=== PATIENT | female | born 1965 | race Caucasian/White ===

== ENCOUNTER 2019-11-24 12:05 | Outpatient (REF) | payer MEDICAID, SELFPAY ==
--- NOTE | 2019-11-24 12:16 | XR_ITS ---
EXAMINATION: XR THORACOLUMBAR SPINE CLINICAL INFORMATION: Pain. COMPARISON: None TECHNIQUE: 3 views. FINDINGS: There is maintained thoracic kyphosis. The vertebral heights and alignment is normal. The disc heights are maintained. There is mild ventral spondylosis. No visible acute fracture or dislocation seen. IMPRESSION: No compression fractures or subluxations are identified. The disc spaces are preserved. No endplate changes are seen. The prevertebral soft tissues are normal. The foramina are patent.
--- NOTE | 2019-11-24 12:17 | XR_ITS ---
EXAMINATION: XR CHEST CLINICAL INFORMATION: Shortness of breath COMPARISON: Chest radiographs 07/31/2019, 05/31/2016 TECHNIQUE: 2 views of the chest were obtained. FINDINGS: Lungs are clear. The vascularity is normal. There is no airspace consolidation or groundglass opacity. The costophrenic sulci are clear. The heart is normal in size. The hilar and mediastinal contours are normal. There is gentle levocurvature again noted thoracic spine. IMPRESSION: Lungs clear. No acute intrathoracic disease.
== END 2019-11-24 12:06 | disposition home or self-care (01) ==
LOC: HO.XRAY 12:05
PROVIDERS: PCP Family Medicine; Visit Provider Nurse Practitioner Family
DX: R06.02 Shortness of breath (principal); M54.6 Pain in thoracic spine
CPT/HCPCS: 71046; 72070

== ENCOUNTER 2020-01-12 10:56 | Outpatient (REF) | payer MEDICAID, SELFPAY ==
[2020-01-13 09:21] LABS: BV Int Neg Control Negative (Negative); BV Int Pos Control Positive (Positive)
[2020-01-16 18:13] LABS: CT PCR NOT DETECTED (Not Detect.); NG PCR NOT DETECTED (Not Detect.)
== END 2020-01-12 10:57 | disposition home or self-care (01) ==
LOC: HO.LAB 10:56
PROVIDERS: Visit Provider Advanced Practice Midwife
DX: Z01.419 Encounter for gynecological examination (general) (routine) without abnormal findings (principal); N39.3 Stress incontinence (female) (male); N89.8 Other specified noninflammatory disorders of vagina
CPT/HCPCS: 87480; 87491; 87510; 87591; 87660

== ENCOUNTER 2020-02-26 09:46 | Outpatient (REF) | payer MEDICAID, SELFPAY ==
--- NOTE | 2020-02-26 | US_ITS ---
EXAMINATION: RIGHT and LEFT LOWER EXTREMITY VENOUS ULTRASOUND (Reflux Exam) CLINICAL INDICATION: venous insufficiency COMPARISON: None. TECHNIQUE: Color flow triplex imaging and compression Doppler was performed to evaluate both the deep and the superficial systems bilaterally. To evaluate the superficial system, the examination was performed in the upright position. Color-flow Doppler ultrasound and compression ultrasound were utilized. In addition, maneuvers were utilized to demonstrate reflux. FINDINGS: 1. DEEP VENOUS ULTRASOUND OF THE RIGHT LOWER EXTREMITY: Respiratory variation, normal compression and augmented flow are noted in the right common femoral vein as well as the right popliteal vein and there is no evidence of deep venous thrombosis at these locations. There is no evidence of reflux in the deep system in either the common femoral vein or the popliteal vein. There is no evidence of a Mcneil's cyst. 2. SUPERFICIAL ULTRASOUND WITH DOPPLER OF RIGHT LOWER EXTREMITY: The right great saphenous vein at the saphenofemoral junction measures 7 mm, at the mid thigh 4 mm, [id number] 4 mm, [id number] 3 mm, at mid calf 2 mm and at the ankle measures 3 mm. There is no reflux demonstrated in the right great saphenous vein. The right small saphenous vein measures 2-3 mm and shows no reflux. There is a interior design director in the mid calf that measures 4 mm and does not demonstrate reflux. There are varicosities in the proximal thigh at the knee that measure 3 and 4 mm and do not demonstrate reflux. 3. DEEP VENOUS ULTRASOUND OF THE LEFT LOWER EXTREMITY: Respiratory variation, normal compression and augmented flow are noted in the left common femoral vein as well as the left popliteal vein and there is no evidence of deep venous thrombosis at these locations. There is no evidence of reflux in the deep system in either the common femoral vein or the popliteal vein. . There is no evidence of a Mcneil's cyst. 4. SUPERFICIAL ULTRASOUND WITH DOPPLER OF LEFT LOWER EXTREMITY: Left great saphenous vein at the saphenofemoral junction measures 8 mm, at the mid thigh 3 mm, [id number] 4 mm, [id number] 4 mm, at mid calf to mm and at the ankle measures 2 mm. There is no reflux demonstrated in the left great saphenous vein. The left small saphenous vein measures 3-4 mm and shows no reflux. There are perforators in the mid and distal thigh that measure 3 and 2 mm and and do not demonstrate reflux. There is a varicosity in the proximal thigh that measures 3 mm and does not demonstrate reflux. US/US venous duplex LE BI IMPRESSION: 1. No evidence of reflux or thrombus in the common femoral veins or popliteal veins bilaterally. 2. The saphenous systems are competent bilaterally.
== END 2020-02-26 09:47 | disposition home or self-care (01) ==
LOC: HO.US 09:46
PROVIDERS: Visit Provider Surgery Vascular Surgery
DX: I83.12 Varicose veins of left lower extremity with inflammation (principal)
CPT/HCPCS: 93970

== ENCOUNTER 2020-03-04 08:45 | Outpatient (REF) | payer MEDICAID, SELFPAY ==
--- NOTE | 2020-03-04 08:50 | XR_ITS ---
EXAMINATION: XR KNEE, RIGHT CLINICAL INFORMATION: Right knee pain. COMPARISON: None TECHNIQUE: Four views of the right knee. This includes AP upright view. FINDINGS: No fracture or subluxation. Mild medial compartment joint space narrowing with small marginal osteophytes. Remaining compartments are maintained. No joint effusion. The soft tissues are unremarkable. XR/XR knee RT 4V IMPRESSION: Mild degenerative changes of the medial compartment.
== END 2020-03-04 08:46 | disposition home or self-care (01) ==
LOC: HO.XRAY 08:45
PROVIDERS: Visit Provider Internal Medicine
DX: M25.561 Pain in right knee (principal)
CPT/HCPCS: 73564

== ENCOUNTER → 2020-03-30 09:46 | Outpatient (BNVA) | payer MEDICAID, SELFPAY | PROVIDERS: PCP Nurse Practitioner Family; Visit Provider Surgery Vascular Surgery | DX: M79.89 Other specified soft tissue disorders (principal) | CPT/HCPCS: 99212 ==

== ENCOUNTER 2020-09-06 08:54 | Outpatient (REF) | payer MEDICAID, SELFPAY ==
--- NOTE | ~2020-09-06 | XR_ITS ---
EXAMINATION: XR HIP, RIGHT CLINICAL INFORMATION: Trochanteric bursitis COMPARISON: None TECHNIQUE: Two views of the right hip. FINDINGS: Bones and soft tissues are normal. No fracture. Alignment is anatomic. Hip joint space is maintained. XR/XR hip RT min 2V IMPRESSION: Normal right hip.
--- NOTE | ~2020-09-06 | XR_ITS ---
EXAMINATION: XR LUMBOSACRAL SPINE CLINICAL INFORMATION: Low back pain and right-sided sciatica COMPARISON: Previous x-ray July 2015 TECHNIQUE: Three views of the lumbosacral spine. FINDINGS: Bone alignment is normal. No fracture or dislocation is seen. There is degenerative disc disease at L4-L5 and L5-S1. There is lower lumbar spine facet arthritis. XR/XR lumbar spine 2-3V IMPRESSION: Degenerative disc disease at L4-L5 and L5-S1 and lower lumbar spine facet arthritis.
== END 2020-09-06 08:55 | disposition home or self-care (01) ==
LOC: HO.XRAY 08:54
PROVIDERS: Absent Provider Family Medicine; PCP Family Medicine; Visit Provider Internal Medicine
DX: M54.41 Lumbago with sciatica, right side (principal); M70.61 Trochanteric bursitis, right hip
CPT/HCPCS: 72100; 73502

== ENCOUNTER 2021-01-20 12:00 | Outpatient (REF) | payer MEDICAID, SELFPAY ==
[2021-01-20 13:57] LABS: Basophils Percent Auto 0.5 % (0-2); Eosinophils Absolute Auto 0.1 X10*3/uL (0.0-0.4); Eosinophils Percent Auto 0.6 % (0-4); Hematocrit 37.5 % (37.0-47.0); Hemoglobin 11.2 g/dl (12.0-16.0); Imm Gran Abs Auto 0.03 X10*3/uL (0.00-0.03); Imm Gran Pct Auto 0.4 % (0.0-0.4); Lymphocytes Percent Auto 23.8 % (20-40); Mean Corpuscular HGB Conc 29.9 g/dl (31.0-35.0); Mean Corpuscular Hemoglobin 18.9 pg (27.0-33.0); Monocytes Absolute Auto 0.8 X10*3/uL (0.1-1.2); Monocytes Percent Auto 9.4 % (2-11); Neutrophils Absolute Auto 5.4 x10*3/uL (2.0-8.3); Neutrophils Percent Auto 65.3 % (45-73); Platelet Count 249 X10*3/uL (160-400); Red Blood Count 5.93 X10*6/uL (4.20-5.50); Red Cell Distribution Width 17.2 % (11.0-16.0); SCAN SMEAR FLAG 1; White Blood Count 8.3 X10*3/uL (4.8-10.8)
[2021-01-20 13:59] LABS: Mean Corpuscular Volume 63.2 fL (80.0-98.0); PLT ABN DIST 1
[2021-01-20 14:00] LABS: MANUAL DIFF FLAG NO
[2021-01-20 14:18] LABS: Alanine Aminotransferase 23 U/L (0-31); Albumin Level 4.3 g/dL (3.5-5.0); Alkaline Phosphatase 127 U/L (39-117); Anion Gap 10 (12-20); Aspartate Amino Transferase 17 U/L (5-31); Bilirubin Direct < 0.2 mg/dL (0.0-0.5); Bilirubin Total 0.3 mg/dL (0.0-1.0); Blood Urea Nitrogen 19 mg/dL (9-16); Calcium 9.7 mg/dL (8.4-10.2); Carbon Dioxide 28 mmol/L (22-29); Chloride 105 mmol/L (96-108); Estimated Glomerular Filt Rate > 60; Gamma Glutamyl Transpeptidase 29 U/L (7-33); Glucose Random 86 mg/dL (60-115); Potassium 4.3 mmol/L (3.3-5.1); Sodium 139 mmol/L (135-145); Total Protein 7.6 g/dL (6.5-8.0)
[2021-01-20 14:47] LABS: Ferritin 468 ng/mL (10-250)
[2021-01-21 07:51] LABS: HBS Num1 1.93 mIU/mL (0-7.99); HBc Num1 0.13 S/CO (0.00-0.79); HBsAGNum1 0.27 S/CO (0.00-0.99); HIV AB/AG Nonreactive (Nonreactive); HIV Num 1 0.07 S/CO (0.00-0.99); Hepatitis B Core Antibody Nonreactive (Nonreactive); Hepatitis B Surface Antigen Negative (Negative); ~HepC Num1 0.13 S/CO (0.00-0.79); ~Hepatitis B Surface Antibody NONREACTIVE (Nonreactive); ~Hepatitis C Antibody Nonreactive (Nonreactive)
[2021-01-21 08:12] LABS: Hepatitis A Antibody IgM 0.13 Index (0-0.79); ~Hepatitis A Antibody IgM Nonreactive (Nonreactive)
[2021-01-24 11:12] LABS: Anti Nuclear Antibody Screen POSITIVE (NEGATIVE); Anti Nuclear Antibody Titer 1:40 titer
[2021-01-24 12:42] LABS: Alpha Fetoprotein 4.3 ng/mL
[2021-01-25 11:46] LABS: Smooth Muscle Antibody <20 U (<20)
[2021-01-25 16:42] LABS: Mitochondrial Antibodies NEGATIVE (NEGATIVE)
== END 2021-01-20 12:01 | disposition home or self-care (01) ==
LOC: HO.LAB 12:00
PROVIDERS: PCP Family Medicine; Referring Provider Family Medicine; Visit Provider Nurse Practitioner
DX: Z11.4 Encounter for screening for human immunodeficiency virus [HIV] (principal); R79.89 Other specified abnormal findings of blood chemistry
CPT/HCPCS: 36415; 80053; 82105; 82248; 82728; 82977; 85025; 86038; 86039; 86255; 86256; 86704; 86706; 86709; 86803; 87340; 87389; 99202

== ENCOUNTER 2021-02-04 13:23 | Inpatient (IN) | payer MEDICAID, OTHER, SELFPAY ==
[2021-02-04 13:31] VITALS: BP 119/65; BP 140/80; PULSE 88; PULSE 96; RESP 16; TEMP 36.8; O2SAT 96; BMI 41.8
--- NOTE | 2021-02-04 14:13 | ED.GENADULT ---
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 She reports her oldest son who lives a couple of blocks away called 911 so she could be evaluated. She says the clinic told him she was throwing her medications in the trash. She admits to not eating much lately because she is afraid to cook in her home because it is hot. She has had white rice and spaghetti. She states she hasn't been to the grocery store since Nov but has been out 2 weeks ago to go clothes shopping. She reports being anxious and nervous lately but cannot elaborate. She is desperate' but cannot say for what. She denies AH/VH. She reports only medications she is supposed to be on is thyroid medication and cholesterol medication. She is a vague historian, gave permission to get additional history from her son Jed. He reports she started to decline in December. He states that patient is very paranoid, hallucinating and seeing things that are not there. He reports she has a history of this 3 years ago required hospitalization in [place]. He reports it was due to her not taking her thyroid medications and her hormones being off. He reports when he called [facility] that she has not picked up her Synthroid since October. He states she is not bathing, not brushing her teeth because she is afraid of things on her skin. She reports animals in her home. He states she ?is not in her right state of mind. ? He is worried about her safety at home. He called 911 this morning because she was up all night calling family members about animals in the house. <FATEMEH Kraft - Last Filed: 02/04/21 20:20> MD complaint: Mental health evaluation <FATEMEH Kraft - Last Filed: 02/04/21 20:20> Onset (ago): week(s) <FATEMEH Kraft - Last Filed: 02/04/21 20:20> Severity: similar to prior episodes <FATEMEH Kraft - Last Filed: 02/04/21 20:20> Pain Consistency: constant <FATEMEH Kraft - Last Filed: 02/04/21 20:20> Relieving factors: none <FATEMEH Kraft - Last Filed: 02/04/21 20:20> Exacerbating factors: none <FATEMEH Kraft - Last Filed: 02/04/21 20:20> Associated symptoms: loss of appetite and weakness <FATEMEH Kraft - Last Filed: 02/04/21 20:20> Treatments prior to arrival: none <FATEMEH Kraft - Last Filed: 02/04/21 20:20> Related Data Home medications: Home Medications Medication Instructions Recorded Confirmed levothyroxine 175 mcg tablet 175 mcg PO DAILY 01/12/20 02/05/21 (Synthroid) acetaminophen 500 mg tablet 500 - 1,000 mg PO Q8H PRN 01/20/21 02/05/21 albuterol sulfate 90 mcg/actuation 2 puff PO Q4-6H PRN 01/20/21 02/05/21 aerosol inhaler (ProAir HFA) atorvastatin 20 mg tablet 20 mg PO DAILY 01/20/21 02/05/21 cholecalciferol (vitamin D3) 50 50 mcg PO DAILY 01/20/21 02/05/21 mcg (2,000 unit) capsule ciclopirox 8 % topical solution 1 ml TOPICAL BEDTIME 01/20/21 02/05/21 escitalopram oxalate 5 mg tablet 5 mg PO QPM 01/20/21 02/05/21 folic acid 1 mg tablet 1 mg PO DAILY 01/20/21 02/05/21 omeprazole 20 mg capsule,delayed 20 mg PO DAILY 01/20/21 02/05/21 release <FATEMEH Kraft - Last Filed: 02/04/21 20:20> Allergies/adverse reactions: Allergies Allergy/AdvReac Type Severity Reaction Status Date / Time acetaminophen [Percocet] Allergy Unknown Unknown Verified 01/20/21 12:29 aspirin [ASA] Allergy Unknown BURNING Verified 01/20/21 12:29 IN STOMACH morphine [MORPHINE] Allergy Unknown HEADACHES Verified 01/20/21 12:29 Motrin Allergy Unknown Unknown Verified 01/20/21 12:29 naproxen Allergy Unknown Unknown Verified 01/20/21 12:29 oxycodone [Percocet] Allergy Unknown Unknown Verified 01/20/21 12:29 ibuprofen [From MOTRIN] AdvReac Unknown STOMACH Verified 01/20/21 12:29 UPSET compacine Allergy Unknown Unknown Uncoded 01/12/20 11:45 Compoz Allergy Unknown Unknown Uncoded 01/12/20 11:45 From COMPAZINE AdvReac Unknown Unknown Uncoded 01/12/20 11:45 <FATEMEH Kraft - Last Filed: 02/04/21 20:20> Review of Systems Review of Systems: Constitutional: No Fever, No Chills ENT/Mouth: No sore throat, No Rhinorrhea, No Swallowing Difficulty Cardiovascular: No Chest Pain, No SOB, No Orthopnea, No Edema Respiratory: No Cough, No Sputum, No Wheezing, No dyspnea Gastrointestinal: No Nausea, No Vomiting, No Diarrhea, No abdominal Pain Genitourinary: No Dysuria, No Urinary Frequency, No Hematuria Musculoskeletal: No joint pain, No Myalgias Skin: No Skin Lesions, No rash Neuro: + Weakness, No Numbness, No Dizziness, No Headache Psych: + Anxiety/Panic, No Depression, +Paranoia Heme/Lymph: No Bruising, No Lymphadenopathy Endocrine: No Polyuria, No Polydipsia <FATEMEH Kraft - Last Filed: 02/04/21 20:20> [facility] Past Medical History Medical History: Medical History (Updated 02/04/21 @ 20:19 by FATEMEH Kraft) Anemia Breast cancer Hallucinations, unspecified Post hysterectomy menopause Thyroid activity decreased <FATEMEH Kraft - Last Filed: 02/04/21 20:20> Surgical History: Surgical History (Updated 12/27/20 @ 10:24 by ENID Morales) History of cholecystectomy History of hysterectomy <FATEMEH Kraft - Last Filed: 02/04/21 20:20> Family History Family History: Family History Mother Diabetes Father HTN (hypertension) <FATEMEH Kraft - Last Filed: 02/04/21 20:20> Social History Social History: Social History Alcohol intake: never Patient Tobacco Use Status: Never used Tobacco Smoked in Last 30 Days: No Advance Directives: No Advance Directives Information Provided: No Patient : No Gender identity: Female <FATEMEH Kraft - Last Filed: 02/04/21 20:20> Physical Exam Vital Signs: Vital Signs: Last Vital Signs Temp 98.8 F 02/04/21 23:51 Pulse 80 02/04/21 23:51 Resp 18 02/05/21 06:00 BP 134/71 02/04/21 23:51 Pulse Ox 97 02/05/21 01:16 BMI result Body Mass Index 41.8 <FATEMEH Kraft - Last Filed: 02/04/21 20:20> Vital Signs: Last Vital Signs Temp 98.8 F 02/04/21 23:51 Pulse 80 02/04/21 23:51 Resp 18 02/05/21 06:00 BP 134/71 02/04/21 23:51 Pulse Ox 97 02/05/21 01:16 BMI result Body Mass Index 41.8 <Prema Clark MD - Last Filed: 02/05/21 05:53> Vital Signs: Last Vital Signs Temp 98.8 F 02/04/21 23:51 Pulse 80 02/04/21 23:51 Resp 18 02/05/21 06:00 BP 134/71 02/04/21 23:51 Pulse Ox 97 02/05/21 01:16 BMI result Body Mass Index 41.8 <FATEMEH Goldsmith - Last Filed: 02/05/21 09:40> Appearance: Alert. Oriented X3. No acute distress. Eyes: Pupils equal, round and reactive to light. ENT: Pharynx normal. Neck: Normal inspection. Neck supple. CVS: Normal heart rate and rhythm. Pulses normal. Respiratory: No respiratory distress. Breath sounds normal. Abdomen: Obese and nontender. +BS x4 Skin: Skin warm and dry. Normal skin color. Normal skin turgor. No rashes. Extremities: No lower extremity edema. Neuro/psych: Oriented X 3. No motor deficit. No sensory deficit. CN II-XII intact. Vague historian, poor insight and judgment. anxious <FATEMEH Kraft - Last Filed: 02/04/21 20:20> Course Course Course Narrative: 55-year-old female with a history of hypothyroidism, mild intermittent asthma, migraine headaches, depression presents to the ER with paranoid a, hallucinations per her family as well as not taking care of herself. Her son reports that she has been having tactile and visual hallucinations with paranoid delusions. She has been noncompliant with her Synthroid and he is worried about imbalance of her thyroid hormones which she has had a history of in the past. On arrival to the ER patient is alert and oriented calm and cooperative. Her vital signs are normal. Her exam is benign. She has a vague historian and has underlying anxiety. Will get metabolic workup and is medically cleared will have [facility] evaluate her. <FATEMEH Kraft - Last Filed: 02/04/21 20:20> Reevaluation(s) Reevaluation #1: TSH is normal. Rest of metabolic workup is normal. U tox is negative. Patient is medically cleared. Physician observation started at 4pm. Patient placed in physician observation because patient is awaiting [facility] evaluation for the possible need of inpatient psych admission. At the time observation was started patient's vital signs were stable. Patient is alert and oriented. Neuro exam is non-focal. CV: RRR and lungs are clear. Will continue to monitor. <FATEMEH Kraft - Last Filed: 02/04/21 20:20> Reevaluation #2: Patient was evaluated by [facility]. Patient will be re-evaluated this morning, then her disposition will be determined. Patient had an uneventful night <Prema Clark MD - Last Filed: 02/05/21 05:53> Time: 09:39 <FATEMEH Goldsmith - Last Filed: 02/05/21 09:40> Reevaluation #3: Physician observation continues, patient is in no apparent distress, vital signs are stable, heart rate regular rhythm, calm and cooperative, no acute events overnight. Lungs mildly wheezy to auscultation, will provide albuterol inhaler. Patient needs re-evaluation by Behavioral Health today. Will continue to monitor <FATEMEH Goldsmith - Last Filed: 02/05/21 09:40> Medical Decision Making Lab Data Result diagrams: : 02/04/21 14:33 02/04/21 14:33 <FATEMEH Kraft - Last Filed: 02/04/21 20:20> Labs: Lab Results 02/04/21 02/04/21 02/04/21 Range/Units 14:33 14:33 14:33 WBC 8.5 (4.8-10.8) X10*3/uL RBC 5.94 H (4.20-5.50) X10*6/uL Hgb 11.2 L (12.0-16.0) g/dl Hct 37.1 (37.0-47.0) % MCV 62.5 L (80.0-98.0) fL MCH 18.9 L (27.0-33.0) pg MCHC 30.2 L (31.0-35.0) g/dl RDW 15.9 (11.0-16.0) % Plt Count 253 (160-400) X10*3/uL MPV 10.2 (9.4-12.3) fL Immature Gran % (Auto) 0.4 (0.0-0.4) % Neut % (Auto) 73.2 H (45-73) % Lymph % (Auto) 17.9 L (20-40) % [place] % (Auto) 7.9 (2-11) % Eos % (Auto) 0.2 (0-4) % Baso % (Auto) 0.4 (0-2) % Lymph # (Auto) 1.5 (1.2-4.9) X10*3/uL [place] # (Auto) 0.7 (0.1-1.2) X10*3/uL Eos # (Auto) 0.0 (0.0-0.4) X10*3/uL Baso # (Auto) 0.0 (0.0-0.2) X10*3/uL Abs Immat Gran (auto) 0.03 (0.00-0.03) X10*3/uL Absolute Neuts (auto) 6.3 (2.0-8.3) x10*3/uL Absolute Nucleated RBC 0.000 (0.0-0.012) X10*3/uL Nucleated RBC % (auto) 0.0 (0.0-0.2) /100WBC Sodium 139 (135-145) mmol/L Potassium 4.0 (3.3-5.1) mmol/L Chloride 106 (96-108) mmol/L Carbon Dioxide 27 (22-29) mmol/L Anion Gap 10 L (12-20) BUN 12 (9-16) mg/dL Creatinine 0.86 (0.5-1.4) mg/dL Estim Creat Clear Calc 84.6 Estimated GFR > 60 Random Glucose 97 (60-115) mg/dL Calcium 9.5 (8.4-10.2) mg/dL Magnesium 2.1 (1.6-2.6) mg/dL Total Bilirubin 0.7 (0.0-1.0) mg/dL Direct Bilirubin 0.2 (0.0-0.5) mg/dL AST 28 D (5-31) U/L ALT 26 (0-31) U/L Alkaline Phosphatase 122 H (39-117) U/L Total Protein 7.6 (6.5-8.0) g/dL Albumin 4.3 (3.5-5.0) g/dL TSH 1.08 (0.32-4.0) uIU/mL Urine Color Urine Appearance Urine pH (5.0-8.0) Ur Specific [place] (1.005-1.025) Urine Protein (NEG-TRACE) MG/DL Urine Glucose (UA) (NEG) MG/DL Urine Ketones (NEG) MG/DL Urine Blood (NEG) Urine Nitrite (NEG) Ur Leukocyte Esterase (NEG) Urine Opiates Screen (Not Detect) Urine Fentanyl Screen (Not Detect) Ur Barbiturates Screen (Not Detect) Ur Phencyclidine Scrn (Not Detect) Ur Amphetamines Screen (Not Detect) U Benzodiazepines Scrn (Not Detect) Urine Cocaine Screen (Not Detect) U Marijuana (THC) Screen (Not Detect) Ethyl Alcohol mg/dL COVID-19 (GELY) Negative (Negative) COVID-19 Clin Com See Note 02/04/21 02/04/21 02/04/21 Range/Units 14:33 16:16 16:16 WBC (4.8-10.8) X10*3/uL RBC (4.20-5.50) X10*6/uL Hgb (12.0-16.0) g/dl Hct (37.0-47.0) % MCV (80.0-98.0) fL MCH (27.0-33.0) pg MCHC (31.0-35.0) g/dl RDW (11.0-16.0) % Plt Count (160-400) X10*3/uL MPV (9.4-12.3) fL Immature Gran % (Auto) (0.0-0.4) % Neut % (Auto) (45-73) % Lymph % (Auto) (20-40) % [place] % (Auto) (2-11) % Eos % (Auto) (0-4) % Baso % (Auto) (0-2) % Lymph # (Auto) (1.2-4.9) X10*3/uL [place] # (Auto) (0.1-1.2) X10*3/uL Eos # (Auto) (0.0-0.4) X10*3/uL Baso # (Auto) (0.0-0.2) X10*3/uL Abs Immat Gran (auto) (0.00-0.03) X10*3/uL Absolute Neuts (auto) (2.0-8.3) x10*3/uL Absolute Nucleated RBC (0.0-0.012) X10*3/uL Nucleated RBC % (auto) (0.0-0.2) /100WBC Sodium (135-145) mmol/L Potassium (3.3-5.1) mmol/L Chloride (96-108) mmol/L Carbon Dioxide (22-29) mmol/L Anion Gap (12-20) BUN (9-16) mg/dL Creatinine (0.5-1.4) mg/dL Estim Creat Clear Calc Estimated GFR Random Glucose (60-115) mg/dL Calcium (8.4-10.2) mg/dL Magnesium (1.6-2.6) mg/dL Total Bilirubin (0.0-1.0) mg/dL Direct Bilirubin (0.0-0.5) mg/dL AST (5-31) U/L ALT (0-31) U/L Alkaline Phosphatase (39-117) U/L Total Protein (6.5-8.0) g/dL Albumin (3.5-5.0) g/dL TSH (0.32-4.0) uIU/mL Urine Color YELLOW Urine Appearance HAZY Urine pH 6.5 (5.0-8.0) Ur Specific [place] 1.020 (1.005-1.025) Urine Protein TRACE (NEG-TRACE) MG/DL Urine Glucose (UA) NEG (NEG) MG/DL Urine Ketones 5 (NEG) MG/DL Urine Blood NEG (NEG) Urine Nitrite NEG (NEG) Ur Leukocyte Esterase NEG (NEG) Urine Opiates Screen Not Detected (Not Detect) Urine Fentanyl Screen Not Detected (Not Detect) Ur Barbiturates Screen Not Detected (Not Detect) Ur Phencyclidine Scrn Not Detected (Not Detect) Ur Amphetamines Screen Not Detected (Not Detect) U Benzodiazepines Scrn Not Detected (Not Detect) Urine Cocaine Screen Not Detected (Not Detect) U Marijuana (THC) Screen Not Detected (Not Detect) Ethyl Alcohol < 10 mg/dL COVID-19 (GELY) (Negative) COVID-19 Clin Com <FATEMEH Kraft - Last Filed: 02/04/21 20:20> Lab Results 02/04/21 02/04/21 02/04/21 Range/Units 14:33 14:33 14:33 WBC 8.5 (4.8-10.8) X10*3/uL RBC 5.94 H (4.20-5.50) X10*6/uL Hgb 11.2 L (12.0-16.0) g/dl Hct 37.1 (37.0-47.0) % MCV 62.5 L (80.0-98.0) fL MCH 18.9 L (27.0-33.0) pg MCHC 30.2 L (31.0-35.0) g/dl RDW 15.9 (11.0-16.0) % Plt Count 253 (160-400) X10*3/uL MPV 10.2 (9.4-12.3) fL Immature Gran % (Auto) 0.4 (0.0-0.4) % Neut % (Auto) 73.2 H (45-73) % Lymph % (Auto) 17.9 L (20-40) % [place] % (Auto) 7.9 (2-11) % Eos % (Auto) 0.2 (0-4) % Baso % (Auto) 0.4 (0-2) % Lymph # (Auto) 1.5 (1.2-4.9) X10*3/uL [place] # (Auto) 0.7 (0.1-1.2) X10*3/uL Eos # (Auto) 0.0 (0.0-0.4) X10*3/uL Baso # (Auto) 0.0 (0.0-0.2) X10*3/uL Abs Immat Gran (auto) 0.03 (0.00-0.03) X10*3/uL Absolute Neuts (auto) 6.3 (2.0-8.3) x10*3/uL Absolute Nucleated RBC 0.000 (0.0-0.012) X10*3/uL Nucleated RBC % (auto) 0.0 (0.0-0.2) /100WBC Sodium 139 (135-145) mmol/L Potassium 4.0 (3.3-5.1) mmol/L Chloride 106 (96-108) mmol/L Carbon Dioxide 27 (22-29) mmol/L Anion Gap 10 L (12-20) BUN 12 (9-16) mg/dL Creatinine 0.86 (0.5-1.4) mg/dL Estim Creat Clear Calc 84.6 Estimated GFR > 60 Random Glucose 97 (60-115) mg/dL Calcium 9.5 (8.4-10.2) mg/dL Magnesium 2.1 (1.6-2.6) mg/dL Total Bilirubin 0.7 (0.0-1.0) mg/dL Direct Bilirubin 0.2 (0.0-0.5) mg/dL AST 28 D (5-31) U/L ALT 26 (0-31) U/L Alkaline Phosphatase 122 H (39-117) U/L Total Protein 7.6 (6.5-8.0) g/dL Albumin 4.3 (3.5-5.0) g/dL TSH 1.08 (0.32-4.0) uIU/mL Urine Color Urine Appearance Urine pH (5.0-8.0) Ur Specific [place] (1.005-1.025) Urine Protein (NEG-TRACE) MG/DL Urine Glucose (UA) (NEG) MG/DL Urine Ketones (NEG) MG/DL Urine Blood (NEG) Urine Nitrite (NEG) Ur Leukocyte Esterase (NEG) Urine Opiates Screen (Not Detect) Urine Fentanyl Screen (Not Detect) Ur Barbiturates Screen (Not Detect) Ur Phencyclidine Scrn (Not Detect) Ur Amphetamines Screen (Not Detect) U Benzodiazepines Scrn (Not Detect) Urine Cocaine Screen (Not Detect) U Marijuana (THC) Screen (Not Detect) Ethyl Alcohol mg/dL COVID-19 (GELY) Negative (Negative) COVID-19 Clin Com See Note 02/04/21 02/04/21 02/04/21 Range/Units 14:33 16:16 16:16 WBC (4.8-10.8) X10*3/uL RBC (4.20-5.50) X10*6/uL Hgb (12.0-16.0) g/dl Hct (37.0-47.0) % MCV (80.0-98.0) fL MCH (27.0-33.0) pg MCHC (31.0-35.0) g/dl RDW (11.0-16.0) % Plt Count (160-400) X10*3/uL MPV (9.4-12.3) fL Immature Gran % (Auto) (0.0-0.4) % Neut % (Auto) (45-73) % Lymph % (Auto) (20-40) % [place] % (Auto) (2-11) % Eos % (Auto) (0-4) % Baso % (Auto) (0-2) % Lymph # (Auto) (1.2-4.9) X10*3/uL [place] # (Auto) (0.1-1.2) X10*3/uL Eos # (Auto) (0.0-0.4) X10*3/uL Baso # (Auto) (0.0-0.2) X10*3/uL Abs Immat Gran (auto) (0.00-0.03) X10*3/uL Absolute Neuts (auto) (2.0-8.3) x10*3/uL Absolute Nucleated RBC (0.0-0.012) X10*3/uL Nucleated RBC % (auto) (0.0-0.2) /100WBC Sodium (135-145) mmol/L Potassium (3.3-5.1) mmol/L Chloride (96-108) mmol/L Carbon Dioxide (22-29) mmol/L Anion Gap (12-20) BUN (9-16) mg/dL Creatinine (0.5-1.4) mg/dL Estim Creat Clear Calc Estimated GFR Random Glucose (60-115) mg/dL Calcium (8.4-10.2) mg/dL Magnesium (1.6-2.6) mg/dL Total Bilirubin (0.0-1.0) mg/dL Direct Bilirubin (0.0-0.5) mg/dL AST (5-31) U/L ALT (0-31) U/L Alkaline Phosphatase (39-117) U/L Total Protein (6.5-8.0) g/dL Albumin (3.5-5.0) g/dL TSH (0.32-4.0) uIU/mL Urine Color YELLOW Urine Appearance HAZY Urine pH 6.5 (5.0-8.0) Ur Specific [place] 1.020 (1.005-1.025) Urine Protein TRACE (NEG-TRACE) MG/DL Urine Glucose (UA) NEG (NEG) MG/DL Urine Ketones 5 (NEG) MG/DL Urine Blood NEG (NEG) Urine Nitrite NEG (NEG) Ur Leukocyte Esterase NEG (NEG) Urine Opiates Screen Not Detected (Not Detect) Urine Fentanyl Screen Not Detected (Not Detect) Ur Barbiturates Screen Not Detected (Not Detect) Ur Phencyclidine Scrn Not Detected (Not Detect) Ur Amphetamines Screen Not Detected (Not Detect) U Benzodiazepines Scrn Not Detected (Not Detect) Urine Cocaine Screen Not Detected (Not Detect) U Marijuana (THC) Screen Not Detected (Not Detect) Ethyl Alcohol < 10 mg/dL COVID-19 (GELY) (Negative) COVID-19 Clin Com <Prema Clark MD - Last Filed: 02/05/21 05:53> Lab Results 02/04/21 02/04/21 02/04/21 Range/Units 14:33 14:33 14:33 WBC 8.5 (4.8-10.8) X10*3/uL RBC 5.94 H (4.20-5.50) X10*6/uL Hgb 11.2 L (12.0-16.0) g/dl Hct 37.1 (37.0-47.0) % MCV 62.5 L (80.0-98.0) fL MCH 18.9 L (27.0-33.0) pg MCHC 30.2 L (31.0-35.0) g/dl RDW 15.9 (11.0-16.0) % Plt Count 253 (160-400) X10*3/uL MPV 10.2 (9.4-12.3) fL Immature Gran % (Auto) 0.4 (0.0-0.4) % Neut % (Auto) 73.2 H (45-73) % Lymph % (Auto) 17.9 L (20-40) % [place] % (Auto) 7.9 (2-11) % Eos % (Auto) 0.2 (0-4) % Baso % (Auto) 0.4 (0-2) % Lymph # (Auto) 1.5 (1.2-4.9) X10*3/uL [place] # (Auto) 0.7 (0.1-1.2) X10*3/uL Eos # (Auto) 0.0 (0.0-0.4) X10*3/uL Baso # (Auto) 0.0 (0.0-0.2) X10*3/uL Abs Immat Gran (auto) 0.03 (0.00-0.03) X10*3/uL Absolute Neuts (auto) 6.3 (2.0-8.3) x10*3/uL Absolute Nucleated RBC 0.000 (0.0-0.012) X10*3/uL Nucleated RBC % (auto) 0.0 (0.0-0.2) /100WBC Sodium 139 (135-145) mmol/L Potassium 4.0 (3.3-5.1) mmol/L Chloride 106 (96-108) mmol/L Carbon Dioxide 27 (22-29) mmol/L Anion Gap 10 L (12-20) BUN 12 (9-16) mg/dL Creatinine 0.86 (0.5-1.4) mg/dL Estim Creat Clear Calc 84.6 Estimated GFR > 60 Random Glucose 97 (60-115) mg/dL Calcium 9.5 (8.4-10.2) mg/dL Magnesium 2.1 (1.6-2.6) mg/dL Total Bilirubin 0.7 (0.0-1.0) mg/dL Direct Bilirubin 0.2 (0.0-0.5) mg/dL AST 28 D (5-31) U/L ALT 26 (0-31) U/L Alkaline Phosphatase 122 H (39-117) U/L Total Protein 7.6 (6.5-8.0) g/dL Albumin 4.3 (3.5-5.0) g/dL TSH 1.08 (0.32-4.0) uIU/mL Urine Color Urine Appearance Urine pH (5.0-8.0) Ur Specific [place] (1.005-1.025) Urine Protein (NEG-TRACE) MG/DL Urine Glucose (UA) (NEG) MG/DL Urine Ketones (NEG) MG/DL Urine Blood (NEG) Urine Nitrite (NEG) Ur Leukocyte Esterase (NEG) Urine Opiates Screen (Not Detect) Urine Fentanyl Screen (Not Detect) Ur Barbiturates Screen (Not Detect) Ur Phencyclidine Scrn (Not Detect) Ur Amphetamines Screen (Not Detect) U Benzodiazepines Scrn (Not Detect) Urine Cocaine Screen (Not Detect) U Marijuana (THC) Screen (Not Detect) Ethyl Alcohol mg/dL COVID-19 (GELY) Negative (Negative) COVID-19 Clin Com See Note 02/04/21 02/04/21 02/04/21 Range/Units 14:33 16:16 16:16 WBC (4.8-10.8) X10*3/uL RBC (4.20-5.50) X10*6/uL Hgb (12.0-16.0) g/dl Hct (37.0-47.0) % MCV (80.0-98.0) fL MCH (27.0-33.0) pg MCHC (31.0-35.0) g/dl RDW (11.0-16.0) % Plt Count (160-400) X10*3/uL MPV (9.4-12.3) fL Immature Gran % (Auto) (0.0-0.4) % Neut % (Auto) (45-73) % Lymph % (Auto) (20-40) % [place] % (Auto) (2-11) % Eos % (Auto) (0-4) % Baso % (Auto) (0-2) % Lymph # (Auto) (1.2-4.9) X10*3/uL [place] # (Auto) (0.1-1.2) X10*3/uL Eos # (Auto) (0.0-0.4) X10*3/uL Baso # (Auto) (0.0-0.2) X10*3/uL Abs Immat Gran (auto) (0.00-0.03) X10*3/uL Absolute Neuts (auto) (2.0-8.3) x10*3/uL Absolute Nucleated RBC (0.0-0.012) X10*3/uL Nucleated RBC % (auto) (0.0-0.2) /100WBC Sodium (135-145) mmol/L Potassium (3.3-5.1) mmol/L Chloride (96-108) mmol/L Carbon Dioxide (22-29) mmol/L Anion Gap (12-20) BUN (9-16) mg/dL Creatinine (0.5-1.4) mg/dL Estim Creat Clear Calc Estimated GFR Random Glucose (60-115) mg/dL Calcium (8.4-10.2) mg/dL Magnesium (1.6-2.6) mg/dL Total Bilirubin (0.0-1.0) mg/dL Direct Bilirubin (0.0-0.5) mg/dL AST (5-31) U/L ALT (0-31) U/L Alkaline Phosphatase (39-117) U/L Total Protein (6.5-8.0) g/dL Albumin (3.5-5.0) g/dL TSH (0.32-4.0) uIU/mL Urine Color YELLOW Urine Appearance HAZY Urine pH 6.5 (5.0-8.0) Ur Specific [place] 1.020 (1.005-1.025) Urine Protein TRACE (NEG-TRACE) MG/DL Urine Glucose (UA) NEG (NEG) MG/DL Urine Ketones 5 (NEG) MG/DL Urine Blood NEG (NEG) Urine Nitrite NEG (NEG) Ur Leukocyte Esterase NEG (NEG) Urine Opiates Screen Not Detected (Not Detect) Urine Fentanyl Screen Not Detected (Not Detect) Ur Barbiturates Screen Not Detected (Not Detect) Ur Phencyclidine Scrn Not Detected (Not Detect) Ur Amphetamines Screen Not Detected (Not Detect) U Benzodiazepines Scrn Not Detected (Not Detect) Urine Cocaine Screen Not Detected (Not Detect) U Marijuana (THC) Screen Not Detected (Not Detect) Ethyl Alcohol < 10 mg/dL COVID-19 (GELY) (Negative) COVID-19 Clin Com <FATEMEH Goldsmith - Last Filed: 02/05/21 09:40> Discharge Plan Discharge Clinical Impression: Acute paranoia <FATEMEH Kraft - Last Filed: 02/04/21 20:20> Prescriptions: No Action levothyroxine [Synthroid] 175 mcg tablet 175 mcg PO DAILY RF: 0 ciclopirox 8 % solution 1 ml topical BEDTIME RF: 0 cholecalciferol (vitamin D3) 50 mcg (2,000 unit) capsule 50 mcg PO DAILY RF: 0 folic acid 1 mg tablet 1 mg PO DAILY RF: 0 acetaminophen 500 mg tablet 500 - 1,000 mg PO Q8H PRN (Reason: Pain) RF: 0 albuterol sulfate [ProAir HFA] 90 mcg/actuation HFA aerosol inhaler 2 puff PO Q4-6H PRN (Reason: Shortness Of Breath) RF: 0 escitalopram oxalate 5 mg tablet 5 mg PO QPM RF: 0 atorvastatin 20 mg tablet 20 mg PO DAILY RF: 0 omeprazole 20 mg capsule,delayed release(DR/EC) 20 mg PO DAILY RF: 0 <FATEMEH Kraft - Last Filed: 02/04/21 20:20>
[2021-02-04 14:37] LABS: MANUAL DIFF FLAG NO
[2021-02-04 14:40] LABS: Basophils Percent Auto 0.4 % (0-2); Eosinophils Percent Auto 0.2 % (0-4); Hematocrit 37.1 % (37.0-47.0); Hemoglobin 11.2 g/dl (12.0-16.0); Imm Gran Abs Auto 0.03 X10*3/uL (0.00-0.03); Imm Gran Pct Auto 0.4 % (0.0-0.4); Lymphocytes Absolute Auto 1.5 X10*3/uL (1.2-4.9); Lymphocytes Percent Auto 17.9 % (20-40); Mean Corpuscular HGB Conc 30.2 g/dl (31.0-35.0); Mean Corpuscular Hemoglobin 18.9 pg (27.0-33.0); Mean Platelet Volume 10.2 fL (9.4-12.3); Monocytes Absolute Auto 0.7 X10*3/uL (0.1-1.2); Monocytes Percent Auto 7.9 % (2-11); Neutrophils Absolute Auto 6.3 x10*3/uL (2.0-8.3); Neutrophils Percent Auto 73.2 % (45-73); Platelet Count 253 X10*3/uL (160-400); Red Blood Count 5.94 X10*6/uL (4.20-5.50); Red Cell Distribution Width 15.9 % (11.0-16.0); White Blood Count 8.5 X10*3/uL (4.8-10.8)
[2021-02-04 14:41] LABS: Mean Corpuscular Volume 62.5 fL (80.0-98.0)
[2021-02-04 14:54] LABS: Ethanol < 10 mg/dL
[2021-02-04 14:57] LABS: Alanine Aminotransferase 26 U/L (0-31); Albumin Level 4.3 g/dL (3.5-5.0); Alkaline Phosphatase 122 U/L (39-117); Anion Gap 10 (12-20); Aspartate Amino Transferase 28 U/L (5-31); Bilirubin Direct 0.2 mg/dL (0.0-0.5); Bilirubin Total 0.7 mg/dL (0.0-1.0); Blood Urea Nitrogen 12 mg/dL (9-16); COVID-19 Test Negative (Negative); Calcium 9.5 mg/dL (8.4-10.2); Carbon Dioxide 27 mmol/L (22-29); Chloride 106 mmol/L (96-108); Creatinine Clr Calc Pharmacy 84.6; Estimated Glomerular Filt Rate > 60; Glucose Random 97 mg/dL (60-115); IDNOW Serial# 9DD0AD1C; Magnesium 2.1 mg/dL (1.6-2.6); Sodium 139 mmol/L (135-145); Total Protein 7.6 g/dL (6.5-8.0)
[2021-02-04 15:16] LABS: TSH reflex Free T4 1.08 uIU/mL (0.32-4.0)
[2021-02-04 16:00] VITALS: BP 144/95; PULSE 89; RESP 16; O2SAT 96
[2021-02-04] MEDS: LORazepam 1 MG TABLET PO (16:02)
[2021-02-04 16:26] LABS: Appearance Urine HAZY; Color Urine YELLOW; Glucose Urine UA NEG (NEG); Leukocyte Esterase Urine NEG (NEG); Nitrite Urine NEG (NEG); PH 6.5 (5.0-8.0); Urine Blood NEG (NEG); Urine Ketones 5 MG/DL (NEG); Urine Protein TRACE MG/DL (NEG-TRACE)
[2021-02-04 16:36] LABS: Amphetamine Screen Urine Not Detected (Not Detect); Barbiturates, Urine Not Detected (Not Detect); Benzodiazepines Screen Urine Not Detected (Not Detect); Cannabinoid Screen Urine Not Detected (Not Detect); Cocaine Screen Urine Not Detected (Not Detect); Fentanyl, urine Not Detected (Not Detect); Opiate Screen Urine Not Detected (Not Detect); Phencyclidine Screen Urine Not Detected (Not Detect)
[2021-02-04 23:51] VITALS: BP 134/71; PULSE 80; RESP 18; TEMP 37.1; O2SAT 96
--- NOTE | 2021-02-05 01:14 | PC.NURSE ---
PATIENT WAKING FROM SLEEP AND STATING TO PACE AROUND THE ROOM ASKING TO USE THE PHONE. PATIENT PHONE IS NOT AVAILABLE AT THIS TIME. CONTINUED RE-ORIENTATION TO SURROUNDINGS. SITTER IN PLACE. SKIN IS P,D,W. PROVIDER IS AWARE OF PATIENTS BEHAVIORS AT THIS TIME. [facility] CLINICIAN ANGELA IS IN ROUTE FOR EVALUATION OF PATIENT.
[2021-02-05 01:16] VITALS: O2SAT 97
[2021-02-05 02:00] VITALS: RESP 18
[2021-02-05] MEDS: LORazepam 1 MG TABLET 2 MG PO (02:07)
--- NOTE | 2021-02-05 03:52 | PC.NURSE ---
PATIENT WILL BE REEVALUATED BY N CLINICIAN IN THE AM THEY WERE UNABLE TO GET IN TOUCH WITH THE SON FOR RESOURCES AT HOME.PATIENT IS RESTING NO DISTRESS NOTED.
[2021-02-05 04:00] VITALS: RESP 18
[2021-02-05 06:00] VITALS: RESP 18
[2021-02-05 12:00] VITALS: BP 120/63; PULSE 93; RESP 18; O2SAT 96
--- NOTE | 2021-02-05 14:04 | ECG_ITS ---
Test Reason : [facility] MEDICAL CLEARANCE Blood Pressure : / mmHG Vent. Rate : 082 BPM Atrial Rate : 082 BPM P-R Int : 152 ms QRS Dur : 084 ms QT Int : 370 ms P-R-T Axes : 060 056 028 degrees QTc Int : 432 ms Normal sinus rhythm Nonspecific T wave abnormality Abnormal ECG When compared with ECG of 31-MAY-2016 10:37, No significant change was found Referred By: Gabbi Lozano Electronically Signed By:Kai Orlando
--- NOTE | 2021-02-05 14:06 | PC.NURSE ---
NURSE REPORT GIVEN FOR ADMISSION TO [facility]
[2021-02-05 18:00] VITALS: BP 129/72; PULSE 96; RESP 16; TEMP 36.1; O2SAT 96
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
[2021-02-05] MEDS: traZODone HCL 50 MG TABLET PO (23:01)
[2021-02-05] MEDS: hydrOXYzine HCL 25 MG TABLET PO (23:01)
[2021-02-06 04:51] VITALS: BP 137/92; PULSE 83; RESP 20; TEMP 36.1; O2SAT 99
--- NOTE | 2021-02-06 10:37 | P.HPPS_ITS ---
HPI Date of Service: 02/06/21 Chief Complaint: psychosis Sources of Information: patient interviewed, chart reviewed and crisis/core team assessment reviewed Additional Sources of Information: son Primo Jarvis [phone] HPI Subjective Notes: Conditional Voluntary Healthcare Proxy: No Guardianship: No Medical Problems Affecting Mental Status: Yes (possible thyroid ) Narrative: pts son called EMS due to concerns about Jo-Ann's mental status and she would not let him or siblings into home to check on her. Pt evaluated in ED and found to be inpatient level of care due to paranoid ideation and hallucinations. Pt denies auditory or visual hallucinations today. She does make several statement about feeling uncomfortable and not trusting roommate. She stripped her bed of bedsheets and packed her clothes this morning stating she was ready to go home. She states she will not sleep in her room tonight due to the vent above her bed. She states she stopped her lexapro months ago due to fatty liver. She is vague about adherence to other medications. She is also vague abotyu complaints of not seeing her children. stating she was upset because they refused to gather in a large group and tis made her unhappy. Past Psychiatric History: son states that Jo-Ann has had 3 prior episodes of mental status changes including not sleeping, calling his home and siblings many times a day and all through the night, paranoid ideas and psychotic thinking due to stopping her thyroid medication. Son says she has been hospitalized for the above 3 times. Pt states she gets her meds from [facility] and her psychiatrist is Dr Esqueda. Medical Evaluation Reviewed: Yes [facility] Medical History (Updated 02/04/21 @ 20:19 by FATEMEH Kraft) Anemia Breast cancer Hallucinations, unspecified Post hysterectomy menopause Thyroid activity decreased Surgical History (Updated 12/27/20 @ 10:24 by ENID Morales) History of cholecystectomy History of hysterectomy Family History: lives alone son and daughter supportive has several granchildren Social History: lives alone Substance History: none Trauma History: childhood but pt vague Diagnostics Vital Signs (24Hr): Vital Signs - 24 hr 02/05/21 12:00 02/05/21 18:00 02/06/21 04:51 Temperature 97.0 F 97.0 F Pulse Rate 93 96 83 Respiratory Rate 18 16 20 Blood Pressure 120/63 129/72 137/92 H Pulse Oximetry 96 96 99 BMI result Body Mass Index 41.8 Labs Results: 02/04/21 14:33 02/04/21 14:33 Labs: Laboratory Results - last 48 hr 02/04/21 02/04/21 02/04/21 14:33 14:33 14:33 WBC 8.5 RBC 5.94 H Hgb 11.2 L Hct 37.1 MCV 62.5 L MCH 18.9 L MCHC 30.2 L RDW 15.9 Plt Count 253 MPV 10.2 Immature Gran % (Auto) 0.4 Neut % (Auto) 73.2 H Lymph % (Auto) 17.9 L [place] % (Auto) 7.9 Eos % (Auto) 0.2 Baso % (Auto) 0.4 Lymph # (Auto) 1.5 [place] # (Auto) 0.7 Eos # (Auto) 0.0 Baso # (Auto) 0.0 Abs Immat Gran (auto) 0.03 Absolute Neuts (auto) 6.3 Absolute Nucleated RBC 0.000 Nucleated RBC % (auto) 0.0 Sodium 139 Potassium 4.0 Chloride 106 Carbon Dioxide 27 Anion Gap 10 L BUN 12 Creatinine 0.86 Estim Creat Clear Calc 84.6 Estimated GFR > 60 Random Glucose 97 Calcium 9.5 Magnesium 2.1 Total Bilirubin 0.7 Direct Bilirubin 0.2 AST 28 D ALT 26 Alkaline Phosphatase 122 H Total Protein 7.6 Albumin 4.3 TSH 1.08 Urine Color Urine Appearance Urine pH Ur Specific [place] Urine Protein Urine Glucose (UA) Urine Ketones Urine Blood Urine Nitrite Ur Leukocyte Esterase Urine Opiates Screen Urine Fentanyl Screen Ur Barbiturates Screen Ur Phencyclidine Scrn Ur Amphetamines Screen U Benzodiazepines Scrn Urine Cocaine Screen U Marijuana (THC) Screen Ethyl Alcohol COVID-19 (GELY) Negative COVID-19 Clin Com See Note 02/04/21 02/04/21 02/04/21 14:33 16:16 16:16 WBC RBC Hgb Hct MCV MCH MCHC RDW Plt Count MPV Immature Gran % (Auto) Neut % (Auto) Lymph % (Auto) [place] % (Auto) Eos % (Auto) Baso % (Auto) Lymph # (Auto) [place] # (Auto) Eos # (Auto) Baso # (Auto) Abs Immat Gran (auto) Absolute Neuts (auto) Absolute Nucleated RBC Nucleated RBC % (auto) Sodium Potassium Chloride Carbon Dioxide Anion Gap BUN Creatinine Estim Creat Clear Calc Estimated GFR Random Glucose Calcium Magnesium Total Bilirubin Direct Bilirubin AST ALT Alkaline Phosphatase Total Protein Albumin TSH Urine Color YELLOW Urine Appearance HAZY Urine pH 6.5 Ur Specific [place] 1.020 Urine Protein TRACE Urine Glucose (UA) NEG Urine Ketones 5 Urine Blood NEG Urine Nitrite NEG Ur Leukocyte Esterase NEG Urine Opiates Screen Not Detected Urine Fentanyl Screen Not Detected Ur Barbiturates Screen Not Detected Ur Phencyclidine Scrn Not Detected Ur Amphetamines Screen Not Detected U Benzodiazepines Scrn Not Detected Urine Cocaine Screen Not Detected U Marijuana (THC) Screen Not Detected Ethyl Alcohol < 10 COVID-19 (GELY) COVID-19 Clin Com EKG EKG: reviewed EKG Comment: normal sinus with abnormal t wave Meds/Allergies Meds Home Medications Al Hydroxide/Mg Hydroxide (Magnesium Hydrox/Alum Hydrox 30 Ml Oral.Susp) 30 ml PO Q6H PRN PRN Reason: Heartburn/Nausea Albuterol Sulfate (Albuterol Sulfate 90 Mcg 8 Gm Inhaler) 2 puff INHALE Q6H PRN PRN Reason: wheezing Atorvastatin Calcium (Atorvastatin Calcium 10 Mg Tablet) 10 mg PO DAILY [facility] Escitalopram Oxalate (Escitalopram Oxalate 5 Mg Tablet) 5 mg PO DAILY [facility] Last Admin: 02/06/21 13:33 Dose: 5 mg Documented by: Folic Acid (Folic Acid 1 Mg Tablet) 1 mg PO DAILY [facility] Hydroxyzine HCl (Hydroxyzine Hcl 25 Mg Tablet) 25 mg PO BEDTIME PRN PRN Reason: Anxiety Last Admin: 02/05/21 23:01 Dose: 25 mg Documented by: Levothyroxine Sodium (Levothyroxine Sodium 25 Mcg Tablet) 25 mcg PO DAILY@0600 [facility] Last Admin: 02/06/21 13:33 Dose: 25 mcg Documented by: Magnesium Hydroxide (Milk Of Magnesia 30 Ml Oral.Susp) 30 ml PO DAILY PRN PRN Reason: Constipation Omeprazole (Omeprazole 20 Mg Capsule.Dr) 20 mg PO DAILY@0630 [facility] Last Admin: 02/06/21 13:32 Dose: 20 mg Documented by: Trazodone HCl (Trazodone Hcl 25 Mg Halftab) 25 mg PO BEDTIME PRN PRN Reason: Insomnia Vitamin D (Cholecalciferol (Vitamin D3) 25 Mcg Tablet) 25 mcg PO DAILY [facility] Last Admin: 02/06/21 13:33 Dose: 25 mcg Documented by: Allergies Allergies Allergy/AdvReac Type Severity Reaction Status Date / Time acetaminophen [Percocet] Allergy Unknown Unknown Verified 01/20/21 12:29 aspirin [ASA] Allergy Unknown BURNING Verified 01/20/21 12:29 IN STOMACH morphine [MORPHINE] Allergy Unknown HEADACHES Verified 01/20/21 12:29 Motrin Allergy Unknown Unknown Verified 01/20/21 12:29 naproxen Allergy Unknown Unknown Verified 01/20/21 12:29 oxycodone [Percocet] Allergy Unknown Unknown Verified 01/20/21 12:29 ibuprofen [From MOTRIN] AdvReac Unknown STOMACH Verified 01/20/21 12:29 UPSET compacine Allergy Unknown Unknown Uncoded 01/12/20 11:45 Compoz Allergy Unknown Unknown Uncoded 01/12/20 11:45 From COMPAZINE AdvReac Unknown Unknown Uncoded 01/12/20 11:45 Mental Status Exam Mental Status Exam Patient Appearance: Well Grooomed Patient Orientation: Person Level of Consciousness: Awake and Restless Patient Behavior: Appropriate, Guarded, Cooperative, Suspicious and Good Eye Contact Mood Description: Anxious Affect Description: Suspicious and Anxious Patient Cognition Impaired: Yes Ability to Follow Directions: Fair Speech Pattern: Appropriate Memory Description: Episodic Impaired Hallucinations: None (denies ) Delusions: Paranoid Ideation (makes statements alluding to ) Thought Process: Distracted and Goal Oriented Thought Content: positive for Goal Oriented Judgement: Poor Assessment & Plan Assessment & Plan (1) Acute paranoia: Status: Acute Code(s): F22 - Delusional disorders (2) Hypothyroid: Status: Acute Code(s): E03.9 - Hypothyroidism, unspecified (3) Thalassemia: Status: Acute Code(s): D56.9 - Thalassemia, unspecified Assessment and Plan: 55 yo woman with recurrent mental status changes including not sleeping, vague paranoia, fear, and not caring for self in context ofmedical problems and non compliance with medication regimen. CV 15 min checks psych/structured groups restart medications follow up labs collect collateral information monitor medical status aftercare planning with Sw and team Reason for continued inpatient stay Substantial Risk for: harm to self, inability to function and med/psych decompensation
[2021-02-06] MEDS: Omeprazole 20 MG CAPSULE.DR PO (13:32)
[2021-02-06] MEDS: Escitalopram Oxalate 5 MG TABLET PO (13:33)
[2021-02-06] MEDS: Cholecalciferol (Vitamin D3) 25 MCG TABLET PO (13:33)
[2021-02-06] MEDS: Levothyroxine Sodium 25 MCG TABLET PO (13:33)
[2021-02-06 18:00] VITALS: BP 130/73; PULSE 108
[2021-02-07] MEDS: Levothyroxine Sodium 25 MCG TABLET PO (05:24)
[2021-02-07] MEDS: Omeprazole 20 MG CAPSULE.DR PO (05:24)
[2021-02-07 06:00] VITALS: BP 120/75; PULSE 99; RESP 16; O2SAT 96
[2021-02-07] MEDS: Folic Acid 1 MG TABLET PO (08:31)
[2021-02-07] MEDS: Cholecalciferol (Vitamin D3) 25 MCG TABLET PO (08:31)
[2021-02-07] MEDS: Escitalopram Oxalate 5 MG TABLET PO (08:31)
[2021-02-07] MEDS: Atorvastatin Calcium 10 MG TABLET PO (08:31)
--- NOTE | 2021-02-07 17:26 | PM.PSYDC ---
DS: Providers Provider Date of Service: 02/07/21 Date of admission: 02/05/21 16:31 Date of discharge: 02/07/21 Primary care physician: Fidelia Rubio MD Admitting clinician: Farheen Steel Attending physician on admission: Lyle Eagle Attending physician on discharge: Lyle Eagle Discharging clinician: Shanell Tsai DS: Diagnosis Discharge Diagnosis (1) Acute paranoia: Status: Resolved (2) Hypothyroid: Status: Acute (3) Thalassemia: Status: Acute DS: Medications Discharge Medications Home Medications: Home Medications Medication Instructions Recorded Confirmed acetaminophen 500 mg tablet 500 - 1,000 mg PO Q8H PRN 01/20/21 02/05/21 albuterol sulfate 90 mcg/actuation 2 puff PO Q4-6H PRN 01/20/21 02/05/21 aerosol inhaler (ProAir HFA) atorvastatin 20 mg tablet 20 mg PO DAILY 01/20/21 02/05/21 ciclopirox 8 % topical solution 1 ml TOPICAL BEDTIME 01/20/21 02/05/21 omeprazole 20 mg capsule,delayed 20 mg PO DAILY 01/20/21 02/05/21 release Previous Rx's Medication Instructions Recorded cholecalciferol (vitamin D3) 25 25 mcg PO DAILY #0 tab 02/07/21 mcg (1,000 unit) tablet escitalopram oxalate 5 mg tablet 5 mg PO DAILY #15 tab 02/07/21 folic acid 1 mg tablet 1 mg PO DAILY #0 tab 02/07/21 levothyroxine 25 mcg tablet 25 mcg PO DAILY@0600 #15 tab 02/07/21 Mental Status Exam Mental Status Exam Patient Appearance: Well Grooomed Patient Orientation: Person Level of Consciousness: Awake and Restless Patient Behavior: Appropriate, Guarded, Cooperative, Suspicious and Good Eye Contact Mood Description: Anxious Affect Description: Suspicious and Anxious Patient Cognition Impaired: Yes Ability to Follow Directions: Fair Speech Pattern: Appropriate Memory Description: Episodic Impaired Hallucinations: None (denies ) Delusions: Paranoid Ideation (makes statements alluding to ) Thought Process: Distracted and Goal Oriented Thought Content: positive for Goal Oriented Judgement: Poor Data Data Completed and Pending Completed studies during hospitalization [Text1]: 02/04/21 02/04/21 02/04/21 14:33 14:33 14:33 WBC 8.5 RBC 5.94 H Hgb 11.2 L Hct 37.1 MCV 62.5 L MCH 18.9 L MCHC 30.2 L RDW 15.9 Plt Count 253 MPV 10.2 Immature Gran % (Auto) 0.4 Neut % (Auto) 73.2 H Lymph % (Auto) 17.9 L [place] % (Auto) 7.9 Eos % (Auto) 0.2 Baso % (Auto) 0.4 Lymph # (Auto) 1.5 [place] # (Auto) 0.7 Eos # (Auto) 0.0 Baso # (Auto) 0.0 Abs Immat Gran (auto) 0.03 Absolute Neuts (auto) 6.3 Absolute Nucleated RBC 0.000 Nucleated RBC % (auto) 0.0 Sodium 139 Potassium 4.0 Chloride 106 Carbon Dioxide 27 Anion Gap 10 L BUN 12 Creatinine 0.86 Estim Creat Clear Calc 84.6 Estimated GFR > 60 Random Glucose 97 Calcium 9.5 Magnesium 2.1 Total Bilirubin 0.7 Direct Bilirubin 0.2 AST 28 D ALT 26 Alkaline Phosphatase 122 H Total Protein 7.6 Albumin 4.3 TSH 1.08 Urine Color Urine Appearance Urine pH Ur Specific [place] Urine Protein Urine Glucose (UA) Urine Ketones Urine Blood Urine Nitrite Ur Leukocyte Esterase Urine Opiates Screen Urine Fentanyl Screen Ur Barbiturates Screen Ur Phencyclidine Scrn Ur Amphetamines Screen U Benzodiazepines Scrn Urine Cocaine Screen U Marijuana (THC) Screen Ethyl Alcohol COVID-19 (GELY) Negative COVID-19 Clin Com See Note 02/04/21 02/04/21 02/04/21 14:33 16:16 16:16 WBC RBC Hgb Hct MCV MCH MCHC RDW Plt Count MPV Immature Gran % (Auto) Neut % (Auto) Lymph % (Auto) [place] % (Auto) Eos % (Auto) Baso % (Auto) Lymph # (Auto) [place] # (Auto) Eos # (Auto) Baso # (Auto) Abs Immat Gran (auto) Absolute Neuts (auto) Absolute Nucleated RBC Nucleated RBC % (auto) Sodium Potassium Chloride Carbon Dioxide Anion Gap BUN Creatinine Estim Creat Clear Calc Estimated GFR Random Glucose Calcium Magnesium Total Bilirubin Direct Bilirubin AST ALT Alkaline Phosphatase Total Protein Albumin TSH Urine Color YELLOW Urine Appearance HAZY Urine pH 6.5 Ur Specific [place] 1.020 Urine Protein TRACE Urine Glucose (UA) NEG Urine Ketones 5 Urine Blood NEG Urine Nitrite NEG Ur Leukocyte Esterase NEG Urine Opiates Screen Not Detected Urine Fentanyl Screen Not Detected Ur Barbiturates Screen Not Detected Ur Phencyclidine Scrn Not Detected Ur Amphetamines Screen Not Detected U Benzodiazepines Scrn Not Detected Urine Cocaine Screen Not Detected U Marijuana (THC) Screen Not Detected Ethyl Alcohol < 10 COVID-19 (GELY) COVID-19 Clin Com 02/07/21 08:00 WBC RBC Hgb Hct MCV MCH MCHC RDW Plt Count MPV Immature Gran % (Auto) Neut % (Auto) Lymph % (Auto) [place] % (Auto) Eos % (Auto) Baso % (Auto) Lymph # (Auto) [place] # (Auto) Eos # (Auto) Baso # (Auto) Abs Immat Gran (auto) Absolute Neuts (auto) Absolute Nucleated RBC Nucleated RBC % (auto) Sodium Potassium Chloride Carbon Dioxide Anion Gap BUN Creatinine Estim Creat Clear Calc Estimated GFR Random Glucose Calcium Magnesium Total Bilirubin Direct Bilirubin AST ALT Alkaline Phosphatase Total Protein Albumin TSH 2.20 Urine Color Urine Appearance Urine pH Ur Specific [place] Urine Protein Urine Glucose (UA) Urine Ketones Urine Blood Urine Nitrite Ur Leukocyte Esterase Urine Opiates Screen Urine Fentanyl Screen Ur Barbiturates Screen Ur Phencyclidine Scrn Ur Amphetamines Screen U Benzodiazepines Scrn Urine Cocaine Screen U Marijuana (THC) Screen Ethyl Alcohol COVID-19 (GELY) COVID-19 Clin Com DS: Summary Hospital Course Hospital Course: Admission to adult psychiatry to address symptoms of recurrent major depression with psychotic features. Care plan, medication regime and out patient plan of care prior to admission were reviewed. Nursing and case management social worker worked with Jo-Ann on care planning, education regarding symptom managment, medications and aftercare, however, Jo-Ann refused care and demanded to discharge. Lexapro was maintained upon her discharge. Time spent discussing smoking cessation with patient: 3 to 10 minutes Status at Discharge Functional status at discharge: independent ambulation Overall status at discharge: patient is progressing back to baseline Time Spent with Patient Time attestation: Total time spent providing and/or coordinating discharge services: 35 Time spent: Greater than 30 minutes Discharge Plan Discharge Patient Disposition: Home, Self-Care Discharge Diagnosis: Recurrent major depression, with psychotic features Hypothyroidism Thalassemia Asthma PVD Referrals: [facility] [Other] - 1 Week (Walk-In ) Discharge Medications: New levothyroxine 25 mcg Tablet 25 mcg PO DAILY@0600 Qty: 15 0RF folic acid 1 mg Tablet 1 mg PO DAILY Qty: 0 0RF escitalopram oxalate 5 mg Tablet 5 mg PO DAILY Qty: 15 1RF cholecalciferol (vitamin D3) 25 mcg (1,000 unit) Tablet 25 mcg PO DAILY Qty: 0 0RF Continued ciclopirox 8 % solution 1 ml topical BEDTIME 0RF acetaminophen 500 mg tablet 500 - 1,000 mg PO Q8H PRN (Reason: Pain) 0RF albuterol sulfate [ProAir HFA] 90 mcg/actuation HFA aerosol inhaler 2 puff PO Q4-6H PRN (Reason: Shortness Of Breath) 0RF atorvastatin 20 mg tablet 20 mg PO DAILY 0RF omeprazole 20 mg capsule,delayed release(DR/EC) 20 mg PO DAILY 0RF Discontinued levothyroxine [Synthroid] 175 mcg tablet 175 mcg PO DAILY 0RF cholecalciferol (vitamin D3) 50 mcg (2,000 unit) capsule 50 mcg PO DAILY 0RF folic acid 1 mg tablet 1 mg PO DAILY 0RF escitalopram oxalate 5 mg tablet 5 mg PO QPM 0RF No Action cyclobenzaprine 10 mg tablet 10 mg PO TID PRN (Reason: muscle pain or spasm) Qty: 20 0RF prednisone 20 mg tablet 60 mg PO DAILY 7 Days Qty: 21 0RF Discharge Orders: Discharge Order (Routine); Ordered 02/07/21 Ordered By: Shanell Tsai Diet: advance to usual diet Activity on Discharge: As tolerated Stand Alone Forms: Patient Portal Discharge page, Community Support Care Plan Goals: Mood stabilization Health Concerns: Major Depression with psychotic features PVD HLD Asthma Thalassemia Hypothyroidism Plan of Treatment: Attend scheduled appointments Take medications as directed Assessment: Non-suicidal, non-psychotic Agrees to take antidepressant and thyroid medications Agrees to follow up appointments Refuses to continue hospitalization or participate in the in patient milieu in any way. Discussed with her son who will pick her up at the end of his work day and who reports he will remain with her. Discharge Date/Time: 02/07/21 18:05
[2021-02-07 20:17] LABS: Folate > 20.0 ng/mL (> or = 4.0); Vitamin B12 444 pg/mL (200-900)
== END 2021-02-07 18:05 | disposition home or self-care (01) | DRG 760 ==
LOC: HO.ED 13:52 → HO.PM5 02-05 16:57
PROVIDERS: Physician Assistant; Admitting Provider Clinical Nurse Specialist Psychiatric/Mental Health; Emergency Provider Emergency Medicine; PCP Internal Medicine; Visit Provider Clinical Nurse Specialist Psychiatric/Mental Health
DX: F22 Delusional disorders (principal); D56.9 Thalassemia, unspecified; E03.9 Hypothyroidism, unspecified; E78.5 Hyperlipidemia, unspecified; Z20.822 Contact with and (suspected) exposure to COVID-19; Z79.890 Hormone replacement therapy; Z88.6 Allergy status to analgesic agent; Z79.899 Other long term (current) drug therapy
CPT/HCPCS: 36415; 80048; 80076; 80307; 81003; 82077; 82607; 82746; 83735; 84443; 85025; 87635; 93005; 99285

== ENCOUNTER 2021-02-24 05:11 | Emergency (ER) | payer MEDICAID, SELFPAY ==
[2021-02-24 05:29] VITALS: BP 143/78; PULSE 70; RESP 20; TEMP 36.9; O2SAT 97; BMI 41.6
--- NOTE | 2021-02-24 06:40 | ED_ITS ---
HPI - Back Pain/Injury General Chief Complaint: Back Pain/Injury Stated Complaint: right leg pain Time Seen by Provider: 02/24/21 06:24 Source: patient Mode of arrival: ambulatory Limitations: no limitations History of Present Illness HPI Narrative: 55-year-old female with history of chronic back pain secondary to sciatica and this disease who presents emergency department for evaluation right lower back, hip and leg pain. Patient states that over the past 2-3 months she has had intermittent pain in her right lower back radiating down her right leg. She states that over the last 2-3 days the pain has become constant. She describes the pain is a sharp pressure-like pain that starts in her right lower back and radiates down her leg to her calf and does not go to the foot. She denies any numbness or weakness of the leg. She denies any loss of bowel or bladder control. She denied fever or chills. The patient states the pain is severe and she is having difficulty walking. The patient has been taking Tylenol only with only minimal relief for pain. She states that she cannot take NSAIDs because it upsets her stomach. Related Data Home Medications Medication Instructions Recorded Confirmed acetaminophen 500 mg tablet 500 - 1,000 mg PO Q8H PRN 01/20/21 02/05/21 albuterol sulfate 90 mcg/actuation 2 puff PO Q4-6H PRN 01/20/21 02/05/21 aerosol inhaler (ProAir HFA) atorvastatin 20 mg tablet 20 mg PO DAILY 01/20/21 02/05/21 ciclopirox 8 % topical solution 1 ml TOPICAL BEDTIME 01/20/21 02/05/21 omeprazole 20 mg capsule,delayed 20 mg PO DAILY 01/20/21 02/05/21 release Previous Rx's Medication Instructions Recorded cholecalciferol (vitamin D3) 25 25 mcg PO DAILY #0 tab 02/07/21 mcg (1,000 unit) tablet escitalopram oxalate 5 mg tablet 5 mg PO DAILY #15 tab 02/07/21 folic acid 1 mg tablet 1 mg PO DAILY #0 tab 02/07/21 levothyroxine 25 mcg tablet 25 mcg PO DAILY@0600 #15 tab 02/07/21 cyclobenzaprine 10 mg tablet 10 mg PO TID PRN #20 tab 02/24/21 prednisone 20 mg tablet 60 mg PO DAILY 7 Days #21 tab 02/24/21 Allergies Allergy/AdvReac Type Severity Reaction Status Date / Time acetaminophen [Percocet] Allergy Unknown Unknown Verified 01/20/21 12:29 aspirin [ASA] Allergy Unknown BURNING Verified 01/20/21 12:29 IN STOMACH morphine [MORPHINE] Allergy Unknown HEADACHES Verified 01/20/21 12:29 Motrin Allergy Unknown Unknown Verified 01/20/21 12:29 naproxen Allergy Unknown Unknown Verified 01/20/21 12:29 oxycodone [Percocet] Allergy Unknown Unknown Verified 01/20/21 12:29 ibuprofen [From MOTRIN] AdvReac Unknown STOMACH Verified 01/20/21 12:29 UPSET compacine Allergy Unknown Unknown Uncoded 01/12/20 11:45 Compoz Allergy Unknown Unknown Uncoded 01/12/20 11:45 From COMPAZINE AdvReac Unknown Unknown Uncoded 01/12/20 11:45 Review of Systems Review of Systems: Yes all other systems are reviewed and are negative PMFSH Past Medical History PMFSH Narrative: Social history: She denies tobacco, alcohol and drug use. Source: unable to obtain Medical History (Updated 02/24/21 @ 06:46 by Ted Nagy MD) Anemia Breast cancer Hallucinations, unspecified Post hysterectomy menopause Thyroid activity decreased Surgical History (Updated 12/27/20 @ 10:24 by ENID Morales) History of cholecystectomy History of hysterectomy Family History Family History Mother Diabetes Father HTN (hypertension) Social History Social History Household Members: None Housing: Apartment Do you presently have visiting nurse or other home services: No Alcohol intake: never Patient Tobacco Use Status: Never used Tobacco Advance Directives: No service: No Sexual orientation: Straight/Heterosexual Gender identity: Female Physical Exam Vital Signs: Vital Signs: Last Vital Signs Temp 98.4 F 02/24/21 05:29 Pulse 70 02/24/21 05:29 Resp 20 02/24/21 05:29 BP 143/78 H 02/24/21 05:29 Pulse Ox 97 02/24/21 05:29 BMI result Body Mass Index 41.6 Const: Other: Awake, alert, female patient, pleasant and cooperative, she is lying on her left side secondary to her right-sided back pain, she does appear to be in distress secondary to her pain, she answers all questions appropriately. HENMT: Head: Yes normal to inspection, Yes normocephalic and Yes atraumatic Ears: external ears normal General nose exam: Normal external nose present Face and sinus: Yes normal facial exam Mouth: Normal oral and palatal mucosa present Throat: Yes posterior oropharynx normal Eyes: General: appearance normal, both eyes and all related structures Pupils: Equal, round and reactive pupils present Neck: Neck: Yes normal visual inspection, Yes no lymphadenopathy, Yes trachea midline and Yes supple Chest: Chest palpation & inspection: normal inspection of the chest and normal palpation of entire chest wall Resp: Effort & Inspection: normal respiratory effort and able to speak in complete sentences Auscultation: clear to auscultation bilaterally Cardio: Rate: regular rate Rhythm: regular rhythm Heart sounds: S1 normal heart sound present, S2 normal heart sound present and no murmurs GI: Inspection: Yes normal to inspection Palpation (GI): Soft to palpation, nontender and no guarding Auscultation: normal bowel sounds Back/Spine/Pelvis: Other: Patient has tenderness palpation over her lumbar sacral spine and as well as over her paraspinal muscles in the right lumbar sacral area, she has positive straight leg raise on the right and but not on the left. She has normal strength in her lower extremities in normal light touch bilaterally symmetric Skin: General skin exam: no rashes or lesions noted Neuro: Cranial nerves: Yes CN's II-XII intact bilaterally and Yes Equal, round and reactive pupils present Cognition (Neuro): normal cognition Motor exam (neuro): 5/5 motor strength present throughout Extrem: General: Yes normal to inspection Psych: Appearance: grossly normal Speech and movement: Normal speech and movement present Affect: normal affect Attitude: cooperative Thought process: Normal thought process present Thought content: Normal thought content present Course Course Course Narrative: 55-year-old female with history of chronic lower back pain secondary to sciatica and disc disease who presents emergency department for evaluation of intermittent right lower back pain with the pain radiating down her right leg to her calf over the past 2-3 months, worse over the past 2-3 days. The patient has had no fever, loss of bowel or bladder control. Vital signs revealed an elevated blood pressure of 143/78 with a normal temperature of 98.4?. Examination is consistent with sciatica. The patient was treated with Toradol 60 mg IM, Flexeril 10 mg orally and prednisone 60 mg orally. Patient was advised to continue taking her Tylenol. She was also prescribed Flexeril 10 mg 3 times a day prednisone 60 mg once a day for 1 week. She was given printed and verbal instructions and discharged home. Discharge Plan Discharge Clinical Impression: Sciatica, Low back pain radiating down leg Patient Disposition: Home, Self-Care Instructions: Sciatica (ED) Additional Instructions: Back Pain Discharge Instructions: Take prednisone 20mg pills, 3 pills every daily for 7 days. This is a strong anti-inflammatory medication Take Tylenol (acetaminophen) 500 mg pills, 2 pills every 6 hours as needed for pain. Take Flexeril (cyclobenzaprine) 10 mg pills, 1 pill every 8 hours as needed for pain or muscle spasm. This is a prescription medication. This medication will make you sleepy, therefore do not drive or work while taking this medication. Apply ice for 15 minutes to the area that hurts on your back, then apply a heating a pad on low for 15 minutes. Do this 4-6 times a day to help reduce the pain in your back. Continue with normal activities as tolerated since staying in bed and not moving around will make your pain worse. Y Please return to the Emergency Department or see your doctor immediately if your symptoms get worse or if you develop any new symptoms that are concerning you. Follow up with your doctor in 2 day. Please read the other printed discharge instructions on sciatica. Prescriptions: New cyclobenzaprine 10 mg tablet 10 mg PO TID PRN (Reason: muscle pain or spasm) Qty: 20 RF: 0 prednisone 20 mg tablet 60 mg PO DAILY 7 Days Qty: 21 RF: 0 No Action levothyroxine 25 mcg Tablet 25 mcg PO DAILY@0600 Qty: 15 RF: 0 folic acid 1 mg Tablet 1 mg PO DAILY Qty: 0 RF: 0 escitalopram oxalate 5 mg Tablet 5 mg PO DAILY Qty: 15 RF: 1 cholecalciferol (vitamin D3) 25 mcg (1,000 unit) Tablet 25 mcg PO DAILY Qty: 0 RF: 0 ciclopirox 8 % solution 1 ml topical BEDTIME RF: 0 acetaminophen 500 mg tablet 500 - 1,000 mg PO Q8H PRN (Reason: Pain) RF: 0 albuterol sulfate [ProAir HFA] 90 mcg/actuation HFA aerosol inhaler 2 puff PO Q4-6H PRN (Reason: Shortness Of Breath) RF: 0 atorvastatin 20 mg tablet 20 mg PO DAILY RF: 0 omeprazole 20 mg capsule,delayed release(DR/EC) 20 mg PO DAILY RF: 0 Print Language: Bengali
[2021-02-24] MEDS: Ketorolac Tromethamine 60 MG/2 ML VIAL IM (06:45)
[2021-02-24] MEDS: predniSONE 20 MG TABLET 60 MG PO (06:45)
[2021-02-24] MEDS: Cyclobenzaprine HCl 10 MG TABLET PO (06:45)
== END 2021-02-24 08:11 | disposition home or self-care (01) ==
PROVIDERS: Emergency Provider Emergency Medicine Emergency Medical Services
DX: M54.41 Lumbago with sciatica, right side (principal)
CPT/HCPCS: 96372; 99283; 99284; J1885

== ENCOUNTER 2021-04-25 08:49 | Outpatient (REF) | payer MEDICAID, SELFPAY ==
--- NOTE | ~2021-04-25 | US_ITS ---
EXAMINATION: US COMPLETE ABDOMEN WITH LIVER ELASTOGRAPHY CLINICAL INFORMATION: Elevated LFTs. COMPARISON: None TECHNIQUE: Real-time imaging of the abdominal viscera. Noninvasive ultrasound liver fibrosis assessment is performed using [employer] ElastPQ point quantification shear wave elastography (2D-SWE) with a C5-2 MHz transducer. Multiple elastography samples are obtained. FINDINGS: PANCREAS: Partially visualized pancreatic head and body are normal in appearance. The remainder of the pancreas is obscured from visualization by the overlying bowel gas. ABDOMINAL AORTA: The proximal, middle, and distal aortic segments are normal in caliber. INFERIOR VENA CAVA: Visualized portions are normal. LIVER: The liver demonstrates increased size, normal contour and increased echogenicity with areas of focal fatty sparing. No focal lesion or intrahepatic biliary duct dilatation. The right lobe measures 24.8 cm in length. The left lobe measures 14.1 cm in length. Portal flow is hepatopedal. Shear wave liver elastography median stiffness is 1.73 m/s (reference: normal median stiffness is 1.3 m/s or less). IQR/median stiffness to assess sampling precision is 1.23 (reference: good quality data set is IQR/median stiffness of 0.15 or less). GALLBLADDER: The gallbladder has been surgically removed. COMMON BILE DUCT: Normal in caliber measuring 0.4 cm in diameter. RIGHT KIDNEY: Normal. No hydronephrosis. No renal calculi or focal parenchymal lesions. The kidney measures 11.2 cm in maximum dimension. LEFT KIDNEY: Normal. No hydronephrosis. No renal calculi or focal parenchymal lesions. The kidney measures 11.7 cm in maximum dimension. SPLEEN: Normal. The spleen measures 10.1 cm in maximum dimension. There is a small splenule in the hilum measuring 1.8 x 1.6 x 1.4 cm. FREE FLUID: None. US/US abdomen comp w elastography IMPRESSION: 1. Mild hepatomegaly with hepatic steatosis with areas of focal fatty sparing. No focal lesion seen. 2. Liver elastography: Median liver stiffness 1.73 m/s corresponding to cACLD (suggestive). REFERENCE: Society of Radiologists in Ultrasound Liver Stiffness Thresholds (2020): LIVER STIFFNESS THRESHOLDS: *Liver Stiffness equal or less than 1.3 m/s: High probability of being normal. *Liver Stiffness less than 1.7 m/s: In the absence of other known clinical signs, rules out compensated advanced chronic liver disease. *Liver Stiffness 1.7-2.1 m/s: Suggestive of compensated advanced chronic liver disease but need further test for confirmation. *Liver Stiffness over 2.1 m/s: Rules in compensated advanced chronic liver disease. *Liver Stiffness over 2.4 m/s: Suggestive of clinically significant portal hypertension. QUALITY OF DATA SET: *IQR/Median value equal or less than 0.15 implies a quality data set. *IQR/Median value over 0.15 implies a poor quality data set. SIGNIFICANT CHANGE FROM PRIOR EXAM: Significant change if liver stiffness measurement is 10% or greater from prior exam. OTHER CONSIDERATIONS: The stage of liver fibrosis may be overestimated in the setting of acute hepatitis, liver inflammation, elevated liver function tests, hepatic vascular congestion, obstructive cholestasis, non-fasting state, and infiltrative diseases such as amyloidosis and lymphoma. In some patients with NAFLD, the liver stiffness thresholds for compensated advanced chronic liver disease may be lower. In causes other than viral hepatitis and NAFLD, liver stiffness thresholds are not well established.
== END 2021-04-25 08:50 | disposition home or self-care (01) ==
LOC: HO.US 08:49
PROVIDERS: Visit Provider Nurse Practitioner
DX: R79.89 Other specified abnormal findings of blood chemistry (principal)
CPT/HCPCS: 76705; 76981

== ENCOUNTER 2021-12-25 08:56 | Emergency (ER) | payer MEDICAID, SELFPAY ==
--- NOTE | ~2021-12-25 | XR_ITS ---
EXAMINATION: XR HIP, RIGHT CLINICAL INFORMATION: Right foot pain status post fall. COMPARISON: None TECHNIQUE: Two views of the right hip. FINDINGS: Minimal right hip degenerative joint changes are seen. There is no acute fracture or dislocation. The right hemipelvis is intact with the soft tissues are unremarkable. XR/XR hip RT w PEL1V IMPRESSION: Minimal right hip osteoarthritis. No acute fracture.
--- NOTE | ~2021-12-25 | XR_ITS ---
EXAMINATION: XR KNEE, LEFT CLINICAL INFORMATION: Status post fall. Left knee pain. COMPARISON: None TECHNIQUE: Four views of the left knee. FINDINGS: There is no evidence of acute fracture or dislocation. No suprapatellar joint effusion. No soft tissue calcifications. Joint spaces are preserved. Mild marginal hypertrophic spurring is noted from the medial compartment. No evidence of radiopaque foreign body or soft tissue air. XR/XR knee LT 4V IMPRESSION: No acute fracture or dislocation in the left knee. Mild degenerative changes in the medial compartment of the left knee.
--- NOTE | ~2021-12-25 | XR_ITS ---
EXAMINATION: XR SACRUM AND COCCYX CLINICAL INFORMATION: Sacral pain. COMPARISON: Lumbar spine radiographs dated 09/06/2020. CT scan of the abdomen and pelvis dated 11/27/2006. TECHNIQUE: 2 views of the sacrum and 2 views of the coccyx were obtained. FINDINGS: Normal lumbar lordosis is seen in the visualized lumbar spine. Moderate degenerative disc disease is seen at L4-L5 and L5-S1. Sacrococcygeal angulation is again seen without significant change. No overt fracture. The soft tissues are unremarkable. XR/XR sacrum coccyx min 2V IMPRESSION: 1. L4-L5 and L5-S1 moderate degenerative disc disease with similar appearance to the 2020 study. 2. Angulated sacrum/coccyx is similar to to the 2006 CT scan. No definitive acute abnormality.
[2021-12-25 09:07] VITALS: BP 139/73; PULSE 94; RESP 18; TEMP 36.4; O2SAT 97; BMI 35.5
--- NOTE | 2021-12-25 09:23 | ED.FALL ---
HPI - Fall General Chief Complaint: Fall Stated Complaint: Fall;R leg pain/L knee pain Time Seen by Provider: 12/25/21 09:22 Source: patient Mode of arrival: ambulatory Limitations: no limitations History of Present Illness HPI Narrative: 56-year-old female with history of obesity, asthma, depression, HTN, hypothyroidism who presents to the ER for evaluation of right buttock, right hip and leg as well as left knee pain s/p fall x2. Patient reports 2 nights ago she tripped over a curb and fell onto her right hip and right side. She also hit her left knee on the ground. She is able to get up but slowly. She was sore. Last night she was moving a high chair, accidentally fell over and fell backward onto her buttocks, right side more than left. When she was taking a shower this morning and washing herself she felt a ?bump? on her right buttock. It was tender and painful. She came to the ER for further evaluation. He is able to ambulate but with some discomfort. Patient states when she fell she did not hit her head either time. She is not on anticoagulation. MD complaint: fall Onset (ago): day(s) Fall from: standing Fall witnessed: yes, by family Place fall occurred: home and street Loss of consciousness: none Prolonged down time: no Context: tripped/slipped Location of injury: buttocks Location of injury - extremities: left: knee and right: thigh Severity: severe Severity scale (1-10): 9 Quality: sharp and aching Associated symptoms (after fall): denies Related Data Home Medications Medication Instructions Recorded Confirmed acetaminophen 500 mg tablet 500 - 1,000 mg PO Q8H PRN Pain 01/20/21 02/05/21 albuterol sulfate 90 mcg/actuation 2 puff PO Q4-6H PRN Shortness Of 01/20/21 02/05/21 aerosol inhaler (ProAir HFA) Breath atorvastatin 20 mg tablet 20 mg PO DAILY 01/20/21 02/05/21 ciclopirox 8 % topical solution 1 ml topical BEDTIME 01/20/21 02/05/21 omeprazole 20 mg capsule,delayed 20 mg PO DAILY 01/20/21 02/05/21 release Previous Rx's Medication Instructions Recorded cholecalciferol (vitamin D3) 25 25 mcg PO DAILY #0 tabs 02/07/21 mcg (1,000 unit) tablet escitalopram oxalate 5 mg tablet 5 mg PO DAILY #15 tabs 02/07/21 folic acid 1 mg tablet 1 mg PO DAILY #0 tabs 02/07/21 levothyroxine 25 mcg tablet 25 mcg PO DAILY@0600 #15 tabs 02/07/21 cyclobenzaprine 10 mg tablet 10 mg PO TID PRN muscle pain or 02/24/21 spasm #20 tabs prednisone 20 mg tablet 60 mg PO DAILY 7 days #21 tabs 02/24/21 Allergies Allergy/AdvReac Type Severity Reaction Status Date / Time acetaminophen [Percocet] Allergy Unknown Unknown Unverified 12/25/21 09:06 aspirin [ASA] Allergy Unknown BURNING Verified 12/25/21 09:06 IN STOMACH morphine [MORPHINE] Allergy Unknown HEADACHES Verified 12/25/21 09:06 Motrin Allergy Unknown Unknown Verified 12/25/21 09:06 naproxen Allergy Unknown Unknown Verified 12/25/21 09:06 oxycodone [Percocet] Allergy Unknown Unknown Verified 12/25/21 09:06 ibuprofen [From MOTRIN] AdvReac Unknown STOMACH Verified 12/25/21 09:06 UPSET compacine Allergy Unknown Unknown Uncoded 01/12/20 11:45 Compoz Allergy Unknown Unknown Uncoded 01/12/20 11:45 From COMPAZINE AdvReac Unknown Unknown Uncoded 01/12/20 11:45 Review of Systems Review of Systems: Constitutional: No Fever, No Chills ENT/Mouth: No sore throat, No Rhinorrhea Cardiovascular: No Chest Pain, No SOB Respiratory: No Cough, No Sputum Gastrointestinal: No Nausea, No Vomiting, No Diarrhea, No abdominal Pain Genitourinary: No Dysuria, No Urinary Frequency, No Hematuria Musculoskeletal: +joint pain,+ Myalgias Skin: No Skin Lesions, No rash Neuro: No Weakness, No Numbness, No Dizziness, No Headache Psych: No Anxiety/Panic, No Depression Heme/Lymph: No Bruising, No Lymphadenopathy PMFSH Past Medical History Medical History (Updated 12/25/21 @ 10:12 by FATEMEH Kraft) Anemia Breast cancer Hallucinations, unspecified Post hysterectomy menopause Thyroid activity decreased Surgical History (Updated 12/27/20 @ 10:24 by ENID Morales) History of cholecystectomy History of hysterectomy Family History Family History Mother Diabetes Father HTN (hypertension) Social History Social History Household Members: None Housing: Apartment Do you presently have visiting nurse or other home services: No Alcohol intake: never Patient Tobacco Use Status: Never used Tobacco Advance Directives: No Advance Directives Information Provided: No service: No Sexual orientation: Straight/Heterosexual Gender identity: Female Physical Exam Vital Signs: Vital Signs: Last Vital Signs Temp 97.5 F 12/25/21 09:07 Pulse 94 12/25/21 09:07 Resp 18 12/25/21 09:07 BP 139/73 12/25/21 09:07 Pulse Ox 97 12/25/21 09:07 O2 Del Method 12/25/21 09:07 BMI result Body Mass Index 35.5 Appearance: Alert. Oriented X3. No acute distress. Eyes: Pupils equal, round and reactive to light. ENT: Pharynx normal. Neck: Normal inspection. Neck supple. No midline tenderness CVS: Normal heart rate and rhythm. Pulses normal. Respiratory: No respiratory distress. Breath sounds normal. Abdomen: Obese. Soft and nontender. +BS x4 Skin: Skin warm and dry. Normal skin color. Normal skin turgor. No rashes. Extremities: No lower extremity edema. Tenderness of the upper right thigh and hip. normal ROM of the bilateral hips and knees. no joint laxity appreciated of left knee Neuro: Oriented X 3. No motor deficit. No sensory deficit. Antalgic gait. Course Course Course Narrative: 56-year-old female presents to the ER for evaluation of right hip, right thigh, left knee and buttock pain after 2 falls at home. She is ambulatory but limping because of some pain. Doubt any acute fracture but x-rays have been ordered. Most likely soft tissue injury and contusion. Will medicate and reassess. Reevaluation(s) Reevaluation #1: Pain improved. X-rays negative for acute fractures. Mild degenerative changes noted in the hip. Pain is most likely due to contusion from her fall. At this time she is stable for discharge home with supportive care. Patient agrees with plan. 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 Medications Administered Discontinued Medications Generic Name Dose Route Start Last Admin Trade Name Freq PRN Reason Stop Dose Admin Oxycodone HCl 5 mg 12/25/21 09:23 12/25/21 10:39 Oxycodone Hcl Immed Release 5 Mg Tablet PO 12/25/21 09:24 5 mg ONCE ONE Administration Discharge Plan Discharge Clinical Impression: Contusion of buttock Patient Disposition: Home, Self-Care Instructions: Contusion in Adults (ED) Additional Instructions: Your x-rays today did not show any fractures or broken bones. Your pain is most likely due to soft tissue contusion. Treatment is supportive care - rest, ice, along with tylenol as needed. Follow up with your doctor. If you develop new or worsening symptoms call 911 or come back to the ER for further evaluation. Evette radiograf?as de hoy no mostraron fracturas ni huesos rotos. Lo m?s probable es que becerra dolor se deba a wil contusi?n en los tejidos blandos. El tratamiento es atenci?n de apoyo: descanso, hielo, junto con Tylenol seg?n sea necesario. Wallace un seguimiento con becerra m?dico. Si desarrolla s?ntomas nuevos o que empeoran, llame al 911 o regrese a la ari de emergencias para wil evaluaci?n adicional. Prescriptions: No Action levothyroxine 25 mcg Tablet 25 mcg PO DAILY@0600 Qty: 15 0RF folic acid 1 mg Tablet 1 mg PO DAILY Qty: 0 0RF escitalopram oxalate 5 mg Tablet 5 mg PO DAILY Qty: 15 1RF cholecalciferol (vitamin D3) 25 mcg (1,000 unit) Tablet 25 mcg PO DAILY Qty: 0 0RF cyclobenzaprine 10 mg tablet 10 mg PO TID PRN (Reason: muscle pain or spasm) Qty: 20 0RF prednisone 20 mg tablet 60 mg PO DAILY 7 Days Qty: 21 0RF ciclopirox 8 % solution 1 ml topical BEDTIME acetaminophen 500 mg tablet 500 - 1,000 mg PO Q8H PRN (Reason: Pain) albuterol sulfate [ProAir HFA] 90 mcg/actuation HFA aerosol inhaler 2 puff PO Q4-6H PRN (Reason: Shortness Of Breath) atorvastatin 20 mg tablet 20 mg PO DAILY omeprazole 20 mg capsule,delayed release(DR/EC) 20 mg PO DAILY Referrals: Fidelia Amaya MD [Primary Care Provider] - Print Language: Ukrainian
[2021-12-25] MEDS: oxyCODONE HCl Immed Release 5 MG TABLET PO (10:39)
== END 2021-12-25 11:23 | disposition home or self-care (01) ==
PROVIDERS: Emergency Provider Emergency Medicine Emergency Medical Services; PCP Internal Medicine
DX: S30.0XXA Contusion of lower back and pelvis, initial encounter (principal); S80.11XA Contusion of right lower leg, initial encounter; M25.562 Pain in left knee; M79.604 Pain in right leg; M25.551 Pain in right hip; W01.0XXA Fall on same level from slipping, tripping and stumbling without subsequent striking against object, initial encounter; Y93.9 Activity, unspecified; Y92.9 Unspecified place or not applicable; Y99.9 Unspecified external cause status
CPT/HCPCS: 72220; 73502; 73564; 99283

== ENCOUNTER 2022-03-17 07:44 | Emergency (ER) | payer MEDICAID, SELFPAY ==
--- NOTE | ~2022-03-17 | CT_ITS ---
EXAMINATION: CT ABDOMEN AND PELVIS WITH CONTRAST CLINICAL INFORMATION: Right lower quadrant pain COMPARISON: 02/28/2008 TECHNIQUE: Multidetector volumetric images were obtained from the superior aspect of the liver through the pubic symphysis following administration 85 mL of Omnipaque 350 intravenous contrast. Sagittal and coronal reformatted images were obtained on the technologist's workstation. Oral contrast: No This CT examination was performed using dose optimization techniques as appropriate, variously including the following: *Automated exposure control *Adjustment of mA and/or kV according to patient size (this includes techniques or standardized protocols for targeted exams where dose is matched to indication/reason for exam; i.e. extremities or head) *Use of iterative reconstruction technique DLP: 1052 mGy-cm FINDINGS: LUNG BASES: Minimal bibasilar atelectasis. The visualized cardiac structures are unremarkable. LIVER, GALLBLADDER, AND BILIARY TREE: The liver is normal in size and shape with relatively low attenuation attenuation. No focal hepatic lesion or biliary ductal dilatation is present. Cholecystectomy. PANCREAS: Unremarkable. SPLEEN: Unremarkable. ADRENAL GLANDS: Unremarkable. KIDNEYS AND URETERS: The kidneys are normal in size, shape, and attenuation. No hydronephrosis, hydroureter, or calculi seen. No perinephric stranding. BLADDER: Unremarkable. GASTROINTESTINAL TRACT: The stomach is unremarkable. Normal caliber small bowel. No obstruction. No colonic wall thickening or inflammation. No free air or free fluid. Normal appendix. ABDOMINAL WALL: No significant hernia is appreciated. LYMPH NODES: No retroperitoneal lymphadenopathy. There is a odette mesentery with associated prominent mesenteric lymph nodes. The appearance is similar to the 2008 study. VASCULAR: Normal caliber aorta with mild atherosclerotic calcification. PELVIC VISCERA: Uterus not seen. No adnexal mass. OSSEOUS STRUCTURES: No acute or suspicious osseous abnormality. Degenerative changes of the lower lumbar spine. CT/CT abdomen pelvis w IV con IMPRESSION: 1. No acute findings in the abdomen or pelvis. Normal appendix. 2. Hepatic steatosis. Fleischner guidelines were followed.
[2022-03-17 07:46] VITALS: BP 123/76; PULSE 92; RESP 20; TEMP 36.6; O2SAT 97; BMI 37.2
[2022-03-17 08:22] LABS: Appearance Urine Clear; Color Urine Yellow; Glucose Urine UA Negative (Negative); Leukocyte Esterase Urine Negative (Negative); Nitrite Urine Negative (Negative); Specific Gravity - Urine >= 1.030 (1.005-1.025); UMIC TRIGGER UACC YES; Urine Blood Negative (Negative); Urine Ketones Negative (Negative); Urine Protein 30 (1+) mg/dL (Neg-Trace)
[2022-03-17 08:24] LABS: Bacteria Urine None Seen (None Seen); Hematocrit 34.3 % (37.0-47.0); Hemoglobin 10.6 g/dl (12.0-16.0); Hyaline Casts Urine 0-2 /LPF (0-2); Mean Corpuscular HGB Conc 30.9 g/dl (31.0-35.0); Mean Corpuscular Hemoglobin 18.6 pg (27.0-33.0); Mean Platelet Volume 11.4 fL (9.4-12.3); Platelet Count 231 X10*3/uL (160-400); RBC Urine 0-2 /HPF (0-2); Red Cell Distribution Width 15.7 % (11.0-16.0); WBC Urine 0-5 /HPF (0-5); White Blood Count 9.3 X10*3/uL (4.8-10.8)
[2022-03-17 08:25] LABS: Mean Corpuscular Volume 60.2 fL (80.0-98.0)
[2022-03-17 08:40] LABS: COVID-19 Test Negative (Negative); IDNOW Serial# 55D5AD1C
[2022-03-17 08:46] LABS: Alanine Aminotransferase 15 U/L (0-31); Albumin Level 4.1 g/dL (3.5-5.0); Alkaline Phosphatase 118 U/L (39-117); Anion Gap 14 (12-20); Aspartate Amino Transferase 13 U/L (5-31); Bilirubin Direct < 0.2 mg/dL (0.0-0.5); Bilirubin Total 0.4 mg/dL (0.0-1.0); Blood Urea Nitrogen 26 mg/dL (9-16); Calcium 9.3 mg/dL (8.4-10.2); Carbon Dioxide 28 mmol/L (22-29); Chloride 102 mmol/L (96-108); Creatinine Clr Calc Pharmacy 76.5; Estimated Glomerular Filt Rate > 60; Glucose Random 114 mg/dL (60-115); Lipase 23 U/L (8-78); Potassium 3.3 mmol/L (3.3-5.1); Sodium 141 mmol/L (135-145); Total Protein 7.2 g/dL (6.5-8.0)
--- NOTE | 2022-03-17 08:48 | ED.ABDPAIN ---
HPI - Abdominal Pain General Chief Complaint: Abdominal Pain Stated Complaint: Low Abdominal Pain Time Seen by Provider: 03/17/22 08:01 Source: patient Mode of arrival: ambulatory Limitations: language barrier (Tajik-speaking medical supervisor utilized) History of Present Illness HPI narrative: Patient is a 56-year-old female who presents to the emergency department for evaluation of abdominal pain. Reports right lower quadrant abdominal pain as been constant over the past 3 days. It is exacerbated by bending forward, hitting her right leg, thigh, and with palpation over the right lower quadrant. Denies fevers, chills, nausea, vomiting, diarrhea, constipation, dysuria, urinary frequency / urgency / hesitancy, pelvic pain, abnormal vaginal bleeding. Reports history of hysterectomy and cholecystectomy. Denies any associated lower back /flank pain with this. Related Data Home Medications Medication Instructions Recorded Confirmed acetaminophen 500 mg tablet 500 - 1,000 mg PO Q8H PRN Pain 01/20/21 02/05/21 albuterol sulfate 90 mcg/actuation 2 puff PO Q4-6H PRN Shortness Of 01/20/21 02/05/21 aerosol inhaler (ProAir HFA) Breath atorvastatin 20 mg tablet 20 mg PO DAILY 01/20/21 02/05/21 ciclopirox 8 % topical solution 1 ml topical BEDTIME 01/20/21 02/05/21 omeprazole 20 mg capsule,delayed 20 mg PO DAILY 01/20/21 02/05/21 release Previous Rx's Medication Instructions Recorded cholecalciferol (vitamin D3) 25 25 mcg PO DAILY #0 tabs 02/07/21 mcg (1,000 unit) tablet escitalopram oxalate 5 mg tablet 5 mg PO DAILY #15 tabs 02/07/21 folic acid 1 mg tablet 1 mg PO DAILY #0 tabs 02/07/21 levothyroxine 25 mcg tablet 25 mcg PO DAILY@0600 #15 tabs 02/07/21 cyclobenzaprine 10 mg tablet 10 mg PO TID PRN muscle pain or 02/24/21 spasm #20 tabs prednisone 20 mg tablet 60 mg PO DAILY 7 days #21 tabs 02/24/21 lidocaine 5 % topical patch 1 patch topical DAILY #15 ea 03/17/22 (Lidoderm) Allergies Allergy/AdvReac Type Severity Reaction Status Date / Time acetaminophen [Percocet] Allergy Unknown Unknown Unverified 12/25/21 09:06 aspirin [ASA] Allergy Unknown BURNING Verified 12/25/21 09:06 IN STOMACH morphine [MORPHINE] Allergy Unknown HEADACHES Verified 12/25/21 09:06 naproxen Allergy Unknown Unknown Verified 12/25/21 09:06 oxycodone [Percocet] Allergy Unknown Unknown Verified 12/25/21 09:06 prochlorperazine Allergy Unknown Unknown Verified 03/08/22 15:51 [From Compazine] ibuprofen [From MOTRIN] AdvReac Unknown Eye Verified 03/08/22 15:51 Swelling Compoz Allergy Unknown Unknown Uncoded 01/12/20 11:45 Review of Systems Review of Systems Constitutional : No Weight loss, No Fever, No Chills ENT/Mouth :? No sore throat, No Rhinorrhea Eyes: No Swelling, No Redness Cardiovascular : No Chest Pain, No SOB, No Edema Respiratory : No Cough, No Sputum, No Wheezing Gastrointestinal : no Nausea, no Vomiting, No Diarrhea, positive abdominal pain, No Hematochezia, No Melena Genitourinary : No Dysuria, No Urinary Frequency, No Hematuria, No Urgency? Musculoskeletal : No joint pain, No Myalgias, No Joint Swelling Skin : No Skin Lesions, No rash Neuro : No Weakness, No Numbness, No Dizziness, No Headache Psych : No Anxiety/Panic, No Depression Heme/Lymph: No Bruising, No Lymphadenopathy Endocrine : No Polyuria, No Polydipsia Yes all other systems are reviewed and are negative [facility] Past Medical History Attestation statement: The following information was validated with the patient. Source: old records reviewed Medical History Anemia Breast cancer Hallucinations, unspecified Post hysterectomy menopause Thyroid activity decreased Surgical History History of cholecystectomy History of hysterectomy Family History Family History Mother Diabetes Father HTN (hypertension) Social History Social History Household Members: None Housing: Apartment Do you presently have visiting nurse or other home services: No Alcohol intake: never Patient Tobacco Use Status: Never used Tobacco Advance Directives: No Advance Directives Information Provided: Yes service: No Sexual orientation: Straight/Heterosexual Gender identity: Female Physical Exam ED Vital Signs: Vital Signs - 24 hr 03/17/22 07:46 Temperature 97.8 F Pulse Rate 92 Respiratory Rate 20 Blood Pressure 123/76 Pulse Oximetry 97 Oxygen Delivery Method Room Air BMI result Body Mass Index 37.2 Appearance: Alert.?Oriented to person, place and time. No acute distress.?Normal affect. Eyes: Pupils equal, round and reactive to light.? ENT: Pharynx normal.?? Neck: Normal inspection.? Neck supple.?? CVS: Heart sounds normal. Normal heart rate and rhythm.? Pulses normal.?? Respiratory: No respiratory distress.? Lung sounds clear to auscultation bilaterally?? Abdomen: Soft with right lower quadrant tenderness upon palpation. Normoactive bowel sounds. No pulsatile mass.?? Skin: Skin warm and dry.? Normal skin color.?? Extremities: No lower extremity edema.? Neuro: Moves all extremities spontaneously. Sensation intact bilaterally. No focal neuro deficits. Ambulates with normal steady gait. Course Reevaluation(s) Reevaluation #1: CBC reveals a normocytic anemia which is consistent with baseline, not needing transfusion criteria. CMP revealing elevated BUN at 26, creatinine 0.8, I suspect this is due to dehydration. Transaminases are within normal limits. Lipase within normal limits, low suspicion for CBD stone. CT reveals no acute findings, normal appendix., Patient is s/p hysterectomy, there are no visible adnexal masses or free fluid within the pelvis to suggest ovarian cyst rupture, because for torsion given duration of symptoms. At this time suspect pain to be muscular in nature, given it is made worse with particular movements of the lower legs/positions. Discussed with patient plan of care for rest, ice / heat, topical Lidoderm patch, outpatient follow-up with primary care provider within the next 3-5 days. Reviewed worrisome signs and symptoms that would warrant re-evaluation in the emergency department. Time: 10:02 Medical Decision Making Medical Decision Making MDM Narrative: patient is a 56-year-old female with past medical history of anemia, breast cancer, PVD, asthma, hypothyroidism, thalassemia, hyperlipidemia presents emergency department for evaluation of right lower quadrant pain. At the time examination, she does have tenderness upon palpation, does not appear to be made worse upon rebound. Overall she is well-appearing, afebrile without tachycardia. Will obtain CT of the abdomen and pelvis for further evaluation, concern for appendicitis, colitis from diverticulitis, ovarian cyst, less likely ovarian torsion. will obtain CBC, CMP, lipase, urinalysis. Differential Diagnosis Differential Diagnoses: The differential diagnosis associated with the presentation includes ( As noted above) Lab Data MDM Lab Attestation statement: I reviewed the patient's lab results. 03/17/22 08:14 03/17/22 08:14 Labs: Lab Results 03/17/22 03/17/22 03/17/22 Range/Units 08:14 08:14 08:14 WBC 9.3 (4.8-10.8) X10*3/uL RBC 5.70 H (4.20-5.50) X10*6/uL Hgb 10.6 L (12.0-16.0) g/dl Hct 34.3 L (37.0-47.0) % MCV 60.2 L (80.0-98.0) fL MCH 18.6 L (27.0-33.0) pg MCHC 30.9 L (31.0-35.0) g/dl RDW 15.7 (11.0-16.0) % Plt Count 231 (160-400) X10*3/uL MPV 11.4 (9.4-12.3) fL Absolute Nucleated RBC 0.000 (0.0-0.012) X10*3/uL Nucleated RBC % (auto) 0.0 (0.0-0.2) /100WBC Sodium 141 (135-145) mmol/L Potassium 3.3 (3.3-5.1) mmol/L Chloride 102 (96-108) mmol/L Carbon Dioxide 28 (22-29) mmol/L Anion Gap 14 (12-20) BUN 26 H (9-16) mg/dL Creatinine 0.88 (0.5-1.4) mg/dL Estim Creat Clear Calc 76.5 Estimated GFR > 60 Random Glucose 114 (60-115) mg/dL Calcium 9.3 (8.4-10.2) mg/dL Total Bilirubin 0.4 (0.0-1.0) mg/dL Direct Bilirubin < 0.2 (0.0-0.5) mg/dL AST 13 (5-31) U/L ALT 15 (0-31) U/L Alkaline Phosphatase 118 H (39-117) U/L Total Protein 7.2 (6.5-8.0) g/dL Albumin 4.1 (3.5-5.0) g/dL Lipase 23 (8-78) U/L Urine Color Urine Appearance Urine pH (5.0-9.0) Ur Specific Gail (1.005-1.025) Urine Protein (Neg-Trace) mg/dL Urine Glucose (UA) (Negative) mg/dL Urine Ketones (Negative) mg/dL Urine Blood (Negative) Urine Nitrite (Negative) Ur Leukocyte Esterase (Negative) Urine RBC (0-2) /HPF Urine WBC (0-5) /HPF Ur Squamous Epith Cells (0-2) /HPF Urine Bacteria (None Seen) Hyaline Casts (0-2) /LPF COVID-19 (GELY) Negative (Negative) COVID-19 Clin Com See Note 03/17/22 Range/Units 08:14 WBC (4.8-10.8) X10*3/uL RBC (4.20-5.50) X10*6/uL Hgb (12.0-16.0) g/dl Hct (37.0-47.0) % MCV (80.0-98.0) fL MCH (27.0-33.0) pg MCHC (31.0-35.0) g/dl RDW (11.0-16.0) % Plt Count (160-400) X10*3/uL MPV (9.4-12.3) fL Absolute Nucleated RBC (0.0-0.012) X10*3/uL Nucleated RBC % (auto) (0.0-0.2) /100WBC Sodium (135-145) mmol/L Potassium (3.3-5.1) mmol/L Chloride (96-108) mmol/L Carbon Dioxide (22-29) mmol/L Anion Gap (12-20) BUN (9-16) mg/dL Creatinine (0.5-1.4) mg/dL Estim Creat Clear Calc Estimated GFR Random Glucose (60-115) mg/dL Calcium (8.4-10.2) mg/dL Total Bilirubin (0.0-1.0) mg/dL Direct Bilirubin (0.0-0.5) mg/dL AST (5-31) U/L ALT (0-31) U/L Alkaline Phosphatase (39-117) U/L Total Protein (6.5-8.0) g/dL Albumin (3.5-5.0) g/dL Lipase (8-78) U/L Urine Color Yellow Urine Appearance Clear Urine pH 6.0 (5.0-9.0) Ur Specific Gail >= 1.030 H (1.005-1.025) Urine Protein 30 (1+) H (Neg-Trace) mg/dL Urine Glucose (UA) Negative (Negative) mg/dL Urine Ketones Negative (Negative) mg/dL Urine Blood Negative (Negative) Urine Nitrite Negative (Negative) Ur Leukocyte Esterase Negative (Negative) Urine RBC 0-2 (0-2) /HPF Urine WBC 0-5 (0-5) /HPF Ur Squamous Epith Cells 6-10 (0-2) /HPF Urine Bacteria None Seen (None Seen) Hyaline Casts 0-2 (0-2) /LPF COVID-19 (GELY) (Negative) COVID-19 Clin Com Independent Interpretation I performed an independent interpretation of an: CT Scan Radiology Impression Discussion of test interpretation with radiology: I have reviewed the radiologist's reading. Radiologist Impression: CT/CT abdomen pelvis w IV con IMPRESSION: 1.? No acute findings in the abdomen or pelvis. Normal appendix. 2.? Hepatic steatosis. ? Fleischner guidelines were followed. Prescription Management I considered prescription management with: Pain Medication Medications Administered Discontinued Medications Generic Name Dose Route Start Last Admin Trade Name Héctorq PRN Reason Stop Dose Admin Sodium Chloride 1,000 mls @ 999 mls/hr 03/17/22 08:45 03/17/22 09:38 Ns IV 03/17/22 09:45 999 mls/hr .Q1H1M AMIRA Administration Iohexol 100 ml 03/17/22 09:22 03/17/22 09:23 Iohexol 350 Mg/Ml 100 Ml Infus..Btl IV 03/17/22 09:23 85 ml ONCE ONE Administration Critical Care Time Critical Care Time Critical Care Time: Yes Total Critical Care Time: 35 Attestation: I personally attest to this critical care time spent taking care of the patient exclusive of all other billable procedures was approximately 35 minutes including initial evaluation of patient, ordering tests, x-ray interpretation, EKG interpretation, medical consultation, documentation, re-evaluation. Discharge Plan Discharge Clinical Impression: Abdominal pain Patient Disposition: Home, Self-Care Instructions: Abdominal Pain (ED) Additional Instructions: the CT of your abdomen and pelvis today was normal. Your blood work is normal. There is no sign of urinary tract infection. At this time, I suspect that your pain is likely due to a strain of the muscles within your abdomen, please be sure to rest over the next few days, avoid heavy lifting /bending, apply ice /heat to the area for 10-15 minutes 3-4 times daily, use topical Lidoderm patches. Contact primary care provider to arrange for a follow-up visit within the next 3-5 days. You may return back to the emergency department with any new or worsening symptoms or concerns. Prescriptions: New lidocaine [Lidoderm] 5 % adhesive patch,medicated 1 patch topical DAILY Qty: 15 0RF Rx Instructions: leave on most painful area for up to 12 hrs No Action levothyroxine 25 mcg Tablet 25 mcg PO DAILY@0600 Qty: 15 0RF folic acid 1 mg Tablet 1 mg PO DAILY Qty: 0 0RF escitalopram oxalate 5 mg Tablet 5 mg PO DAILY Qty: 15 1RF cholecalciferol (vitamin D3) 25 mcg (1,000 unit) Tablet 25 mcg PO DAILY Qty: 0 0RF cyclobenzaprine 10 mg tablet 10 mg PO TID PRN (Reason: muscle pain or spasm) Qty: 20 0RF prednisone 20 mg tablet 60 mg PO DAILY 7 Days Qty: 21 0RF ciclopirox 8 % solution 1 ml topical BEDTIME acetaminophen 500 mg tablet 500 - 1,000 mg PO Q8H PRN (Reason: Pain) albuterol sulfate [ProAir HFA] 90 mcg/actuation HFA aerosol inhaler 2 puff PO Q4-6H PRN (Reason: Shortness Of Breath) atorvastatin 20 mg tablet 20 mg PO DAILY omeprazole 20 mg capsule,delayed release(DR/EC) 20 mg PO DAILY Referrals: Fidelia Amaya MD [Primary Care Provider] - Interventions: ED Discharge Assessment Last Done: 03/17/22 10:28 Discharge Date/Time: 03/17/22 10:29 Print Language: Tajik
[2022-03-17] MEDS: iohexoL 350 MG/ML 100 ML INFUS..BTL IV (09:23)
[2022-03-17] MEDS: 0.9 % Sodium Chloride 1,000 ML 999 ML IV (09:38)
== END 2022-03-17 10:29 | disposition home or self-care (01) ==
PROVIDERS: Emergency Provider Student in an Organized Health Care Education/Training Program; PCP Internal Medicine
DX: R10.30 Lower abdominal pain, unspecified (principal); Z20.822 Contact with and (suspected) exposure to COVID-19; Z20.828 Contact with and (suspected) exposure to other viral communicable diseases; Z79.899 Other long term (current) drug therapy
CPT/HCPCS: 74177; 80048; 80076; 81001; 83690; 85027; 87635; 99284; 99285; Q9967

== ENCOUNTER 2022-08-17 16:02 | Outpatient (REF) | payer MEDICAID, SELFPAY ==
[2022-08-17 19:15] LABS: Alanine Aminotransferase 17 U/L (0-31); Albumin Level 4.3 g/dL (3.5-5.0); Alkaline Phosphatase 47 U/L (39-117); Anion Gap 16 (12-20); Aspartate Amino Transferase 23 U/L (5-31); Bilirubin Total 0.3 mg/dL (0.0-1.0); Blood Urea Nitrogen 14 mg/dL (9-16); Calcium 10.5 mg/dL (8.4-10.2); Carbon Dioxide 25 mmol/L (22-29); Chloride 107 mmol/L (96-108); Estimated Glomerular Filt Rate > 60; Glucose Random 93 mg/dL (60-115); Potassium 4.6 mmol/L (3.3-5.1); Sodium 143 mmol/L (135-145); Total Protein 7.7 g/dL (6.5-8.0)
[2022-08-17 19:30] LABS: Free T4 (Free Thyroxine) 0.95 ng/dL (0.71-1.85); T4 Thyroxine 7.5 ug/dL (4.5-12.0); Thyroid Stimulating Hormone 1.48 uIU/mL (0.32-4.0)
== END 2022-08-17 16:03 | disposition home or self-care (01) ==
LOC: HO.HHCL 16:02
PROVIDERS: Visit Provider Student in an Organized Health Care Education/Training Program
DX: L29.9 Pruritus, unspecified (principal)
CPT/HCPCS: 36415; 80053; 84436; 84439; 84443

== ENCOUNTER 2022-09-01 07:42 | Emergency (ER) | payer MEDICAID, SELFPAY ==
[2022-09-01 07:45] VITALS: BP 137/79; PULSE 93; RESP 18; TEMP 36.4; O2SAT 98; BMI 37.6
--- NOTE | 2022-09-01 08:15 | ED_ITS ---
HPI - Eye Problem General Chief complaint: Eye Problems Stated complaint: R Eye Pain No Injury Time Seen by Provider: 09/01/22 07:50 Source: patient Mode of arrival: ambulatory Limitations: language barrier (Patient speaks East [place]orese only, lock and dam equipment repairer used) History of Present Illness HPI Narrative: 56-year-old female who presents emergency department for evaluation of right eye pain. The patient states she noted a black object in her right lower eye yesterday and she was concerned that there may have been a bug in her eye. She denies any change in her vision. She points to her right lower eyelid when asked to localize the bug. She denied being ill in any way. She denied fever, chills, rhinorrhea, cough, sore throat. She does were glasses. Related Data Home Medications Medication Instructions Recorded Confirmed acetaminophen 500 mg tablet 500 - 1,000 mg PO Q8H PRN Pain 01/20/21 02/05/21 albuterol sulfate 90 mcg/actuation 2 puff PO Q4-6H PRN Shortness Of 01/20/21 02/05/21 aerosol inhaler (ProAir HFA) Breath atorvastatin 20 mg tablet 20 mg PO DAILY 01/20/21 02/05/21 ciclopirox 8 % topical solution 1 ml topical BEDTIME 01/20/21 02/05/21 omeprazole 20 mg capsule,delayed 20 mg PO DAILY 01/20/21 02/05/21 release Previous Rx's Medication Instructions Recorded cholecalciferol (vitamin D3) 25 25 mcg PO DAILY #0 tabs 02/07/21 mcg (1,000 unit) tablet escitalopram oxalate 5 mg tablet 5 mg PO DAILY #15 tabs 02/07/21 folic acid 1 mg tablet 1 mg PO DAILY #0 tabs 02/07/21 levothyroxine 25 mcg tablet 25 mcg PO DAILY@0600 #15 tabs 02/07/21 cyclobenzaprine 10 mg tablet 10 mg PO TID PRN muscle pain or 02/24/21 spasm #20 tabs prednisone 20 mg tablet 60 mg PO DAILY 7 days #21 tabs 02/24/21 lidocaine 5 % topical patch 1 patch topical DAILY #15 ea 03/17/22 (Lidoderm) erythromycin 5 mg/gram (0.5 %) eye 0.5 inch ophthalmic (eye) QID 7 09/01/22 ointment days #3.5 grams Allergies Allergy/AdvReac Type Severity Reaction Status Date / Time acetaminophen [Percocet] Allergy Unknown Unknown Unverified 12/25/21 09:06 aspirin [ASA] Allergy Unknown BURNING Verified 12/25/21 09:06 IN STOMACH morphine [MORPHINE] Allergy Unknown HEADACHES Verified 12/25/21 09:06 naproxen Allergy Unknown Unknown Verified 12/25/21 09:06 oxycodone [Percocet] Allergy Unknown Unknown Verified 12/25/21 09:06 prochlorperazine Allergy Unknown Unknown Verified 03/08/22 15:51 [From Compazine] ibuprofen [From MOTRIN] AdvReac Unknown Eye Verified 03/08/22 15:51 Swelling Compoz Allergy Unknown Unknown Uncoded 01/12/20 11:45 Review of Systems Review of Systems: Yes all other systems are reviewed and are negative [facility] Past Medical History Medical History Anemia Breast cancer Hallucinations, unspecified Post hysterectomy menopause Thyroid activity decreased Surgical History History of cholecystectomy History of hysterectomy Family History Family History Mother Diabetes Father HTN (hypertension) Social History Social History Household Members: None Housing: Apartment Do you presently have visiting nurse or other home services: No Alcohol intake: never Patient Tobacco Use Status: Never used Tobacco Advance Directives: No Advance Directives Information Provided: No service: No Sexual orientation: Straight/Heterosexual Gender identity: Female Physical Exam Vital Signs: Vital Signs: Last Vital Signs Temp 97.5 F 09/01/22 07:45 Pulse 93 09/01/22 07:45 Resp 18 09/01/22 07:45 BP 137/79 09/01/22 07:45 Pulse Ox 98 09/01/22 07:45 O2 Del Method Room Air 09/01/22 07:45 BMI result Body Mass Index 37.6 Vital signs were unremarkable General: Awake, alert, female patient, pleasant, cooperative no distress HEENT: Head is normal cephalic atraumatic, pupils were equal round reactive light, sclera contact however normal, fluorescein dye stain of the right cornea with Wood's lamp exam revealed no corneal abrasion, the patient has a small stye to the right lower eyelid. Medical Decision Making Medical Decision Making [facility] Narrative: 56-year-old female who presents emergency department for evaluation of right eye pain. Patient's exam is consistent with a right lower eyelid stye. Patient was prescribed erythromycin optic ointment 4 times a day, she was instructed to clean her eyelid 4 times a day and also apply a warm compress 4 times a day for 1 week. She was given printed and verbal instructions discharged home. Differential Diagnosis Differential diagnosis includes but is not limited to stye, corneal foreign body, corneal abrasion, glaucoma Prescription Management I considered prescription management with: Pain Medication Chronic Conditions Patient?s care impacted by: Hypertension Discharge Plan Discharge Clinical Impression: Hordeolum externum (stye) Qualifiers: Laterality: right Eyelid: lower Qualified Code(s): H00.012 - Hordeolum externum right lower eyelid Patient Disposition: Home, Self-Care Instructions: Stye (ED) Additional Instructions: You have an infection of your right lower eyelid this is called a stye. Use a Q-tip , dip it in a mixture of warm water and a small amount of baby shampoo. Use the Q-tip to clean your lower eyelid, then apply the erythromycin ointment and then apply a warm washcloth for 15 minutes, do this 4 times a day for 1 week and this will treat stye. Follow-up with your doctor in 2 days. Please return to the emergency department if your symptoms get worse or if you develop any symptoms that are concerning to you. Prescriptions: New erythromycin 5 mg/gram (0.5 %) ointment 0.5 inch ophthalmic (eye) QID 7 Days Qty: 3.5 0RF No Action levothyroxine 25 mcg Tablet 25 mcg PO DAILY@0600 Qty: 15 0RF folic acid 1 mg Tablet 1 mg PO DAILY Qty: 0 0RF escitalopram oxalate 5 mg Tablet 5 mg PO DAILY Qty: 15 1RF cholecalciferol (vitamin D3) 25 mcg (1,000 unit) Tablet 25 mcg PO DAILY Qty: 0 0RF cyclobenzaprine 10 mg tablet 10 mg PO TID PRN (Reason: muscle pain or spasm) Qty: 20 0RF prednisone 20 mg tablet 60 mg PO DAILY 7 Days Qty: 21 0RF lidocaine [Lidoderm] 5 % adhesive patch,medicated 1 patch topical DAILY Qty: 15 0RF Rx Instructions: leave on most painful area for up to 12 hrs ciclopirox 8 % solution 1 ml topical BEDTIME acetaminophen 500 mg tablet 500 - 1,000 mg PO Q8H PRN (Reason: Pain) albuterol sulfate [ProAir HFA] 90 mcg/actuation HFA aerosol inhaler 2 puff PO Q4-6H PRN (Reason: Shortness Of Breath) atorvastatin 20 mg tablet 20 mg PO DAILY omeprazole 20 mg capsule,delayed release(DR/EC) 20 mg PO DAILY Print Language: [place]se
[2022-09-01] MEDS: Tetracaine HCl/PF 0.5% Oph Sol 4 ML DROPS 3 DROP EYE-RIGHT (08:24)
[2022-09-01] MEDS: Fluorescein Sodium STRIP 1 STRIP EYE-RIGHT (08:24)
== END 2022-09-01 08:30 | disposition home or self-care (01) ==
PROVIDERS: Emergency Provider Emergency Medicine Emergency Medical Services; PCP Internal Medicine
DX: H00.012 Hordeolum externum right lower eyelid (principal); Z79.899 Other long term (current) drug therapy
CPT/HCPCS: 99282; 99283

== ENCOUNTER 2022-11-27 19:45 | Emergency (ER) | payer MEDICAID, SELFPAY ==
--- NOTE | ~2022-11-27 | XR_ITS ---
EXAMINATION: XR LUMBOSACRAL SPINE CLINICAL INFORMATION: Increased right-sided pain COMPARISON: 03/17/2022 TECHNIQUE: Three views of the lumbosacral spine. FINDINGS: There is anatomic alignment of the lumbar vertebral bodies and posterior elements. There is disc space narrowing at L4-L5 and L5-S1 which is similar to prior. Osteophytes are demonstrated at L4-L5. No acute fracture is seen. Sacroiliac joints appear intact. XR/XR lumbar spine 2-3V IMPRESSION: Degenerative changes at L4-L5 and L5-S1, similar to prior.
[2022-11-27 21:03] VITALS: BP 142/79; PULSE 71; RESP 18; TEMP 36.1; O2SAT 100; BMI 40.7
[2022-11-28 03:37] VITALS: RESP 16
--- NOTE | 2022-11-28 04:30 | ED.BACK ---
HPI - Back Pain/Injury General Chief Complaint: Back Pain/Injury Stated Complaint: back pain Time Seen by Provider: 11/28/22 04:24 Source: patient Mode of arrival: ambulatory Limitations: no limitations History of Present Illness HPI Narrative: Patient with chronic low back pain not on any medication complaining of pain for last few weeks getting worse radiating to the right leg no motor weakness or sensory loss no recent trauma no fever or chills Related Data Home Medications Medication Instructions Recorded Confirmed acetaminophen 500 mg tablet 500 - 1,000 mg PO Q8H PRN Pain 01/20/21 02/05/21 albuterol sulfate 90 mcg/actuation 2 puff PO Q4-6H PRN Shortness Of 01/20/21 02/05/21 aerosol inhaler (ProAir HFA) Breath atorvastatin 20 mg tablet 20 mg PO DAILY 01/20/21 02/05/21 ciclopirox 8 % topical solution 1 ml topical BEDTIME 01/20/21 02/05/21 omeprazole 20 mg capsule,delayed 20 mg PO DAILY 01/20/21 02/05/21 release Previous Rx's Medication Instructions Recorded cholecalciferol (vitamin D3) 25 25 mcg PO DAILY #0 tabs 02/07/21 mcg (1,000 unit) tablet escitalopram oxalate 5 mg tablet 5 mg PO DAILY #15 tabs 02/07/21 folic acid 1 mg tablet 1 mg PO DAILY #0 tabs 02/07/21 levothyroxine 25 mcg tablet 25 mcg PO DAILY@0600 #15 tabs 02/07/21 cyclobenzaprine 10 mg tablet 10 mg PO TID PRN muscle pain or 02/24/21 spasm #20 tabs prednisone 20 mg tablet 60 mg (3 x 20 mg) PO DAILY 7 days 02/24/21 #21 tabs lidocaine 5 % topical patch 1 patch topical DAILY #15 ea 03/17/22 (Lidoderm) erythromycin 5 mg/gram (0.5 %) eye 0.5 inch ophthalmic (eye) QID 7 09/01/22 ointment days #3.5 grams cyclobenzaprine 10 mg tablet 10 mg PO Q8H #20 tabs 11/28/22 tramadol 50 mg tablet 50 mg PO Q6H PRN pain #20 tabs 11/28/22 Allergies Allergy/AdvReac Type Severity Reaction Status Date / Time acetaminophen [Percocet] Allergy Unknown Unknown Verified 11/28/22 05:34 aspirin [ASA] Allergy Unknown BURNING Verified 11/28/22 05:34 IN STOMACH morphine [MORPHINE] Allergy Unknown HEADACHES Verified 11/28/22 05:34 naproxen Allergy Unknown Unknown Verified 11/28/22 05:34 oxycodone [Percocet] Allergy Unknown Unknown Verified 11/28/22 05:34 prochlorperazine Allergy Unknown Unknown Verified 11/28/22 05:34 [From Compazine] ibuprofen [From MOTRIN] AdvReac Unknown Eye Verified 11/28/22 05:34 Swelling Compoz Allergy Unknown Unknown Uncoded 01/12/20 11:45 Review of Systems Review of Systems: Yes all other systems are reviewed and are negative PMFSH Past Medical History Medical History Anemia Breast cancer Hallucinations, unspecified Post hysterectomy menopause Thyroid activity decreased Surgical History History of cholecystectomy History of hysterectomy Family History Family History Mother Diabetes Father HTN (hypertension) Social History Social History Household Members: None Housing: Apartment Do you presently have visiting nurse or other home services: No Alcohol intake: never Patient Tobacco Use Status: Never used Tobacco Smoked in Last 30 Days: No Use of substances other than those prescribed or required for medical reasons: No Advance Directives: No Advance Directives Information Provided: Yes Patient : No service: No Sexual orientation: Straight/Heterosexual Gender identity: Female Physical Exam Vital Signs: Vital Signs: Last Vital Signs Temp 98.1 F 11/28/22 06:38 Pulse 68 11/28/22 06:38 Resp 18 11/28/22 06:38 BP 154/76 H 11/28/22 06:38 Pulse Ox 98 11/28/22 06:38 O2 Del Method Room Air 11/28/22 06:38 BMI result Body Mass Index 40.7 Appearance: Alert. Oriented X3. No acute distress. Eyes: PERRLA, No Nystagmus ENT: Pharynx normal. Oral Mucosa moist Neck: Normal inspection. Neck supple. CVS: Normal heart rate and rhythm. Pulses normal. Respiratory: No respiratory distress. Equal air entry bilateral, Abdomen: Soft and nontender. Bowel sounds are present, no mass palpable, no CVA tenderness Skin: Skin warm and dry. Normal skin color. Normal skin turgor. Extremities: No lower extremity edema. No calf tenderness back: Diffuse lumbar paraspinal tenderness SLR negative bilateral no neurovascular deficit Neuro: Oriented X 3. No motor deficit. No sensory deficit.No cerebellar signs , cranial nerves II-XII intact Medications Administered Discontinued Medications Generic Name Dose Route Start Last Admin Trade Name Freq PRN Reason Stop Dose Admin Cyclobenzaprine HCl 10 mg 11/28/22 05:17 11/28/22 05:55 Cyclobenzaprine Hcl 10 Mg Tablet PO 11/28/22 05:18 Not Given ONCE ONE Ketorolac Tromethamine 60 mg 11/28/22 06:09 11/28/22 06:26 Ketorolac Tromethamine 60 Mg/2 Ml Vial IM 11/28/22 06:10 60 mg ONCE ONE Administration Tramadol HCl 50 mg 11/28/22 05:17 11/28/22 05:56 Tramadol Hcl 50 Mg Tablet PO 11/28/22 05:18 Not Given ONCE ONE Medical Decision Making Differential Diagnosis Differential Diagnoses: The differential diagnosis associated with the presentation includes Lumbar strain/dislocation/fracture/piriformis syndrome Radiology Impression Discussion of test interpretation with radiology: I have reviewed the radiologist's reading. Discharge Plan Discharge Clinical Impression: Chronic low back pain Patient Disposition: Home, Self-Care Instructions: Chronic Back Pain (DC) Additional Instructions: Take pain medication and muscle relaxant as prescribed and follow with PCP [place] analg?sicos y relajantes musculares seg?n lo recetado y siga con el PCP. Prescriptions: New cyclobenzaprine 10 mg tablet 10 mg PO Q8H Qty: 20 0RF tramadol 50 mg tablet 50 mg PO Q6H PRN (Reason: pain) Qty: 20 0RF No Action levothyroxine 25 mcg Tablet 25 mcg PO DAILY@0600 Qty: 15 0RF folic acid 1 mg Tablet 1 mg PO DAILY Qty: 0 0RF escitalopram oxalate 5 mg Tablet 5 mg PO DAILY Qty: 15 1RF cholecalciferol (vitamin D3) 25 mcg (1,000 unit) Tablet 25 mcg PO DAILY Qty: 0 0RF cyclobenzaprine 10 mg tablet 10 mg PO TID PRN (Reason: muscle pain or spasm) Qty: 20 0RF prednisone 20 mg tablet 60 mg PO DAILY 7 Days Qty: 21 0RF lidocaine [Lidoderm] 5 % adhesive patch,medicated 1 patch topical DAILY Qty: 15 0RF Rx Instructions: leave on most painful area for up to 12 hrs erythromycin 5 mg/gram (0.5 %) ointment 0.5 inch ophthalmic (eye) QID 7 Days Qty: 3.5 0RF ciclopirox 8 % solution 1 ml topical BEDTIME acetaminophen 500 mg tablet 500 - 1,000 mg PO Q8H PRN (Reason: Pain) albuterol sulfate [ProAir HFA] 90 mcg/actuation HFA aerosol inhaler 2 puff PO Q4-6H PRN (Reason: Shortness Of Breath) atorvastatin 20 mg tablet 20 mg PO DAILY omeprazole 20 mg capsule,delayed release(DR/EC) 20 mg PO DAILY Interventions: ED Discharge Assessment Last Done: 11/28/22 06:42 Discharge Date/Time: 11/28/22 06:42 Print Language: Panamanian
--- NOTE | 2022-11-28 05:45 | PC.NURSE ---
PT REFUSING PO MEDICATIONS THIS RN MADE DR RHODES AWARE OF REFUSAL AND PT REQUEST FOR IV MEDICATIONS. NO NEW ORDERS AT THIS TIME
[2022-11-28] MEDS: Ketorolac Tromethamine 60 MG/2 ML VIAL IM (06:26)
[2022-11-28 06:38] VITALS: BP 154/76; PULSE 68; RESP 18; TEMP 36.7; O2SAT 98
--- NOTE | 2022-11-28 06:41 | PC.NURSE ---
pt medicated according to jules. is/it project manager utilized. pt provided with discharge packet. pt verbalized understanding of discharge plan
== END 2022-11-28 06:42 | disposition home or self-care (01) ==
PROVIDERS: Emergency Provider Internal Medicine; PCP Internal Medicine
DX: G89.29 Other chronic pain (principal); M54.50 Low back pain, unspecified; E78.00 Pure hypercholesterolemia, unspecified; D64.9 Anemia, unspecified; E66.9 Obesity, unspecified; Z68.41 Body mass index [BMI] 40.0-44.9, adult; Z79.899 Other long term (current) drug therapy
CPT/HCPCS: 72100; 96372; 99284; J1885

== ENCOUNTER 2023-02-26 17:35 | Outpatient (REF) | payer MEDICAID, SELFPAY | END 2023-02-26 17:36 | disposition home or self-care (01) | LOC: HO.HHCLNP 17:35 | PROVIDERS: Visit Provider Internal Medicine | DX: M54.50 Low back pain, unspecified (principal) | CPT/HCPCS: 87086 ==

== ENCOUNTER 2023-03-22 08:57 | Outpatient (REF) | payer MEDICAID, SELFPAY ==
--- NOTE | ~2023-03-22 | XR_ITS ---
EXAMINATION: XR LUMBOSACRAL SPINE CLINICAL INFORMATION: Low back pain for one year COMPARISON: CT abdomen pelvis March 17, 2022 and lumbar spine x-rays September 06, 2020 TECHNIQUE: Three views of the lumbosacral spine. FINDINGS: 5 nonrib-bearing lumbar vertebral bodies are visualized. Alignment is within normal limits. Lumbar vertebral body heights are maintained. There is severe narrowing of the L4/5 disc space height which has progressed since 2020 and radiographs. Moderate to severe narrowing of the L5/S1 disc space height is stable. Sacroiliac joints are symmetric. Surgical clips noted within the left pelvis and right upper abdomen. Small pelvic calcifications are likely vascular in nature. XR/XR lumbar spine 2-3V IMPRESSION: Moderate to severe degenerative changes of the lower lumbar spine. No compression deformity.
== END 2023-03-22 08:58 | disposition home or self-care (01) ==
LOC: HO.HHCX 08:57
PROVIDERS: Visit Provider Internal Medicine
DX: M54.50 Low back pain, unspecified (principal); B86 Scabies
CPT/HCPCS: 36415; 72100; 80048; 80061; 80076; 84439; 84443; 85025

== ENCOUNTER 2023-03-22 09:31 | Outpatient (REF) | payer MEDICAID, SELFPAY ==
[2023-03-22 11:29] LABS: MANUAL DIFF FLAG NO
[2023-03-22 11:48] LABS: Basophils Absolute Auto 0.1 X10*3/uL (0.0-0.2); Basophils Percent Auto 0.6 % (0-2); Eosinophils Absolute Auto 0.1 X10*3/uL (0.0-0.4); Eosinophils Percent Auto 0.8 % (0-4); Hematocrit 37.7 % (37.0-47.0); Hemoglobin 11.4 g/dl (12.0-16.0); Imm Gran Abs Auto 0.03 X10*3/uL (0.00-0.03); Imm Gran Pct Auto 0.4 % (0.0-0.4); Lymphocytes Percent Auto 24.4 % (20-40); Mean Corpuscular HGB Conc 30.2 g/dl (31.0-35.0); Mean Corpuscular Hemoglobin 18.4 pg (27.0-33.0); Monocytes Absolute Auto 0.7 X10*3/uL (0.1-1.2); Monocytes Percent Auto 8.6 % (2-11); Neutrophils Absolute Auto 5.2 x10*3/uL (2.0-8.3); Neutrophils Percent Auto 65.2 % (45-73); Platelet Count 231 X10*3/uL (160-400); Red Cell Distribution Width 17.8 % (11.0-16.0)
[2023-03-22 11:49] LABS: Mean Corpuscular Volume 60.8 fL (80.0-98.0)
[2023-03-22 12:13] LABS: Alanine Aminotransferase 23 U/L (0-31); Albumin Level 4.2 g/dL (3.5-5.0); Alkaline Phosphatase 111 U/L (39-117); Anion Gap 11 (12-20); Aspartate Amino Transferase 15 U/L (5-31); Bilirubin Direct 0.1 mg/dL (0.0-0.5); Bilirubin Total 0.3 mg/dL (0.0-1.0); Blood Urea Nitrogen 21 mg/dL (9-16); Calcium 9.4 mg/dL (8.4-10.2); Carbon Dioxide 25 mmol/L (22-29); Chloride 107 mmol/L (96-108); Cholesterol 194 mg/dL (<200); Estimated Glomerular Filt Rate > 60; Glucose Random 98 mg/dL (60-115); HDL Cholesterol 31 mg/dL (>40); LDL Cholesterol Calculated 108 mg/dL (<100); Potassium 4.1 mmol/L (3.3-5.1); Sodium 139 mmol/L (135-145); Triglycerides 278 mg/dL (<150)
[2023-03-22 12:16] LABS: TSH reflex Free T4 0.15 uIU/mL (0.32-4.0)
[2023-03-22 12:56] LABS: Free T4 (Free Thyroxine) 1.14 ng/dL (0.71-1.85)
== END 2023-03-22 09:32 | disposition home or self-care (01) ==
LOC: HO.HHCL 09:31
PROVIDERS: Visit Provider Internal Medicine
DX: E11.65 Type 2 diabetes mellitus with hyperglycemia (principal); I10 Essential (primary) hypertension; Z79.4 Long term (current) use of insulin
CPT/HCPCS: 36415; 80048; 80061; 80076; 84439; 84443; 85025

== ENCOUNTER 2023-04-23 09:52 | Outpatient (REF) | payer MEDICAID, SELFPAY ==
--- NOTE | ~2023-04-23 | XR_ITS ---
EXAMINATION: XR CHEST 2 VIEWS CLINICAL INFORMATION: Dyspnea. COMPARISON: Prior chest radiographs, most recently 11/24/2019. TECHNIQUE: Frontal and lateral views of the chest were obtained. FINDINGS: The heart, great vessels, pulmonary vasculature and mediastinum are normal. The lungs show no focal infiltrate, effusion or pneumothorax. There is no acute osseous abnormality. There is a moderately severe thoracic levoscoliosis. There is mild thoracic spondylosis. There are right upper quadrant surgical clips. XR/XR chest 2V IMPRESSION: No active cardiopulmonary disease.
[2023-04-23 11:12] LABS: MANUAL DIFF FLAG NO
[2023-04-23 11:41] LABS: Basophils Absolute Auto 0.1 X10*3/uL (0.0-0.2); Basophils Percent Auto 0.7 % (0-2); Eosinophils Absolute Auto 0.1 X10*3/uL (0.0-0.4); Eosinophils Percent Auto 0.9 % (0-4); Hematocrit 38.6 % (37.0-47.0); Hemoglobin 11.6 g/dl (12.0-16.0); Imm Gran Abs Auto 0.04 X10*3/uL (0.00-0.03); Imm Gran Pct Auto 0.4 % (0.0-0.4); Lymphocytes Absolute Auto 2.1 X10*3/uL (1.2-4.9); Lymphocytes Percent Auto 23.4 % (20-40); Mean Corpuscular HGB Conc 30.1 g/dl (31.0-35.0); Mean Corpuscular Hemoglobin 18.5 pg (27.0-33.0); Monocytes Absolute Auto 0.7 X10*3/uL (0.1-1.2); Monocytes Percent Auto 7.4 % (2-11); Neutrophils Percent Auto 67.2 % (45-73); Platelet Count 244 X10*3/uL (160-400); Red Blood Count 6.28 X10*6/uL (4.20-5.50); Red Cell Distribution Width 18.2 % (11.0-16.0)
[2023-04-23 11:43] LABS: Mean Corpuscular Volume 61.5 fL (80.0-98.0)
[2023-05-10 14:44] LABS: Class Alternaria alternata 0; Class Aspergillus fumigatus 0; Class Bermuda Grass 0; Class Birch 0; Class Cat Dander 0; Class Cladosporium herbarum 0; Class Cockroach 0; Class Common Ragweed 0; Class Derm. pterony 0; Class Dermatophagoides farinae 0; Class Dog Dander 0; Class Maple Box Elder 0; Class Mouse Urine Protein 0; Class Mugwort 0; Class Penicillium crysogenum 0; Class Rough Pigweed 0; Class Sheep Sorrel 0; Class Timothy Grass 0; Class White Ash 0; Class White Mulberry 0; D001 IgE D pteronyssinus <0.10 kU/L; D002 - IgE D farinae <0.10 kU/L; E001 - IgE Cat Dander <0.10 kU/L; E005 - IgE Dog Dander <0.10 kU/L; E072-IgE Mouse Urine <0.10 kU/L; G002 IgE Bermuda Grass <0.10 kU/L; G006 - IgE Timothy Grass <0.10 kU/L; I006-IgE Cockroach, German <0.10 kU/L; Immunoglobulin E 13 kU/L (<OR=114); M001 IgE Penicillium chrysogen <0.10 kU/L; M002 - IgE Cladosporium herbar <0.10 kU/L; M003 - IgE Aspergillus fumigat <0.10 kU/L; M006 - IgE Alternaria alternat <0.10 kU/L; T001 IgE Maple/Box Elder <0.10 kU/L; T003 IgE Common Silver Birch <0.10 kU/L; T015 - IgE Ash, White <0.10 kU/L; T070 - IgE White Mulberry <0.10 kU/L; W001 - IgE Ragweed, Short <0.10 kU/L; W006 - IgE Mugwort <0.10 kU/L; W014 IgE Pigweed, Common <0.10 kU/L; W018 IgE Sheep Sorrel <0.10 kU/L
== END 2023-04-23 09:53 | disposition home or self-care (01) ==
LOC: HO.LAB 09:52
PROVIDERS: PCP Internal Medicine; Referring Provider Internal Medicine; Visit Provider Nurse Practitioner Family
DX: R06.00 Dyspnea, unspecified (principal); J45.909 Unspecified asthma, uncomplicated; Z91.09 Other allergy status, other than to drugs and biological substances
CPT/HCPCS: 36415; 71046; 82785; 85025; 86003; 99212

== ENCOUNTER 2023-04-23 09:52 | Outpatient (AMB) | payer MEDICAID, SELFPAY ==
[2023-04-23 10:09] VITALS: BP 118/70; PULSE 72; O2SAT 95; BMI 38.3
--- NOTE | 2023-04-23 10:09 | MHC.OFFVIS ---
Intake Vital Signs 04/23/23 10:09 Height 5 ft 3 in Weight 216 lb 0.848 oz BMI 38.3 BP 118/70 Blood Pressure Location Lt brachial Position Sitting Pulse 72 Pulse Source Pulse Oximeter Pulse Oximetry (%) 95 Oxygen Delivery Method Room Air Intake Visit Reasons: Asthma Outside Solar Sales Consultant Required: Yes Outside Solar Sales Consultant Name: Alysa #[id number] Food Preparation Supervisor: Food Preparation Supervisor offered & declined Accompanied by: Self / Same As Patient Allergies acetaminophen [Percocet] Allergy (Unknown, Verified 11/28/22 05:34) Unknown aspirin [ASA] Allergy (Unknown, Verified 04/23/23 10:21) BURNING IN STOMACH morphine [MORPHINE] Allergy (Unknown, Verified 04/23/23 10:21) HEADACHES naproxen Allergy (Unknown, Verified 04/23/23 10:21) Unknown oxycodone [Percocet] Allergy (Unknown, Verified 04/23/23 10:21) Unknown prochlorperazine [From Compazine] Allergy (Unknown, Verified 04/23/23 10:26) nervousness and fast pulse. ibuprofen [From MOTRIN] Adverse Reaction (Unknown, Verified 04/23/23 10:21) Eye Swelling HPI Asthma HPI Details Jo-Ann is a pleasant 57-year-old female, never smoker, with underlying asthma, obesity and thalassemia. She was referred by PCP for pulmonary evaluation. She reports worsening asthma control with wheezing, dry cough, and dyspnea on moderate exertion. She was previously on Flovent with good effect however this was discontinued due to insurance coverage. She has been using Ventolin p.r.n. but unfortunately developed dizziness with use. She denies any pertinent family history. She denies any occupational exposures. She reports multiple seasonal allergies, with no recent allergy testing. She denies any pets. [facility] Medical History Anemia Breast cancer Hallucinations, unspecified Post hysterectomy menopause Thyroid activity decreased Surgical History History of cholecystectomy History of hysterectomy Family History Mother Diabetes Father HTN (hypertension) Social History (Updated 04/23/23 @ 10:22 by Onieda Sow LPN) Household Members: None Housing: Apartment Do you presently have visiting nurse or other home services: No Alcohol intake: never Patient Tobacco Use Status: Never used Tobacco service: No Sexual orientation: Straight/Heterosexual Gender identity: Female Review of Systems Const Denies chills, Denies excessive sweating, Denies fever(s), Denies headache(s) and Denies night sweats Eyes Denies dry eyes, Denies irritation and Denies itchy eyes ENT Reports Normal hearing present, Denies headache(s), Denies nasal congestion, Denies nasal discharge, Denies post nasal drip and Denies sore throat Card Denies chest pain, Denies chest pain at rest, Denies chest pain with activity, Denies claudication, Denies leg edema, Denies orthopnea and Denies paroxysmal nocturnal dyspnea Resp Denies chest congestion, Denies excessive phlegm production, Denies pain on inspiration, Denies pain with cough and Denies stridor Musc Denies myalgias Neuro Reports Normal hearing present and Denies headache(s) Endo Denies excessive sweating Noble/Lymph Denies lymphadenopathy Aller/Immun Denies itchy eyes Physical Exam Vital Signs: Last Vital Signs Pulse 72 04/23/23 10:09 BP 118/70 04/23/23 10:09 Pulse Ox 95 04/23/23 10:09 Oxygen Delivery Method Room Air 04/23/23 10:09 BMI result Body Mass Index 38.3 Const General: cooperative, healthy appearing, comfortable, no acute distress, well developed and alert Orientation/consciousness: patient oriented x3 Limitations: no limitations HEENT Head: Yes normal to inspection, Yes normocephalic and Yes atraumatic Ears: hearing grossly normal bilaterally and external ears normal Eyes General: appearance normal, both eyes and all related structures Eyelids: Yes eyelids normal Sclerae: sclerae normal EOM: EOMs intact bilaterally Neck Neck: Yes normal visual inspection and Yes no lymphadenopathy Lymphatic: no lymphadenopathy noted Chest Chest palpation & inspection: normal inspection of the chest Resp Effort & Inspection: normal respiratory effort, able to speak in complete sentences, no audible wheezes, no cough, no stridor, not tachypneic, no tripod positioning and no use of accessory muscles Auscultation: diminished lung sounds Cardio Jugular venous distension: no JVD Rate: regular rate Rhythm: regular rhythm Skin Other: warm, dry General skin exam: no rashes or lesions noted Neuro General: patient oriented x3 Cranial nerves: Yes Normal hearing present Cognition (Neuro): normal cognition Gait exam (Neuro): Normal gait present Extrem General: Yes normal to inspection, Yes capillary refill normal, Yes no clubbing, cyanosis or edema and Yes no pedal edema Psych Appearance: grossly normal and well kempt Speech and movement: Normal speech and movement present and Clear speech present Affect: normal affect Attitude: cooperative Thought process: Normal thought process present Thought content: Normal thought content present Insight: Good insight present (Psych) Judgement: Good judgement present (Psych) Assessment & Plan Assessment & Plan (1) Dyspnea: Code(s): R06.00 - Dyspnea, unspecified (2) Asthma: Code(s): J45.909 - Unspecified asthma, uncomplicated (3) Environmental allergies: Code(s): Z91.09 - Other allergy status, other than to drugs and biological substances Plan Jo-Ann's symptoms are likely due to underlying asthma. Will send for PFT and RAST to thoroughly evaluate. Will also send for chest x-ray as patient has no recent imaging and persistent dyspnea with cough. Will trial ICS inhaler. All questions were answered and patient is in agreement of plan. Will follow-up to review results and response to inhaler. Orders: Orders Immunoglobulin E Today Z91.09 - Other allergy status, other than to drugs and biological substances XR chest 2V Today R06.00 - Dyspnea, unspecified Resp Allergy Profile Region I Today Z91.09 - Other allergy status, other than to drugs and biological substances Complete Blood Count Auto Diff Today R06.00 - Dyspnea, unspecified PFT pulmonary function test Today J45.909 - Unspecified asthma, uncomplicated Medications: New fluticasone propionate 110 mcg/actuation administer with spacer 2 puffs inhalation BID 12 grams 3RF Coding Level of Care Code New Pt Level 4 (76825) Diagnoses Dyspnea R06.00 Asthma J45.909 Environmental allergies Z91.09
== END 2023-04-23 10:57 | disposition home or self-care (01) ==
PROVIDERS: PCP Internal Medicine; Referring Provider Internal Medicine; Visit Provider Nurse Practitioner Family
DX: R06.00 Dyspnea, unspecified (principal); J45.909 Unspecified asthma, uncomplicated; Z91.09 Other allergy status, other than to drugs and biological substances
CPT/HCPCS: 99204

== ENCOUNTER 2023-06-18 12:25 | Outpatient (REF) | payer MEDICAID, SELFPAY ==
[2023-06-19 22:58] LABS: Class Alternaria alternata 0; Class Aspergillus fumigatus 0; Class Bermuda Grass 0; Class Birch 0; Class Cat Dander 0; Class Cladosporium herbarum 0; Class Cockroach 0; Class Common Ragweed 0; Class Cottonwood 0; Class Derm. pterony 0; Class Dermatophagoides farinae 0; Class Dog Dander 0; Class Elm 0; Class Maple Box Elder 0; Class Mountain Cedar 0; Class Mouse Urine Protein 0; Class Mugwort 0; Class Oak 0; Class Penicillium crysogenum 0; Class Rough Pigweed 0; Class Sheep Sorrel 0; Class Sycamore 0; Class Timothy Grass 0; Class Walnut Tree 0; Class White Ash 0; Class White Mulberry 0; D001 IgE D pteronyssinus <0.10 kU/L; D002 - IgE D farinae <0.10 kU/L; E001 - IgE Cat Dander <0.10 kU/L; E005 - IgE Dog Dander <0.10 kU/L; E072-IgE Mouse Urine <0.10 kU/L; G002 IgE Bermuda Grass <0.10 kU/L; G006 - IgE Timothy Grass <0.10 kU/L; I006-IgE Cockroach, German <0.10 kU/L; Immunoglobulin E 10 kU/L (<OR=114); Immunoglobulin E 9 kU/L (<OR=114); M001 IgE Penicillium chrysogen <0.10 kU/L; M002 - IgE Cladosporium herbar <0.10 kU/L; M003 - IgE Aspergillus fumigat <0.10 kU/L; M006 - IgE Alternaria alternat <0.10 kU/L; T001 IgE Maple/Box Elder <0.10 kU/L; T003 IgE Common Silver Birch <0.10 kU/L; T006 - IgE Cedar, Mountain <0.10 kU/L; T007 - IgE Oak, White <0.10 kU/L; T008 IgE Elm, American <0.10 kU/L; T010 - IgE Walnut <0.10 kU/L; T011 - IgE Maple Leaf Sycamore <0.10 kU/L; T014 - IgE Cottonwood <0.10 kU/L; T015 - IgE Ash, White <0.10 kU/L; T070 - IgE White Mulberry <0.10 kU/L; W001 - IgE Ragweed, Short <0.10 kU/L; W006 - IgE Mugwort <0.10 kU/L; W014 IgE Pigweed, Common <0.10 kU/L; W018 IgE Sheep Sorrel <0.10 kU/L
== END 2023-06-18 12:26 | disposition home or self-care (01) ==
LOC: HO.LAB 12:25
PROVIDERS: PCP Internal Medicine; Visit Provider Nurse Practitioner Family
DX: R06.00 Dyspnea, unspecified (principal); Z91.09 Other allergy status, other than to drugs and biological substances; J45.909 Unspecified asthma, uncomplicated
CPT/HCPCS: 36415; 82785; 86003; 99212

== ENCOUNTER 2023-06-18 12:25 | Outpatient (AMB) | payer MEDICAID, SELFPAY ==
[2023-06-18 13:05] VITALS: BP 122/86; PULSE 73; O2SAT 97; BMI 38.5
--- NOTE | 2023-06-18 13:05 | A.OFFVIS_ITS ---
Vital Signs 06/18/23 13:05 Height 5 ft 3 in Weight 217 lb 2.485 oz BMI 38.5 BP 122/86 Blood Pressure Location Lt brachial Position Sitting Pulse 73 Pulse Source Pulse Oximeter Pulse Oximetry (%) 97 Oxygen Delivery Method Room Air Intake Visit Reasons: Asthma/PFT Follow Up [employer] Loose End Finder Required: Yes [employer] Loose End Finder Name: [id number] Allergies acetaminophen [Percocet] Allergy (Unknown, Verified 06/18/23 13:10) Unknown aspirin [ASA] Allergy (Unknown, Verified 06/18/23 13:10) BURNING IN STOMACH morphine [MORPHINE] Allergy (Unknown, Verified 06/18/23 13:10) HEADACHES naproxen Allergy (Unknown, Verified 06/18/23 13:10) Unknown oxycodone [Percocet] Allergy (Unknown, Verified 06/18/23 13:10) Unknown prochlorperazine [From Compazine] Allergy (Unknown, Verified 06/18/23 13:10) nervousness and fast pulse. ibuprofen [From MOTRIN] Adverse Reaction (Unknown, Verified 06/18/23 13:10) Eye Swelling HPI HPI Asthma/PFT Follow Up: Details: Jo-Ann is a pleasant 57-year-old female, never smoker, with underlying asthma, obesity and thalassemia. She was referred by PCP for pulmonary evaluation. She reports worsening asthma control with wheezing, dry cough, and dyspnea on moderate exertion. She was previously on Flovent with good effect however this was discontinued due to insurance coverage. She has been using Ventolin p.r.n. but unfortunately developed dizziness with use. She denies any pertinent family history. She denies any occupational exposures. She reports multiple seasonal allergies, with no recent allergy testing. She denies any pets. Today she presents to review PFT, CXR and RAST testing. Unfortunately, she no showed the PFT and this was never rescheduled. At the last visit, Jo-Ann was started on ICS but could not tolerate. She also is out of albuterol so has not been able to use this. She continues to wheeze and intermittent dry cough. [facility] Medical History Anemia Breast cancer Hallucinations, unspecified Post hysterectomy menopause Thyroid activity decreased Surgical History History of cholecystectomy History of hysterectomy Family History Mother Diabetes Father HTN (hypertension) Social History Household Members: None Housing: Apartment Do you presently have visiting nurse or other home services: No Alcohol intake: never Patient Tobacco Use Status: Never used Tobacco service: No Sexual orientation: Straight/Heterosexual Gender identity: Female Review of Systems Const Denies chills, Denies excessive sweating, Denies fever(s), Denies headache(s) and Denies night sweats Eyes Denies dry eyes, Denies irritation and Denies itchy eyes ENT Reports Normal hearing present, Denies headache(s), Denies nasal congestion, Denies nasal discharge, Denies post nasal drip and Denies sore throat Card Denies chest pain, Denies chest pain at rest, Denies chest pain with activity, Denies claudication, Denies leg edema, Denies orthopnea and Denies paroxysmal nocturnal dyspnea Resp Denies chest congestion, Denies excessive phlegm production, Denies pain on inspiration, Denies pain with cough and Denies stridor Musc Denies myalgias Neuro Reports Normal hearing present and Denies headache(s) Endo Denies excessive sweating Noble/Lymph Denies lymphadenopathy Aller/Immun Denies itchy eyes Physical Exam Vital Signs: Last Vital Signs Pulse 73 06/18/23 13:05 BP 122/86 06/18/23 13:05 Pulse Ox 97 06/18/23 13:05 Oxygen Delivery Method Room Air 06/18/23 13:05 BMI result Body Mass Index 38.5 Const General: cooperative, healthy appearing, comfortable, no acute distress, well developed and alert Orientation/consciousness: patient oriented x3 Limitations: no limitations HEENT Head: Yes normal to inspection, Yes normocephalic and Yes atraumatic Ears: hearing grossly normal bilaterally and external ears normal Eyes General: appearance normal, both eyes and all related structures Eyelids: Yes eyelids normal Sclerae: sclerae normal EOM: EOMs intact bilaterally Neck Neck: Yes normal visual inspection and Yes no lymphadenopathy Lymphatic: no lymphadenopathy noted Chest Chest palpation & inspection: normal inspection of the chest Resp Effort & Inspection: normal respiratory effort, able to speak in complete sentences, no audible wheezes, no cough, no stridor, not tachypneic, no tripod positioning and no use of accessory muscles Auscultation: diminished lung sounds Cardio Jugular venous distension: no JVD Rate: regular rate Rhythm: regular rhythm Skin Other: warm, dry General skin exam: no rashes or lesions noted Neuro General: patient oriented x3 Cranial nerves: Yes Normal hearing present Cognition (Neuro): normal cognition Gait exam (Neuro): Normal gait present Extrem General: Yes normal to inspection, Yes capillary refill normal, Yes no clubbing, cyanosis or edema and Yes no pedal edema Psych Appearance: grossly normal and well kempt Speech and movement: Normal speech and movement present and Clear speech present Affect: normal affect Attitude: cooperative Thought process: Normal thought process present Thought content: Normal thought content present Insight: Good insight present (Psych) Judgement: Good judgement present (Psych) Results Reviewed Results Reviewed: [address] [address] XRay Report Signed Patient: Jo-Ann Ly MR#: [id number] : 1965 Acct:[id number] Age/Sex: 57 / F ADM Date: 04/23/23 Loc: [facility].LAB Attending Dr: Prema Tian NP Ordering Physician: Prema Tian NP Date of Service: 04/23/23 Procedure(s): XR chest 2V Accession Number(s): [id number] cc: Fidelia Amaya MD; Prema Tian NP~ EXAMINATION: XR CHEST 2 VIEWS CLINICAL INFORMATION: Dyspnea. COMPARISON: Prior chest radiographs, most recently 11/24/2019. TECHNIQUE: Frontal and lateral views of the chest were obtained. FINDINGS: The heart, great vessels, pulmonary vasculature and mediastinum are normal. The lungs show no focal infiltrate, effusion or pneumothorax. There is no acute osseous abnormality. There is a moderately severe thoracic levoscoliosis. There is mild thoracic spondylosis. There are right upper quadrant surgical clips. XR/XR chest 2V IMPRESSION: No active cardiopulmonary disease. Assessment & Plan Assessment & Plan (1) Dyspnea: Code(s): R06.00 - Dyspnea, unspecified Category: Medical (2) Asthma: Code(s): J45.909 - Unspecified asthma, uncomplicated Category: Medical (3) Environmental allergies: Code(s): Z91.09 - Other allergy status, other than to drugs and biological substances Category: Medical Plan At the last visit, Ana was sent for PFT but unfortunately was unable to make this appointment. This will be rescheduled. She was also sent progress testing in due to errors, some testing was not performed. Will re-enter labs. A prescription was sent in for Pulmicort however patient could not tolerate will trial QVAR and refill albuterol. Reviewed chest x-ray which was unremarkable. All questions were answered and patient is in agreement of plan. Will follow-up to review results and response to inhaler, or sooner if needed. Orders: Orders Resp Allergy Profile Region I Today Z91.09 - Other allergy status, other than to drugs and biological substances Medications: New beclomethasone dipropionate 80 mcg/actuation (Qvar RediHaler) 1 inh inhalation BID 10.6 grams 4RF albuterol sulfate 90 mcg/actuation 2 puffs inhalation Q4-6H PRN 8.5 grams 3RF shortness of breath or wheezing Coding Level of Care Code Est Pt Level 4 (97104) Diagnoses Dyspnea R06.00 Asthma J45.909 Environmental allergies Z91.09
== END 2023-06-18 13:35 | disposition home or self-care (01) ==
PROVIDERS: PCP Internal Medicine; Visit Provider Nurse Practitioner Family
DX: R06.00 Dyspnea, unspecified (principal); J45.909 Unspecified asthma, uncomplicated; Z91.09 Other allergy status, other than to drugs and biological substances
CPT/HCPCS: 99214

== ENCOUNTER 2023-09-17 09:46 | Outpatient (AMB) | payer MEDICAID, SELFPAY ==
--- NOTE | 2023-09-17 10:19 | MHC.OFFVIS ---
Vital Signs 09/17/23 10:20 Height 5 ft 3 in Weight 216 lb 0.848 oz BMI 38.3 BP 120/78 Blood Pressure Location Rt brachial Position Sitting Pulse 74 Pulse Source Pulse Oximeter Pulse Oximetry (%) 97 Oxygen Delivery Method Room Air Intake Visit Reasons: Asthma/PFT Follow Up Manager Application Development Name: [id number] Lauro Allergies amoxicillin Allergy (Intermediate, Verified 09/17/23 10:26) Itching acetaminophen [Percocet] Allergy (Unknown, Verified 09/17/23 10:25) Unknown aspirin [ASA] Allergy (Unknown, Verified 09/17/23 10:25) BURNING IN STOMACH morphine [MORPHINE] Allergy (Unknown, Verified 09/17/23 10:25) HEADACHES naproxen Allergy (Unknown, Verified 09/17/23 10:25) Unknown oxycodone [Percocet] Allergy (Unknown, Verified 09/17/23 10:25) Unknown prochlorperazine [From Compazine] Allergy (Unknown, Verified 09/17/23 10:25) nervousness and fast pulse. ibuprofen [From MOTRIN] Adverse Reaction (Unknown, Verified 09/17/23 10:25) Eye Swelling HPI HPI Asthma/PFT Follow Up: Details: Jo-Ann is a pleasant 57-year-old female, never smoker, with underlying asthma, obesity and thalassemia. Previously she was well controlled on Flovent, however insurance no longer covered and she has had difficulties tolerating Ventolin and Pulmicort. She was placed on QVAR with moderate control of symptoms. She has trialed albuterol however developed adverse reactions. She was sent for RAST at the last visit and presents to review results. A PFT was also ordered, unfortunately she has no showed on multiple occasions. She denies any visits to urgent care or hospitalizations since the last visit. [facility] Medical History Anemia Breast cancer Hallucinations, unspecified Post hysterectomy menopause Thyroid activity decreased Surgical History History of cholecystectomy History of hysterectomy Family History Mother Diabetes Father HTN (hypertension) Social History Household Members: None Housing: Apartment Do you presently have visiting nurse or other home services: No Alcohol intake: never Patient Tobacco Use Status: Never used Tobacco service: No Sexual orientation: Straight/Heterosexual Gender identity: Female Review of Systems Const Denies chills, Denies excessive sweating, Denies fever(s), Denies headache(s) and Denies night sweats Eyes Denies dry eyes, Denies irritation and Denies itchy eyes ENT Reports Normal hearing present, Denies headache(s), Denies nasal congestion, Denies nasal discharge, Denies post nasal drip and Denies sore throat Card Denies chest pain, Denies chest pain at rest, Denies chest pain with activity, Denies claudication, Denies leg edema, Denies orthopnea and Denies paroxysmal nocturnal dyspnea Resp Denies chest congestion, Denies excessive phlegm production, Denies pain on inspiration, Denies pain with cough and Denies stridor Musc Denies myalgias Skin/Breast Reports pruritus Neuro Reports Normal hearing present and Denies headache(s) Endo Denies excessive sweating Noble/Lymph Denies lymphadenopathy Aller/Immun Denies itchy eyes Physical Exam Vital Signs: Last Vital Signs Pulse 74 09/17/23 10:20 BP 120/78 09/17/23 10:20 Pulse Ox 97 09/17/23 10:20 Oxygen Delivery Method Room Air 09/17/23 10:20 BMI result Body Mass Index 38.3 Const General: cooperative, healthy appearing, comfortable, no acute distress, well developed and alert Orientation/consciousness: patient oriented x3 Limitations: no limitations HEENT Head: Yes normal to inspection, Yes normocephalic and Yes atraumatic Ears: hearing grossly normal bilaterally and external ears normal Eyes General: appearance normal, both eyes and all related structures Eyelids: Yes eyelids normal Sclerae: sclerae normal EOM: EOMs intact bilaterally Neck Neck: Yes normal visual inspection and Yes no lymphadenopathy Lymphatic: no lymphadenopathy noted Chest Chest palpation & inspection: normal inspection of the chest Resp Effort & Inspection: normal respiratory effort, able to speak in complete sentences, no audible wheezes, no cough, no stridor, not tachypneic, no tripod positioning and no use of accessory muscles Auscultation: diminished lung sounds Cardio Jugular venous distension: no JVD Rate: regular rate Rhythm: regular rhythm Skin Other: warm, dry General skin exam: no rashes or lesions noted Neuro General: patient oriented x3 Cranial nerves: Yes Normal hearing present Cognition (Neuro): normal cognition Gait exam (Neuro): Normal gait present Extrem General: Yes normal to inspection, Yes capillary refill normal, Yes no clubbing, cyanosis or edema and Yes no pedal edema Psych Appearance: grossly normal and well kempt Speech and movement: Normal speech and movement present and Clear speech present Affect: normal affect Attitude: cooperative Thought process: Normal thought process present Thought content: Normal thought content present Insight: Good insight present (Psych) Judgement: Good judgement present (Psych) Assessment & Plan Assessment & Plan (1) Asthma: Code(s): J45.909 - Unspecified asthma, uncomplicated Category: Medical (2) Dyspnea: Code(s): R06.00 - Dyspnea, unspecified Category: Medical Plan Jo-Ann reports improvement in respiratory symptom since switching to Qvar, advised to continue and will send refills. She has attempted to use albuterol PRN for intermittent wheezing/dyspnea, however develops dizziness and tremors. Will attempt to send levalbuterol PRN. Reviewed RAST which was negative, however patient reports moderate pruritis attributing it to allergies. 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 Discussed importance of adhering to scheduled appointments and if she can not make, then reschedule. Will have PFT scheduled in the near future. All questions were answered and patient is in agreement of plan. Will follow-up in 3-6 months, or sooner if needed. Orders: Referrals Allergy & Immunology Referral Z91.09 - Other allergy status, other than to drugs and biological substances Medications: New levalbuterol tartrate 45 mcg/actuation 1 puff inhalation Q4-6H PRN 15 grams 3RF shortness of breath Refilled beclomethasone dipropionate 80 mcg/actuation (Qvar RediHaler) 1 inh inhalation BID 10.6 grams 4RF Discontinued albuterol sulfate 90 mcg/actuation Discontinued Reason: Insurance Denied 2 puffs inhalation Q4-6H PRN 8.5 grams 3RF shortness of breath or wheezing Coding Level of Care Code Est Pt Level 4 (54832) Diagnoses Asthma J45.909 Dyspnea R06.00
[2023-09-17 10:20] VITALS: BP 120/78; PULSE 74; O2SAT 97; BMI 38.3
== END 2023-09-17 10:45 | disposition home or self-care (01) ==
PROVIDERS: PCP Internal Medicine; Visit Provider Nurse Practitioner Family
DX: J45.909 Unspecified asthma, uncomplicated (principal); R06.00 Dyspnea, unspecified
CPT/HCPCS: 99214

== ENCOUNTER → 2023-09-17 09:46 | Outpatient (BNVA) | payer MEDICAID, SELFPAY | PROVIDERS: PCP Internal Medicine; Visit Provider Nurse Practitioner Family | DX: J45.909 Unspecified asthma, uncomplicated (principal); R06.00 Dyspnea, unspecified | CPT/HCPCS: 99212 ==

== ENCOUNTER 2024-01-14 10:48 | Outpatient (AMB) | payer MEDICAID, SELFPAY ==
--- NOTE | 2024-01-14 09:27 | MHC.OFFVIS ---
Vital Signs 01/14/24 10:50 Height 5 ft 3 in Weight 225 lb 15.581 oz BMI 40.0 BP 126/82 Blood Pressure Location Rt brachial Position Sitting Pulse 76 Pulse Source Pulse Oximeter Pulse Oximetry (%) 96 Oxygen Delivery Method Room Air Intake Visit Reasons: Asthma Insurance Policy Issue Clerk Required: Yes Insurance Policy Issue Clerk Language: Yard Labor Supervisor Name: Melani Carlos OA Allergies amoxicillin Allergy (Intermediate, Verified 09/17/23 10:26) Itching acetaminophen [Percocet] Allergy (Unknown, Verified 09/17/23 10:25) Unknown aspirin [ASA] Allergy (Unknown, Verified 09/17/23 10:25) BURNING IN STOMACH morphine [MORPHINE] Allergy (Unknown, Verified 09/17/23 10:25) HEADACHES naproxen Allergy (Unknown, Verified 09/17/23 10:25) Unknown oxycodone [Percocet] Allergy (Unknown, Verified 09/17/23 10:25) Unknown prochlorperazine [From Compazine] Allergy (Unknown, Verified 09/17/23 10:25) nervousness and fast pulse. ibuprofen [From MOTRIN] Adverse Reaction (Unknown, Verified 09/17/23 10:25) Eye Swelling HPI HPI Asthma: Details: Jo-Ann is a pleasant 58-year-old female, never smoker, with underlying asthma, obesity and thalassemia. Previously she was well controlled on Flovent, however insurance no longer covered and she has had difficulties tolerating Ventolin and Pulmicort. She reports suboptimal control on QVAR with worsening dyspnea on exertion, wheezing and dry cough. She was recently prescribed a nebulizer with albuterol from PCP, she has yet to use. She denies any visits to urgent care or hospitalizations since the last visit. [facility] Medical History Anemia Breast cancer Hallucinations, unspecified Post hysterectomy menopause Thyroid activity decreased Surgical History History of cholecystectomy History of hysterectomy Family History Mother Diabetes Father HTN (hypertension) Social History Household Members: None Housing: Apartment Do you presently have visiting nurse or other home services: No Alcohol intake: never Patient Tobacco Use Status: Never used Tobacco service: No Sexual orientation: Straight/Heterosexual Gender identity: Female Review of Systems Const Denies chills, Denies excessive sweating, Denies fever(s), Denies headache(s) and Denies night sweats Eyes Denies dry eyes, Denies irritation and Denies itchy eyes ENT Reports Normal hearing present, Denies headache(s), Denies nasal congestion, Denies nasal discharge, Denies post nasal drip and Denies sore throat Card Denies chest pain, Denies chest pain at rest, Denies chest pain with activity, Denies claudication, Denies leg edema, Denies orthopnea and Denies paroxysmal nocturnal dyspnea Resp Denies chest congestion, Denies excessive phlegm production, Denies pain on inspiration, Denies pain with cough and Denies stridor Musc Denies myalgias Skin/Breast Reports pruritus Neuro Reports Normal hearing present and Denies headache(s) Endo Denies excessive sweating Noble/Lymph Denies lymphadenopathy Aller/Immun Denies itchy eyes Physical Exam Vital Signs: Last Vital Signs Pulse 76 01/14/24 10:50 BP 126/82 01/14/24 10:50 Pulse Ox 96 01/14/24 10:50 Oxygen Delivery Method Room Air 01/14/24 10:50 BMI result Body Mass Index 40.0 Const General: cooperative, healthy appearing, comfortable, no acute distress, well developed and alert Orientation/consciousness: patient oriented x3 Limitations: no limitations HEENT Head: Yes normal to inspection, Yes normocephalic and Yes atraumatic Ears: hearing grossly normal bilaterally and external ears normal Eyes General: appearance normal, both eyes and all related structures Eyelids: Yes eyelids normal Sclerae: sclerae normal EOM: EOMs intact bilaterally Neck Neck: Yes normal visual inspection and Yes no lymphadenopathy Lymphatic: no lymphadenopathy noted Chest Chest palpation & inspection: normal inspection of the chest Resp Effort & Inspection: normal respiratory effort, able to speak in complete sentences, no audible wheezes, no cough, no stridor, not tachypneic, no tripod positioning and no use of accessory muscles Auscultation: diminished lung sounds Cardio Jugular venous distension: no JVD Rate: regular rate Rhythm: regular rhythm Skin Other: warm, dry General skin exam: no rashes or lesions noted Neuro General: patient oriented x3 Cranial nerves: Yes Normal hearing present Cognition (Neuro): normal cognition Gait exam (Neuro): Normal gait present Extrem General: Yes normal to inspection, Yes capillary refill normal, Yes no clubbing, cyanosis or edema and Yes no pedal edema Psych Appearance: grossly normal and well kempt Speech and movement: Normal speech and movement present and Clear speech present Affect: normal affect Attitude: cooperative Thought process: Normal thought process present Thought content: Normal thought content present Insight: Good insight present (Psych) Judgement: Good judgement present (Psych) Assessment & Plan Assessment & Plan (1) Asthma: Code(s): J45.909 - Unspecified asthma, uncomplicated Category: Medical (2) Dyspnea: Code(s): R06.00 - Dyspnea, unspecified Category: Medical Plan Will switch Qvar to Symbicort, as she reports suboptimal control. Will have PFT scheduled in the near future. All questions were answered and patient is in agreement of plan. Will follow-up in 6-8 weeks, or sooner if needed. Orders: Orders PFT pulmonary function test Today R06.00 - Dyspnea, unspecified Medications: New budesonide-formoterol 160-4.5 mcg/actuation (Symbicort) 2 puffs inhalation Q12H 10.2 grams 6RF Discontinued beclomethasone dipropionate 80 mcg/actuation (Qvar RediHaler) Discontinued Reason: Patient Completed Course 1 inh inhalation BID 10.6 grams 4RF Coding Level of Care Code Est Pt Level 4 (94651) Diagnoses Asthma J45.909 Dyspnea R06.00
[2024-01-14 10:50] VITALS: BP 126/82; PULSE 76; O2SAT 96; BMI 40.0
== END 2024-01-14 11:26 | disposition home or self-care (01) ==
PROVIDERS: PCP Internal Medicine; Visit Provider Nurse Practitioner Family
DX: J45.909 Unspecified asthma, uncomplicated (principal); R06.00 Dyspnea, unspecified
CPT/HCPCS: 99214

== ENCOUNTER → 2024-01-14 10:48 | Outpatient (BNVA) | payer MEDICAID, SELFPAY | PROVIDERS: PCP Internal Medicine; Visit Provider Nurse Practitioner Family | DX: J45.909 Unspecified asthma, uncomplicated (principal); R06.00 Dyspnea, unspecified | CPT/HCPCS: 99212 ==

== ENCOUNTER 2024-04-07 09:44 | Outpatient (AMB) | payer MEDICAID, SELFPAY ==
--- NOTE | 2024-04-06 20:08 | MHC.OFFVIS ---
Vital Signs 04/07/24 10:06 Height 5 ft 3 in Weight 224 lb 13.944 oz BMI 39.8 BP 130/72 Blood Pressure Location Lt brachial Position Sitting Pulse 68 Pulse Source Pulse Oximeter Pulse Oximetry (%) 97 Oxygen Delivery Method Room Air Intake Visit Reasons: Asthma Marketing Technology Coordinator: Marketing Technology Coordinator offered & declined Accompanied by: Self / Same As Patient Allergies amoxicillin Allergy (Intermediate, Verified 04/07/24 10:12) Itching acetaminophen [Percocet] Allergy (Unknown, Verified 04/07/24 10:12) Unknown aspirin [ASA] Allergy (Unknown, Verified 04/07/24 10:12) BURNING IN STOMACH morphine [MORPHINE] Allergy (Unknown, Verified 04/07/24 10:12) HEADACHES naproxen Allergy (Unknown, Verified 04/07/24 10:12) Unknown oxycodone [Percocet] Allergy (Unknown, Verified 04/07/24 10:12) Unknown prochlorperazine [From Compazine] Allergy (Unknown, Verified 04/07/24 10:12) nervousness and fast pulse. ibuprofen [From MOTRIN] Adverse Reaction (Unknown, Verified 04/07/24 10:12) Eye Swelling HPI HPI Asthma: Details: Jo-Ann is a pleasant 58-year-old female, never smoker, with underlying asthma, obesity and thalassemia. Previously she was well controlled on Flovent, however insurance no longer covered and she has had difficulties tolerating Ventolin and Pulmicort, suboptimal control on QVAR. At the last visit she was swtiched to [facility] and continues with suboptimal control. Although does note inconsistent use. She has been using albuterol MDI QD with good effect. She reports ongoing dyspnea and wheezing but most concerning is persistent coughing/dysphagia with any intake. She denies any visits to urgent care or hospitalizations since the last visit. [facility] Medical History Anemia Breast cancer Hallucinations, unspecified Post hysterectomy menopause Thyroid activity decreased Surgical History History of cholecystectomy History of hysterectomy Family History Mother Diabetes Father HTN (hypertension) Social History Household Members: None Housing: Apartment Do you presently have visiting nurse or other home services: No Alcohol intake: never Patient Tobacco Use Status: Never used Tobacco service: No Sexual orientation: Straight/Heterosexual Gender identity: Female Review of Systems Const Denies chills, Denies excessive sweating, Denies fever(s), Denies headache(s) and Denies night sweats Eyes Denies dry eyes, Denies irritation and Denies itchy eyes ENT Reports Normal hearing present, Reports dysphagia, Denies headache(s), Denies nasal congestion, Denies nasal discharge, Denies post nasal drip and Denies sore throat Card Denies chest pain, Denies chest pain at rest, Denies chest pain with activity, Denies claudication, Denies leg edema, Reports dyspnea on exertion, Denies orthopnea and Denies paroxysmal nocturnal dyspnea Resp Denies chest congestion, Reports cough, Denies excessive phlegm production, Denies pain on inspiration, Denies pain with cough, Reports dyspnea on exertion, Denies stridor and Reports wheezing GI Reports dysphagia Musc Denies myalgias Skin/Breast Denies pruritus Neuro Reports Normal hearing present and Denies headache(s) Endo Denies excessive sweating Noble/Lymph Denies lymphadenopathy Aller/Immun Denies itchy eyes and Reports wheezing Physical Exam Vital Signs: Last Vital Signs Pulse 68 04/07/24 10:06 BP 130/72 04/07/24 10:06 Pulse Ox 97 04/07/24 10:06 Oxygen Delivery Method Room Air 04/07/24 10:06 BMI result Body Mass Index 39.8 Const General: cooperative, healthy appearing, comfortable, no acute distress, well developed and alert Nutritional Appearance: obese Orientation/consciousness: patient oriented x3 Limitations: no limitations HEENT Head: Yes normal to inspection, Yes normocephalic and Yes atraumatic Ears: hearing grossly normal bilaterally and external ears normal Eyes General: appearance normal, both eyes and all related structures Eyelids: Yes eyelids normal Sclerae: sclerae normal EOM: EOMs intact bilaterally Neck Neck: Yes normal visual inspection and Yes no lymphadenopathy Lymphatic: no lymphadenopathy noted Chest Chest palpation & inspection: normal inspection of the chest Resp Effort & Inspection: normal respiratory effort, able to speak in complete sentences, no audible wheezes, no cough, no stridor, not tachypneic, no tripod positioning and no use of accessory muscles Auscultation: clear to auscultation bilaterally Cardio Jugular venous distension: no JVD Rate: regular rate Rhythm: regular rhythm Skin Other: warm, dry General skin exam: no rashes or lesions noted Neuro General: patient oriented x3 Cranial nerves: Yes Normal hearing present Cognition (Neuro): normal cognition Gait exam (Neuro): Normal gait present Extrem General: Yes normal to inspection, Yes capillary refill normal, Yes no clubbing, cyanosis or edema and Yes no pedal edema Psych Appearance: grossly normal and well kempt Speech and movement: Normal speech and movement present and Clear speech present Affect: normal affect Attitude: cooperative Thought process: Normal thought process present Thought content: Normal thought content present Insight: Good insight present (Psych) Judgement: Good judgement present (Psych) Assessment & Plan Assessment & Plan (1) Asthma: Code(s): J45.909 - Unspecified asthma, uncomplicated Category: Medical (2) Dyspnea: Code(s): R06.00 - Dyspnea, unspecified Category: Medical (3) Dysphagia: Code(s): R13.10 - Dysphagia, unspecified Category: Medical Plan Advised to continue Breyna and reeducated on frequency of use. Will send for MBSS given persistent coughing/choking with any intake. Awaiting PFT which is scheduled later this month. All questions were answered and patient is in agreement of plan. Will follow-up to review results or sooner if needed. Orders: Orders [place] Modified Barium Swallow Today R13.10 - Dysphagia, unspecified Coding Level of Care Code Est Pt Level 4 (84452) Diagnoses Asthma J45.909 Dyspnea R06.00 Dysphagia R13.10
[2024-04-07 10:06] VITALS: BP 130/72; PULSE 68; O2SAT 97; BMI 39.8
--- OUTSIDE RECORDS SUMMARY | 2024-04-07 10:54 | XMS_ITS | Encounter Summary ---
Author Organization [employer] Address [address] [facility] [address] [place] [address] Care Team Providers Care Director Telemetry Name Role Phone Fidelia Amaya MD Primary Care Provide r Encounter Details Date Type Department Care Team (Late st Contact Info) Description 09/01/2022 Orders Only [facility] [address] [place], [place] [phone] Mary iSngh LPN Social History Tobacco Use Types Packs/Day Years Used Date Smoking Tobacco: Never Smokeless Tobacco: Never Alcohol Use Standard Drinks/Week Comments Never 0 (1 standard drink = 0.6 oz pur e alcohol) Depression Answer Date Recorded Patient Health Questionnaire-2 Score 0 05/23/2022 Comments Unknown Sex and Gender Information Value Date Recorded Sex Assigned at Female 12/05/2021 10:17 AM EDT Legal Sex Female 10:17 AM EDT Gender Identity Female 12/05/2021 10:17 AM EDT Sexual Orientation Straight 12/05/2021 10 :17 AM EDT COVID-19 Exposure Response Date Recorded In the last 10 days, have yo u been in contact with someone who was confirmed or suspected to have Coronavirus/COVID-19? No / Unsure 08/04/2022 1:44 PM EDT documented as of this encounter Plan of Treatment Not on file documented as of this encounter Visit Diagnoses Not on filedocumented in this encounter Care Teams Director Telemetry Relationship Specialty Start Date End Date Fidelia Amaya MD [address] [place], [place] [phone] PCP - General Family Medicine 01/18/21 documented as of this encounter
--- OUTSIDE RECORDS SUMMARY | 2024-04-07 10:54 | XMS_ITS | Encounter Summary ---
Author Organization [employer] Address [address] [facility] [address] [place] [address] Care Team Providers Care Hog Cutter Name Role Phone Fidelia Amaya MD Primary Care Provide r Reason for Visit * Reason Comments Med Refill Encounter Details Date Type Department Care Team ([facility] st Contact Info) Description 12/04/2023 Refill [facility] [address] [place], [place] [phone] Fidelia Amaya MD [address] [place], [place] [phone] Vitamin D deficiency Social History Tobacco Use Types Packs/Day Years Used Date Smoking Tobacco: Never Smokeless Tobacco: Never Alcohol Use Standard Drinks/Week Comments Never 0 (1 standard drink = 0.6 oz pur e alcohol) Housing Stability Answer Date Recorded What is your housing situation today? I have kaushik knight 11/23/[address] you li ve. Do you have problems with any of the following? None of the above 11/23/2022 Food Insecurity Answer Date Recorded Within the past 12 months, y ou worried that your food would run out before you got money to buy more: Never True 11/23/2022 Within the past 12 months,th e food you bought just didn't last and you didn't have enough money to get more: Never True Transportation Answer Date Recorded In the past 12 months, has l ack of transportation kept you from medical appts, meetings, work or from getting things needed for daily living? No 11/23/2022 Utilities Answer Date Recorded In the past 12 months, has t he electric, gas, oil or water company threatened to shut off services in your home? No 11/23/2022 Depression Answer Date Recorded Patient Health Questionnaire-2 Score 0 05/23/2022 Comments Unknown Sex and Gender Information Value Date Recorded Sex Assigned at Female 12/05/2021 10:17 AM EDT Legal Sex Female 10:17 AM EDT Gender Identity Female 12/05/2021 10:17 AM EDT Sexual Orientation Straight 12/05/2021 10 :17 AM EDT documented as of this encounter Plan of Treatment Not on file documented as of this encounter Visit Diagnoses Diagnosis Vitamin D deficiency documented in this encounter Care Teams Hog Cutter Relationship Specialty Start Date End Date Fidelia Amaya MD [address] [place] [address] PCP - General Family Medicine 01/18/21 documented as of this encounter
--- OUTSIDE RECORDS SUMMARY | 2024-04-07 10:54 | XMS_ITS | Encounter Summary ---
Author Organization [employer] Address [address] [facility] [address] [place] [address] Care Team Providers Care Speeder Worker Name Role Phone Fidelia Amaya MD Primary Care Provide r Reason for Visit * Reason Comments Med Refill Encounter Details Date Type Department Care Team (Late st Contact Info) Description 09/12/2023 Refill [facility] [address] [place], [place] [phone] Fideila Amaya MD [address] [place], [place] [phone] Scabies Social History Tobacco Use Types Packs/Day Years [...] as of this encounter Visit Diagnoses Diagnosis Scabies documented in this encounter Care Teams Speeder Worker Relationship Specialty Start Date End Date Fidelia Amaya MD [address] [place] [address] PCP - General Family Medicine 01/18/21 documented as of this encounter
--- OUTSIDE RECORDS SUMMARY | 2024-04-07 10:55 | XMS_ITS | Encounter Summary ---
Author Organization [employer] Address [address] [facility] 7 [place] [address] Care Team Providers Care Ad Copy Writer Name Role Phone Fidelia Amaya MD Primary Care Provide r Encounter Details Date Type Department Care Team (Late st Contact Info) Description 02/09/2022 Telephone [facility] [address] [place], [place] [phone] Fidelia Amaya MD [address] [place], [place] [phone] Social History Tobacco Use Types Packs/Day Years Used Date Smoking Tobacco: Never Assessed Comments Unknown Sex and Gender Information Value Date Recorded Sex Assigned at Female 12/05/2021 10:17 AM EDT Legal Sex Female 10:17 AM EDT Gender Identity Female 12/05/2021 10:17 AM EDT Sexual Orientation Straight 12/05/2021 10 :17 AM EDT documented as of this encounter Miscellaneous Notes * Telephone Encounter - José Miguel Yuan - 02/09/2022 4:11 PM EST Tc from pt stating documented in this encounter Plan of Treatment Not on file documented as of this encounter Visit Diagnoses Not on filedocumented in this encounter Care Teams Ad Copy Writer Relationship Specialty Start Date End Date Fidelia Amaya MD [address] [place], [place] [phone] PCP - General Family Medicine 01/18/21 documented as of this encounter
--- OUTSIDE RECORDS SUMMARY | 2024-04-07 10:55 | XMS_ITS | Encounter Summary ---
Author Organization [employer] Address [address] [facility] 7t [place] [address] Care Team Providers Care Reducing Salon Attendant Name Role Phone Fidelia Amaya MD Primary Care Provide r Reason for Visit * Reason Onset Date Comments FYI 04/06/2023 Encounter Details Date Type Department Care Team ([facility] st Contact Info) Description 04/06/[address] [facility] MEDICINE [address] [place], [place] [phone] Fidelia Amaya MD [address] [place], [place] [phone] FYI Social History Tobacco Use Types Packs/Day Years Used Date Smoking Tobacco: Never Smokeless Tobacco: Never Alcohol Use Standard Drinks/Week Comments Never 0 (1 standard drink = 0.6 oz pur e alcohol) Housing Stability Answer Date Recorded What is your housing situation today? I have kaushikyazan knight 11/23/[address] [...] encounter Miscellaneous Notes * Telephone Encounter - Christo Bosch - 04/10/2023 2:14 PM EST Tc from pt requesting status message above. * Telephone Encounter - Suhail Renee - 04/06/2023 1:32 PM EST Tc from [facility] for the [facility] calling to report the patient was prescribed permethrin (Elimite) 5 % cream for scabies but recently discovered after going to the patients home that itwas done by fleas any questions please call Tita at [phone] documented in this encounter Plan of Treatment Not on file documented as of this encounter Visit Diagnoses Not on filedocumented in this encounter Care Teams Reducing Salon Attendant Relationship Specialty Start Date End Date Fidelia Amaya MD [address] [place] [id number] PCP - General Family Medicine 01/18/21 documented as of this encounter
--- OUTSIDE RECORDS SUMMARY | 2024-04-07 10:55 | XMS_ITS | Encounter Summary ---
Author Organization [employer] Address [address] [facility] 7t [place] [address] Care Team Providers Care Yoke Presser Name Role Phone Fidelia Amaya MD Primary Care Provide r Reason for Visit * Reason Comments Med Refill Encounter Details Date Type Department Care Team (Late st Contact Info) Description 06/21/2023 Refill [facility] [address] [place], [place] [phone] [facility] [address] [place], [place] [phone] Bug bite, initial encounter Social History Tobacco Use Types Packs/Day Years [...] as of this encounter Visit Diagnoses Diagnosis Bug bite, initial encounter documented in this encounter Care Teams Yoke Presser Relationship Specialty Start Date End Date Fidelia Amaya MD [address] [place] [address] PCP - General Family Medicine 01/18/21 documented as of this encounter
--- OUTSIDE RECORDS SUMMARY | 2024-04-07 10:55 | XMS_ITS | Encounter Summary ---
Author Organization [employer] [facility] Address [address] [facility] 7t [place] [address] Care Team Providers Care Channel Lip Wetter Name Role Phone Fidelia Amaya MD Primary Care Provide r Reason for Visit * Reason Comments Med Refill Encounter Details Date Type Department Care Team (Late st Contact Info) Description 07/06/2022 Refill [facility] [address] [place], [place] [phone] Ya West MD [address] [place], [place] [phone] Acquired hypothyroidism Social History Tobacco Use Types Packs/Day Years [...] as of this encounter Visit Diagnoses Diagnosis Acquired hypothyroidism Unspecified hypothyroidism documented in this encounter Care Teams Channel Lip Wetter Relationship Specialty Start Date End Date Fidelia Amaya MD [address] [place], [place] [phone] PCP - General Family Medicine 01/18/21 documented as of this encounter
--- OUTSIDE RECORDS SUMMARY | 2024-04-07 10:55 | XMS_ITS | Encounter Summary ---
Author Organization [employer] Address [address] [facility] [address]t [place] [address] Care Team Providers Care Hydro Technician Name Role Phone Fidelia Amaya MD Primary Care Provide r Reason for Visit * Reason Comments Med Refill Encounter Details Date Type Department Care Team ([facility] st Contact Info) Description 04/01/2024 Refill [facility] [address] [place], [place] [phone] Fidelia Amaya MD [address] [place], [place] [phone] Acquired hypothyroidism Social History Tobacco Use Types [...] hypothyroidism documented in this encounter Care Teams Hydro Technician Relationship Specialty Start Date End Date Fidelia Amaya MD [address] [place] [address] PCP - General Family Medicine 01/18/21 documented as of this encounter
--- OUTSIDE RECORDS SUMMARY | 2024-04-07 10:55 | XMS_ITS | Encounter Summary ---
Author Organization [email or web address] [facility] Address [address] [facility] [address]t [place] [address] Care Team Providers Care Associate Professor Of Church Music Name Role Phone Fidelia Amaya MD Primary Care Provide r Encounter Details Date Type Department Care Team (Latest Contact Info) Description 05/12/2020 Abstract [facility] CONVERSIONS Dental, Provider, DDS Social History Tobacco Use Types Packs/Day Years [...] on filedocumented in this encounter Care Teams Associate Professor Of Church Music Relationship Specialty Start Date End Date Fidelia Amaya MD [address] [place] [phone] PCP - General Family Medicine 01/18/21 documented as of this encounter
--- OUTSIDE RECORDS SUMMARY | 2024-04-07 10:55 | XMS_ITS | Encounter Summary ---
Author Organization [employer] Address [address] [facility] [address]t [place] [address] Care Team Providers Care Test Tech Name Role Phone Fidelia Amaya MD Primary Care Provide r Reason for Visit * Reason Comments Med Refill Encounter Details Date Type Department Care Team (Late st Contact Info) Description 10/18/2022 Refill [facility] [address] [place], [place] [phone] Bakari Batista MD [address] [place], [place] [phone] Generalized pruritus Social History Tobacco Use Types Packs/Day Years [...] as of this encounter Visit Diagnoses Diagnosis Generalized pruritus Unspecified pruritic disorder documented in this encounter Care Teams Test Tech Relationship Specialty Start Date End Date Fidelia Amaya MD [address] [place], [place] [phone] PCP - General Family Medicine 01/18/21 documented as of this encounter
--- OUTSIDE RECORDS SUMMARY | 2024-04-07 10:55 | XMS_ITS | Clinical Summary ---
Author Organization [employer] Address [address] [facility] 7t [place] [address] Care Team Providers Care Marine Gear Keeper Name Role Phone Fidelia Amaya MD Primary Care Provide r Allergies Active Allergy Reactions Criticality Noted Date Comments Amoxicillin 04/29/2020 Other reaction(s): Hives / Skin Rash Aspirin 03/01/2015 Other reaction(s): Stomach Pain Guggulipid-Black Pepper 03/21/2023 Ibuprofen 05/20/2014 Meperidine 08/12/2018 Other reaction(s): I get very nervous [in Hebrew] Morphine 05/20/2014 Oxycodone Anaphylaxis High 04/07/2015 Prochlorperazine Other reaction(s): unspecified Other reaction(s): unspecified Medications hydrOXYzine HCl (Atarax) 25 MG tabletIndications :Bug bite, initial encounter Take 1 tablet (25 mg) by mouth 4 times daily. 120 tablet 023 Active glucose blood (FREESTYLE LITE) test strip Check by fingerstick route 2 times every day 022 Active TRUEplus Lancets 33G misc USE TO TEST BLOOD SUGAR TWICE DAILY 023 Active hydrOXYzine pamoate (Vistaril) 25 MG capsuleIndication s:Generalized pruritus Take 1 capsule (25 mg) by mouth every 6 (six) hours if needed for itching for up to 10 days. 30 capsule 023 Active Mometasone Furoate (Asmanex HFA) 100 MCG/ACT aerosolIndication s:Moderate persistent asthma, unspecified whether complicated Inhale 2 puffs 2 times daily. 13 g 2 024 Active albuterol 108 (90 Base) MCG/ACT inhalerIndication s:Moderate persistent asthma, unspecified whether complicated Inhale 2 puffs every 6 (six) hours if needed for wheezing. 18 g 024 Active albuterol 108 (90 Base) MCG/ACT inhalerIndication s:Moderate persistent asthma, unspecified whether complicated Inhale 2 puffs every 6 (six) hours if needed for wheezing. 18 g 11 024 Active permethrin (Elimite) 5 % creamIndications: Scabies apply to skin from hairline to toes and wash off 8-10 hours later 60 g 2 024 Active diphenhydrAMINE (BENADryl) 25 MG tablet Take 1 tablet (25 mg) by mouth if needed at bedtime for itching. 30 tablet 024 Active cetirizine (ZyrTEC) 10 MG tablet Take 1 tablet (10 mg) by mouth Once per day. 30 tablet 5 024 Active loratadine (Claritin) 10 MG tabletIndications :Bug bite, initial encounter Take 1 tablet (10 mg) by mouth Once per day. 90 tablet 1 Active levothyroxine (Synthroid) 150 MCG tabletIndications :Acquired hypothyroidism Take 1 tablet (150 mcg) by mouth before breakfast. 30 tablet 3 024 2024 Active Alcohol Swabs (SM Alcohol Prep) 70 % padsIndications:T ype 2 diabetes mellitus with other specified complication, unspecified whether rodent exterminator insulin use ([facility]) USE TWICE DAILY 100 each Active hydroCHLOROthiazi de (HYDRODiuril) 25 MG tabletIndications :Primary hypertension TAKE 1 TABLET BY MOUTH ONCE DAILY 90 tablet 1 024 Active fluticasone (Flonase) 50 MCG/ACT nasal sprayIndications: Cough in adult patient Administer 1 spray into each nostril Once per day. 48 g 024 Active cholecalciferol (D3 Super Strength) 50 MCG (2000 UT) capsuleIndication s:Vitamin D deficiency TAKE 1 CAPSULE BY MOUTH EVERY DAY 90 capsule 1 024 Active TRUEplus Lancets 33G miscIndications:T ype 2 diabetes mellitus with hyperglycemia, with long-term current use of insulin ([facility]) USE TO TEST BLOOD SUGAR TWICE DAILY 100 each Active FREESTYLE LITE test stripIndications: Type 2 diabetes mellitus with hyperglycemia, with long-term current use of insulin ([facility]) USE TO TEST BLOOD SUGAR TWICE DAILY 100 strip Active triamcinolone (Kenalog) 0.1 % creamIndications: Generalized pruritus MIX WITH CERAVE AND APPLY TOPICALLY TO THE AFFECTED AREA(S) TWICE DAILY 80 g Active levothyroxine (Synthroid, Levoxyl) 150 MCG tabletIndications :Acquired hypothyroidism Take 1 tablet (150 mcg) by mouth before breakfast. TAKE 1 TABLET BY MOUTH BEFORE BREAKFAST 90 tablet 3 Active Nebulizer miscIndications:M oderate persistent asthma, unspecified whether complicated 1 kit Every 4-6 hours as needed (for wheeezing and shortness of breath). 1 each Active albuterol (2.5 MG/3ML) 0.083% nebulizer solution Take 3 mL (2.5 mg) by nebulization in the morning, at noon, and at bedtime. 270 mL 11 2024 Active folic acid (Folvite) 1 MG tabletIndications :Acquired hypothyroidism TAKE 1 TABLET BY MOUTH EVERY DAY AT NOON 90 tablet Active folic acid (Folvite) 1 MG tabletIndications :Acquired hypothyroidism TAKE 1 TABLET BY MOUTH EVERYDAY AT NOON 90 tablet 3 024 2024 Discontinued Active Problems Problem Noted Date Diagnosed Date Rash and nonspecific skin eruption 04/18/2023 Chronic bilateral low back pain 04/18/2023 Type 2 diabetes mellitus wit h hyperglycemia, with long-term current use of insulin 03/21/2023 Assessment & Plan (03/21/2023 4:32 PM EST): Diabetes is: controlled - Lab Results Component Value Date HGBA1C 5.8 03/21/2023 HGBA1C 5.8 05/23/2022 HGBA1C 6.6 (H) 04/25/2021 - Lab Results Component Value Date CREATININE 0.88 03/17/2022 -Changes: none - Diabetic eye exam:up to date - Diabetic foot exam:pending - Continue lifestyle modifications - Follow up: 3 months Scabies 03/21/2023 URI, acute 02/26/2023 Pruritus 08/18/2022 Assessment & Plan (08/18/2022 5:21 PM EDT): Pt complains of generalized pruritus. Per pt it is secondary to insect bites. 03/2022: LFTs w/in normal limits, slightly increased Alk Phos: 118. Unclear if papules seen are secondary to scratching or those lesions are causing the itchiness. - Given chronicity of her Sx and no improvement w antihistamines and topical steroids, I referred today to bonding supervisor. - Lesions do not appear to be from scabies and so, will hold on Tx. - If no etiology found by bonding supervisor, will need to consider delusional parasitosis, in which case may benefit from antipsychotic Rx. - Will check chem, TFT. - Advise to f/u w her PCP in 4 wk to f labs and Sx. - Explained to pt that if she sees these insects again to use tape to preserve them and bring them to the clinic so that sample can be sent to the lab for evaluation under the microscope. - Continue Hydroxyzine PRN for itchiness. Tingling of skin 05/23/2022 Encounter for preventive health examination 05/06 Assessment & Plan (05/23/2022 1:48 PM EDT): Discussed with patient re increase fresh fruit and vegetable intake. Counseled re moderate exercise as tolerated, up to 20min/d Patient feels safe at home. PAP smear schedule pelvic exam to r/o presence of cervix s/p hysterectomy Mammogram TBO Eye exam Up to date, next one due 2023 CRC screen reportedly had colonosocpy done within the past 5 years, report not available. Will request report from [facility]. Lipids/FBS TBO Vaccinations she completed covid vax x2, declined boosters today, will obtain IZ levels, she is due for zoster, PCV and influenza but she declined iz today. Dental visit overdue more than 2 years, I told her to look for another dental clinic and schedule an appointment for prophylaxis. Lumbar back pain 05/19/2022 Greater trochanteric pain syndrome 05/19/2022 Foot pain 05/19/2022 Essential hypertension 05/19/2022 Assessment & Plan (03/21/2023 4:31 PM EST): - Aerobic exercise to reduce BP. Initial goal of 30 min walk 3-5x/week. Increase as tolerated. - low-sodium diet (goal: <2g/day) and heart healthy diet such as DASH to reduce BP and prevent ASCVD. - Home BP monitoring 1-2 x day with goal of <140/90. - Seek immediate medical attention for chest pain, palpitations, SOB, syncope, or sudden changes in mental status. - Do not change or discontinue current prescriptions without first consulting health care provider Assessment & Plan (08/18/2022 5:13 PM EDT): BP today is 146/86. Pt reports not taking her BP Rx this morning. - Advise pt to be compliant w her Rx. - Advise pt to f/u w PCP in 4 wk to monitor her BP and chronic conditions. Steatosis of liver 05/19/2022 Newly diagnosed diabetes 05/19/2022 Assessment & Plan (05/23/2022 2:28 PM EDT): Pt has prediabetes. Declines to be referred to dietitian. i gave her information regarding prevention of DM. Counseled re more frequent low calorie/carb meals. Check fgstk daily Encouraged physical activity as tolerated. FU with PCP in 6 months Moderate persistent asthma 05/19/2022 Assessment & Plan (03/21/2023 4:31 PM EST): Patient educated to avoid asthma triggers Albuterol PRN asmanex BID Mild persistent asthma 02/07/2018 Disorder of vein 11/15/2017 Seasonal allergies 07/23/2017 Morbid obesity 07/23/2017 Primary insomnia 04/26/2016 History of total hysterectomy 03/22/2016 Assessment & Plan (05/23/2022 2:26 PM EDT): Unclear if she has cervix. Will schedule Pevlic exam and determine if further pap smear/or not History of cholecystectomy 03/22/2016 Impingement syndrome of shoulder region 12/08/19 16 Dyslipidemia 11/10/2015 Acquired hypothyroidism 11/30/2011 Assessment & Plan (03/21/2023 4:31 PM EST): TSH will be check Assessment & Plan (05/23/2022 2:27 PM EDT): To recheck TSH and FU with PCP. Continue Synthroid 175mcg per day Chronic right-sided low back pain without sciati ca 11/30/2011 Assessment & Plan (03/22/2023 3:40 PM EST): XRAY will be ordered Patient to be contacted with results Depressive disorder 11/30/2011 Migraine 11/30/2011 Thalassemia 11/30/2011 Assessment & Plan (05/23/2022 2:27 PM EDT): Pt should not be symptomatic. Recheck CBC and FU PCP Encounters Date Type Department Care Team Description 04/01/2024 Refill [facility] [address] [place] [address] Fidelia Amaya MD Acquired hypothyroidism 02/15/2024 Telephone [facility] [address] [place] [address] Fidelia Amaya MD No Show 02/07/2024 Telephone [facility] [address] [place] [address] Fidelia Amaya MD No Show 01/15/2024 Telephone [facility] [address] [place] [address] Fidelia Amaya MD Appointment Request 01/15/2024 Telephone [facility] [address] [place] [address] Fidelia Amaya MD Medication Question 01/15/2024 Refill [facility] [address] [place] [address] Fidelia Amaya MD 01/08/2024 Telephone [facility] [address] [place] [address] Fidelia Amaya MD telephone call from Last 3 Months Immunizations Name Administration Dates Next Due Influenza injectable quadriv alent IIV4 with preservative 11/15/2017,01/03/2017 Influenza injectable quadrivalent preservative f ree 11/06/2018 Influenza, IIV3, injectable 11/11/2008 Pneumococcal Polysaccharide PPSV23 11/15/2017 TD (adult), 2 Lf tetanus tox oid, preservative free, adsorbed 10/02/2003 Td (adult), 5 Lf tetanus tox oid, preservative free, adsorbed 10/14/2014 Tdap 2015 Family History Medical History Relation Name Comments Diabetes Father Hypertension Father Diabetes Mother Relation Name Status Comments Father Mother Social History Tobacco Use Types Packs/Day Years Used Date Smoking Tobacco: Never Smokeless Tobacco: Never Tobacco Cessation:Counseling Given: Not Answered Alcohol Use Standard Drinks/Week Comments Never 0 [...] Orientation Straight 12/05/2021 10 :17 AM EDT Last Filed Vital Signs Vital Sign Reading Time Taken Comments Blood Pressure 147/77 06/21/2023 9:44 AM EDT Pulse 85 06/21/2023 9:44 AM EDT Temperature 36.8 ??C (98.3 ??F) 06/21/2023 9:44 AM ED T Respiratory Rate 16 06/21/2023 9:44 AM EDT Oxygen Saturation 99% 06/21/2023 9:44 AM EDT Inhaled Oxygen Concentration - - Weight 98 kg (216 lb) 06/21/2023 9:44 AM EDT Height 165.1 cm (5' 5 ) 03/21/2023 3:00 PM EST Body Mass Index 35.94 03/21/2023 3:00 PM EST Plan of Treatment Health Maintenance Due Date Last Done Comments CT Colonography 1963 FIT DNA/Cologuard 1963 FIT 1963 FOBT 1963 HIV Screening 1963 Sigmoidoscopy 1963 Diabetes: Foot Exam 12/07/1973 Alcohol/Substance Use Screening 1975 Hepatitis C Screening 12/07/1981 Diabetes: Urine Protein Screening 12/07/1982 Hepatitis A Vaccines (1 of 2 - Risk 2-dose series) 12/07/1982 Pap Smear 12/07/1984 Cervical Cancer Screening 12/07/1993 HPV/Cotest 12/07/1993 Zoster Vaccines (1 of 2) 12/07/2013 Pneumococcal Vaccine: 50+ Years (2 of 2 - PCV) 11/15/2018 11/15/2017 Mammogram 05/08/2020 05/08/2018, 04/27/2017 Depression Screening 05/24/2023 05/23/2022, 05/24/19 23 SDOH Screening 05/24/2023 05/23/2022 Diabetes: Hemoglobin A1C 06/19/20232 024, 05/23/2022, 04/25/2021, Additional history exists COVID-19 Vaccine ( season) 2023 10/25/2020, 09/30/2020 Influenza Vaccine (#1) 2023 9, 11/15/2017, 01/03/2017, Additional history exists Hepatitis B Vaccines (1 of 3 - Risk 3-dose series) 2023 RSV Patients and Patients Aged 60 years or older (1 - Risk 60-74 years 1-dose series) 2023 Lipid Panel 03/22/2024 03/22/2023, 08/30/2020 Tobacco Screening 06/20/2024 06/21/2023 Eye Exam 08/29/2024 08/29/2022, 08/06, 08/29/2022, Additional history exists DTaP/Tdap/Td Vaccines (2 - Td or Tdap) 12/07/2025 2015, 10/14/2014, 10/02/2003 Colonoscopy 06/22/2026 06/22/2016 Colorectal Cancer Screening 06/22/2026 HIB Vaccines Aged Out No longer eligi ble based on patient's age to complete this topic HPV Vaccines Aged Out No longer eligi ble based on patient's age to complete this topic IPV Vaccines Aged Out No longer eligi ble based on patient's age to complete this topic Meningococcal Vaccine Aged Out No stephanie lina eligible based on patient's age to complete this topic RSV under 20 months Aged Out No longe r eligible based on patient's age to complete this topic Rotavirus Vaccines Aged Out No longer eligible based on patient's age to complete this topic Procedures Procedure Name Priority Date/Time Associated Diagnosis Comments LIPID PANEL, STANDARD Routine 03/22/2023 9:35 AM EST Essential hypertension Type 2 diabetes mellitus with hyperglycemia, with long-term current use of insulin ([facility]) POCT GLYCATED HEMOGLOBIN, TOTAL Routine 03/21/2023 3:35 PM EST Type 2 diabetes mellitus with hyperglycemia, with long-term current use of insulin ([facility]) BI MAMMOGRAM SCREENING BILATERAL Routine 05/08/2018 12:46 PM EDT HM COLONOSCOPY Routine 06/22/2016 from Last 3 Months or Most Recently Relevant to Health Maintenance Results * (ABNORMAL) Lipid Panel, Standard (03/22/2023 9:35 AM EST) Triglycerides 278(H) <150 mg/dL [facility] Comment:Desirable Triglyceri de: less than 150 mg/dLBorderline High Triglyceride 150-199 mg/dLHigh Triglyceride: 200-499 mg/dLVery High Triglyceride: greater than or equal to 5OO mg/dL Cholesterol 194 <200 mg/dL [facility] Comment:Desirable Cholestero l: less than 200 mg/dLBorderline High Cholesterol: 200-239 mg/dLHigh Cholesterol: greater than 239 mg/dL LDL Cholesterol Calculated 108(H) <100 mg/dL [facility] Comment:Desirable LDL: less than 100 mg/dLNear Optimal/Above Optimal LDL: 110- 129 mg/dLBorderline High LDL: 130-159 mg/dLHigh LDL: 160-189 mg/dLVery High LDL: greater than or equal to 190 mg/dL HDL Cholesterol 31(L) >40 mg/dL [facility] Comment:Desirable HDL: great er than 40 mg/dL Note: This HDL assay may give artificially low results in patients with liver disease. Blood Venous blood specimen / Unknown 03/22/2023 9:35 AM EST 03/22/2023 11:23 AM EST us Fidelia Rubio MD LAB BLOOD ORDERABLES Final Result [facility] [address] [place], [place] [phone] * POCT HGB A1C (03/21/2023 3:35 PM EST) Hemoglobin A1C 5.8 4.0 - 6.0 % QC Media Lot # [id number] Lot# Expiration Date ,026 Blood 03/21/2023 3:35 PM EST Fidelia Rubio MD POINT OF CARE TEST EN TER/EDIT ORDERABLES Final Result * DIGITAL BILATERAL SCREEN 1 (05/08/2018 12:46 PM EDT) Anatomical Region Laterality Modality Breast Bilateral Mammography 05/08/2018 12:4 6 PM EDT Narrative 05/08/2018 12:46 PM EDT Refer to the Notes tab for result details [facility] Procedure: DIGITAL BILATERAL SCREEN 1 Procedure Note Provider, Historical, MD - 04/29/2022 Refer to the Notes tab for result details [facility] Procedure: DIGITAL BILATERAL SCREEN 1 Bernabe Contreras MD IMG BI PROCEDURES Final Result * Hm Colonoscopy (06/22/2016) Maria C Provider HEALTH MAINTENANCE Final Result from Last 3 Months or Most Recently Relevant to Health Maintenance Insurance [employer] C3 * Guarantor: Jo-Ann Ly Account Type Relation to Patient Date of Phone Billing Address Personal/Family Self [address] [phone] Care Teams Marine Gear Keeper Relationship Specialty Start Date End Date Fidelia Amaya MD [address] [place] [address] PCP - General Family Medicine 01/18/21
--- OUTSIDE RECORDS SUMMARY | 2024-04-07 10:55 | XMS_ITS | Encounter Summary ---
Author Organization [employer] Address [address] [facility] 7t [place] [address] Care Team Providers Care Cogeneration Operator Name Role Phone Fidelia Amaya MD Primary Care Provide r Reason for Visit * Reason Comments Med Refill Encounter Details Date Type Department Care Team (Late st Contact Info) Description 09/20/2022 Refill [facility] [address] [place], [place] [phone] [facility] [address] [place], [place] [phone] Bug bite, initial encounter Social History Tobacco [...] encounter documented in this encounter Care Teams Cogeneration Operator Relationship Specialty Start Date End Date Fidelia Amaya MD [address] [place], [place] [phone] PCP - General Family Medicine 01/18/21 documented as of this encounter
--- OUTSIDE RECORDS SUMMARY | 2024-04-07 10:55 | XMS_ITS | Encounter Summary ---
Author Organization [employer] [facility] Address [address] [facility] 7t [place] [address] Care Team Providers Care Night Monitor Name Role Phone Fidelia Amaya MD Primary Care Provide r Encounter Details Date Type Department Care Team (Late st Contact Info) Description 10/25/2022 Orders Only [facility] [address] [place], [place] [phone] Provider, Maria C, Social History Tobacco Use Types Packs/Day Years [...] on file documented as of this encounter Procedures Procedure Name Priority Date/Time Associated Diagnosis Comments COLONOSCOPY Routine 06/22/2016 documented in this encounter Results * Colonoscopy (06/22/2016) Historical Provider HEALTH MAINTENANCE Final Result documented in this encounter Visit Diagnoses Not on filedocumented in this encounter Care Teams Night Monitor Relationship Specialty Start Date End Date Fidelia Amaya MD [address] [place], [place] [phone] PCP - General Family Medicine 01/18/21 documented as of this encounter
== END 2024-04-07 10:30 | disposition home or self-care (01) ==
PROVIDERS: PCP Internal Medicine; Visit Provider Nurse Practitioner Family
DX: J45.909 Unspecified asthma, uncomplicated (principal); R06.00 Dyspnea, unspecified; R13.10 Dysphagia, unspecified
CPT/HCPCS: 99214

== ENCOUNTER → 2024-04-07 09:44 | Outpatient (BNVA) | payer MEDICAID, SELFPAY | PROVIDERS: PCP Internal Medicine; Visit Provider Nurse Practitioner Family | DX: J45.909 Unspecified asthma, uncomplicated (principal); R06.00 Dyspnea, unspecified; R13.10 Dysphagia, unspecified | CPT/HCPCS: 99212 ==

== ENCOUNTER 2024-04-30 10:25 | Outpatient (REF) | payer MEDICAID, SELFPAY ==
--- NOTE | 2024-04-30 10:31 | PFT_ITS ---
Indication: Asthma Spirometry [FEV1 to FVC 77%; FEV1 1.96 L; FVC 2.55 L. there was a significant response to bronchodilators noted.] Lung Volumes [Total lung capacity 85% predicted; residual volume 95% predicted; expiratory reserve volume 10% predicted] Diffusion Capacity [DLCO 111% predicted] Comparisons [none] Interpretation [No obstructive nor restrictive ventilatory defects identified. There was a significant response to bronchodilators noted. Lung volumes are normal except for decrease in the expiratory reserve volume secondary to an elevated BMI. Diffusing capacity is within normal limits. If asthma is in the differential methacholine challenge may be helpful in assessing for hyperreactive airways. Clinical correlation warranted.] MTDD
[2024-04-30 11:08] VITALS: PULSE 71; O2SAT 96
--- OUTSIDE RECORDS SUMMARY | 2024-04-30 12:14 | XMS_ITS | Encounter Summary ---
Author Organization [employer] Address [address] [facility] 7t [place] [address] Care Team Providers Care Planner Chief Name Role Phone Fidelia Amaya MD Primary Care Provide r Encounter Details Date Type Department Care Team ([facility] st Contact Info) Description 04/18/2024 Population Health Risk Score [facility] (C[facility]) Department [address] [phone] Provider, Population Health Generic Social History Tobacco Use Types Packs/Day Years [...] on filedocumented in this encounter Care Teams Planner Chief Relationship Specialty Start Date End Date Fidelia Amaya MD [address] [place] [phone] PCP - General Family Medicine 01/18/21 documented as of this encounter
--- OUTSIDE RECORDS SUMMARY | 2024-04-30 12:14 | XMS_ITS | Encounter Summary ---
Author Organization [employer] Address [address] [facility] 7t [place] [address] Care Team Providers Care Director Women Name Role Phone Fidelia Amaya MD Primary Care Provide r Reason for Visit * Reason Comments Med Refill Encounter Details Date Type Department Care Team ([facility] st Contact Info) Description 12/04/2023 Refill [facility] [address] [place], [place] [phone] Fidelia Amaya MD [address] [place], [place] [phone] Vitamin D deficiency Social History Tobacco Use [...] deficiency documented in this encounter Care Teams Director Women Relationship Specialty Start Date End Date Fidelia Amaya MD [address] [place] [address] PCP - General Family Medicine 01/18/21 documented as of this encounter
--- OUTSIDE RECORDS SUMMARY | 2024-04-30 12:14 | XMS_ITS | Encounter Summary ---
Author Organization [employer] Address [address] [facility] 7t [place] [address] Care Team Providers Care Market Developer Name Role Phone Fidelia Amaya MD Primary Care Provide r Reason for Visit * Reason Onset Date Comments FYI 04/06/2023 Encounter Details Date Type Department Care Team ([facility] st Contact Info) Description 04/06/2023 Telephone [facility] [address] [place], [place] [phone] Fidelia Amaya MD [address] [place], [place] [phone] FYI Social History Tobacco Use Types Packs/Day [...] status message above. * Telephone Encounter - Suhial Renee - 04/06/2023 1:32 PM EST Tc from [facility] for [facility] calling to report the patient was prescribed permethrin (Elimite) 5 % cream for scabies but recently discovered after going to the patients home that itwas done by fleas any questions please call Tita at [phone] documented in this encounter Plan of Treatment Not on file documented as of this encounter Visit Diagnoses Not on filedocumented in this encounter Care Teams Market Developer Relationship Specialty Start Date End Date Fidelia Amaya MD [address] [place] [phone] PCP - General Family Medicine 01/18/21 documented as of this encounter
--- OUTSIDE RECORDS SUMMARY | 2024-04-30 12:14 | XMS_ITS | Encounter Summary ---
Author Organization [employer] Address [address] [facility] 7 [place] [address] Care Team Providers Care Merchandise Execution Leader Name Role Phone Fidelia Amaya MD Primary Care Provide r Encounter Details Date Type Department Care Team (Late st Contact Info) Description 02/09/2022 Telephone [facility] [address] [place], [place] [phone] Fidelia Amaya MD [address] [place], [place] [phone] Social History Tobacco Use Types Packs/Day Years [...] on filedocumented in this encounter Care Teams Merchandise Execution Leader Relationship Specialty Start Date End Date Fidelia Amaya MD [address] [place], [place] [phone] PCP - General Family Medicine 01/18/21 documented as of this encounter
--- OUTSIDE RECORDS SUMMARY | 2024-04-30 12:14 | XMS_ITS | Encounter Summary ---
Author Organization [facility] Address [address] [facility] 7t [place] [address] Care Team Providers Care Risk Management Intern Name Role Phone Fidelia Amaya MD Primary Care Provide r Reason for Visit * Reason Comments Med Refill Encounter Details Date Type Department Care Team (Late st Contact Info) Description 07/06/2022 Refill [facility] [address] [place], [place] [phone] Ya West MD [address] [place], [place] [phone] Acquired hypothyroidism Social History Tobacco Use Types [...] hypothyroidism documented in this encounter Care Teams Risk Management Intern Relationship Specialty Start Date End Date Fidelia Amaya MD [address] [place], [place] [phone] PCP - General Family Medicine 01/18/21 documented as of this encounter
--- OUTSIDE RECORDS SUMMARY | 2024-04-30 12:14 | XMS_ITS | Encounter Summary ---
Author Organization [employer] [facility] Address [address] [facility] 7t [place] [address] Care Team Providers Care Dance Hall Hostess Name Role Phone Fidelia Amaya MD Primary Care Provide r Encounter Details Date Type Department Care Team (Latest Contact Info) Description 05/12/2020 Abstract [facility] CONVERSIONS Dental, Provider, DDS Social History [...] on filedocumented in this encounter Care Teams Dance Hall Hostess Relationship Specialty Start Date End Date Fidelia Amaya MD [address] [place] [address] PCP - General Family Medicine 01/18/21 documented as of this encounter
--- OUTSIDE RECORDS SUMMARY | 2024-04-30 12:14 | XMS_ITS | Encounter Summary ---
Author Organization [employer] Address [address] [facility] 7t [place] [address] Care Team Providers Care Ingredient Mixer Name Role Phone Fidelia Amaya MD Primary Care Provide r Reason for Visit * Reason Comments Med Refill Encounter Details Date Type Department Care Team (Late st Contact Info) Description 09/12/2023 Refill [facility] MEDICINE [address] [place], [place] [phone] Fidelia Amaya MD [address] [place], [place] [phone] Scabies Social History Tobacco Use Types Packs/Day [...] Scabies documented in this encounter Care Teams Ingredient Mixer Relationship Specialty Start Date End Date Fidelia Amaya MD [address] [place] [address] PCP - General Family Medicine 01/18/21 documented as of this encounter
--- OUTSIDE RECORDS SUMMARY | 2024-04-30 12:14 | XMS_ITS | Encounter Summary ---
Author Organization [employer] Address [address] [facility] 7t [place] [address] Care Team Providers Care Escapement Matcher Name Role Phone Fidelia Amaya MD Primary Care Provide r Reason for Visit * Reason Comments Med Refill Encounter Details Date Type Department Care Team (Late st Contact Info) Description 10/18/2022 Refill [facility] MEDICINE [address] [place], [place] [phone] Bakari Batista MD [address] [place], [place] [phone] Generalized pruritus Social History Tobacco Use Types [...] disorder documented in this encounter Care Teams Escapement Matcher Relationship Specialty Start Date End Date Fidelia Amaya MD [address] [place], [place] [phone] PCP - General Family Medicine 01/18/21 documented as of this encounter
--- OUTSIDE RECORDS SUMMARY | 2024-04-30 12:14 | XMS_ITS | Encounter Summary ---
Author Organization [employer] Address [address] [facility] 7t [place] [address] Care Team Providers Care Custom Tailor Name Role Phone Fidelia Amaya MD Primary Care Provide r Encounter Details Date Type Department Care Team (Late st Contact Info) Description 09/01/2022 Orders Only [facility] MEDICINE [address] [place], [place] [phone] Mary Singh LPN Social History Tobacco Use Types Packs/Day [...] on filedocumented in this encounter Care Teams Custom Tailor Relationship Specialty Start Date End Date Fidelia Amaya MD 230 [place], [place] [phone] PCP - General Family Medicine 01/18/21 documented as of this encounter
--- OUTSIDE RECORDS SUMMARY | 2024-04-30 12:14 | XMS_ITS | Clinical Summary ---
Author Organization [employer] Address [address] [facility] 7t [place] [address] Care Team Providers Care Security Monitor Name Role Phone Fidelia Amaya MD Primary Care Provide r Allergies Active Allergy Reactions Criticality Noted Date Comments Amoxicillin 04/29/2020 Other reaction(s): Hives / Skin Rash Aspirin 03/01/2015 Other reaction(s): Stomach Pain Guggulipid-Black Pepper 03/21/2023 Ibuprofen 05/20/2014 Meperidine 08/12/2018 Other reaction(s): I get very nervous [in German] Morphine 05/20/2014 Oxycodone Anaphylaxis High 04/07/2015 Prochlorperazine [...] mellitus with other specified complication, unspecified whether lobsterman insulin use ([facility]) USE TWICE DAILY 100 each [...] hyperglycemia, with long-term current use of insulin ([facility]) USE TO TEST BLOOD SUGAR TWICE DAILY 100 each 11 Active FREESTYLE LITE test stripIndications: Type 2 diabetes mellitus with hyperglycemia, with long-term current use of insulin ([facility]) USE TO TEST BLOOD SUGAR [...] noon, and at bedtime. 270 mL 11 024 2024 Active folic acid (Folvite) 1 MG tabletIndications :Acquired hypothyroidism TAKE 1 TABLET BY MOUTH EVERY DAY AT NOON 90 tablet Active acetaminophen (Tylenol) 325 MG capsuleIndication s:Oral pain Take 1 capsule (325 mg) by mouth every 8 (eight) hours if needed for moderate pain or fever (oral pain). 30 capsule 025 2024 Active folic acid (Folvite) 1 MG tabletIndications :Acquired hypothyroidism TAKE 1 TABLET BY MOUTH EVERYDAY AT NOON 90 tablet 3 024 2024 Discontinued doxycycline (Vibramycin) 100 MG capsuleIndication s:Oral pain Take 1 capsule (100 mg) by mouth 2 times daily for 10 days. Take with at least 8 ounces (large glass) of water, do not lie down for 30 minutes after 20 capsule 025 2024 Active Problems Problem Noted Date Diagnosed Date Oral pain 04/15/2024 Assessment & Plan (04/15/2024 1:15 PM EDT): Differential includes dental infection, parotid stone posteriorly, less likely trigeminal neuralgia. No evidence of otitis or mastoiditis. Will treat empirically with doxycycline (PCN allergy). She has appointment today with dental. ER precautions discussed. Return if symptoms worsen or do not improve. She agrees with the plan. Rash and nonspecific skin eruption 04/18/2023 Chronic [...] and topical steroids, I referred today to puppet maker. - Lesions do not appear to be from scabies and so, will hold on Tx. - If no etiology found by puppet maker, will need to consider delusional parasitosis, in [...] report not available. Will request report from [facility]. Lipids/FBS TBO Vaccinations she completed covid vax [...] Encounters Date Type Department Care Team Description 04/18/2024 Population Health Risk Score [facility] (C3) Department [address] [place] [address] Provider, Population Health Generic 04/15/2024 11:00 AM EDT Office Visit [facility] [address] [place] [address] Melani Villanueva MD Oral pain (Primary Dx) 04/01/2024 Refill [facility] [address] [place] [address] Fidelia Amaya MD Acquired hypothyroidism 02/15/2024 Telephone [facility] [address] [place], [place] [phone] Fidelia Amaya MD No Show 02/07/2024 Telephone [facility] [address] [place] [address] Fidelia Amaya MD No Show from Last 3 Months Immunizations Name Administration [...] Sign Reading Time Taken Comments Blood Pressure 138/78 04/15/2024 11:15 AM EDT Pulse 76 04/15/2024 11:15 AM EDT Temperature 36.8 ??C (98.3 ??F) 04/15/2024 11:15 AM E DT Respiratory Rate 16 04/15/2024 11:15 AM EDT Oxygen Saturation 97% 04/15/2024 11:15 AM EDT Inhaled Oxygen Concentration - - Weight 101 kg (222 lb) 04/15/2024 11:15 AM EDT Height 165.1 cm (5' 5 ) 03/21/2023 3:00 PM EST Body Mass Index 36.94 03/21/2023 3:00 PM EST Plan of Treatment [...] SDOH Screening 05/24/2023 05/23/2022 Diabetes: Hemoglobin A1C 09/19/2023 024, 05/23/2022, 04/25/2021, Additional history exists COVID-19 Vaccine ( - season) 2023 10/25/2020, 09/30/2020 Influenza Vaccine (#1) [...] hyperglycemia, with long-term current use of insulin ([facility]) POCT GLYCATED HEMOGLOBIN, TOTAL Routine 03/21/2023 3:35 PM EST Type 2 diabetes mellitus with hyperglycemia, with long-term current use of insulin (CMS/HCC) BI MAMMOGRAM SCREENING BILATERAL Routine 05/08/2018 12:46 PM EDT HM COLONOSCOPY Routine 06/22/2016 from Last 3 Months or Most Recently Relevant to Health Maintenance Results * (ABNORMAL) Lipid Panel, Standard (03/22/2023 9:35 AM EST) Triglycerides 278(H) <150 mg/dL [facility] Comment:Desirable Triglyceri de: less than 150 mg/dLBorderline High Triglyceride 150-199 mg/dLHigh Triglyceride: 200-499 mg/dLVery High Triglyceride: greater than or equal to 5OO mg/dL Cholesterol 194 <200 mg/dL [facility] Comment:Desirable Cholestero l: less than 200 mg/dLBorderline High Cholesterol: 200-239 mg/dLHigh Cholesterol: greater than 239 mg/dL LDL Cholesterol Calculated 108(H) <100 mg/dL [facility] Comment:Desirable LDL: less than 100 mg/dLNear Optimal/Above Optimal LDL: 110- 129 mg/dLBorderline High LDL: 130-159 mg/dLHigh LDL: 160-189 mg/dLVery High LDL: greater than or equal to 190 mg/dL HDL Cholesterol 31(L) >40 mg/dL [facility] Comment:Desirable HDL: great er than 40 mg/dL Note: This HDL assay may give artificially low results in patients with liver disease. Blood Venous blood specimen / Unknown 03/22/2023 9:35 AM EST 03/22/2023 11:23 AM EST us Fidelia Rubio MD LAB BLOOD ORDERABLES Final Result [facility] [address] [place] [phone] * POCT HGB A1C (03/21/2023 3:35 PM EST) Hemoglobin A1C 5.8 4.0 - 6.0 % QC Media Lot # [id number] Lot# Expiration Date ,004 Blood 03/21/2023 3:35 PM EST Fidelia Rubio MD POINT OF CARE TEST EN TER/EDIT ORDERABLES Final Result * DIGITAL BILATERAL SCREEN 1 (05/08/2018 12:46 PM EDT) Anatomical Region Laterality Modality Breast Bilateral Mammography 05/08/2018 12:4 6 PM EDT Narrative 05/08/2018 12:46 PM EDT Refer to the Notes tab for result details [facility] Procedure: DIGITAL BILATERAL SCREEN 1 Procedure Note Provider, Maria C, - 04/29/2022 Refer to the Notes tab for result details [facility] Procedure: DIGITAL BILATERAL SCREEN 1 Bernabe Contreras MD IMG BI PROCEDURES Final Result * Hm Colonoscopy (06/22/2016) Historical Provider HEALTH MAINTENANCE Final Result from Last 3 Months or Most Recently Relevant to Health Maintenance [place] [address] [place] [id number] C3 Care Teams Security Monitor Relationship Specialty Start Date End Date Fidelia Amaya MD [address] [place] [address] PCP - General Family Medicine 01/18/21
--- OUTSIDE RECORDS SUMMARY | 2024-04-30 12:14 | XMS_ITS | Encounter Summary ---
Author Organization [employer] [facility] Address [address] [facility] 7t [place] [address] Care Team Providers Care Coal Equipment Operator Name Role Phone Fidelia Amaya MD Primary Care Provide r Encounter Details Date Type Department Care Team (Late st Contact Info) Description 10/25/2022 Orders Only [facility]INE [address] [place], [place] [phone] Provider, Maria C, Social History Tobacco Use [...] on filedocumented in this encounter Care Teams Coal Equipment Operator Relationship Specialty Start Date End Date Fidelia Amaya MD [address] [place], [place] [phone] PCP - General Family Medicine 01/18/21 documented as of this encounter
--- OUTSIDE RECORDS SUMMARY | 2024-04-30 12:14 | XMS_ITS | Encounter Summary ---
Author Organization [employer] Address [address] [facility] 7t [place] [address] Care Team Providers Care Hyperion Essbase Developer Name Role Phone Fidelia Amaya MD Primary Care Provide r Reason for Visit * Reason Comments Med Refill Encounter Details Date Type Department Care Team ([facility] st Contact Info) Description 04/01/2024 Refill [facility] MEDICINE [address] [place], [place] [phone] Fidelia Amaya MD [address] [place], [place] [phone] Acquired hypothyroidism Social History Tobacco Use Types [...] hypothyroidism documented in this encounter Care Teams Hyperion Essbase Developer Relationship Specialty Start Date End Date Fidelia Amaya MD [address] [place] [address] PCP - General Family Medicine 01/18/21 documented as of this encounter
--- OUTSIDE RECORDS SUMMARY | 2024-04-30 12:14 | XMS_ITS | Encounter Summary ---
Author Organization [employer] Address [address] [facility] 7t [place] [address] Care Team Providers Care Ultrasound Sonographer Name Role Phone Fidelia Amaya MD Primary Care Provide r Reason for Visit * Reason Comments Med Refill Encounter Details Date Type Department Care Team (Late st Contact Info) Description 09/20/2022 Refill [facility] [address] [place], [place] [phone] [facility] 230 [place], [place] [phone] Bug bite, initial encounter Social History Tobacco [...] encounter documented in this encounter Care Teams Ultrasound Sonographer Relationship Specialty Start Date End Date Fidelia Amaya MD [address] [place], [place] [phone] PCP - General Family Medicine 01/18/21 documented as of this encounter
--- OUTSIDE RECORDS SUMMARY | 2024-04-30 12:14 | XMS_ITS | Encounter Summary ---
Author Organization [employer] Address [address] [facility] 7t [place] [address] Care Team Providers Care Frameman Name Role Phone Fidelia Amaya MD Primary Care Provide r Reason for Visit * Reason Comments Med Refill Encounter Details Date Type Department Care Team (Late st Contact Info) Description 06/21/2023 Refill [facility] 230 [place], [place] [phone] [facility] [address] [place], [place] [phone] Bug bite, initial encounter Social History Tobacco [...] encounter documented in this encounter Care Teams Frameman Relationship Specialty Start Date End Date Fidelia Amaya MD [address] [place] [address] PCP - General Family Medicine 01/18/21 documented as of this encounter
--- OUTSIDE RECORDS SUMMARY | 2024-04-30 12:14 | XMS_ITS | Encounter Summary ---
Author Organization [email or web address] Address [address] [facility] 7t [place] [address] Care Team Providers Care Senior Qa Automation Engineer Name Role Phone Fidelia Amaya MD Primary Care Provide r Reason for Visit * Reason Comments Earache Encounter Details Date Type Department Care Team ([facility] st Contact Info) Description 04/15/2024 11:00 AM EDT Office Visit [facility] [address] [place], [place] [phone] Melani Villanueva MD [address] [place], [place] [phone] Oral pain (Primary Dx) Social History Tobacco Use Types Packs/Day Years [...] AM EDT documented as of this encounter Last Filed Vital Signs Vital Sign Reading Time Taken Comments Blood Pressure 138/78 04/15/2024 11:15 AM EDT Pulse 76 04/15/2024 11:15 AM EDT Temperature 36.8 ??C (98.3 ??F) 04/15/2024 11:15 AM E DT Respiratory Rate 16 04/15/2024 11:15 AM EDT Oxygen Saturation 97% 04/15/2024 11:15 AM EDT Inhaled Oxygen Concentration - - Weight 101 kg (222 lb) 04/15/2024 11:15 AM EDT Height - - Body Mass Index 36.94 03/21/2023 3:00 PM EST documented in this encounter Progress Notes * Melani Villanueva MD - 04/15/2024 11:00 AM EDT Subjective Patient ID: Jo-Ann Ly is a 58 y.o. female who presents to walk in clinic for right Earache. Pt reports one week of right sided facial pain that ws mild then progressed to pain in her upper molar then woke today with worsening pain in her right face and molar with swelling. She felt chills yesterday. Allergic to Amoxicillin. NO antibiotics in past three months. Has not seen dental recently. Earache Review of Systems HENT: Positive for ear pain. Objective Visit Vitals BP 138/78 (BP Location: Left arm, Patient Position: Sitting, BP Cuff Size: Large adult) Pulse 76 Temp 98.3 ??F (36.8 ??C) (Temporal) Resp 16 Body mass index is 36.94 kg/m??. Physical Exam Constitutional: Appearance: Normal appearance. HENT: Head: Comments: Oropharynx clear, absence of tooth right upper posterior gums with tenderness laterally. No cervial lymphadenopathy Right Ear: Tympanic membrane normal. Left Ear: Tympanic membrane normal. Nose: No congestion or rhinorrhea. Cardiovascular: Rate and Rhythm: Normal rate and regular rhythm. Heart sounds: Normal heart sounds. Pulmonary: Effort: Pulmonary effort is normal. Breath sounds: Normal breath sounds. Abdominal: Tenderness: There is no abdominal tenderness. Musculoskeletal: Cervical back: Normal range of motion and neck supple. Neurological: General: No focal deficit present. Mental Status: She is alert. Psychiatric: Behavior: Behavior normal. Problem List Items Addressed This Visit Oral pain - Primary Differential includes dental infection, parotid stone posteriorly, less likely trigeminal neuralgia. No evidence of otitis or mastoiditis. Will treat empirically with doxycycline (PCN allergy). She has appointment today with dental. ER precautions discussed. Return if symptoms worsen or do not improve. She agrees with the plan. Relevant Medications doxycycline (Vibramycin) 100 MG capsule acetaminophen (Tylenol) 325 MG capsule documented in this encounter Miscellaneous Notes * Assessment & Plan Note - Melani Villanueva MD - 04/15/2024 1:15 PM EDT Associated Problem(s): Oral pain Differential includes dental infection, parotid stone posteriorly, less likely trigeminal neuralgia. No evidence of otitis or mastoiditis. Will treat empirically with doxycycline (PCN allergy). She has appointment today with dental. ER precautions discussed. Return if symptoms worsen or do not improve. She agrees with the plan. documented in this encounter Plan of Treatment Not on file documented as of this encounter Visit Diagnoses Diagnosis Oral pain- Primary Other and unspecified diseases of the oral soft tissues documented in this encounter Care Teams Senior Qa Automation Engineer Relationship Specialty Start Date End Date Fidelia Amaya MD [address] [place] [id number] PCP - General Family Medicine 01/18/21 documented as of this encounter
== END 2024-04-30 10:26 | disposition home or self-care (01) ==
LOC: HO.RESP 10:25
PROVIDERS: PCP Internal Medicine; Visit Provider Nurse Practitioner Family
DX: R06.00 Dyspnea, unspecified (principal)
CPT/HCPCS: 94010; 94640; 94727; 94729

== ENCOUNTER → 2024-04-30 10:31 | Outpatient (BNV) | payer MEDICAID, SELFPAY | PROVIDERS: PCP Internal Medicine; Visit Provider Hospitalist | DX: R06.09 Other forms of dyspnea (principal) | CPT/HCPCS: 94060; 94727; 94729 ==

== ENCOUNTER 2024-05-19 10:45 | Outpatient (AMB) | payer MEDICAID, SELFPAY ==
--- NOTE | 2024-05-19 10:55 | MHC.OFFVIS ---
Vital Signs 05/19/24 11:00 Height 5 ft 3 in Weight 227 lb 1.218 oz BMI 40.2 BP 126/64 Blood Pressure Location Rt brachial Position Sitting Pulse 90 Pulse Source Pulse Oximeter Pulse Oximetry (%) 96 Oxygen Delivery Method Room Air Intake Visit Reasons: Asthma Hospice Registered Nurse Required: Yes Hospice Registered Nurse Name: Melani Explosive Ordnance Technician: Explosive Ordnance Technician offered & declined Accompanied by: Self / Same As Patient Allergies amoxicillin Allergy (Intermediate, Verified 05/19/24 11:10) Itching acetaminophen [Percocet] Allergy (Unknown, Verified 05/19/24 11:10) Unknown aspirin [ASA] Allergy (Unknown, Verified 05/19/24 11:10) BURNING IN STOMACH morphine [MORPHINE] Allergy (Unknown, Verified 05/19/24 11:10) HEADACHES naproxen Allergy (Unknown, Verified 05/19/24 11:10) Unknown oxycodone [Percocet] Allergy (Unknown, Verified 05/19/24 11:10) Unknown prochlorperazine [From Compazine] Allergy (Unknown, Verified 05/19/24 11:10) nervousness and fast pulse. ibuprofen [From MOTRIN] Adverse Reaction (Unknown, Verified 05/19/24 11:10) Eye Swelling HPI HPI Asthma: Details: Jo-Ann is a pleasant 58-year-old female, never smoker, with underlying asthma, obesity and thalassemia. Previously she was well controlled on Flovent, however insurance no longer covered and has trialed Pulmicort, QVAR and Breyna with adverse reactions/suboptimal effect. She did report intolerance increased tremors/tachycardia with LABA component however tolerates nebulized albuterol. She continues to report intermittent dyspnea, dry cough and chest tightness. She denies any visits to urgent care or hospitalizations related to respiratory distress since the last visit. Of note, she was scheduled for MBSS however forgot about appt and no showed. Today she presents to review PFT results. [facility] Medical History Anemia Breast cancer Hallucinations, unspecified Post hysterectomy menopause Thyroid activity decreased Surgical History History of cholecystectomy History of hysterectomy Family History Mother Diabetes Father HTN (hypertension) Social History Household Members: None Housing: Apartment Do you presently have visiting nurse or other home services: No Alcohol intake: never Patient Tobacco Use Status: Never used Tobacco service: No Sexual orientation: Straight/Heterosexual Gender identity: Female Review of Systems Const Denies chills, Denies excessive sweating, Denies fever(s), Denies headache(s) and Denies night sweats Eyes Denies dry eyes, Denies irritation and Denies itchy eyes ENT Reports Normal hearing present, Reports dysphagia, Denies headache(s), Denies nasal congestion, Denies nasal discharge, Denies post nasal drip and Denies sore throat Card Denies chest pain, Denies chest pain at rest, Denies chest pain with activity, Denies claudication, Denies leg edema, Reports dyspnea on exertion, Denies orthopnea and Denies paroxysmal nocturnal dyspnea Resp Denies chest congestion, Reports cough, Denies excessive phlegm production, Denies pain on inspiration, Denies pain with cough, Reports dyspnea on exertion, Denies stridor and Reports wheezing GI Reports dysphagia Musc Denies myalgias Skin/Breast Denies pruritus Neuro Reports Normal hearing present and Denies headache(s) Endo Denies excessive sweating Noble/Lymph Denies lymphadenopathy Aller/Immun Denies itchy eyes and Reports wheezing Physical Exam Vital Signs: Last Vital Signs Pulse 90 05/19/24 11:00 BP 126/64 05/19/24 11:00 Pulse Ox 96 05/19/24 11:00 Oxygen Delivery Method Room Air 05/19/24 11:00 BMI result Body Mass Index 40.2 Const General: cooperative, healthy appearing, comfortable, no acute distress, well developed and alert Nutritional Appearance: obese Orientation/consciousness: patient oriented x3 Limitations: no limitations HEENT Head: Yes normal to inspection, Yes normocephalic and Yes atraumatic Ears: hearing grossly normal bilaterally and external ears normal Eyes General: appearance normal, both eyes and all related structures Eyelids: Yes eyelids normal Sclerae: sclerae normal EOM: EOMs intact bilaterally Neck Neck: Yes normal visual inspection and Yes no lymphadenopathy Lymphatic: no lymphadenopathy noted Chest Chest palpation & inspection: normal inspection of the chest Resp Effort & Inspection: normal respiratory effort, able to speak in complete sentences, no audible wheezes, no cough, no stridor, not tachypneic, no tripod positioning and no use of accessory muscles Auscultation: clear to auscultation bilaterally Cardio Jugular venous distension: no JVD Rate: regular rate Rhythm: regular rhythm Skin Other: warm, dry General skin exam: no rashes or lesions noted Neuro General: patient oriented x3 Cranial nerves: Yes Normal hearing present Cognition (Neuro): normal cognition Gait exam (Neuro): Normal gait present Extrem General: Yes normal to inspection, Yes capillary refill normal, Yes no clubbing, cyanosis or edema and Yes no pedal edema Psych Appearance: grossly normal and well kempt Speech and movement: Normal speech and movement present and Clear speech present Affect: normal affect Attitude: cooperative Thought process: Normal thought process present Thought content: Normal thought content present Insight: Good insight present (Psych) Judgement: Good judgement present (Psych) Assessment & Plan Assessment & Plan (1) Asthma: Code(s): J45.909 - Unspecified asthma, uncomplicated Category: Medical (2) Dyspnea: Code(s): R06.00 - Dyspnea, unspecified Category: Medical (3) Dysphagia: Code(s): R13.10 - Dysphagia, unspecified Category: Medical Plan Reviewed PFT which revealed No obstructive nor restrictive ventilatory defects identified. There was a significant response to bronchodilators noted. Lung volumes are normal except for decrease in the expiratory reserve volume secondary to an elevated BMI. Diffusing capacity is within normal limits. At this time, she is agreeable to ICS maintenance therapy and will trial nebulized albuterol PRN. She has a nebulizer for home use already, will send in Asmanex and albuterol solution. All questions were answered and patient is in agreement of plan. Will follow-up in 8-10 weeks or sooner if needed. Medications: New mometasone 100 mcg/actuation (Asmanex HFA) 1 puff inhalation BID 13 grams 3RF albuterol sulfate 2.5 mg (3 mL) inhalation Q4-6H PRN 180 mL 0RF shortness of breath or wheezing Discontinued budesonide-formoterol 160-4.5 mcg/actuation (Symbicort) Discontinued Reason: Patient Completed Course 2 puffs inhalation Q12H 10.2 grams 6RF Coding Level of Care Code Est Pt Level 4 (88885) Diagnoses Asthma J45.909 Dyspnea R06.00 Dysphagia R13.10
[2024-05-19 11:00] VITALS: BP 126/64; PULSE 90; O2SAT 96; BMI 40.2
--- OUTSIDE RECORDS SUMMARY | 2024-05-19 12:44 | XMS_ITS | Encounter Summary ---
Author Organization [employer] [facility] Address [address] [facility] 7t [place] [address] Care Team Providers Care Numerical Control Machine Tool Operator Name Role Phone Fidelia Amaya MD Primary Care Provide r Encounter Details Date Type Department Care Team ([facility] Contact Info) Description 10/25/2022 Orders Only [facility] [address] [place] [address] [phone] Provider, Maria C, Social History Tobacco Use [...] as of this encounter Plan of Treatment Upcoming Encounters Date Type Department Care Team (Late Contact Info) Description 05/22/2024 11:00 AM EDT Office Visit [facility] [address] [place] [phone] Fidelia Amaya MD [address] [place] [phone] documented as of this encounter Procedures Procedure Name Priority Date/Time Associated Diagnosis Comments HM COLONOSCOPY Routine 06/22/2016 documented in this encounter Results * Hm Colonoscopy (06/22/2016) Historical Provider HEALTH MAINTENANCE Final Result documented in this encounter Visit Diagnoses Not on filedocumented in this encounter Care Teams Numerical Control Machine Tool Operator Relationship Specialty Start Date End Date Fidelia Amaya MD [address] [place] [address] PCP - General Family Medicine 01/18/21 documented as of this encounter
--- OUTSIDE RECORDS SUMMARY | 2024-05-19 12:44 | XMS_ITS | Encounter Summary ---
Author Organization [employer] Address [address] [facility] 7t [place] [address] Care Team Providers Care Parts Cataloger Name Role Phone Fidelia Amaya MD Primary Care Provide r Reason for Visit * Reason Comments Med Refill Encounter Details Date Type Department Care Team (Late Contact Info) Description 09/20/2022 Refill [facility] [address] [place] [address] [facility] [address] [place] [address] Bug bite, initial encounter Social History Tobacco [...] Encounters Date Type Department Care Team (Late st Contact Info) Description 05/22/2024 11:00 AM EDT Office Visit [facility] [address] [place] [address] Fidelia Amaya MD [address] [place] [address] documented as of this encounter Visit Diagnoses Diagnosis Bug bite, initial encounter documented in this encounter Care Teams Parts Cataloger Relationship Specialty Start Date End Date Fidelia Amaya MD [address] [place] [address] PCP - General Family Medicine 01/18/21 documented as of this encounter
--- OUTSIDE RECORDS SUMMARY | 2024-05-19 12:44 | XMS_ITS | Encounter Summary ---
Author Organization [employer] Address [address] [facility] 7t [place] [address] Care Team Providers Care Stone Spreader Operator Name Role Phone Fidelia Amaya MD Primary Care Provide r Reason for Visit * Reason Comments Med Refill Encounter Details Date Type Department Care Team ([facility] st Contact Info) Description 12/04/2023 Refill [facility] 230 [place], [place] [phone] Fidelia Amaya MD [address] [place], [place] [phone] Vitamin D deficiency Social History Tobacco Use [...] Description 05/22/2024 11:00 AM EDT Office Visit [facility] 230 [place] [address] Fidelia Amaya MD [address] [place] [address] documented as of this encounter Visit Diagnoses Diagnosis Vitamin D deficiency documented in this encounter Care Teams Stone Spreader Operator Relationship Specialty Start Date End Date Fidelia Amaya MD [address] [place], [place] [phone] PCP - General Family Medicine 01/18/21 documented as of this encounter
--- OUTSIDE RECORDS SUMMARY | 2024-05-19 12:44 | XMS_ITS | Encounter Summary ---
Author Organization [employer] Address [address] [facility] 7t [place] [address] Care Team Providers Care Proof Machine Operator Name Role Phone Fidelia Amaya MD Primary Care Provide r Reason for Visit * Reason Onset Date Comments FYI 04/06/2023 Encounter Details Date Type Department Care Team ([facility] st Contact Info) Description 04/06/2023 Telephone [facility] 230 [place], [place] [phone] Fidelia Amaya MD 230 [place], [place] [phone] FYI Social History Tobacco Use Types Packs/Day [...] PM EST Tc from [facility] for the [facility] calling to report the patient was prescribed permethrin (Elimite) 5 % cream for scabies but recently discovered after going to the patients home that itwas done by flekavon any questions please call Tita at [phone] documented in this encounter Plan of Treatment Upcoming Encounters Date Type Department Care Team (Late st Contact Info) Description 05/22/2024 11:00 AM EDT Office Visit [facility] 230 [place] [address] Fidelia Amaya MD 230 [place] [address] documented as of this encounter Visit Diagnoses Not on filedocumented in this encounter Care Teams Proof Machine Operator Relationship Specialty Start Date End Date Fidelia Amaya MD [address] [place] [phone] PCP - General Family Medicine 01/18/21 documented as of this encounter
--- OUTSIDE RECORDS SUMMARY | 2024-05-19 12:44 | XMS_ITS | Encounter Summary ---
Author Organization [employer] Address 75 [facility] 7t [place] [address] Care Team Providers Care Data Entry Technician Name Role Phone Fidelia Amaya MD Primary Care Provide r Reason for Visit * Reason Comments Med Refill Encounter Details Date Type Department Care Team (Late st Contact Info) Description 09/12/2023 Refill [facility] 230 [place], [place] [phone] Fidelia Amaya MD 230 [place], [place] [phone] Scabies Social History Tobacco Use Types Packs/Day [...] Description 05/22/2024 11:00 AM EDT Office Visit [facility] 230 [place] [address] Fidelia Amaya MD 230 [place] [address] documented as of this encounter Visit Diagnoses Diagnosis Scabies documented in this encounter Care Teams Data Entry Technician Relationship Specialty Start Date End Date Fidelia Amaya MD 230 [place], [place] [phone] PCP - General Family Medicine 01/18/21 documented as of this encounter
--- OUTSIDE RECORDS SUMMARY | 2024-05-19 12:44 | XMS_ITS | Encounter Summary ---
Author Organization [employer] Address [address] [facility] 7t [place] [address] Care Team Providers Care Police Chief Name Role Phone Fidelia Amaya MD Primary Care Provide r Reason for Visit * Reason Comments Med Refill Encounter Details Date Type Department Care Team (Late st Contact Info) Description 06/21/2023 Refill [facility] 230 [place], [place] [phone] [facility] 230 [place], [place] [phone] Bug bite, initial encounter Social History Tobacco [...] Description 05/22/2024 11:00 AM EDT Office Visit [facility] 230 [place] [address] Fidelia Amaya MD 230 [place] [address] documented as of this encounter Visit Diagnoses Diagnosis Bug bite, initial encounter documented in this encounter Care Teams Police Chief Relationship Specialty Start Date End Date Fidelia Amaya MD [address] [place] [phone] PCP - General Family Medicine 01/18/21 documented as of this encounter
--- OUTSIDE RECORDS SUMMARY | 2024-05-19 12:44 | XMS_ITS | Encounter Summary ---
Author Organization [employer] [facility] Address [address] [facility] 7t [place] [address] Care Team Providers Care Torch Shearer Name Role Phone Fidelia Amaya MD Primary Care Provide r Reason for Visit * Reason Comments Med Refill Encounter Details Date Type Department Care Team (Late Contact Info) Description 07/06/2022 Refill [facility] MEDICINE [address] [place] [phone] Ya West MD [address] [place] [address] [phone] Acquired hypothyroidism Social History Tobacco Use Types [...] Description 05/22/2024 11:00 AM EDT Office Visit [facility] MED[facility]INE [address] [place] [phone] Fidelia Amaya MD [address] [place], [place] [phone] documented as of this encounter Visit Diagnoses Diagnosis Acquired hypothyroidism Unspecified hypothyroidism documented in this encounter Care Teams Torch Shearer Relationship Specialty Start Date End Date Fidelia Amaya MD [address] [place] [address] PCP - General Family Medicine 01/18/21 documented as of this encounter
--- OUTSIDE RECORDS SUMMARY | 2024-05-19 12:44 | XMS_ITS | Clinical Summary ---
Author Organization [email or web address] Address [address] [facility] 7t [place] [address] Care Team Providers Care Food Products Sales Representative Name Role Phone Fidelia Amaya MD Primary Care Provide r Allergies Active Allergy Reactions Criticality Noted Date Comments Amoxicillin 04/29/2020 Other reaction(s): Hives / Skin Rash Aspirin 03/01/2015 Other reaction(s): Stomach Pain Guggulipid-Black Pepper 03/21/2023 Ibuprofen 05/20/2014 Meperidine 08/12/2018 Other reaction(s): I get very nervous [in Sudanese] Morphine 05/20/2014 Oxycodone Anaphylaxis High 04/07/2015 Prochlorperazine Other reaction(s): unspecified Other reaction(s): unspecified Medications hydrOXYzine HCl (Atarax) 25 MG tabletIndications: Bug bite, initial encounter Take 1 tablet (25 mg) by mouth 4 times daily. 120 tablet 08/05/19 23 Active glucose blood (FREESTYLE LITE) test strip Check by fingerstick route 2 times every day 07/23/19 22 Active TRUEplus Lancets 33G misc USE TO TEST BLOOD SUGAR TWICE DAILY 07/07/19 23 Active hydrOXYzine pamoate (Vistaril) 25 MG capsuleIndications :Generalized pruritus Take 1 capsule (25 mg) by mouth every 6 (six) hours if needed for itching for up to 10 days. 30 capsule 01/19/20 23 Active Mometasone Furoate (Asmanex HFA) 100 MCG/ACT aerosolIndications :Moderate persistent asthma, unspecified whether complicated Inhale 2 puffs 2 times daily. 13 g 2 03/21/19 24 Active albuterol 108 (90 Base) MCG/ACT inhalerIndications :Moderate persistent asthma, unspecified whether complicated Inhale 2 puffs every 6 (six) hours if needed for wheezing. 18 g 03/21/19 24 Active albuterol 108 (90 Base) MCG/ACT inhalerIndications :Moderate persistent asthma, unspecified whether complicated Inhale 2 puffs every 6 (six) hours if needed for wheezing. 18 g 11 03/29/19 24 Active permethrin (Elimite) 5 % creamIndications:S cabies apply to skin from hairline to toes and wash off 8-10 hours later 60 g 2 04/18/19 24 Active diphenhydrAMINE (BENADryl) 25 MG tablet Take 1 tablet (25 mg) by mouth if needed at bedtime for itching. 30 tablet 06/21/19 24 Active cetirizine (ZyrTEC) 10 MG tablet Take 1 tablet (10 mg) by mouth Once per day. 30 tablet 5 06/21/19 24 Active loratadine (Claritin) 10 MG tabletIndications: Bug bite, initial encounter Take 1 tablet (10 mg) by mouth Once per day. 90 tablet 1 07/03/19 24 Active levothyroxine (Synthroid) 150 MCG tabletIndications: Acquired hypothyroidism Take 1 tablet (150 mcg) by mouth before breakfast. 30 tablet 3 07/04/19 24 025 Active Alcohol Swabs (SM Alcohol Prep) 70 % padsIndications:Ty pe 2 diabetes mellitus with other specified complication, unspecified whether roasterman insulin use ([facility]) USE TWICE DAILY 100 each 11 07/04/19 24 Active hydroCHLOROthiazid e (HYDRODiuril) 25 MG tabletIndications: Primary hypertension TAKE 1 TABLET BY MOUTH ONCE DAILY 90 tablet 1 09/12/19 24 Active fluticasone (Flonase) 50 MCG/ACT nasal sprayIndications:C camacho in adult patient Administer 1 spray into each nostril Once per day. 48 g 09/12/19 24 Active cholecalciferol (D3 Super Strength) 50 MCG (2000 UT) capsuleIndications :Vitamin D deficiency TAKE 1 CAPSULE BY MOUTH EVERY DAY 90 capsule 1 09/12/19 24 Active TRUEplus Lancets 33G miscIndications:Ty pe 2 diabetes mellitus with hyperglycemia, with long-term current use of insulin ([facility]) USE TO TEST BLOOD SUGAR TWICE DAILY 100 each 09/12/19 24 Active FREESTYLE LITE test stripIndications:T ype 2 diabetes mellitus with hyperglycemia, with long-term current use of insulin ([facility]) USE TO TEST BLOOD SUGAR TWICE DAILY 100 strip 09/12/19 24 Active triamcinolone (Kenalog) 0.1 % creamIndications:G eneralized pruritus MIX WITH CERAVE AND APPLY TOPICALLY TO THE AFFECTED AREA(S) TWICE DAILY 80 g 09/12/19 24 Active levothyroxine (Synthroid, Levoxyl) 150 MCG tabletIndications: Acquired hypothyroidism Take 1 tablet (150 mcg) by mouth before breakfast. TAKE 1 TABLET BY MOUTH BEFORE BREAKFAST 90 tablet 3 12/25/19 24 Active Nebulizer miscIndications:Mo derate persistent asthma, unspecified whether complicated 1 kit Every 4-6 hours as needed (for wheeezing and shortness of breath). 1 each 01/09/20 24 Active albuterol (2.5 MG/3ML) 0.083% nebulizer solution Take 3 mL (2.5 mg) by nebulization in the morning, at noon, and at bedtime. 270 mL 01/15/20 24 025 Active folic acid (Folvite) 1 MG tabletIndications: Acquired hypothyroidism TAKE 1 TABLET BY MOUTH EVERY DAY AT NOON 90 tablet 04/01/19 25 Active doxycycline (Vibramycin) 100 MG capsuleIndications :Oral pain Take 1 capsule (100 mg) by mouth 2 times daily for 10 days. Take with at least 8 ounces (large glass) of water, do not lie down for 30 minutes after 20 capsule 04/16/19 25 025 acetaminophen (Tylenol) 325 MG capsuleIndications :Oral pain Take 1 capsule (325 mg) by mouth every 8 (eight) hours if needed for moderate pain or fever (oral pain). 30 capsule 04/16/19 25 025 Active Problems Problem Noted Date Diagnosed Date [...] and topical steroids, I referred today to jewelry enameler. - Lesions do not appear to be from scabies and so, will hold on Tx. - If no etiology found by jewelry enameler, will need to consider delusional parasitosis, in [...] report not available. Will request report from [facility]. Lipids/FBS TBO Vaccinations she completed covid vax [...] Encounters Date Type Department Care Team Description 05/16/2024 Telephone [facility] [address] [place] [address] Fidelia Amaya MD Nurse Triage 04/18/2024 Population Health Risk Score [facility] ([facility]) Department [address] [phone] Provider, Population Health Generic 04/15/2024 11:00 AM EDT Office Visit [facility] [address] [place] [address] Melani Villanueva MD Oral pain (Primary Dx) 04/01/2024 Refill [facility] [address] [place] [address] Fidelia Amaya MD Acquired hypothyroidism from Last 3 Months Immunizations Name Administration [...] 03/21/2023 3:00 PM EST Plan of Treatment Upcoming Encounters Date Type Department Care Team (Late st Contact Info) Description 05/22/2024 11:00 AM EDT Office Visit [facility] [address] [place] [address] Fidelia Amaya MD 230 [place] [address] Health Maintenance Due Date Last Done Comments [...] 05/08/2018, 04/27/2017 Depression Screening 05/24/2023 05/23/2022, 05/24/19 SDOH Screening 05/24/2023 05/23/2022 Diabetes: Hemoglobin A1C 09/19/2023 024, 05/23/2022, 04/25/2021, Additional history exists COVID-19 Vaccine (3 - season) 2023 10/25/2020, 09/30/2020 Influenza Vaccine [...] hyperglycemia, with long-term current use of insulin ([facility]) POCT GLYCATED HEMOGLOBIN, TOTAL Routine 03/21/2023 3:35 PM EST Type 2 diabetes mellitus with hyperglycemia, with long-term current use of insulin (CMS/HCC) BI MAMMOGRAM SCREENING BILATERAL Routine 05/08/2018 12:46 PM EDT HM COLONOSCOPY Routine 06/22/2016 from Last 3 Months or Most Recently Relevant to Health Maintenance Results * (ABNORMAL) Lipid Panel, Standard (03/22/2023 9:35 AM EST) Triglycerides 278(H) <150 mg/dL [facility] Comment:Desirable Triglyceri de: less than 150 mg/dLBorderline High Triglyceride 150-199 mg/dLHigh Triglyceride: 200-499 mg/dLVery High Triglyceride: greater than or equal to 5OO mg/dL Cholesterol 194 <200 mg/dL [facility] Comment:Desirable Cholestero l: less than 200 mg/dLBorderline High Cholesterol: 200-239 mg/dLHigh Cholesterol: greater than 239 mg/dL LDL Cholesterol Calculated 108(H) <100 mg/dL [facility] Comment:Desirable LDL: less than 100 mg/dLNear Optimal/Above Optimal LDL: 110- 129 mg/dLBorderline High LDL: 130-159 mg/dLHigh LDL: 160-189 mg/dLVery High LDL: greater than or equal to 190 mg/dL HDL Cholesterol 31(L) >40 mg/dL [facility] Comment:Desirable HDL: great er than 40 mg/dL Note: This HDL assay may give artificially low results in patients with liver disease. Blood Venous blood specimen / Unknown 03/22/2023 9:35 AM EST 03/22/2023 11:23 AM EST us Fidelia Rubio MD LAB BLOOD ORDERABLES Final Result [facility] [address] [place] [address] [phone] * POCT HGB A1C (03/21/2023 3:35 PM EST) Hemoglobin A1C 5.8 4.0 - 6.0 % QC Media Lot # [id number] Lot# Expiration Date 371 Blood 03/21/2023 3:35 PM EST Fidelia Rubio [...] MD IMG BI PROCEDURES Final Result * Colonoscopy (06/22/2016) Maria C Provider HEALTH MAINTENANCE Final Result from Last 3 Months or Most Recently Relevant to Health Maintenance Insurance Care Teams Food Products Sales Representative Relationship Specialty Start Date End Date Fidelia Amaya MD [address] [place] [phone] PCP - General Family Medicine 01/18/21
--- OUTSIDE RECORDS SUMMARY | 2024-05-19 12:44 | XMS_ITS | Encounter Summary ---
Author Organization [employer] Address [address] [facility] 7t [place] [address] Care Team Providers Care Oven Baker Name Role Phone Fidelia Amaya MD Primary Care Provide r Reason for Visit * Reason Onset Date Comments Nurse Triage 05/16/2024 Encounter Details Date Type Department Care Team ([facility] st Contact Info) Description 05/16/2024 Telephone [facility] 230 [place], [place] [phone] Fidelia Amaya MD [address] [place], [place] [phone] Nurse Triage Social History Tobacco Use Types Packs/Day Years [...] encounter Miscellaneous Notes * Telephone Encounter - Beatriz Medrano RN - 05/16/2024 3:28 PM EDT No it assistant needed as this sql report writer speaks Chinese. Call returned to Jo-Ann Ly to triage below. Reports having left foot pain that is chronic. Per pt pain worse x 1 month. Pt denies any redness, rash or bruising. Mild swelling around ankle. Per pt having some changes to walking gait. No use of Tyelnol/Motrin. No recent injury or fall. Pt advised of disposition, agrees to OV with PCP next week for evaluation, declines WIC or sooner appt with team provider. Reviewed WIC operating hours and that wait times vary. Reviewed home care advise, ER precautions and reasons to call back. Protocol Used: Foot Pain (Adult) Protocol-Based Disposition: See in Office or Video Visit within 2 Weeks Future Appointments Date Time Provider Department Center 05/22/2024 11:00 AM Fidelia Rubio MD MEDICINE [facility] Insurance verified as active per Real Time Eligibility in [facility]. Video visit offer not recorded Positive Triage Question: * Foot pain is a chronic symptom (recurrent or ongoing AND lasting > 4 weeks) * All higher-acuity triage questions were negative Care Advice Discussed: * Reassurance and Education - Foot Pain * Foot Pain - Aggravating Factors * Pain Medicines * Reasons To Call Back - Swelling, redness, or fever occur - You become worse * Telephone Encounter - Summer Raimundo Jarvis - 05/16/2024 3:21 PM EDT Symptom: Foot or Ankle Pain - Not From Injury Outcome: Schedule an urgent appointment (within 1 hour) or talk to a nurse or provider soon Reason: Trouble walking The caller accepted this outcome. [phone] georgian documented in this encounter Plan of Treatment Upcoming Encounters Date Type Department Care Team (Late st Contact Info) Description 05/22/2024 11:00 AM EDT Office Visit [facility] 230 [place], [place] [phone] Fidelia Amaya MD [address] [place], [place] [phone] documented as of this encounter Visit Diagnoses Not on filedocumented in this encounter Care Teams Oven Baker Relationship Specialty Start Date End Date Fidelia Amaya MD [address] [place] [address] [phone] PCP - General Family Medicine 01/18/21 documented as of this encounter
--- OUTSIDE RECORDS SUMMARY | 2024-05-19 12:44 | XMS_ITS | Encounter Summary ---
Author Organization [employer] [facility] Address [address] [facility] 7t [place] [address] Care Team Providers Care Wire Sawyer Name Role Phone Fidelia Amaya MD Primary Care Provide r Encounter Details Date Type Department Care Team (Late st Contact Info) Description 09/01/2022 Orders Only [facility] MEDICINE [address] [place] [address] [phone] Mary Singh LPN Social History Tobacco Use [...] Description 05/22/2024 11:00 AM EDT Office Visit [facility] [address] [place] [address] [phone] Fidelia Amaya MD 230 [place], [place] [phone] documented as of this encounter Visit Diagnoses Not on filedocumented in this encounter Care Teams Wire Sawyer Relationship Specialty Start Date End Date Fidelia Amaya MD [address] [place] [address] PCP - General Family Medicine 01/18/21 documented as of this encounter
--- OUTSIDE RECORDS SUMMARY | 2024-05-19 12:44 | XMS_ITS | Encounter Summary ---
Author Organization [employer] [facility] Address [address] [facility] 7t [place] [address] Care Team Providers Care Sammying Machine Operator Name Role Phone Fidelia Amaya MD Primary Care Provide r Reason for Visit * Reason Comments Med Refill Encounter Details Date Type Department Care Team ([facility] Contact Info) Description 10/18/2022 Refill [facility] [address] [place] [phone] Bakari Batista MD [address] [place] [address] [phone] Generalized pruritus Social History Tobacco Use Types [...] Description 05/22/2024 11:00 AM EDT Office Visit [facility] [address] [place] [address] [phone] Fidelia Amaya MD [address] [place] [address] [phone] documented as of this encounter Visit Diagnoses Diagnosis Generalized pruritus Unspecified pruritic disorder documented in this encounter Care Teams Sammying Machine Operator Relationship Specialty Start Date End Date Fidelia Amaya MD [address] [place] [address] PCP - General Family Medicine 01/18/21 documented as of this encounter
--- OUTSIDE RECORDS SUMMARY | 2024-05-19 12:44 | XMS_ITS | Encounter Summary ---
Author Organization [employer] [facility] Address [address] [facility] 7t [place] [address] Care Team Providers Care Railroad Conductor Name Role Phone Fidelia Amaya MD Primary Care Provide r Encounter Details Date Type Department Care Team (Late st Contact Info) Description 02/09/2022 Telephone [facility] MEDICINE [address] [place] [address] [phone] Fidelia Amaya MD [address] [place], [place] [phone] Social History Tobacco Use Types Packs/Day Years [...] Description 05/22/2024 11:00 AM EDT Office Visit [facility] MEDICINE [address] [place] [address] [phone] Fidelia Amaya MD [address] [place], [place] [phone] documented as of this encounter Visit Diagnoses Not on filedocumented in this encounter Care Teams Railroad Conductor Relationship Specialty Start Date End Date Fidelia Amaya MD [address] [place] [address] PCP - General Family Medicine 01/18/21 documented as of this encounter
--- OUTSIDE RECORDS SUMMARY | 2024-05-19 12:44 | XMS_ITS | Encounter Summary ---
Author Organization [facility] Address [address] [facility] 7t [place] [address] Care Team Providers Care Chief Clinical Officer Name Role Phone Fidelia Amaya MD Primary Care Provide r Encounter Details Date Type Department Care Team (Latest Contact Info) Description 05/12/2020 Abstract [facility] CONVERSIONS Dental, Provider, DDS Social History [...] Description 05/22/2024 11:00 AM EDT Office Visit [facility] MEDICINE [address] [place], [place] [phone] Fidelia Amaya MD 230 [place] [address] documented as of this encounter Visit Diagnoses Not on filedocumented in this encounter Care Teams Chief Clinical Officer Relationship Specialty Start Date End Date Fidelia Amaya MD [address] [place], [place] [phone] PCP - General Family Medicine 01/18/21 documented as of this encounter
== END 2024-05-19 11:41 | disposition home or self-care (01) ==
LOC: HO.HPS 10:52
PROVIDERS: PCP Internal Medicine; Visit Provider Nurse Practitioner Family
DX: J45.909 Unspecified asthma, uncomplicated (principal); R06.00 Dyspnea, unspecified; R13.10 Dysphagia, unspecified
CPT/HCPCS: 99214

== ENCOUNTER → 2024-05-19 10:45 | Outpatient (BNVA) | payer MEDICAID, SELFPAY | PROVIDERS: PCP Internal Medicine; Visit Provider Nurse Practitioner Family | DX: J45.909 Unspecified asthma, uncomplicated (principal); R06.00 Dyspnea, unspecified; R13.10 Dysphagia, unspecified | CPT/HCPCS: 99212 ==

== ENCOUNTER 2024-06-02 08:10 | Outpatient (REF) | payer MEDICAID, SELFPAY ==
--- OUTSIDE RECORDS SUMMARY | 2024-06-02 08:24 | XMS_ITS | Encounter Summary ---
Author Organization [facility] [facility] Address [address] [facility] 7t [place] [address] Care Team Providers Care Industrial Engineering Director Name Role Phone Fidelia Amaya MD Primary Care Provide r Reason for Visit * Reason Comments Med Refill Encounter Details Date Type Department Care Team (Late st Contact Info) Description 07/06/2022 Refill [facility] MEDICINE 230 [place], [place] [phone] Ya West MD 230 [place], [place] [phone] Acquired hypothyroidism Social History Tobacco Use Types [...] hypothyroidism documented in this encounter Care Teams Industrial Engineering Director Relationship Specialty Start Date End Date Fidelia Amaya MD 230 [place], [place] [phone] PCP - General Family Medicine 01/18/21 documented as of this encounter
--- OUTSIDE RECORDS SUMMARY | 2024-06-02 08:24 | XMS_ITS | Encounter Summary ---
Author Organization [employer] Address [address] [facility] 7t [place] [address] Care Team Providers Care Bank Teller Name Role Phone Fidelia Amaya MD Primary Care Provide r Reason for Visit * Reason Comments Med Refill Encounter Details Date Type Department Care Team ([facility] st Contact Info) Description 12/04/2023 Refill [facility] MEDICINE 230 [place], [place] [phone] Fidelia Amaya MD 230 [place], [place] [phone] Vitamin D deficiency Social History Tobacco Use [...] deficiency documented in this encounter Care Teams Bank Teller Relationship Specialty Start Date End Date Fidelia Amaya MD 230 [place] [address] PCP - General Family Medicine 01/18/21 documented as of this encounter
--- OUTSIDE RECORDS SUMMARY | 2024-06-02 08:24 | XMS_ITS | Encounter Summary ---
Author Organization [employer] Address [address] [facility] 7t [place] [address] Care Team Providers Care Pipeline Controller Name Role Phone Fidelia Amaya MD Primary Care Provide r Reason for Visit * Reason Comments Med Refill Encounter Details Date Type Department Care Team (Late st Contact Info) Description 09/12/2023 Refill [facility] MEDICINE 230 [place], [place] [phone] iFdelia Amaya MD [address] [place], [place] [phone] Scabies Social History Tobacco Use Types Packs/Day [...] Scabies documented in this encounter Care Teams Pipeline Controller Relationship Specialty Start Date End Date Fidelia Amaya MD 230 [place] [address] PCP - General Family Medicine 01/18/21 documented as of this encounter
--- OUTSIDE RECORDS SUMMARY | 2024-06-02 08:24 | XMS_ITS | Clinical Summary ---
Author Organization [employer] Address 75 [facility] 7t [place] [address] Care Team Providers Care Laborer Concrete Plant Name Role Phone Fidelia Amaya MD Primary Care Provide r Allergies Active Allergy Reactions Criticality Noted Date Comments Amoxicillin 04/29/2020 Other reaction(s): Hives / Skin Rash Aspirin 03/01/2015 Other reaction(s): Stomach Pain Guggulipid-Black Pepper 03/21/2023 Ibuprofen 05/20/2014 Meperidine 08/12/2018 Other reaction(s): I get very nervous [in [place]onian] Morphine 05/20/2014 Oxycodone Anaphylaxis High 04/07/2015 Prochlorperazine [...] mellitus with other specified complication, unspecified whether extermination inspector insulin use ([facility]) USE TWICE DAILY 100 each 11 07/04/19 [...] hyperglycemia, with long-term current use of insulin ([facility]) USE TO TEST BLOOD SUGAR TWICE DAILY 100 each 09/12/19 24 Active FREESTYLE LITE test stripIndications:T ype 2 diabetes mellitus with hyperglycemia, with long-term current use of insulin ([facility]) USE TO TEST BLOOD SUGAR TWICE DAILY [...] noon, and at bedtime. 270 mL 11 01/15/20 24 025 Active folic acid (Folvite) 1 MG tabletIndications: Acquired hypothyroidism TAKE 1 TABLET BY MOUTH EVERY DAY AT NOON 90 tablet 04/01/19 25 Active acetaminophen (Tylenol) 325 MG capsuleIndications :Oral pain Take 1 capsule (325 mg) by mouth every 8 (eight) hours if needed for moderate pain or fever (oral pain). 30 capsule 04/16/19 25 025 Active Problems Problem Noted Date Diagnosed Date Left foot pain 05/22/2024 Dysphagia 05/22/2024 Enlarged thyroid 05/22/2024 Oral pain 04/15/2024 Assessment & Plan (04/15/2024 [...] use of insulin 03/21/2023 Assessment & Plan (05/22/2024 1:57 PM EDT): Diabetes is: controlled - Lab Results Component Value Date HGBA1C 5.6 05/22/2024 HGBA1C 5.8 03/21/2023 HGBA1C 5.8 05/23/2022 - Lab Results Component Value Date CREATININE 0.79 03/22/2023 -Changes: None - Diabetic eye exam: Up-to-date - Diabetic foot exam: Referral done today - Continue lifestyle modifications - Continue current medications - Follow up: 3 months Assessment & Plan (03/21/2023 4:32 PM EST): [...] and topical steroids, I referred today to onshore diver. - Lesions do not appear to be from scabies and so, will hold on Tx. - If no etiology found by onshore diver, will need to consider delusional parasitosis, in [...] report not available. Will request report from [facility]. Lipids/FBS TBO Vaccinations she completed covid vax [...] 11/10/2015 Acquired hypothyroidism 11/30/2011 Assessment & Plan (05/22/2024 1:56 PM EDT): TSH will be checked with labs I also ordered an ultrasound for her thyroid patient will be contacted with results Assessment & Plan (03/21/2023 4:31 PM EST): [...] Encounters Date Type Department Care Team Description 05/22/2024 11:00 AM EDT Office Visit [facility] MEDICINE [address] [place] [address] Fidelia Amaya MD Dysphagia, unspecified type (Primary Dx); Type 2 diabetes mellitus with hyperglycemia, with long-term current use of insulin ([facility]); Left foot pain; Acquired hypothyroidism; Enlarged thyroid 05/22/2024 Travel 05/16/2024 Telephone [facility] MEDICINE [address] [place] [address] Fidelia Amaya MD Nurse Triage 04/18/2024 Population [facility] Risk Score [facility] (C3) Department [address] [phone] Provider, Population Health Generic 04/15/2024 11:00 AM EDT Office Visit [facility] WALK-IN CENTER [address] [place] [address] Melani Villanueva MD Oral pain (Primary Dx) 04/01/2024 Refill [facility] MEDICINE [address] [place] [address] Fidelia Amaya MD Acquired hypothyroidism from Last [...] Packs/Day Years Used Date Smoking Tobacco: Never Passive Smoke Exposure: Never Smokeless Tobacco: Never Tobacco Cessation:Counseling Given: Not Answered Alcohol Use Standard Drinks/Week Comments Never 0 (1 standard drink = 0.6 oz pur e alcohol) Depression Answer Date Recorded Patient Health Questionnaire-9 Score 0 05/22/2024 Patient Health Questionnaire-9 Score 0 05/22/2024 Last PHQ-9: Questionnaire Data Not on file 0 05/22/2024 Housing Stability Answer Date Recorded What is your housing situation today? I have kaushik knight 05/22/[address] you li ve. Do you have problems with any of the following? None of the above 05/22/2024 Food Insecurity Answer Date Recorded Within the past 12 months, y ou worried that your food would run out before you got money to buy more: Never True 05/22/2024 Within the past 12 months,th e food you bought just didn't last and you didn't have enough money to get more: Never True Transportation Answer Date Recorded In the past 12 months, has l ack of transportation kept you from medical appts, meetings, work or from getting things needed for daily living? No 05/22/2024 Utilities Answer Date Recorded In the past 12 months, has t he electric, gas, oil or water company threatened to shut off services in your home? No 05/22/2024 Depression Answer Date Recorded Patient Health Questionnaire-2 Score 0 05/22/2024 Internet Access Answer Date Recorded Internet Access Q1 No 05/22/2024 Internet Access Q2 I do not want or need it 05/06 Comments Unknown Sex and Gender Information Value Date Recorded Sex Assigned at Female 12/05/2021 10:17 AM EDT Legal Sex Female 10:17 AM EDT Gender Identity Female 12/05/2021 10:17 AM EDT Sexual Orientation Straight 12/05/2021 10 :17 AM EDT Last Filed Vital Signs Vital Sign Reading Time Taken Comments Blood Pressure 135/68 05/22/2024 10:40 AM EDT Pulse 71 05/22/2024 10:40 AM EDT Temperature 36 ??C (96.8 ??F) 05/22/2024 10:40 AM EDT Respiratory Rate 16 05/22/2024 10:40 AM EDT Oxygen Saturation 97% 04/15/2024 11:15 AM EDT Inhaled Oxygen Concentration - - Weight 104 kg (229 lb 6.4 oz) 05/22/2024 10:40 A M EDT Height 165.1 cm (5' 5 ) 05/22/2024 10:40 AM EDT Body Mass Index 38.17 05/22/2024 10:40 AM EDT Plan of Treatment Health Maintenance Due Date Last Done Comments CT Colonography 1963 FIT DNA/Cologuard 1963 FIT 1963 FOBT 1965 HIV Screening 1965 Sigmoidoscopy 1963 Diabetes: Foot Exam 12/07/1973 Hepatitis C Screening 12/07/1981 Diabetes: Urine Protein Screening 12/07/1982 Hepatitis A Vaccines (1 of 2 - Risk 2-dose series) 12/07/1982 Pap Smear 12/07/1984 Cervical Cancer Screening 12/07/1993 HPV/Cotest 12/07/1993 Zoster Vaccines (1 of 2) 12/07/2013 Pneumococcal Vaccine: 50+ Years (2 of 2 - PCV) 11/15/2018 11/15/2017 Mammogram 05/08/2020 05/08/2018, 04/27/2017 COVID-19 Vaccine ( season) 2023 10/25/2020, 09/30/2020 Influenza Vaccine (#1) 2023 9, 11/15/2017, 01/03/2017, Additional history exists Hepatitis B Vaccines (1 of 3 - Risk 3-dose series) 2023 RSV Patients and Patients Aged 60 years or older (1 - Risk 60-74 years 1-dose series) 2023 Lipid Panel 03/22/2024 03/22/2023, 08/30/2020 Eye Exam 08/29/2024 08/29/2022, 08/06, 08/29/2022, Additional history exists Diabetes: Hemoglobin A1C 11/21/2024 025, 03/21/2023, 05/23/2022, Additional history exists Alcohol/Substance Use Screening 05/22/2025 05/22/2024 Depression Screening 05/22/2025 05/22/2024, 05/23/19 SDOH Screening 05/22/2025 05/22/2024 Tobacco Screening 05/22/2025 05/22/2024 DTaP/Tdap/Td Vaccines (2 - Td or Tdap) [...] Procedure Name Priority Date/Time Associated Diagnosis Comments POCT GLYCATED HEMOGLOBIN, TOTAL Routine 05/22/2024 10:42 AM EDT Type 2 diabetes mellitus with hyperglycemia, with long-term current use of insulin ([facility]) POCT GLUCOSE Routine 05/22/2024 10:41 AM EDT Type 2 diabetes mellitus with hyperglycemia, with long-term current use of insulin ([facility]) LIPID PANEL, STANDARD Routine 03/22/2023 9:35 AM EST Essential hypertension Type 2 diabetes mellitus with hyperglycemia, with long-term current use of insulin ([facility]) BI MAMMOGRAM SCREENING BILATERAL Routine 05/08/2018 12:46 PM EDT HM COLONOSCOPY Routine 06/22/2016 from Last 3 Months or Most Recently Relevant to Health Maintenance Results * POCT HGB A1C (05/22/2024 10:42 AM EDT) Hemoglobin A1C 5.6 4.0 - 6.0 % QC Media Lot # [id number] Lot# Expiration Date Blood 05/22/2024 10:4 2 AM EDT us Fidelia Rubio MD POINT OF CARE TEST EN TER/EDIT ORDERABLES Final Result * POCT Glucose (05/22/2024 10:41 AM EDT) Glucose Blood, POC 128 60 - 200 mg/dL QC Media Lot # [id number] Lot# Expiration Date Blood Capillary blood specimen / Unknown 05/22/2024 10:41 AM EDT Fidelia Rubio MD POINT OF CARE TEST EN TER/EDIT ORDERABLES Final Result * (ABNORMAL) Lipid Panel, Standard (03/22/2023 9:35 AM EST) Triglycerides 278(H) <150 mg/dL [facility] Comment:Desirable Triglyceri de: less than 150 mg/dLBorderline High Triglyceride 150-199 mg/dLHigh Triglyceride: 200-499 mg/dLVery High Triglyceride: greater than or equal to 5OO mg/dL Cholesterol 194 <200 mg/dL [facility] Comment:Desirable Cholestero l: less than 200 mg/dLBorderline High Cholesterol: 200-239 mg/dLHigh Cholesterol: greater than 239 mg/dL LDL Cholesterol Calculated 108(H) <100 mg/dL [facility] Comment:Desirable LDL: less than 100 mg/dLNear Optimal/Above Optimal LDL: 110- 129 mg/dLBorderline High LDL: 130-159 mg/dLHigh LDL: 160-189 mg/dLVery High LDL: greater than or equal to 190 mg/dL HDL Cholesterol 31(L) >40 mg/dL [facility] Comment:Desirable HDL: great er than 40 mg/dL Note: This HDL assay may give artificially low results in patients with liver disease. Blood Venous blood specimen / Unknown 03/22/2023 9:35 AM EST 03/22/2023 11:23 AM EST Fidelia Rubio MD LAB BLOOD ORDERABLES Final Result [facility] [address] [place] [phone] * DIGITAL BILATERAL SCREEN 1 (05/08/2018 12:46 [...] BI PROCEDURES Final Result * Colonoscopy (06/22/2016) Historical Provider HEALTH MAINTENANCE Final Result from Last 3 Months or Most Recently Relevant to Health Maintenance Insurance C3 Care Teams Laborer Concrete Plant Relationship Specialty Start Date End Date Fidelia Amaya MD [address] [place] [address] PCP - General Family Medicine 01/18/21
--- OUTSIDE RECORDS SUMMARY | 2024-06-02 08:24 | XMS_ITS | Encounter Summary ---
Author Organization [employer] Address [address] [facility] 7 [place] [address] Care Team Providers Care Assistant To The Dean Name Role Phone Fidelia Amaya MD Primary Care Provide r Encounter Details Date Type Department Care Team (Late st Contact Info) Description 02/09/[address] [facility] MEDICINE [address] [place], [place] [phone] Fidelia Amaya MD [address] [place], [place] [phone] Social History Tobacco Use Types Packs/Day Years [...] on filedocumented in this encounter Care Teams Assistant To The Dean Relationship Specialty Start Date End Date Fidelia Amaya MD [address] [place], [place] [phone] PCP - General Family Medicine 01/18/21 documented as of this encounter
--- OUTSIDE RECORDS SUMMARY | 2024-06-02 08:24 | XMS_ITS | Encounter Summary ---
Author Organization [facility] [facility] Address [address] [facility] 7t [place] [address] Care Team Providers Care Electric Truck Driver Name Role Phone Fidelia Amaya MD Primary Care Provide r Encounter Details Date Type Department Care Team (Latest Contact Info) Description 05/12/2020 Abstract [facility] CONVERSIONS Dental, Provider, DDS Social History [...] on filedocumented in this encounter Care Teams Electric Truck Driver Relationship Specialty Start Date End Date Fidelia Amaya MD [address] [place] [address] PCP - General Family Medicine 01/18/21 documented as of this encounter
--- OUTSIDE RECORDS SUMMARY | 2024-06-02 08:25 | XMS_ITS | Encounter Summary ---
Author Organization [facility] [employer] [facility] Address [address] [facility] 7t [place] [address] Care Team Providers Care Tobacco Hanger Name Role Phone Fidelia Amaya MD Primary Care Provide r Encounter Details Date Type Department Care Team (Late st Contact Info) Description 10/25/2022 Orders Only [facility] MEDICINE 230 [place], [place] [phone] Provider, Maria C, Social History Tobacco Use [...] on filedocumented in this encounter Care Teams Tobacco Hanger Relationship Specialty Start Date End Date Fidelia Amaya MD 230 [place], [place] [phone] PCP - General Family Medicine 01/18/21 documented as of this encounter
--- OUTSIDE RECORDS SUMMARY | 2024-06-02 08:25 | XMS_ITS | Encounter Summary ---
Author Organization [employer] Address [address] [facility] 7t [place] [address] Care Team Providers Care Data Management Associate Name Role Phone Fidelia Amaya MD Primary Care Provide r Reason for Visit * Reason Onset Date Comments FYI 04/06/2023 Encounter Details Date Type Department Care Team ([facility] st Contact Info) Description 04/06/2023 Telephone [facility] MEDICINE 230 [place], [place] [phone] Fidelia Amaya MD 230 [place], [place] [phone] FYI Social History Tobacco Use Types Packs/Day [...] PM EST Tc from [facility] for the [facility] calling to report the patient was prescribed permethrin (Elimite) 5 % cream for scabies but recently discovered after going to the patients home that itwas done by fleas any questions please call Tita at [phone] documented in this encounter Plan of Treatment Not on file documented as of this encounter Visit Diagnoses Not on filedocumented in this encounter Care Teams Data Management Associate Relationship Specialty Start Date End Date Fidelia Amaya MD [address] [place] [address] PCP - General Family Medicine 01/18/21 documented as of this encounter
--- OUTSIDE RECORDS SUMMARY | 2024-06-02 08:25 | XMS_ITS | Encounter Summary ---
Author Organization [employer] Address [address] [facility] 7t [place] [address] Care Team Providers Care Payroll Tax Analyst Name Role Phone Fidelia Amaya MD Primary Care Provide r Reason for Visit * Reason Comments Med Refill Encounter Details Date Type Department Care Team (Late st Contact Info) Description 09/20/2022 Refill [facility] WALK-IN CENTER 230 [place], [place] [phone] [facility] [address] [place], [place] [phone] Bug bite, initial encounter Social History Tobacco [...] encounter documented in this encounter Care Teams Payroll Tax Analyst Relationship Specialty Start Date End Date Fidelia Amaya MD [address] [place], [place] [phone] PCP - General Family Medicine 01/18/21 documented as of this encounter
--- OUTSIDE RECORDS SUMMARY | 2024-06-02 08:25 | XMS_ITS | Encounter Summary ---
Author Organization [employer] Address [address] [facility] [address]t [place] [address] Care Team Providers Care Front Line Leader Name Role Phone Fidelia Amaya MD Primary Care Provide r Reason for Visit * Reason Comments Med Refill Encounter Details Date Type Department Care Team (Late st Contact Info) Description 06/21/2023 Refill [facility] WALK-IN CENTER 230 [place], [place] [phone] [facility] 230 [place], [place] [phone] Bug bite, initial encounter Social History Tobacco [...] encounter documented in this encounter Care Teams Front Line Leader Relationship Specialty Start Date End Date Fidelia Amaya MD 230 [place] [address] PCP - General Family Medicine 01/18/21 documented as of this encounter
--- OUTSIDE RECORDS SUMMARY | 2024-06-02 08:25 | XMS_ITS | Encounter Summary ---
Author Organization [employer] Address [address] [facility] 7t [place] [address] Care Team Providers Care Operater Name Role Phone Fidelia Amaya MD Primary Care Provide r Encounter Details Date Type Department Care Team (Late st Contact Info) Description 09/01/2022 Orders Only [facility] MEDICINE 230 [place], [place] [phone] Mary Singh LPN Social History Tobacco Use [...] on filedocumented in this encounter Care Teams Operater Relationship Specialty Start Date End Date Fidelia Amaya MD 230 [place], [place] [phone] PCP - General Family Medicine 01/18/21 documented as of this encounter
--- OUTSIDE RECORDS SUMMARY | 2024-06-02 08:25 | XMS_ITS | Encounter Summary ---
Author Organization [employer] Address [address] [facility] 7t [place] [address] Care Team Providers Care Archival Studies Professor Name Role Phone Fidelia Amaya MD Primary Care Provide r Reason for Visit * Reason Comments Med Refill Encounter Details Date Type Department Care Team (Late st Contact Info) Description 10/18/2022 Refill [facility] MEDICINE 230 [place], [place] [phone] Bakari Batista MD 230 [place], [place] [phone] Generalized pruritus Social History Tobacco Use Types [...] disorder documented in this encounter Care Teams Archival Studies Professor Relationship Specialty Start Date End Date Fidelia Amaya MD 230 [place], [place] [phone] PCP - General Family Medicine 01/18/21 documented as of this encounter
[2024-06-02 11:04] LABS: MANUAL DIFF FLAG NO
[2024-06-02 11:43] LABS: Alanine Aminotransferase 25 U/L (0-31); Albumin Level 4.3 g/dL (3.5-5.0); Alkaline Phosphatase 108 U/L (39-117); Anion Gap 12 (12-20); Aspartate Amino Transferase 21 U/L (5-31); Bilirubin Total 0.5 mg/dL (0.0-1.0); Blood Urea Nitrogen 18 mg/dL (9-16); Calcium 9.2 mg/dL (8.4-10.2); Carbon Dioxide 27 mmol/L (22-29); Chloride 106 mmol/L (96-108); Cholesterol 208 mg/dL (<200); Estimated Glomerular Filt Rate > 60; Glucose Random 100 mg/dL (60-115); HDL Cholesterol 34 mg/dL (>40); LDL Cholesterol Calculated 138 mg/dL (<100); Potassium 4.2 mmol/L (3.3-5.1); Sodium 141 mmol/L (135-145); Total Protein 7.8 g/dL (6.5-8.0); Triglycerides 183 mg/dL (<150)
[2024-06-02 11:49] LABS: HIV AB/AG Nonreactive (Nonreactive); HIV Num 1 0.06 S/CO (0.00-0.99); ~HepC Num1 0.08 S/CO (0.00-0.79); ~Hepatitis C Antibody Nonreactive (Nonreactive)
[2024-06-02 11:53] LABS: Basophils Absolute Auto 0.1 X10*3/uL (0.0-0.2); Basophils Percent Auto 0.8 % (0-2); Eosinophils Absolute Auto 0.1 X10*3/uL (0.0-0.4); Eosinophils Percent Auto 0.8 % (0-4); Hematocrit 37.1 % (37.0-47.0); Hemoglobin 11.2 g/dl (12.0-16.0); Imm Gran Abs Auto 0.02 X10*3/uL (0.00-0.03); Imm Gran Pct Auto 0.3 % (0.0-0.4); Lymphocytes Absolute Auto 1.2 X10*3/uL (1.2-4.9); Lymphocytes Percent Auto 19.3 % (20-40); Mean Corpuscular HGB Conc 30.2 g/dl (31.0-35.0); Mean Corpuscular Hemoglobin 18.8 pg (27.0-33.0); Monocytes Absolute Auto 0.5 X10*3/uL (0.1-1.2); Monocytes Percent Auto 8.5 % (2-11); Neutrophils Absolute Auto 4.3 x10*3/uL (2.0-8.3); Neutrophils Percent Auto 70.3 % (45-73); Platelet Count 219 X10*3/uL (160-400); Red Blood Count 5.96 X10*6/uL (4.20-5.50); Red Cell Distribution Width 17.2 % (11.0-16.0); White Blood Count 6.1 X10*3/uL (4.8-10.8)
[2024-06-02 12:01] LABS: TSH reflex Free T4 0.89 uIU/mL (0.32-4.0); Vitamin D 25-OH Total 36.1 ng/mL (>30)
[2024-06-02 12:05] LABS: Mean Corpuscular Volume 62.2 fL (80.0-98.0)
== END 2024-06-02 08:11 | disposition home or self-care (01) ==
LOC: HO.HHCL 08:10
PROVIDERS: Visit Provider Internal Medicine
DX: E11.65 Type 2 diabetes mellitus with hyperglycemia (principal); Z79.4 Long term (current) use of insulin; E03.9 Hypothyroidism, unspecified; Z11.4 Encounter for screening for human immunodeficiency virus [HIV]
CPT/HCPCS: 36415; 80053; 80061; 82306; 84443; 85025; 86803; 87389

== ENCOUNTER 2024-06-11 08:20 | Outpatient (REF) | payer MEDICAID, SELFPAY ==
--- NOTE | ~2024-06-11 | US_ITS ---
EXAMINATION: US THYROID CLINICAL INFORMATION: Enlarged and painful thyroid on physical exam. COMPARISON: Remote exam 04/26/2009 is not available for direct comparison. Report is available. TECHNIQUE: Linear transducer grayscale and color Doppler examination with attention to the region of the thyroid. FINDINGS: SIZE: Measurements of the thyroid lobes and nodules are given in sagittal, anteroposterior and transverse dimensions respectively. Right Thyroid Lobe: 3.3 x 1.7 x 1.1 cm, volume 3.2 mL. Parenchyma: The gland echotexture is heterogeneous. Thyroid vascularity is normal. Left Thyroid Lobe: 3.0 x 1.0 x 1.1 cm, volume 1.6 mL. Parenchyma: The gland echotexture is heterogeneous. Thyroid vascularity is normal. Isthmus: 2.3 cm in maximum AP dimension. Estimated total number of nodules greater than or equal to 1 cm: 0. There are no definable nodules. NODES: No lymphadenopathy is seen in the tissue surrounding the thyroid gland. US/US thyroid IMPRESSION: 1. Thyroid is shrunken, small, irregular in echogenicity, hypovascular, consistent with long-standing Anju's thyroiditis. 2. There are no discrete nodules identified. ACR TI-RADS RECOMMENDATION REFERENCE: Ultrasound-guided fine-needle aspiration, followup ultrasound, no further follow up. * TR1 (0 point) and TR2 (2 points): No FNA or follow up. * TR3 (3 points): FNA if more than or equal to 2.5 cm in maximum dimension, followup ultrasound in 1, 3 and 5 years if 1.5 to 2.4 cm in maximum dimension. * TR4 (4-6 points): FNA if more than or equal to 1.5 cm in maximum dimension, followup ultrasound in 1, 2, 3 and 5 years if 1 to 1.4 cm in maximum dimension. * TR5 (more than or equal to 7 points): FNA if more than or equal to 1 cm in maximum dimension, followup ultrasound every year for 5 years if 0.5 to 0.9 cm in maximum dimension. * TR3, TR4 or TR5 nodules that are below the size threshold for followup receive no follow up. Electronically signed by: Rashawn Pan MD 06/11/2024 10:14 AM EDT
--- OUTSIDE RECORDS SUMMARY | 2024-06-11 08:32 | XMS_ITS | Encounter Summary ---
Author Organization [employer] Address [address] [facility] 7t [place] [address] Care Team Providers Care Auger Machine Offbearer Name Role Phone Fidelia Amaya MD Primary Care Provide r Reason for Visit * Reason Comments Med Refill Encounter Details Date Type Department Care Team ([facility] st Contact Info) Description 09/12/2023 Refill [facility] MEDICINE 230 [place], [place] [phone] Fidelia Amaya MD 230 [place], [place] [phone] Scabies Social History Tobacco Use Types Packs/Day [...] Scabies documented in this encounter Care Teams Auger Machine Offbearer Relationship Specialty Start Date End Date Fidelia Amaya MD 230 [place] [address] PCP - General Family Medicine 01/18/21 documented as of this encounter
--- OUTSIDE RECORDS SUMMARY | 2024-06-11 08:32 | XMS_ITS | Encounter Summary ---
Author Organization [employer] Address [address] [facility] 7t [place] [address] Care Team Providers Care Lap Cutter Truer Operator Name Role Phone Fidelia Amaya MD Primary Care Provide r Encounter Details Date Type Department Care Team (Latest Contact Info) Description 05/12/2020 Abstract [facility] CONVERSIONS Dental, Provider, DDS Social History Tobacco [...] on filedocumented in this encounter Care Teams Lap Cutter Truer Operator Relationship Specialty Start Date End Date Fidelia Amaya MD 230 [place] [address] PCP - General Family Medicine 01/18/21 documented as of this encounter
--- OUTSIDE RECORDS SUMMARY | 2024-06-11 08:32 | XMS_ITS | Encounter Summary ---
Author Organization [employer] Address [address] [facility] 7t [place] [address] Care Team Providers Care Flue Blower Name Role Phone Fidelia Amaya MD Primary Care Provide r Reason for Visit * Reason Comments Med Refill Encounter Details Date Type Department Care Team (Late st Contact Info) Description 09/20/2022 Refill [facility] WALK-IN CENTER 230 [place], [place] [phone] [facility] 230 [place], [place] [phone] Bug bite, initial encounter Social History Tobacco [...] encounter documented in this encounter Care Teams Flue Blower Relationship Specialty Start Date End Date Fidelia Amaya MD 230 [place] [address] PCP - General Family Medicine 01/18/21 documented as of this encounter
--- OUTSIDE RECORDS SUMMARY | 2024-06-11 08:32 | XMS_ITS | Encounter Summary ---
Author Organization [employer] Address [address] [facility] 7t [place] [address] Care Team Providers Care Transition Lead Name Role Phone Fidelia Amaya MD Primary Care Provide r Reason for Visit * Reason Comments Med Refill Encounter Details Date Type Department Care Team ([facility] st Contact Info) Description 12/04/2023 Refill [facility] [address] [place], [place] [phone] Fidelia Amaya MD [address] [place], [place] [phone] Vitamin D deficiency Social History Tobacco Use [...] deficiency documented in this encounter Care Teams Transition Lead Relationship Specialty Start Date End Date Fidelia Amaya MD [address] [place] [phone] PCP - General Family Medicine 01/18/21 documented as of this encounter
--- OUTSIDE RECORDS SUMMARY | 2024-06-11 08:32 | XMS_ITS | Encounter Summary ---
Author Organization [employer] Address 75 [facility] 7t [place] [address] Care Team Providers Care Turpentine Farmer Name Role Phone Fidelia Amaya MD Primary Care Provide r Reason for Visit * Reason Comments Med Refill Encounter Details Date Type Department Care Team (Late st Contact Info) Description 06/21/2023 Refill [facility] 230 [place], [place] [phone] [facility] [address] [place], [place] [phone] Bug bite, initial encounter Social History Tobacco [...] encounter documented in this encounter Care Teams Turpentine Farmer Relationship Specialty Start Date End Date Fidelia Amaya MD [address] [place] [phone] PCP - General Family Medicine 01/18/21 documented as of this encounter
--- OUTSIDE RECORDS SUMMARY | 2024-06-11 08:32 | XMS_ITS | Encounter Summary ---
Author Organization [employer] Address 75 [facility] 7t [place] [address] Care Team Providers Care Portal Developer Name Role Phone Fidelia Amaya MD Primary Care Provide r Reason for Visit * Reason Comments Med Refill Encounter Details Date Type Department Care Team (Late st Contact Info) Description 07/06/2022 Refill [facility] 230 [place], [place] [phone] Ya West MD [address] [place], [place] [phone] Acquired hypothyroidism Social History Tobacco Use Types [...] hypothyroidism documented in this encounter Care Teams Portal Developer Relationship Specialty Start Date End Date Fidelia Amaya MD [address] [place], [place] [phone] PCP - General Family Medicine 01/18/21 documented as of this encounter
--- OUTSIDE RECORDS SUMMARY | 2024-06-11 08:32 | XMS_ITS | Encounter Summary ---
Author Organization [employer] Address 75 [facility] 7 [place] [address] Care Team Providers Care Integrative Medicine Physician Name Role Phone Fidelia Amaya MD Primary Care Provide r Encounter Details Date Type Department Care Team (Late st Contact Info) Description 02/09/2022 Telephone [facility] MED[facility] 230 [place], [place] [phone] Fidelia Amaya MD [address] [place], [place] [phone] Social History Tobacco Use Types Packs/Day Years [...] on filedocumented in this encounter Care Teams Integrative Medicine Physician Relationship Specialty Start Date End Date Fidelia Amaya MD [address] [place], [place] [phone] PCP - General Family Medicine 01/18/21 documented as of this encounter
--- OUTSIDE RECORDS SUMMARY | 2024-06-11 08:32 | XMS_ITS | Encounter Summary ---
Author Organization [employer] Address 75 [facility] 7t [place] [address] Care Team Providers Care Ct Scan Tech Name Role Phone Fidelia Amaya MD Primary Care Provide r Reason for Visit * Reason Onset Date Comments FYI 04/06/2023 Encounter Details Date Type Department Care Team ([facility] st Contact Info) Description 04/06/2023 Telephone [facility] MEDICINE 230 [place], [place] [phone] Fidelia Amaya MD 230 [place], [place] [phone] FYI Social History Tobacco Use Types Packs/Day [...] - 04/06/2023 1:32 PM EST Tc from [facility] for the [facility] calling to report the patient was prescribed permethrin (Elimite) 5 % cream for scabies but recently discovered after going to the patients home that itwas done by fleas any questions please call Tita at [phone] documented in this encounter Plan of Treatment Not on file documented as of this encounter Visit Diagnoses Not on filedocumented in this encounter Care Teams Ct Scan Tech Relationship Specialty Start Date End Date Fidelia Amaya MD [address] [place] [phone] PCP - General Family Medicine 01/18/21 documented as of this encounter
--- OUTSIDE RECORDS SUMMARY | 2024-06-11 08:32 | XMS_ITS | Encounter Summary ---
Author Organization [employer] Address 75 [facility] 7t [place] [address] Care Team Providers Care Claim Technician Name Role Phone Fidelia Amaya MD Primary Care Provide r Reason for Visit * Reason Comments Med Refill Encounter Details Date Type Department Care Team (Late st Contact Info) Description 10/18/2022 Refill [facility] 230 [place], [place] [phone] Bakari Batista MD 230 [place], [place] [phone] Generalized pruritus Social History Tobacco Use Types [...] disorder documented in this encounter Care Teams Claim Technician Relationship Specialty Start Date End Date Fidelia Amaya MD [address] [place], [place] [phone] PCP - General Family Medicine 01/18/21 documented as of this encounter
--- OUTSIDE RECORDS SUMMARY | 2024-06-11 08:32 | XMS_ITS | Encounter Summary ---
Author Organization [employer] Address 75 [facility] 7t [place] [address] Care Team Providers Care Gauge Machine Operator Name Role Phone Fidelia Amaya MD Primary Care Provide r Encounter Details Date Type Department Care Team (Late st Contact Info) Description 10/25/2022 Orders Only [facility] MED[facility]INE 230 [place] [address] Provider, Maria C, Social History Tobacco Use [...] on filedocumented in this encounter Care Teams Gauge Machine Operator Relationship Specialty Start Date End Date Fidelia Amaya MD [address] [place], [place] [phone] PCP - General Family Medicine 01/18/21 documented as of this encounter
--- OUTSIDE RECORDS SUMMARY | 2024-06-11 08:32 | XMS_ITS | Clinical Summary ---
Author Organization [employer] Address 75 [facility] 7t [place] [address] Care Team Providers Care Slate Cutter Name Role Phone Fidelia Amaya MD Primary Care Provide r Allergies Active Allergy Reactions Criticality Noted Date Comments Amoxicillin 04/29/2020 Other reaction(s): Hives / Skin Rash Aspirin 03/01/2015 Other reaction(s): Stomach Pain Guggulipid-Black Pepper 03/21/2023 Ibuprofen 05/20/2014 Meperidine 08/12/2018 Other reaction(s): I get very nervous [in Lebanese] Morphine 05/20/2014 Oxycodone Anaphylaxis High 04/07/2015 Prochlorperazine [...] mellitus with other specified complication, unspecified whether residential insulin use ([facility]) USE TWICE DAILY 100 each 11 07/04/19 24 Active hydroCHLOROthiazid e (HYDRODiuril) 25 MG tabletIndications: Primary hypertension TAKE 1 TABLET BY MOUTH ONCE DAILY 90 tablet 1 09/12/19 24 Active fluticasone (Flonase) 50 MCG/ACT nasal sprayIndications:C ough in adult patient Administer 1 spray into each nostril Once per day. 48 g 09/12/19 24 Active cholecalciferol (D3 Super Strength) 50 MCG (2000 UT) capsuleIndications :Vitamin D deficiency TAKE 1 CAPSULE BY MOUTH EVERY DAY 90 capsule 1 09/12/19 24 Active TRUEplus Lancets 33G miscIndications:Ty pe 2 diabetes mellitus with hyperglycemia, with long-term current use of insulin ([facility]) USE TO TEST BLOOD SUGAR TWICE DAILY 100 each 09/12/19 24 Active FREESTYLE LITE test stripIndications:T ype 2 diabetes mellitus with hyperglycemia, with long-term current use of insulin ([facility]) USE TO TEST BLOOD SUGAR TWICE DAILY [...] AT NOON 90 tablet 04/01/19 25 Active hydrOXYzine pamoate (Vistaril) 25 MG capsule Take 1 capsule (25 mg) by mouth every 6 (six) hours if needed for anxiety. May take 2 capsules q 6 hours prn. May cause drowsinees 30 capsule 06/03/19 25 Active EPINEPHrine (Epipen) 0.3 MG/0.3ML injection syringe Inject 0.3 mL (0.3 mg) as directed 1 (one) time if needed for anaphylaxis. Inject into upper leg. Call 911 after use. 2 each 06/03/19 25 026 Active acetaminophen (Tylenol) 325 MG capsuleIndications :Oral pain Take 1 capsule (325 mg) by mouth every 8 (eight) hours if needed for moderate pain or fever (oral pain). 30 capsule 04/16/19 25 025 predniSONE (Deltasone) 20 MG tablet Take 2 tablets (40 mg) by mouth Once per day for 5 days. 10 tablet 06/03/19 25 025 Active Problems Problem Noted Date [...] and topical steroids, I referred today to service dog trainer. - Lesions do not appear to be from scabies and so, will hold on Tx. - If no etiology found by service dog trainer, will need to consider delusional parasitosis, in [...] report not available. Will request report from [facility]. Lipids/FBS TBO Vaccinations she completed covid vax [...] Encounters Date Type Department Care Team Description 06/02/2024 8:40 AM EDT Office Visit [facility] [address] [place] [phone] Darrel Eddy MD Allergic reaction, initial encounter (Primary Dx); Essential hypertension 05/22/2024 11:00 AM EDT Office Visit [facility] [address] [place] [phone] Fidelia Amaya MD Dysphagia, unspecified type (Primary Dx); Type 2 diabetes mellitus with hyperglycemia, with long-term current use of insulin ([facility]); Left foot pain; Acquired hypothyroidism; Enlarged thyroid 05/22/2024 Travel 05/16/2024 Telephone [facility] [address] [place] [phone] Fidelia Amaya MD Nurse Triage 04/18/2024 [address] Risk Score [facility] (C[facility]) Department [address] [place] [phone] Provider, Population Health Generic 04/15/2024 11:00 AM EDT Office Visit [facility] [address] [place] [phone] Melani Villanueva MD Oral pain (Primary Dx) 04/01/2024 Refill [facility] [address] [place] [address] [phone] Fidelia Amaya MD Acquired hypothyroidism from Last [...] Sign Reading Time Taken Comments Blood Pressure 154/84 06/02/2024 8:38 AM EDT Pulse 72 06/02/2024 8:38 AM EDT Temperature 36.8 ??C (98.2 ??F) 06/02/2024 8:38 AM ED T Respiratory Rate 17 06/02/2024 8:38 AM EDT Oxygen Saturation 98% 06/02/2024 8:38 AM EDT Inhaled Oxygen Concentration - - Weight 103 kg (226 lb) 06/02/2024 8:38 AM EDT Height 165.1 cm (5' 5 ) 05/22/2024 10:40 AM EDT Body Mass Index 37.61 05/22/2024 10:40 AM EDT Plan of Treatment Health Maintenance Due Date Last Done Comments CT Colonography 1963 FIT DNA/Cologuard 1963 FIT 1963 FOBT 1963 Sigmoidoscopy 1963 Diabetes: Foot Exam 12/07/1973 Diabetes: Urine Protein Screening 12/07/1982 Hepatitis A [...] - Risk 60-74 years 1-dose series) 2023 Eye Exam 08/29/2024 08/29/2022, 08/06, 08/29/2022, Additional history exists Diabetes: Hemoglobin A1C 11/21/2024 025, 03/21/2023, 05/23/2022, Additional history exists Alcohol/Substance Use Screening 05/22/2025 05/22/2024 Depression Screening 05/22/2025 05/22/2024, 05/23/19 SDOH Screening 05/22/2025 05/22/2024 Lipid Panel 06/02/2025 06/02/2024, 03/08, 08/30/2020 Tobacco Screening 06/02/2025 06/02/2024 DTaP/Tdap/Td Vaccines (2 - Td or Tdap) 12/07/2025 2015, 10/14/2014, 10/02/2003 Colonoscopy 06/22/2026 06/22/2016 Colorectal Cancer Screening 06/22/2026 HIV Screening Completed 06/02/2024 Hepatitis C Screening Completed 06/02/2024 HIB Vaccines Aged Out No longer eligi [...] Procedure Name Priority Date/Time Associated Diagnosis Comments TSH W/REFLEX TO FT4 Routine 06/02/2024 8 :12 AM EDT Acquired hypothyroidism VITAMIN D,25-OH,TOTAL,IA Routine 06/02/2024 8:12 AM EDT Type 2 diabetes mellitus with hyperglycemia, with long-term current use of insulin ([facility]) Acquired hypothyroidism LIPID PANEL, STANDARD Routine 06/02/2024 8:12 AM EDT Type 2 diabetes mellitus with hyperglycemia, with long-term current use of insulin (CMS/HCC) Acquired hypothyroidism HEPATITIS C AB W/REFL TO HCV RNA, QN, PCR Routine 06/02/2024 8:12 AM EDT Type 2 diabetes mellitus with hyperglycemia, with long-term current use of insulin (CMS/HCC) Acquired hypothyroidism HIV 1/2 ANTIGEN/ANTIBODY, FOURTH GENERATION W/RFL Routine 06/02/2024 8:12 AM EDT Type 2 diabetes mellitus with hyperglycemia, with long-term current use of insulin (CMS/HCC) Acquired hypothyroidism COMPREHENSIVE METABOLIC PANEL Routine 06/02/2024 8:12 AM EDT Type 2 diabetes mellitus with hyperglycemia, with long-term current use of insulin (CMS/HCC) Acquired hypothyroidism CBC WITH AUTO DIFFERENTIAL Routine 06/02/2024 8:12 AM EDT Type 2 diabetes mellitus with hyperglycemia, with long-term current use of insulin (CMS/HCC) Acquired hypothyroidism POCT GLYCATED HEMOGLOBIN, TOTAL Routine 05/22/2024 10:42 AM EDT Type 2 diabetes mellitus with hyperglycemia, with long-term current use of insulin (CMS/HCC) POCT GLUCOSE Routine 05/22/2024 10:41 AM EDT Type 2 diabetes mellitus with hyperglycemia, with long-term current use of insulin (CMS/HCC) BI MAMMOGRAM SCREENING BILATERAL Routine 05/08/2018 12:46 PM EDT HM COLONOSCOPY Routine 06/22/2016 from Last 3 Months or Most Recently Relevant to Health Maintenance Results * Vitamin D, 25-Hydroxy, Total, Immunoassay (06/02/2024 8:12 AM EDT) Vitamin D 25-OH Total 36.1 >30 ng/mL [facility] Comment: Health Based Reference Values*< 20 ??ng/mL ??[id number] ng/mL ??Insufficient> 30 ??ng/mL ??Sufficient*Yuliya SANCHEZ. N Engl J Med. 2007;357:266-280There is no well-established upper level of normal vitamin Dlevels. Some laboratories use 50 ng/mL as an upper limit ofnormal. However, toxicity is patient-dependent and may occurat any level. Careful correlation with the patient'spresentation is necessary and, if there is concern forvitamin D toxicity, treatment should be consideredirrespective of the serum level.Care must be taken in interpreting Vitamin D results fromdifferent laboratories and methodologies. ??Published datademonstrated that results from patients undergoinghemodialysis may show a negative bias when tested withvarious automated 25-OH vitamin D assays when compared toLC- MS/MS.When testing samples from patients whose predominant form ofVitamin D is Vitamin D2, such as patients receiving VitaminD2 supplementation, results that are subtherapeutic shouldbe confirmed with another method such as LC-MS/MS. Blood Venous blood specimen / Unknown 06/02/2024 8:12 AM EDT 06/02/2024 11:00 AM EDT us Fidelia Rubio MD LAB BLOOD ORDERABLES Final Result Performing Organization Address City/[facility]/ZIP Co de Phone Number [facility] [address] [place] [phone] * TSH with Reflex to Free T4 (06/02/2024 8:12 AM EDT) TSH reflex Free T4 0.89 0.32 - 4.0 uIU/mL [facility] Blood Venous blood specimen / Unknown 06/02/2024 8:12 AM EDT 06/02/2024 11:00 AM EDT us Fidelia Rubio MD LAB BLOOD ORDERABLES Final Result [facility] [address] [place] [phone] * (ABNORMAL) CBC auto differential (06/02/2024 8:12 AM EDT) White Blood Count 6.1 4.8 - 10.8 X10*3/uL [facility] Red Blood Count 5.96(H) 4.20 - 5.50 X10*6/uL [facility] Hemoglobin 11.2(L) 12.0 - 16.0 g/dl [facility] Hematocrit 37.1 37.0 - 47.0 % [facility] Mean Corpuscular Volume 62.2(L) 80.0 - 98.0 fL [facility] Mean Corpuscular Hemoglobin 18.8(L) 27.0 - 33.0 pg [facility] Mean Corpuscular HGB Conc 30.2(L) 31.0 - 35.0 g/dl [facility] Red Cell Distribution Width 17.2(H) 11.0 - 16.0 % [facility] Platelet Count 219 160 - 400 X10*3/uL [facility] Neutrophils Percent Auto 70.3 45 - 73 % [facility] Imm Gran Pct Auto 0.3 0.0 - 0.4 % [facility] Lymphocytes Percent Auto 19.3(L) 20 - 40 % [facility] Monocytes Percent Auto 8.5 2 - 11 % [facility] Eosinophils Percent Auto 0.8 0 - 4 % [facility] Basophils Percent Auto 0.8 0 - 2 % [facility] NRBC Pct Auto 0.0 0.0 - 0.2 /100WBC [facility] Neutrophils Absolute Auto 4.3 2.0 - 8.3 x10*3/uL [facility] Imm Gran Abs Auto 0.02 0.00 - 0.03 X10*3/uL [facility] Lymphocytes Absolute Auto 1.2 1.2 - 4.9 X10*3/uL [facility] Monocytes Absolute Auto 0.5 0.1 - 1.2 X10*3/uL [facility] Eosinophils Absolute Auto 0.1 0.0 - 0.4 X10*3/uL [facility] Basophils Absolute Auto 0.1 0.0 - 0.2 X10*3/uL [facility] NRBC Abs Auto 0.000 0.0 - 0.012 X10*3/uL [facility] Blood Venous blood specimen / Unknown 06/02/2024 8:12 AM EDT 06/02/2024 11:00 AM EDT us Fidelia Rubio MD LAB BLOOD ORDERABLES Final Result Performing Organization Address [facility]/ZIP Co de Phone Number [facility] [address] [place] [phone] * Hepatitis C Antibody with Reflex to HCV, RNA, Quantitative, Real-Time PCR (06/02/2024 8:12 AM EDT) Pathologist [facility] Hepatitis C Antibody Nonreactive Nonreactive [facility] Comment:Antibodies to HCV no t detected; does not exclude early acuteHCV infection. Blood Venous blood specimen / Unknown 06/02/2024 8:12 AM EDT 06/02/2024 11:00 AM EDT us Fidelia Rubio MD LAB BLOOD ORDERABLES Final Result Performing Organization Address [facility] Co de Phone Number [facility] [address] [place] [phone] * HIV-1/2 Antigen and Antibodies, Fourth Generation, with Reflexes (06/02/2024 8:12 AM EDT) HIV AB/AG Nonreactive Nonreactive [facility] Comment:HIV-1 p24 Ag and/or HIV-1/HIV-2 Ab not detected.A test result that is nonreactive does not exclude thepossibility of exposure to or infection with HIV-1 and/orHIV-2. Nonreactive results in this assay for individualswith prior exposure to HIV-1 and/or HIV-2 may be due toantigen and antibody levels that are below the limit ofdetection of this assay.The YES.TAPniAndre Phillipe HIV Ag/Ab Combo assay result andsupplemental assay results should be interpreted inconjunction with the patient's clinical presentation,history and other laboratory results. If the results areinconsistent with clinical evidence, additional testing issuggested to confirm the result. Blood Venous blood specimen / Unknown 06/02/2024 8:12 AM EDT 06/02/2024 11:00 AM EDT us Fidelia Rubio MD LAB BLOOD ORDERABLES Final Result Performing Organization Address City/[facility] Co de Phone Number [facility] [address] [place] [phone] * (ABNORMAL) Lipid Panel, Standard (06/02/2024 8:12 AM EDT) Triglycerides 183(H) <150 mg/dL [facility] Comment:Desirable Triglyceri de: less than 150 mg/dLBorderline High Triglyceride 150-199 mg/dLHigh Triglyceride: 200-499 mg/dLVery High Triglyceride: greater than or equal to 5OO mg/dL Cholesterol 208(H) <200 mg/dL [facility] Comment:Desirable Cholestero l: less than 200 mg/dLBorderline High Cholesterol: 200-239 mg/dLHigh Cholesterol: greater than 239 mg/dL LDL Cholesterol Calculated 138(H) <100 mg/dL [facility] Comment:Desirable LDL: less than 100 mg/dLNear Optimal/Above Optimal LDL: 110- 129 mg/dLBorderline High LDL: 130-159 mg/dLHigh LDL: 160-189 mg/dLVery High LDL: greater than or equal to 190 mg/dL HDL Cholesterol 34(L) >40 mg/dL [facility] Comment:Desirable HDL: great er than 40 mg/dL Note: This HDL assay may give artificially low results in patients with liver disease. Blood Venous blood specimen / Unknown 06/02/2024 8:12 AM EDT 06/02/2024 11:00 AM EDT us Fidelia Rubio MD LAB BLOOD ORDERABLES Final Result [facility] [address] [place] [phone] * (ABNORMAL) Comprehensive Metabolic Panel (06/02/2024 8:12 AM EDT) Sodium 141 135 - 145 mmol/L [facility] Potassium 4.2 3.3 - 5.1 mmol/L [facility] Chloride 106 96 - 108 mmol/L [facility] Carbon Dioxide 27 22 - 29 mmol/L [facility] Anion Gap 12 12 - 20 [facility] Urea Nitrogen (BUN) 18(H) 9 - 16 mg/dL [facility] Creatinine, Serum 0.74 0.5 - 1.4 mg/dL [facility] Estimated Glomerular Filt Rate >60 [facility] Comment:Chronic Kidney Disea se: Estimated GFR < 60 mL/min/1.34x8Vrrsvs Kidney Disease: Estimated GFR < 15 mL/min/1.73m2 Glucose 100 60 - 115 mg/dL [facility] Calcium 9.2 8.4 - 10.2 mg/dL [facility] Bilirubin, Total 0.5 0.0 - 1.0 mg/dL [facility] Aspartate Amino Transferase 21 5 - 31 U/L [facility] Alanine Aminotransferase 25 0 - 31 U/L [facility] Total Protein 7.8 6.5 - 8.0 g/dL [facility] Albumin Level 4.3 3.5 - 5.0 g/dL [facility] Alkaline Phosphatase 108 39 - 117 U/L [facility] Blood Venous blood specimen / Unknown 06/02/2024 8:12 AM EDT 06/02/2024 11:00 AM EDT us Fidelia Rubio MD LAB BLOOD ORDERABLES Final Result [facility] [address] [place] [phone] * POCT HGB A1C (05/22/2024 10:42 AM EDT) Hemoglobin A1C 5.6 4.0 - 6.0 % [employer] Media Lot # [id number] Lot# Expiration Date Blood 05/22/2024 10:4 2 AM EDT Fidelia Rubio MD POINT OF [...] DIGITAL BILATERAL SCREEN 1 Procedure Note Provider, MD Maria C - 04/29/2022 Refer to the Notes tab for result details Legacy Procedure: DIGITAL BILATERAL SCREEN 1 Bernabe Contreras MD IMG BI PROCEDURES Final Result * Colonoscopy (06/22/2016) Maria C Provider HEALTH MAINTENANCE Final Result from Last 3 Months or Most Recently Relevant to Health Maintenance [place] [address] [place] [address] C3 Care Teams Slate Cutter Relationship Specialty Start Date End Date Fidelia Amaya MD [address] [place] [phone] PCP - General Family Medicine 01/18/21
--- OUTSIDE RECORDS SUMMARY | 2024-06-11 08:32 | XMS_ITS | Encounter Summary ---
Author Organization [employer] Address [address] [facility] 7t [place] [address] Care Team Providers Care Frog Farmer Name Role Phone Fidelia Amaya MD Primary Care Provide r Encounter Details Date Type Department Care Team (Late st Contact Info) Description 09/01/2022 Orders Only [facility] MEDIC[facility] [address] [place], [place] [phone] Mary Singh LPN Social History Tobacco Use [...] on filedocumented in this encounter Care Teams Frog Farmer Relationship Specialty Start Date End Date Fidelia Amaya MD [address] [place], [place] [phone] PCP - General Family Medicine 01/18/21 documented as of this encounter
== END 2024-06-11 08:21 | disposition home or self-care (01) ==
LOC: HO.US 08:20
PROVIDERS: PCP Internal Medicine; Visit Provider Internal Medicine
DX: E04.9 Nontoxic goiter, unspecified (principal)
CPT/HCPCS: 76536

== ENCOUNTER → 2024-06-11 08:21 | Outpatient (BNV) | payer MEDICAID, SELFPAY | PROVIDERS: PCP Internal Medicine; Visit Provider Radiology Diagnostic Radiology | DX: E04.9 Nontoxic goiter, unspecified (principal) | CPT/HCPCS: 76536 ==

== ENCOUNTER 2024-10-09 14:11 | Outpatient (REF) | payer MEDICAID, SELFPAY ==
--- NOTE | ~2024-10-09 | XR_ITS ---
EXAMINATION: XR CHEST CLINICAL INFORMATION: cough and fever and chest tightness COMPARISON: 04/23/2023. TECHNIQUE: 2 views of the chest were obtained. FINDINGS: The cardiac, hilar, and mediastinal contours are normal. The lungs are clear bilaterally. Mild biapical scarring. There is no pneumothorax or pleural effusion. There is no focal osseous or soft tissue abnormality. Mild degenerative spinal changes. XR/XR chest 2V IMPRESSION: No active pulmonary disease. Electronically signed by: Rashawn Pan MD 10/09/2024 03:08 PM EDT
--- OUTSIDE RECORDS SUMMARY | 2024-10-09 13:20 | XMS_ITS | Encounter Summary ---
Author Organization [facility] Address [address] [place] [address] Care Team Providers Care [employer] Name Role Phone Fidelia Amaya MD Primary Care Provide r Encounter Details Date Type Department Care Team (Late st Contact Info) Description 10/09/2024 1:20 PM EDT Office Visit [facility] [address] [place] [address] Mild persistent asthma with acute exacerbation (Primary Dx); Acute non-recurrent maxillary sinusitis; Allergic reaction, subsequent encounter; Moderate persistent asthma, unspecified whether complicated; Cough in adult patient Social History Tobacco Use Types Packs/Day Years Used Date Smoking Tobacco: Never Passive Smoke Exposure: Never Smokeless Tobacco: Never Alcohol Use Standard [...] not want or need it 05/06 Comments No Sex and Gender Information Value Date Recorded Sex Assigned at Female 12/05/2021 10:17 AM EDT Legal Sex Female 10:17 AM EDT Gender Identity Female 12/05/2021 10:17 AM EDT Sexual Orientation Straight 12/05/2021 10 :17 AM EDT documented as of this encounter Last Filed Vital Signs Vital Sign Reading Time Taken Comments Blood Pressure 154/87 10/09/2024 1:23 PM EDT Pulse 69 10/09/2024 1:23 PM EDT Temperature 36.7 C (98.1 F) 10/09/2024 1:23 PM EDT Respiratory Rate 21 10/09/2024 1:23 PM EDT Oxygen Saturation 97% 10/09/2024 1:23 PM EDT Inhaled Oxygen Concentration - - Weight 100 kg (221 lb) 10/09/2024 1:23 PM EDT Height 160 cm (5' 3 ) 10/09/2024 1:23 PM EDT Body Mass Index 39.15 10/09/2024 1:23 PM EDT documented in this encounter Plan of Treatment Upcoming Encounters Date Type Department Care Team (Late st Contact Info) Description 11/21/2024 11:00 AM EDT Office Visit [facility] [address] [place] [address] Jose, Ayla, OD [address] [place] [address] documented as of this encounter Procedures Procedure Name Priority Date/Time Associated Diagnosis Comments XR CHEST 2 VIEWS STAT 10/09/2024 1:45 PM EDT Mild persistent asthma with acute exacerbation POCT INFLUENZA A (ID NOW RAPID MOLECULAR) Routine 10/09/2024 1:30 PM EDT Acute non-recurrent maxillary sinusitis POCT INFLUENZA B (ID NOW RAPID MOLECULAR) Routine 10/09/2024 1:29 PM EDT Acute non-recurrent maxillary sinusitis POC HARE ID NOW STREP A Routine 10/09/2024 1:27 PM EDT Acute non-recurrent maxillary sinusitis POCT RAPID COVID ANTIGEN Routine 10/09/2024 1:26 PM EDT Acute non-recurrent maxillary sinusitis documented in this encounter Results * XR Chest 2 Views (10/09/2024 1:45 PM EDT) Anatomical Region Laterality Modality Chest Radiographic Zenia ging 10/09/2024 1:45 PM EDT Narrative 10/09/2024 3:11 PM EDT [address] [address] XRay Report Signed Patient: Jo-Ann Matthews MR#: [id number] : 1965 Acct:[id number] Age/Sex: 58 / F ADM Date: 10/09/24 Loc: [facility] Attending Dr: Noemi Caldwell DO Ordering Physician: Noemi Caldwell DO Date of Service: 10/09/24 Procedure(s): XR chest 2V Accession Number(s): [id number] cc: Noemi Caldwell DO Reason for Exam: cough and fever and chest tightness EXAMINATION: XR CHEST CLINICAL INFORMATION: cough and fever and chest tightness COMPARISON: 04/23/2023. TECHNIQUE: 2 views of the chest were obtained. FINDINGS: The cardiac, hilar, and mediastinal contours are normal. The lungs are clear bilaterally. Mild biapical scarring. There is no pneumothorax or pleural effusion. There is no focal osseous or soft tissue abnormality. Mild degenerative spinal changes. XR/XR chest 2V IMPRESSION: No active pulmonary disease. Electronically signed by: Rashawn Pan MD 10/09/2024 03:08 PM EDT Dictated By: Rashawn aPn MD Signed By: <Electronically signed by Rashawn Pan MD in OV> 10/09/24 1508 DD/ 1345 TD/TT: 10/09/24 1400 Line Service Attendant: Procedure Note Remiter, Image - 10/09/2024 [facility] [address] [place] [address] XRay Report Signed Patient: Darshana Matthews#: M [id number] : 1965Acct:[id number] Age/Sex: 58 / FADM Date: 10/09/24 [facility] Dr: Noemi Caldwell DO Ordering Physician: Noemi Caldwell DO Date of Service: 10/09/24 Procedure(s): XR chest 2V Accession Number(s): [id number] cc: Noemi Caldwell DO Reason for Exam: cough and fever and chest tightness EXAMINATION: XR CHEST CLINICAL INFORMATION: cough and fever and chest tightness COMPARISON: 04/23/2023. TECHNIQUE: 2 views of the chest were obtained. FINDINGS: The cardiac, hilar, and mediastinal contours are normal. The lungs are clear bilaterally. Mild biapical scarring. There is no pneumothorax or pleural effusion. There is no focal osseous or soft tissue abnormality. Mild degenerative spinal changes. XR/XR chest 2V IMPRESSION: No active pulmonary disease. Electronically signed by: Rashawn Pan MD 10/09/2024 03:08 PM EDT Dictated By: Rashawn Pan MD Signed By: <Electronically signed by Rashawn Pan MD in OV> 10/09/24 1508 DD/ 1345 TD/TT: 10/09/24 1400 Line Service Attendant: Noemi Caldwell DO IMG XR PROCEDURES Final Resu lt * POCT Rapid Influenza A HARE ID NOW (10/09/2024 1:30 PM EDT) Influenza A Negative Negative, Indeterminate [facility] QC Media Lot # [id number] [facility] Lot# Expiration Date [facility] Swab 10/09/2024 1:30 PM EDT Noemi Paulette DO POINT OF CARE TEST ENTER/SUZANNE T ORDERABLES Final Result Performing Organization Address [facility] Co de Phone Number [facility] [address] [place] [phone] * POCT Rapid Influenza B HARE ID NOW (10/09/2024 1:29 PM EDT) [facility] Influenza B Negative Negative, Indeterminate [facility] QC Media Lot # [id number] [facility] Lot# Expiration Date [facility] Swab 10/09/2024 1:29 PM EDT Noemi Paulette DO POINT OF CARE TEST ENTER/SUZANNE T ORDERABLES Final Result Performing Organization Address [facility] Co de Phone Number [facility] [address] [place] [phone] * POCT Rapid Strep A HARE ID NOW (10/09/2024 1:27 PM EDT) Pathologist [facility] Rapid Strep A Screen Negative Negative, None Detected QC Media Lot # [id number] Lot# Expiration Date Swab 10/09/2024 1:27 PM EDT Noemi Paulette DO POINT OF CARE TEST ENTER/SUZANNE T ORDERABLES Final Result * POCT Rapid Covid-19 BinaxNOW (10/09/2024 1:26 PM EDT) [facility] Rapid COVID Ag Negative QC Media Lot # [id number] Lot# Expiration Date Swab 10/09/2024 1:26 PM EDT Noemi Caldwell DO POINT OF CARE TEST ENTER/SUZANNE T ORDERABLES Final Result documented in this encounter Visit Diagnoses Diagnosis Mild persistent asthma with acute exacerbation- Primary Acute non-recurrent maxillary sinusitis Allergic reaction, subsequent encounter Moderate persistent asthma, unspecified whether complicated Cough in adult patient documented in this encounter Administered Medications Inactive Administered Medications - up to 3 most recent administrations Medication Order MAR Action Action Date Dose Rate Site ipratropium-albuterol (Duo-Neb) 0.5-2.5 mg/3 mL nebulizer solution 3 mg 3 mg, Nebulization, Once, On Martha 10/09/24 at 1345, For 1 doseIndications:Mild persistent asthma with acute exacerbation Given 10/09/2024 1:45 PM EDT 3 mg documented in this encounter Additional Health Concerns Assessment Noted Time PHQ-9 Depression Total Score: 0 05/23/19 10:41 AM EDT documented as of this encounter Care Teams [employer] Relationship Specialty Start Date End Date Fidelia Amaya MD [address] [place] [address] PCP - General Family Medicine 01/18/21 documented as of this encounter
--- OUTSIDE RECORDS SUMMARY | 2024-10-09 15:26 | XMS_ITS | Clinical Summary ---
Author Organization [employer] Address [address] [facility] 7t [place] [address] Care Team Providers Care Manager English Name Role Phone Fidelia Amaya MD Primary Care Provide r Allergies Active Allergy Reactions Criticality Noted Date Comments Amoxicillin 04/29/2020 Other reaction(s): Hives / Skin Rash Aspirin 03/01/2015 Other reaction(s): Stomach Pain Guggulipid-Black Pepper 03/21/2023 Ibuprofen 05/20/2014 Meperidine 08/12/2018 Other reaction(s): I get very nervous [in Citizen Of [place]] Morphine 05/20/2014 Oxycodone Anaphylaxis High 04/07/2015 Prochlorperazine [...] TEST BLOOD SUGAR TWICE DAILY 023 Active albuterol 108 (90 Base) MCG/ACT inhalerIndication [...] off 8-10 hours later 60 g 2 Active diphenhydrAMINE (BENADryl) 25 MG tablet Take 1 tablet (25 mg) by mouth if needed at bedtime for itching. 30 tablet Active Alcohol Swabs (SM Alcohol Prep) 70 % padsIndications:T ype 2 diabetes mellitus with other specified complication, unspecified whether group home insulin use ([facility]) USE TWICE DAILY 100 each Active hydroCHLOROthiazi de (HYDRODiuril) 25 MG tabletIndications :Primary hypertension TAKE 1 TABLET BY MOUTH ONCE DAILY 90 tablet 1 Active TRUEplus Lancets 33G miscIndications:T ype 2 diabetes mellitus with hyperglycemia, with long-term current use of insulin ([facility]) USE TO TEST BLOOD SUGAR TWICE DAILY 100 each Active FREESTYLE LITE test stripIndications: Type 2 diabetes mellitus with hyperglycemia, with long-term current use of insulin ([facility]) USE TO TEST BLOOD SUGAR TWICE DAILY 100 strip Active triamcinolone (Kenalog) 0.1 % creamIndications: Generalized pruritus MIX WITH CERAVE AND APPLY TOPICALLY TO THE AFFECTED AREA(S) TWICE DAILY 80 g Active Nebulizer miscIndications:M oderate persistent asthma, unspecified [...] EVERY DAY AT NOON 90 tablet Active hydrOXYzine pamoate (Vistaril) 25 MG capsule Take 1 capsule (25 mg) by mouth every 6 (six) hours if needed for anxiety. May take 2 capsules q 6 hours prn. May cause drowsinees 30 capsule Active EPINEPHrine (Epipen) 0.3 MG/0.3ML injection syringe Inject 0.3 mL (0.3 mg) as directed 1 (one) time if needed for anaphylaxis. Inject into upper leg. Call 911 after use. 2 each 025 2025 Active D3 Super Strength 50 MCG (2000 UT) capsuleIndication s:Vitamin D deficiency TAKE 1 CAPSULE BY MOUTH EVERY DAY 90 capsule 1 Active doxepin (SINEquan) 25 MG capsuleIndication s:Pruritus Take 1 capsule (25 mg) by mouth at bedtime. 30 capsule 025 2025 Active levothyroxine (Synthroid, Levoxyl) 150 MCG tabletIndications :Acquired hypothyroidism Take 1 tablet (150 mcg) by mouth before breakfast. TAKE 1 TABLET BY MOUTH BEFORE BREAKFAST 90 tablet 3 Active cetirizine (ZyrTEC) 10 MG tabletIndications :Allergic reaction, subsequent encounter Take 1 tablet (10 mg) by mouth Once per day. 30 tablet 3 025 2025 Active Mometasone Furoate (Asmanex HFA) 100 MCG/ACT aerosolIndication s:Moderate persistent asthma, unspecified whether complicated Inhale 2 Act (200 mcg) 2 times daily. 120 Act 11 025 2025 Active predniSONE (Deltasone) 20 MG tablet Take 2 tablets (40 mg) by mouth Once per day for 5 days. 10 tablet 025 2024 Active fluticasone (Flonase) 50 MCG/ACT nasal sprayIndications: Cough in adult patient Administer 2 sprays into each nostril Once per day. 16 g 3 025 2024 Active benzonatate (Tessalon Perles) 100 MG capsule Take 1 capsule (100 mg) by mouth if needed in the morning, at noon, and at bedtime for cough for up to 10 days. Do not crush or chew. 30 capsule 025 2024 Active acetaminophen (Tylenol 8 Hour) 650 MG ER tablet Take 1 tablet (650 mg) by mouth every 8 (eight) hours if needed for mild pain. Do not crush, chew, or split. 40 tablet 1 025 2024 Active doxycycline (Vibramycin) 100 MG capsule Take 1 capsule (100 mg) by mouth 2 times daily for 7 days. Take with at least 8 ounces (large glass) of water, do not lie down for 30 minutes after 14 capsule 025 2024 Active sodium chloride (Quantico Nasal [place]idan) 0.65 % nasal spray Administer 2 sprays into each nostril if needed for congestion. 30 mL 3 025 2025 Active Mometasone Furoate (Asmanex HFA) 100 MCG/ACT aerosolIndication s:Moderate persistent asthma, unspecified whether complicated Inhale 2 puffs 2 times daily. 13 g 2 024 2024 Discontinued(R eorder (will not trigger notification to Pharmacy)) cetirizine (ZyrTEC) 10 MG tablet Take 1 tablet (10 mg) by mouth Once per day. 30 tablet 5 024 2024 Discontinued(M ed list cleanup (will not trigger notification to Pharmacy)) loratadine (Claritin) 10 MG tabletIndications :Bug bite, initial encounter Take 1 tablet (10 mg) by mouth Once per day. 90 tablet 1 024 2024 Discontinued(M ed list cleanup (will not trigger notification to Pharmacy)) fluticasone (Flonase) 50 MCG/ACT nasal sprayIndications: Cough in adult patient Administer 1 spray into each nostril Once per day. 48 g 024 2024 Discontinued(R eorder (will not trigger notification to Pharmacy)) cetirizine (ZyrTEC) 10 MG tabletIndications :Allergic reaction, subsequent encounter Take 1 tablet (10 mg) by mouth Once per day. 30 tablet 2 025 2024 Discontinued(R eorder (will not trigger notification to Pharmacy)) Hospital, Clinic, or Other Facility Administered Medication Ordered Dose Route Frequency Start Date End Date Status ipratropium-albutero l (Duo-Neb) 0.5-2.5 mg/3 mL nebulizer solution 3 mgIndications:Mild persistent asthma with acute exacerbation 3 mg NEBULIZATION Once 10/09/2024 10/09/2024 Ended Active Problems Problem Noted Date Diagnosed Date Allergic reaction 07/03/2024 Left foot pain 05/22/2024 Assessment & Plan (08/21/2024 2:26 PM EDT): Patient reports she has upcoming appointment Dysphagia 05/22/2024 Enlarged thyroid 05/22/2024 Oral pain [...] acute 02/26/2023 Pruritus 08/18/2022 Assessment & Plan (08/21/2024 2:27 PM EDT): Patient did not tolerate doxepin due to somnolence Assessment & Plan (08/18/2022 5:21 PM EDT): Pt complains of generalized pruritus. Per pt it is secondary to insect bites. 03/2022: LFTs w/in normal limits, slightly increased Alk Phos: 118. Unclear if papules seen are secondary to scratching or those lesions are causing the itchiness. - Given chronicity of her Sx and no improvement w antihistamines and topical steroids, I referred today to carpet floor layer apprentice. - Lesions do not appear to be from scabies and so, will hold on Tx. - If no etiology found by carpet floor layer apprentice, will need to consider delusional parasitosis, in [...] report not available. Will request report from [facility]. Lipids/FBS TBO Vaccinations she [...] 05/19/2022 Essential hypertension 05/19/2022 Assessment & Plan (08/21/2024 2:25 PM EDT): I advised: - Aerobic exercise to reduce BP. Initial [...] consulting health care provider Assessment & Plan (03/21/2023 4:31 PM EST): [...] Moderate persistent asthma 05/19/2022 Assessment & Plan (08/21/2024 2:27 PM EDT): Stable c/w same interventions Assessment & Plan (03/21/2023 4:31 PM EST): [...] of shoulder region 12/08/19 16 Dyslipidemia 11/10/2015 Assessment & Plan (08/21/2024 2:22 PM EDT): Counseling about healthy diet and exercise on today Assessment & Plan (07/03/2024 12:35 PM EDT): Doing basic labs were also reviewed I let her know her lipid panel is not at goal, I advised healthy diet and exercise Acquired hypothyroidism 11/30/2011 Assessment & Plan (05/22/2024 [...] Encounters Date Type Department Care Team Description 10/09/2024 1:20 PM EDT [facility] [address] [place] [phone] Mild persistent asthma with acute exacerbation (Primary Dx); Acute non-recurrent maxillary sinusitis; Allergic reaction, subsequent encounter; Moderate persistent asthma, unspecified whether complicated; Cough in adult patient 10/09/2024 Travel 08/25/2024 8:40 AM EDT [facility] [address] [address] Darrel Eddy MD Acute otitis externa of both ears, unspecified type (Primary Dx); Essential hypertension 08/25/2024 Travel 08/21/2024 1:45 PM EDT Telemedicine [facility] [address] [place] [phone] Fidelia Amaya MD Left foot pain (Primary Dx); Pruritus; Essential hypertension; Dyslipidemia; Moderate persistent asthma, unspecified whether complicated 08/21/2024 Travel 08/12/2024 Patient Outreach [facility] [address] [place] [phone] Fidelia Amaya MD Pre-visit Planning (SDOH screening completed on 05/22/2024) 07/14/2024 Refill [facility] [address] [place] [phone] Fidelia Amaya MD Acquired hypothyroidism from Last 3 Months Immunizations Immunization Administration Dates Next Due Influenza injectable quadriv [...] Mass Index 39.15 10/09/2024 1:23 PM EDT Plan of Treatment Upcoming Encounters Date Type Department Care Team (Late st Contact Info) Description 11/21/2024 11:00 AM EDT Office Visit [facility] OPTOMET[facility] [address] [place] [address] Jose, Ayla, OD [address] [place] [address] Health Maintenance Due Date Last Done Comments [...] PCV) 11/15/2018 11/15/2017 Mammogram 05/08/2020 05/08/2018, 04/27/2017 Hepatitis B Vaccines (1 of 3 - Risk 3-dose series) 2023 RSV Patients and Patients Aged 60 years or older (1 - Risk 60-74 years 1-dose series) 2023 Eye Exam 08/29/2024 08/29/2022, 08/06, 08/29/2022, Additional history exists COVID-19 Vaccine (3 - 2024- season) 2024 10/25/2020, 09/30/2020 Influenza Vaccine (#1) 2024 9, 11/15/2017, 01/03/2017, Additional history exists Diabetes: Hemoglobin A1C 11/21/2024 025, 03/21/2023, 05/23/2022, Additional history exists Alcohol/Substance Use Screening 05/22/2025 05/22/2024 Depression Screening 05/22/2025 05/22/2024, 05/23/19 25 Disability Screening 05/22/2025 05/22/2024 SDOH Screening 05/22/2025 05/22/2024 Lipid Panel 06/02/2025 06/02/2024, 03/08, 08/30/2020 Tobacco Screening 10/09/2025 10/09/2024 DTaP/Tdap/Td Vaccines (2 - Td or Tdap) [...] patient's age to complete this topic Meningococcal B Vaccine Aged Out No l onger eligible based on patient's age to complete [...] 1:26 PM EDT Acute non-recurrent maxillary sinusitis HEPATITIS C AB W/REFL TO HCV RNA, QN, PCR Routine 06/02/2024 8:12 AM EDT Type 2 diabetes mellitus with hyperglycemia, with long-term current use of insulin (CMS/HCC) Acquired hypothyroidism HIV 1/2 ANTIGEN/ANTIBODY, FOURTH GENERATION W/RFL Routine 06/02/2024 8:12 AM EDT Type 2 diabetes mellitus with hyperglycemia, with long-term current use of insulin (CMS/HCC) Acquired hypothyroidism LIPID PANEL, STANDARD Routine 06/02/2024 [...] Recently Relevant to Health Maintenance Results * XR Chest 2 Views (10/09/2024 1:45 PM EDT) Anatomical Region Laterality Modality Chest Radiographic Zenia ging 10/09/2024 1:45 PM EDT Narrative 10/09/2024 3:11 PM EDT [address] [address] XRay Report Signed Patient: Jo-Ann Matthews MR#: [id number] : 1965 Acct:[id number] Age/Sex: 58 / F ADM Date: 10/09/24 Loc: HO.HHCX Attending Dr: Noemi Caldwell DO Ordering Physician: Noemi Caldwell DO Date of Service: 10/09/24 Procedure(s): XR chest 2V Accession Number(s): [id number] cc: Noemi Caldwell DO Reason for Exam: [...] 10/09/24 1508 DD/ 1345 TD/TT: 10/09/24 1400 Towel Sewer: Procedure Note Donotuseinterpreter, Image - 10/09/[address] [address] XRay Report Signed Patient: Darshana Matthews#: M [id number] : 1965Acct:[id number] Age/Sex: 58 / FADM Date: 10/09/24 Loc: HO.HHCX Attending Dr: Noemi Caldwell DO Ordering Physician: Noemi Caldwell DO Date of Service: 10/09/24 Procedure(s): XR chest 2V Accession Number(s): [id number] cc: Noemi Caldwell DO Reason for Exam: [...] 10/09/24 1508 DD/ 1345 TD/TT: 10/09/24 1400 Towel Sewer: us Noemi Caldwell DO IMG XR PROCEDURES Final Resu lt * POCT Rapid Influenza A HARE ID NOW (10/09/2024 1:30 PM EDT) Influenza A Negative Negative, Indeterminate [facility] QC Media Lot # [id number] [facility] Lot# Expiration Date [facility] Swab 10/09/2024 1:30 PM EDT us Noemi Caldwell DO POINT OF CARE TEST ENTER/SUZANNE T ORDERABLES Final Result Performing Organization Address [facility]/ZIP Co de Phone Number [facility] [address] [place] [phone] * POCT Rapid Influenza B HARE ID NOW (10/09/2024 1:29 PM EDT) Influenza B Negative Negative, Indeterminate [facility] QC Media Lot # [id number] [facility] Lot# Expiration Date [facility] Swab 10/09/2024 1:29 PM EDT Noemi Caldwell DO POINT OF CARE TEST ENTER/SUZANNE T ORDERABLES Final Result Performing Organization Address [facility]/ZIP Co de Phone Number [facility] [address] [place] [phone] * POCT Rapid Strep A HARE ID NOW (10/09/2024 1:27 PM EDT) [facility] Rapid Strep A Screen Negative Negative, None Detected QC Media Lot # [id number] Lot# Expiration Date Swab 10/09/2024 1:27 PM EDT Noemi Paulette DO POINT OF CARE TEST ENTER/SUZANNE T ORDERABLES Final Result * POCT Rapid Covid-19 BinaxNOW (10/09/2024 1:26 PM EDT) [facility] Rapid COVID Ag Negative QC Media Lot # [id number] Lot# Expiration Date Swab 10/09/2024 1:26 PM EDT Noemi Caldwell DO POINT OF CARE TEST ENTER/SUZANNE T ORDERABLES Final Result * Hepatitis C Antibody with Reflex to HCV, RNA, Quantitative, Real-Time PCR (06/02/2024 8:12 AM EDT) [facility] Hepatitis C Antibody Nonreactive Nonreactive [facility] Comment:Antibodies to HCV no t detected; does not exclude early acuteHCV infection. Blood Venous blood specimen / Unknown 06/02/2024 8:12 AM EDT 06/02/2024 11:00 AM EDT Fidelia Rubio MD LAB BLOOD ORDERABLES Final Result [facility] [address] [place] [phone] * HIV-1/2 Antigen and Antibodies, Fourth Generation, with Reflexes (06/02/2024 8:12 AM EDT) [facility] HIV AB/AG Nonreactive Nonreactive [facility] Comment:HIV-1 p24 Ag and/or HIV-1/HIV-2 Ab not detected.A test result that is nonreactive does not exclude thepossibility of exposure to or infection with HIV-1 and/orHIV-2. Nonreactive results in this assay for individualswith prior exposure to HIV-1 and/or HIV-2 may be due toantigen and antibody levels that are below the limit ofdetection of this assay.The [employer] HIV Ag/Ab Combo assay result andsupplemental assay results should be interpreted inconjunction with the patient's clinical presentation,history and other laboratory results. If the results areinconsistent with clinical evidence, additional testing issuggested to confirm the result. Blood Venous blood specimen / Unknown 06/02/2024 8:12 AM EDT 06/02/2024 11:00 AM EDT us Fidelia Rubio MD LAB BLOOD ORDERABLES Final Result [facility] [address] [place] [phone] * (ABNORMAL) Lipid Panel, Standard (06/02/2024 8:12 AM EDT) Triglycerides 183(H) <150 mg/dL [facility] Comment:Desirable Triglyceri de: less than 150 mg/dLBorderline High Triglyceride 150-199 mg/dLHigh Triglyceride: 200-499 mg/dLVery High Triglyceride: greater than or equal to 5OO mg/dL Cholesterol 208(H) <200 mg/dL [facility] Comment:Desirable Cholestero l: less than 200 mg/dLBorderline High Cholesterol: 200-239 mg/dLHigh Cholesterol: greater than 239 mg/dL LDL Cholesterol Calculated 138(H) <100 mg/dL [facility] Comment:Desirable LDL: less than 100 mg/dLNear Optimal/Above Optimal LDL: 110- 129 mg/dLBorderline High LDL: 130-159 mg/dLHigh LDL: 160-189 mg/dLVery High LDL: greater than or equal to 190 mg/dL HDL Cholesterol 34(L) >40 mg/dL [facility] Comment:Desirable HDL: great er than 40 mg/dL Note: This HDL assay may give artificially low results in patients with liver disease. Blood Venous blood specimen / Unknown 06/02/2024 8:12 AM EDT 06/02/2024 11:00 AM EDT Fidelia Rubio MD LAB BLOOD ORDERABLES Final Result [facility] [address] [place] [phone] * POCT HGB A1C (05/22/2024 10:42 [...] Most Recently Relevant to Health Maintenance Insurance [facility] [address] C3 Care Teams Manager English Relationship Specialty Start Date End Date Fidelia Amaya MD [address] [place] [phone] PCP - General Family Medicine 01/18/21
--- OUTSIDE RECORDS SUMMARY | 2024-10-09 15:26 | XMS_ITS | Encounter Summary ---
Author Organization [employer] Address [address] [facility] 7 [place] [address] Care Team Providers Care Laser Beam Color Scanner Operator Name Role Phone Fidelia Amaya MD Primary Care Provide r Encounter Details Date Type Department Care Team ([facility] Contact Info) Description 10/25/2022 Orders Only [facility] [address] [place] [address] Provider, Historical, Social History Tobacco Use Types Packs/Day Years [...] Upcoming Encounters Date Type Department Care Team ([facility] Contact Info) Description 11/21/2024 11:00 AM EDT Office Visit [facility] OPTOMETRY [address] [place] [address] Jose, Ayla, OD [address] [place] [address] documented as of this encounter Procedures Procedure Name Priority Date/Time Associated Diagnosis Comments HM COLONOSCOPY Routine 06/22/2016 documented in this encounter Results * Hm Colonoscopy (06/22/2016) Historical Provider HEALTH MAINTENANCE Final Result documented in this encounter Visit Diagnoses Not on filedocumented in this encounter Care Teams Laser Beam Color Scanner Operator Relationship Specialty Start Date End Date Fidelia Amaya MD [address] [place] [address] PCP - General Family Medicine 01/18/21 documented as of this encounter
--- OUTSIDE RECORDS SUMMARY | 2024-10-09 15:26 | XMS_ITS | Encounter Summary ---
Author Organization [employer] Address [address] [facility] 7t [place] [address] Care Team Providers Care Skate Shop Attendant Name Role Phone Fidelia Amaya MD Primary Care Provide r Reason for Visit * Reason Comments Med Refill Encounter Details Date Type Department Care Team ([facility] st Contact Info) Description 06/21/2023 Refill [facility] [address] [place], [place] [phone] [facility] [address] [place], [place] [phone] Bug bite, initial encounter Social History Tobacco [...] 11:00 AM EDT Office Visit [facility] [address] [place] [address] Jose, Ayla, OD [address] [place] [address] documented as of this encounter Visit Diagnoses Diagnosis Bug bite, initial encounter documented in this encounter Care Teams Skate Shop Attendant Relationship Specialty Start Date End Date Fidelia Amaya MD [address] [place] [address] PCP - General Family Medicine 01/18/21 documented as of this encounter
--- OUTSIDE RECORDS SUMMARY | 2024-10-09 15:26 | XMS_ITS | Encounter Summary ---
Author Organization [employer] Address [address] [facility] [address] [place] [address] Care Team Providers Care Kettle Worker Name Role Phone Fidelia Amaya MD Primary Care Provide r Reason for Visit * Reason Comments Med Refill Encounter Details Date Type Department Care Team (Late Contact Info) Description 10/18/2022 Refill [facility] [address] [place] [address] Bakari Batista MD [address] [place] [address] Generalized pruritus Social History Tobacco Use Types [...] Department Care Team (Late Contact Info) Description 11/21/2024 11:00 AM EDT Office Visit [facility] OPT[facility] [address] [place] [address] Ayla Garcia, OD [address] [place] [address] documented as of this encounter Visit Diagnoses Diagnosis Generalized pruritus Unspecified pruritic disorder documented in this encounter Care Teams Kettle Worker Relationship Specialty Start Date End Date Fidelia Amaya MD [address] [place] [phone] PCP - General Family Medicine 01/18/21 documented as of this encounter
--- OUTSIDE RECORDS SUMMARY | 2024-10-09 15:26 | XMS_ITS | Encounter Summary ---
Author Organization [employer] Address [address] [facility] [address]t [place] [address] Care Team Providers Care Email Production Specialist Name Role Phone Fidelia Amaya MD Primary Care Provide r Reason for Visit * Reason Comments Med Refill Encounter Details Date Type Department Care Team ([facility] st Contact Info) Description 09/12/2023 Refill [facility] [address] [place], [place] [phone] Fidelia Amaya MD [address] [place], [place] [phone] Scabies Social History Tobacco Use Types Packs/Day [...] Description 11/21/2024 11:00 AM EDT Office Visit [facility] [address] [place] [address] Jose, Ayla, OD [address] [place] [address] documented as of this encounter Visit Diagnoses Diagnosis Scabies documented in this encounter Care Teams Email Production Specialist Relationship Specialty Start Date End Date Fidelia Amaya MD [address] [place] [address] PCP - General Family Medicine 01/18/21 documented as of this encounter
--- OUTSIDE RECORDS SUMMARY | 2024-10-09 15:26 | XMS_ITS | Encounter Summary ---
Author Organization [employer] Address [address] [facility] [address] [place] [address] Care Team Providers Care Web Engineer Name Role Phone Fidelia Amaya MD Primary Care Provide r Encounter Details Date Type Department Care Team (Latest Contact Info) Description 05/12/2020 Abstract [facility] CONVERSIONS Dental, Provider, DDS Social History [...] Description 11/21/2024 11:00 AM EDT Office Visit [facility] OPTOMETRY [address] [place] [address] Jose, Ayla, OD [address] [place] [address] documented as of this encounter Visit Diagnoses Not on filedocumented in this encounter Care Teams Web Engineer Relationship Specialty Start Date End Date Fidelia Amaya MD [address] [place] [address] PCP - General Family Medicine 01/18/21 documented as of this encounter
--- OUTSIDE RECORDS SUMMARY | 2024-10-09 15:26 | XMS_ITS | Encounter Summary ---
Author Organization [employer] Address [address] [facility] [address] [place] [address] Care Team Providers Care Trade Promotion Analyst Name Role Phone Fidelia Amaya MD Primary Care Provide r Reason for Visit * Reason Onset Date Comments FYI 04/06/2023 Encounter Details Date Type Department Care Team ([facility] st Contact Info) Description 04/06/2023 Telephone [facility] [address] [place], [place] [phone] Fidelia Amaya MD [address] [place], [place] [phone] FYI Social History Tobacco Use Types Packs/Day [...] PM EST Tc from [facility] for the [facility] calling to report the patient was prescribed permethrin (Elimite) 5 % cream for scabies but recently discovered after going to the patients home that itwas done by fleas any questions please call Tita at [phone] documented in this encounter Plan of Treatment Upcoming Encounters Date Type Department Care Team (Late st Contact Info) Description 11/21/2024 11:00 AM EDT Office Visit [facility] OPTOMETRY [address] [place] [address] Jose, Ayla, OD [address] [place] [address] documented as of this encounter Visit Diagnoses Not on filedocumented in this encounter Care Teams Trade Promotion Analyst Relationship Specialty Start Date End Date Fidelia Amaya MD [address] [place] [address] PCP - General Family Medicine 01/18/21 documented as of this encounter
--- OUTSIDE RECORDS SUMMARY | 2024-10-09 15:26 | XMS_ITS | Encounter Summary ---
Author Organization [employer] Address 75 [facility] 7 [place] [address] Care Team Providers Care Test Evaluator Name Role Phone Fidelia Amaya MD Primary Care Provide r Encounter Details Date Type Department Care Team (Late st Contact Info) Description 02/09/2022 Telephone [facility] MEDICINE [address] [place] [address] Fidelia Amaya MD 230 [place] [address] Social History Tobacco Use Types Packs/Day Years [...] 11/21/2024 11:00 AM EDT Office Visit [facility] OPTOMETRY [address] [place] [address] Jose, Ayla, OD 230 [place] [address] documented as of this encounter Visit Diagnoses Not on filedocumented in this encounter Care Teams Test Evaluator Relationship Specialty Start Date End Date Fidelia Amaya MD [address] [place] [address] PCP - General Family Medicine 01/18/21 documented as of this encounter
--- OUTSIDE RECORDS SUMMARY | 2024-10-09 15:26 | XMS_ITS | Encounter Summary ---
Author Organization [employer] Address 75 [facility] 7 [place] [address] Care Team Providers Care Turning Sander Operator Name Role Phone Fidelia Amaya MD Primary Care Provide r Encounter Details Date Type Department Care Team (Late Contact Info) Description 09/01/2022 Orders Only [facility]INE [address] [place] [address] Mary Singh LPN Social History Tobacco Use [...] Description 11/21/2024 11:00 AM EDT Office Visit [facility] OPTOMETRY [address] [place] [address] Jose, Ayla, OD 230 [place] [address] documented as of this encounter Visit Diagnoses Not on filedocumented in this encounter Care Teams Turning Sander Operator Relationship Specialty Start Date End Date Fidelia Amaya MD 230 [place] [address] PCP - General Family Medicine 01/18/21 documented as of this encounter
--- OUTSIDE RECORDS SUMMARY | 2024-10-09 15:26 | XMS_ITS | Encounter Summary ---
Author Organization [employer] Address 75 [facility] 7t [place] [address] Care Team Providers Care Conservation Science Officer Name Role Phone Fidelia Amaya MD Primary Care Provide r Encounter Details Date Type Department Care Team (Latest Contact Info) Description 10/09/2024 Travel Social History Tobacco Use Types Packs/Day Years [...] Description 11/21/2024 11:00 AM EDT Office Visit [facility] OPTOMETRY [address] [place] [address] Jose, Ayla, OD [address] [place] [address] documented as of this encounter Visit Diagnoses Not on filedocumented in this encounter Additional Health Concerns Assessment Noted Time PHQ-9 Depression Total Score: 0 05/23/19 25 10:41 AM EDT documented as of this encounter Care Teams Conservation Science Officer Relationship Specialty Start Date End Date Fidelia Amaya MD [address] [place] [address] PCP - General Family Medicine 01/18/21 documented as of this encounter
--- OUTSIDE RECORDS SUMMARY | 2024-10-09 15:26 | XMS_ITS | Encounter Summary ---
Author Organization [employer] Address 75 [facility] 7t [place] [address] Care Team Providers Care Construction Supervisor Name Role Phone Fidelia Amaya MD Primary Care Provide r Reason for Visit * Reason Comments Med Refill Encounter Details Date Type Department Care Team (Late Contact Info) Description 09/20/2022 Refill [facility] [address] [place] [address] [facility] [address] [place] [address] Bug bite, initial encounter Social History Tobacco [...] Description 11/21/2024 11:00 AM EDT Office Visit [facility] OPTOMETRY [address] [place] [address] Jose, Ayla, OD 230 [place] [address] documented as of this encounter Visit Diagnoses Diagnosis Bug bite, initial encounter documented in this encounter Care Teams Construction Supervisor Relationship Specialty Start Date End Date Fidelia Amaya MD [address] [place] [address] PCP - General Family Medicine 01/18/21 documented as of this encounter
--- OUTSIDE RECORDS SUMMARY | 2024-10-09 15:26 | XMS_ITS | Encounter Summary ---
Author Organization [employer] Address 75 [facility] 7t [place] [address] Care Team Providers Care Industrial Fabric Cutter Name Role Phone Fidelia Amaya MD Primary Care Provide r Reason for Visit * Reason Comments Med Refill Encounter Details Date Type Department Care Team ([facility] st Contact Info) Description 12/04/2023 Refill [facility] [address] [place], [place] [phone] Fidelia Amaya MD [address] [place], [place] [phone] Vitamin D deficiency Social History Tobacco Use [...] Description 11/21/2024 11:00 AM EDT Office Visit [facility] OPTOMETRY [address] [place] [address] Jose, Ayla, OD 230 [place] [address] documented as of this encounter Visit Diagnoses Diagnosis Vitamin D deficiency documented in this encounter Care Teams Industrial Fabric Cutter Relationship Specialty Start Date End Date Fidelia Amaya MD [address] [place] [address] PCP - General Family Medicine 01/18/21 documented as of this encounter
--- OUTSIDE RECORDS SUMMARY | 2024-10-09 15:26 | XMS_ITS | Encounter Summary ---
Author Organization [employer] Address 75 [facility] 7 [place] [address] Care Team Providers Care Grain Cleaner Name Role Phone Fidelia Amaya MD Primary Care Provide r Reason for Visit * Reason Comments Med Refill Encounter Details Date Type Department Care Team (Late Contact Info) Description 07/06/2022 Refill [facility] MEDIC[facility] [address] [place] [address] Ya West MD [address] [place] [address] Acquired hypothyroidism Social History Tobacco Use Types [...] Description 11/21/2024 11:00 AM EDT Office Visit [facility] OPTOMETRY [address] [place], [place] [phone] Ayla Garcia, OD [address] [place] [address] documented as of this encounter Visit Diagnoses Diagnosis Acquired hypothyroidism Unspecified hypothyroidism documented in this encounter Care Teams Grain Cleaner Relationship Specialty Start Date End Date Fidelia Amaya MD [address] [place] [address] PCP - General Family Medicine 01/18/21 documented as of this encounter
== END 2024-10-09 14:12 | disposition home or self-care (01) ==
LOC: HO.HHCX 14:11
PROVIDERS: Visit Provider Family Medicine
DX: J45.31 Mild persistent asthma with (acute) exacerbation (principal)
CPT/HCPCS: 71046

== ENCOUNTER → 2024-10-09 14:12 | Outpatient (BNV) | payer MEDICAID, SELFPAY | PROVIDERS: Visit Provider Radiology Diagnostic Radiology | DX: R07.89 Other chest pain (principal); R05.9 Cough, unspecified; R50.9 Fever, unspecified | CPT/HCPCS: 71046 ==

== ENCOUNTER 2024-11-21 09:32 | Outpatient (REF) | payer MEDICAID, SELFPAY ==
--- NOTE | ~2024-11-21 | XR_ITS ---
EXAMINATION: XR THORACIC SPINE CLINICAL INFORMATION: PAIN COMPARISON: None available. TECHNIQUE: 3 views of the thoracic spine were obtained. FINDINGS: There is maintained thoracic kyphosis with mild levoscoliosis. The vertebral heights, alignment and disc heights are normal. There is mild right lateral spondylosis mid and lower dorsal spine. No acute fracture, lytic or sclerotic process seen. The paravertebral soft tissues are normal. 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 Mild levoscoliosis mid dorsal spine. Electronically signed by: Norman Waters MD 11/21/2024 10:01 AM EDT
--- NOTE | ~2024-11-21 | XR_ITS ---
EXAMINATION: XR CHEST CLINICAL INFORMATION: worsening R sided mid back pain, worse with inspiration COMPARISON: 10/09/2024. TECHNIQUE: 2 views of the chest were obtained. FINDINGS: Top normal heart size. Mediastinal and hilar contours appear normal. The lungs are clear bilaterally. Mild biapical scarring. There is no pneumothorax or pleural effusion. There is no focal osseous or soft tissue abnormality. There are cholecystectomy clips present. XR/XR chest 2V IMPRESSION: No active pulmonary disease. Electronically signed by: Rashawn Pan MD 11/21/2024 10:01 AM EDT
--- OUTSIDE RECORDS SUMMARY | 2024-11-21 09:00 | XMS_ITS | Encounter Summary ---
Author Organization [employer] Address 75 [facility] 7t [place] [address] Care Team Providers Care Ropeman Name Role Phone Fidelia Amaya MD Primary Care Provide r Encounter Details Date Type Department Care Team (Late st Contact Info) Description 11/21/2024 9:00 AM EDT Office Visit [facility] MEDICINE [address] [place], [place] [phone] Noemi Caldwell DO [address] [place], [place] [phone] Mid back pain on right side (Primary Dx) Social History Tobacco Use Types [...] Sign Reading Time Taken Comments Blood Pressure 134/78 11/21/2024 9:05 AM EDT Pulse 88 11/21/2024 9:05 AM EDT Temperature 36.6 C (97.9 F) 11/21/2024 9:05 AM EDT Respiratory Rate 21 11/21/2024 9:05 AM EDT Oxygen Saturation 96% 11/21/2024 9:05 AM EDT Inhaled Oxygen Concentration - - Weight 104 kg (230 lb) 11/21/2024 9:05 AM EDT Height 160 cm (5' 3 ) 11/21/2024 9:05 AM EDT Body Mass Index 40.74 11/21/2024 9:05 AM EDT documented in this encounter Progress Notes * Noemi Caldwell, DO - 11/21/2024 9:00 AM EDT SUBJECTIVE Jo-Ann Ly is a 58 y.o. female who presents for Sick Visit. She c/o mid back pain on the R side for the last couple of mos. She says that the pain is constant and worse when she takes a deep breath. She says that it's been really cold in her apt and the cold also makes her pain worse. Last night she couldn't sleep because of the pain. She has tried tylenol which helps a little. She reports h/o scoliosis. She was sick ~ 3-4 weeks ago with URI symptoms but says that her pain started way before then. She denies any cough or SOB. No asthma symptoms. No fevers. She says that she had PT a long time ago. She has no h/o injections. Back Pain The current episode started more than 1 month ago. The problem occurs constantly. The problem has been gradually worsening since onset. The pain is present in the thoracic spine. The quality of the pain is described as aching. The pain does not radiate. The pain is severe. The pain is Worse during the night. Pertinent negatives include no abdominal pain, bladder incontinence, bowel incontinence, chest pain, fever, headaches, numbness, tingling or weakness. She has tried analgesics for the symptoms. The treatment provided mild relief. Review of Systems Constitutional: Negative for activity change, appetite change, chills, fever and unexpected weight change. Respiratory: Negative for cough and shortness of breath. Cardiovascular: Negative for chest pain, palpitations and leg swelling. Gastrointestinal: Negative for abdominal pain, bowel incontinence, diarrhea, nausea and vomiting. Genitourinary: Negative for bladder incontinence. Musculoskeletal: Positive for back pain. Neurological: Negative for tingling, weakness, numbness and headaches. Patient Active Problem List Diagnosis Acquired hypothyroidism Lumbar back pain Chronic right-sided low back pain without sciatica Depressive disorder Mild persistent asthma Migraine Impingement syndrome of shoulder region History of total hysterectomy History of cholecystectomy Greater trochanteric pain syndrome Foot pain Essential hypertension Dyslipidemia Disorder of vein Thalassemia Steatosis of liver Seasonal allergies Primary insomnia Newly diagnosed diabetes (HCC) Morbid obesity (CMS/HCC) (HCC) Moderate persistent asthma Tingling of skin Encounter for preventive health examination Pruritus Type 2 diabetes mellitus with hyperglycemia, with long-term current use of insulin ([facility]) Scabies Rash and nonspecific skin eruption Chronic bilateral low back pain Oral pain Left foot pain Dysphagia Enlarged thyroid Allergic reaction Allergies Allergen Reactions Oxycodone Anaphylaxis Amoxicillin Other reaction(s): Hives / Skin Rash Aspirin Other reaction(s): Stomach Pain Guggulipid-Black Pepper Ibuprofen Meperidine Other reaction(s): I get very nervous [in Telugu] Morphine Prochlorperazine Other reaction(s): unspecified Other reaction(s): unspecified OBJECTIVE Visit Vitals BP 134/78 (BP Location: Left arm, Patient Position: Sitting, BP Cuff Size: Adult) Pulse 88 Temp 97.9 ??F (36.6 ??C) (Oral) Resp 21 Ht 5' 3 (1.6 m) Wt 230 lb (104 kg) SpO2 96% BMI 40.74 kg/m?? OB Status Postmenopausal Smoking Status Never BSA 2.15 m?? Physical Exam Constitutional: General: She is not in acute distress. Appearance: Normal appearance. Cardiovascular: Rate and Rhythm: Normal rate and regular rhythm. Heart sounds: Normal heart sounds. No murmur heard. Pulmonary: Effort: Pulmonary effort is normal. Breath sounds: Normal breath sounds. No wheezing or rhonchi. Musculoskeletal: Thoracic back: Spasms and tenderness present. No swelling, deformity or bony tenderness. Decreased range of motion. Comments: Moderate upper thoracic R parapsinal mm spasm with TTP Moderate lower thoracic L paraspinal mm spasm with TTP Neurological: General: No focal deficit present. Mental Status: She is alert and oriented to person, place, and time. Cranial Nerves: No cranial nerve deficit. Sensory: Sensation is intact. Motor: Motor function is intact. Gait: Gait is intact. Deep Tendon Reflexes: Reflex Scores: Bicep reflexes are 2+ on the right side and 2+ on the left side. Psychiatric: Mood and Affect: Mood normal. Assessment/Plan Diagnoses and all orders for this visit: Mid back pain on right side With progressive worsening, neuro exam nml, likely mechanical -referred for chest x-ray and T-spine xrays -treat with medrol dose chely -trial baclofen to help with mm spasm -cont tylenol prn -trial diclofenac gel -she defers referral to PT or PM -advised rtc if no improvement or symptoms change or worsen, she agrees with plans - XR Chest 2 Views; Future - XR Thoracic Spine 2 Views; Future - methylPREDNISolone (Medrol Dospak) 4 MG tablets; Follow schedule on package instructions - baclofen (Lioresal) 10 MG tablet; Take 1 tablet (10 mg) by mouth if needed in the morning, at noon, and at bedtime for muscle spasms. - Diclofenac Sodium 1 % gel; Apply 2 g topically if needed in the morning, at noon, in the evening,and at bedtime (pain). - acetaminophen (Tylenol 8 Hour) 650 MG ER tablet; Take 1 tablet (650 mg) by mouth every 8 (eight) hours if needed for mild pain. Do not crush, chew, or split. --Follow-up with PCP as scheduled or sooner prn-- Current Outpatient Medications: acetaminophen (Tylenol 8 Hour) 650 MG ER tablet, Take 1 tablet (650 mg) by mouth every 8 (eight) hours if needed for mild pain. Do not crush, chew, or split., Disp: 60 tablet, Rfl: 1 albuterol (2.5 MG/3ML) 0.083% nebulizer solution, Take 3 mL (2.5 mg) by nebulization in the morning, at noon, and at bedtime., Disp: 270 mL, Rfl: 11 albuterol 108 (90 Base) MCG/ACT inhaler, Inhale 2 puffs every 6 (six) hours if needed for wheezing., Disp: 18 g, Rfl: 0 albuterol 108 (90 Base) MCG/ACT inhaler, Inhale 2 puffs every 6 (six) hours if needed for wheezing., Disp: 18 g, Rfl: 11 Alcohol Swabs (SM Alcohol Prep) 70 % pads, USE TWICE DAILY, Disp: 100 each, Rfl: 11 baclofen (Lioresal) 10 MG tablet, Take 1 tablet (10 mg) by mouth if needed in the morning, at noon,and at bedtime for muscle spasms., Disp: 60 tablet, Rfl: 1 cetirizine (ZyrTEC) 10 MG tablet, Take 1 tablet (10 mg) by mouth Once per day., Disp: 30 tablet, Rfl: 3 D3 Super Strength 50 MCG (2000 UT) capsule, TAKE 1 CAPSULE BY MOUTH EVERY DAY, Disp: 90 capsule, Rfl: 1 Diclofenac Sodium 1 % gel, Apply 2 g topically if needed in the morning, at noon, in the evening, and at bedtime (pain)., Disp: 150 g, Rfl: 3 diphenhydrAMINE (BENADryl) 25 MG tablet, Take 1 tablet (25 mg) by mouth if needed at bedtime for itching., Disp: 30 tablet, Rfl: 0 doxepin (SINEquan) 25 MG capsule, Take 1 capsule (25 mg) by mouth at bedtime., Disp: 30 capsule, Rfl: 0 EPINEPHrine (Epipen) 0.3 MG/0.3ML injection syringe, Inject 0.3 mL (0.3 mg) as directed 1 (one) time if needed for anaphylaxis. Inject into upper leg. Call 911 after use., Disp: 2 each, Rfl: 0 fluticasone (Flonase) 50 MCG/ACT nasal spray, Administer 2 sprays into each nostril Once per day., Disp: 16 g, Rfl: 3 fluticasone furoate (Arnuity Ellipta) 200 MCG/ACT inhaler, Inhale 1 puff Once per day., Disp: 1 each, Rfl: 11 folic acid (Folvite) 1 MG tablet, TAKE 1 TABLET BY MOUTH EVERY DAY AT NOON, Disp: 90 tablet, Rfl: 0 glucose blood (FREESTYLE LITE) test strip, Check by fingerstick route 2 times every day, Disp: , Rfl: glucose blood (FREESTYLE LITE) test strip, USE TO TEST BLOOD SUGAR TWICE DAILY, Disp: 100 strip, Rfl: 11 hydroCHLOROthiazide (HYDRODiuril) 25 MG tablet, TAKE 1 TABLET BY MOUTH ONCE DAILY, Disp: 90 tablet,Rfl: 1 hydrOXYzine HCl (Atarax) 25 MG tablet, Take 1 tablet (25 mg) by mouth 4 times daily., Disp: 120 tablet, Rfl: 0 hydrOXYzine pamoate (Vistaril) 25 MG capsule, Take 1 capsule (25 mg) by mouth every 6 (six) hours if needed for anxiety. May take 2 capsules q 6 hours prn. May cause drowsinees, Disp: 30 capsule, Rfl: 0 levothyroxine (Synthroid, Levoxyl) 150 MCG tablet, Take 1 tablet (150 mcg) by mouth before breakfast. TAKE 1 TABLET BY MOUTH BEFORE BREAKFAST, Disp: 90 tablet, Rfl: 3 methylPREDNISolone (Medrol Dospak) 4 MG tablets, Follow schedule on package instructions, Disp: 21 tablet, Rfl: 0 Nebulizer misc, 1 kit Every 4-6 hours as needed (for wheeezing and shortness of breath)., Disp: 1 each, Rfl: 0 permethrin (Elimite) 5 % cream, apply to skin from hairline to toes and wash off 8-10 hours later, Disp: 60 g, Rfl: 2 sodium chloride (Campbell Nasal [place]) 0.65 % nasal spray, Administer 2 sprays into each nostril if needed for congestion., Disp: 30 mL, Rfl: 3 triamcinolone (Kenalog) 0.1 % cream, MIX WITH CERAVE AND APPLY TOPICALLY TO THE AFFECTED AREA(S) TWICE DAILY, Disp: 80 g, Rfl: 11 TRUEplus Lancets 33G misc, USE TO TEST BLOOD SUGAR TWICE DAILY, Disp: 100 each, Rfl: 11 documented in this encounter Plan of Treatment Upcoming Encounters Date Type Department Care Team (Late st Contact Info) Description 11/21/2024 11:00 AM EDT Office Visit [facility] OPTOMETRY [address] [place] [address] Ayla Garcia, OD [address] [place] [address] Arrived 12/22/2024 11:00 AM EST Office Visit [facility] MEDICINE [address] [place] [address] Fidelia Amaya MD [address] [place] [address] documented as of this encounter Procedures Procedure Name Priority Date/Time Associated Diagnosis Comments XR THORACIC SPINE 2 VIEWS Routine 11/21/2024 9:50 AM EDT Mid back pain on right side XR CHEST 2 VIEWS Routine 11/21/2024 9:50 AM EDT Mid back pain on right side documented in this encounter Results * XR Thoracic Spine 2 Views (11/21/2024 9:50 AM EDT) Anatomical Region Laterality Modality Spine, T-spine Radiographic Zenia ging 11/21/2024 9:50 AM EDT Narrative 11/21/2024 10:04 AM EDT [facility] [address] [place] [address] XRay Report Signed Patient: Jo-Ann Matthews MR#: [id number] : 1965 Acct:[id number] Age/Sex: 58 / F ADM Date: 11/21/24 [facility]: Noemi Caldwell DO Ordering Physician: Noemi Caldwell DO Date of Service: 11/21/24 Procedure(s): XR thoracic spine 2V Accession Number(s): [id number] cc: Noemi Caldwell DO Reason for Exam: PAIN EXAMINATION: XR THORACIC SPINE CLINICAL INFORMATION: PAIN COMPARISON: None available. TECHNIQUE: 3 views of the thoracic spine were obtained. FINDINGS: There is maintained thoracic kyphosis with mild levoscoliosis. The vertebral heights, alignment and disc heights are normal. There is mild right lateral spondylosis mid and lower dorsal spine. No acute fracture, lytic or sclerotic process seen. The paravertebral soft tissues are normal. 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 Mild levoscoliosis mid dorsal spine. Electronically signed by: Norman Waters MD 11/21/2024 10:01 AM EDT Dictated By: Norman Waters MD Signed By: <Electronically signed by Norman Waters MD in OV> 11/21/24 1001 DD/ 0950 TD/TT: 11/21/24 0954 Twist Packer: [facility] Procedure Note Donotuseinterpreter, Image - 11/21/2024 [place] [address] XRay Report Signed Patient: Darshana Matthews#: M [id number] : 1965Acct:[id number] Age/Sex: 58 / FADM Date: 11/21/24 Loc: HO.[facility] Attending Dr: Noemi Caldwell DO Ordering Physician: Noemi Caldwell DO Date of Service: 11/21/24 Procedure(s): XR thoracic spine 2V Accession Number(s): [id number] cc: Noemi Caldwell DO Reason for Exam: PAIN EXAMINATION: XR THORACIC SPINE CLINICAL INFORMATION: PAIN COMPARISON: None available. TECHNIQUE: 3 views of the thoracic spine were obtained. FINDINGS: There is maintained thoracic kyphosis with mild levoscoliosis. The vertebral heights, alignment and disc heights are normal. There is mild right lateral spondylosis mid and lower dorsal spine. No acute fracture, lytic or sclerotic process seen. The paravertebral soft tissues are normal. 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 Mild levoscoliosis mid dorsal spine. Electronically signed by: Norman Waters MD 11/21/2024 10:01 AM EDT RP Dictated By: Norman Waters MD Signed By: <Electronically signed by Norman Waters MD in OV> 11/21/24 1001 DD/ 0950 TD/TT: 11/21/24 0954 Twist Packer: [email or web address] Noemi Caldwell DO IMG XR PROCEDURES Final Resu lt * XR Chest 2 Views (11/21/2024 9:50 AM EDT) Anatomical Region Laterality Modality Chest Radiographic Zenia ging 11/21/2024 9:50 AM EDT Narrative 11/21/2024 10:04 AM EDT [address] [address] XRay Report Signed Patient: Jo-Ann Matthews MR#: [id number] : 1965 Acct:[id number] Age/Sex: 58 / F ADM Date: 11/21/24 Loc: HO.[facility] Attending Dr: Noemi Caldwell DO Ordering Physician: Noemi Caldwell DO Date of Service: 11/21/24 Procedure(s): XR chest 2V Accession Number(s): [id number] cc: Noemi Caldwell DO Reason for Exam: worsening R sided mid back pain, worse with inspiration EXAMINATION: XR CHEST CLINICAL INFORMATION: worsening R sided mid back pain, worse with inspiration COMPARISON: 10/09/2024. TECHNIQUE: 2 views of the chest were obtained. FINDINGS: Top normal heart size. Mediastinal and hilar contours appear normal. The lungs are clear bilaterally. Mild biapical scarring. There is no pneumothorax or pleural effusion. There is no focal osseous or soft tissue abnormality. There are cholecystectomy clips present. XR/XR chest 2V IMPRESSION: No active pulmonary disease. Electronically signed by: Rashawn Pan MD 11/21/2024 10:01 AM EDT RP Dictated By: Rashawn Pan MD Signed By: <Electronically signed by Rashawn Pan MD in OV> 11/21/24 1001 DD/ TD/TT: 11/21/2454 Twist Packer: Procedure Note Donotuseinterpreter, Image - 11/21/[address] [address] XRay Report Signed Patient: Darshana Matthews#: M [id number] : 1965Acct:[id number] Age/Sex: 58 / FADM Date: 11/21/24 Loc: HO.[facility] Attending Dr: Noemi Caldwell DO Ordering Physician: Noemi Caldwell DO Date of Service: 11/21/24 Procedure(s): XR chest 2V Accession Number(s): [id number] cc: Noemi Caldwell DO Reason for Exam: worsening R sided mid back pain, worse with inspiration EXAMINATION: XR CHEST CLINICAL INFORMATION: worsening R sided mid back pain, worse with inspiration COMPARISON: 10/09/2024. TECHNIQUE: 2 views of the chest were obtained. FINDINGS: Top normal heart size. Mediastinal and hilar contours appear normal. The lungs are clear bilaterally. Mild biapical scarring. There is no pneumothorax or pleural effusion. There is no focal osseous or soft tissue abnormality. There are cholecystectomy clips present. XR/XR chest 2V IMPRESSION: No active pulmonary disease. Electronically signed by: Rashawn Pan MD 11/21/2024 10:01 AM EDT RP Dictated By: Rashawn Pan MD Signed By: <Electronically signed by Rashawn Pan MD in OV> 11/21/24 1001 DD/ 0950 TD/TT: 11/21/24953 Twist Packer: us Noeim Caldwell DO IMG XR PROCEDURES Final Resu lt documented in this encounter Visit Diagnoses Diagnosis Mid back pain on right side- Primary documented in this encounter Additional Health Concerns Assessment Noted Time PHQ-9 Depression Total Score: 0 05/23/19 25 10:41 AM EDT documented as of this encounter Care Teams Ropeman Relationship Specialty Start Date End Date Fidelia Amaya MD [address] [place] [address] PCP - General Family Medicine 01/18/21 documented as of this encounter
--- OUTSIDE RECORDS SUMMARY | 2024-11-21 10:45 | XMS_ITS | Clinical Summary ---
Author Organization [employer] Address [address] [facility] 7t [place] [address] Care Team Providers Care Net Mobile Developer Name Role Phone Fidelia Amaya MD Primary Care Provide r Allergies Active Allergy Reactions Criticality Noted Date Comments Amoxicillin 04/29/2020 Other reaction(s): Hives / Skin Rash Aspirin 03/01/2015 Other reaction(s): Stomach Pain Guggulipid-Black Pepper 03/21/2023 Ibuprofen 05/20/2014 Meperidine 08/12/2018 Other reaction(s): I get very nervous [in [place]] Morphine 05/20/2014 Oxycodone Anaphylaxis High 04/07/2015 Prochlorperazine Other reaction(s): unspecified Other reaction(s): unspecified Medications hydrOXYzine HCl (Atarax) 25 MG tabletIndications :Bug bite, initial encounter Take 1 tablet (25 mg) by mouth 4 times daily. 120 tablet 023 Active glucose blood (FREESTYLE LITE) test strip Check by fingerstick route 2 times every day 022 Active albuterol 108 (90 Base) MCG/ACT inhalerIndication [...] off 8-10 hours later 60 g 2 03/13/2 024 Active diphenhydrAMINE (BENADryl) 25 MG tablet Take 1 tablet (25 mg) by mouth if needed at bedtime for itching. 30 tablet Active Alcohol Swabs (SM Alcohol Prep) 70 % padsIndications:T ype 2 diabetes mellitus with other specified complication, unspecified whether fdc insulin use (HCC) USE TWICE DAILY 100 each Active hydroCHLOROthiazi de (HYDRODiuril) 25 MG tabletIndications :Primary hypertension TAKE 1 TABLET BY MOUTH ONCE DAILY 90 tablet 1 Active triamcinolone (Kenalog) 0.1 % creamIndications: Generalized [...] at noon, and at bedtime. 270 mL 2024 Active folic acid (Folvite) 1 MG [...] 2025 Active D3 Super Strength 50 MCG (1999 UT) capsuleIndication s:Vitamin D deficiency TAKE 1 [...] day. 30 tablet 3 025 2025 Active fluticasone (Flonase) 50 MCG/ACT nasal sprayIndications: Cough in adult patient Administer 2 sprays into each nostril Once per day. 16 g 3 Active sodium chloride (Motley Nasal [place]) 0.65 % nasal spray Administer 2 sprays into each nostril if needed for congestion. 30 mL 025 2025 Active TRUEplus Lancets 33G miscIndications:T ype 2 diabetes mellitus with hyperglycemia, with long-term current use of insulin ([facility]) USE TO TEST BLOOD SUGAR TWICE DAILY 100 each Active glucose blood (FREESTYLE LITE) test stripIndications: Type 2 diabetes mellitus with hyperglycemia, with long-term current use of insulin ([facility]) USE TO TEST BLOOD SUGAR TWICE DAILY 100 strip Active fluticasone furoate (Arnuity Ellipta) 200 MCG/ACT inhalerIndication s:Moderate persistent asthma, unspecified whether complicated Inhale 1 puff Once per day. 1 each 025 2025 Active methylPREDNISolon e (Medrol Dospak) 4 MG tablets Follow schedule on package instructions 21 tablet 025 2024 Active baclofen (Lioresal) 10 MG tablet Take 1 tablet (10 mg) by mouth if needed in the morning, at noon, and at bedtime for muscle spasms. 60 tablet 1 025 2024 Active Diclofenac Sodium 1 % gel Apply 2 g topically if needed in the morning, at noon, in the evening, and at bedtime (pain). 150 g 3 Active acetaminophen (Tylenol 8 Hour) 650 MG ER tablet Take 1 tablet (650 mg) by mouth every 8 (eight) hours if needed for mild pain. Do not crush, chew, or split. 60 tablet 1 025 2025 Active FREESTYLE LITE test stripIndications: Type 2 diabetes mellitus with hyperglycemia, with long-term current use of insulin (HCC) USE TO TEST BLOOD SUGAR TWICE DAILY 100 strip 11 024 2024 Discontinued(R eorder (will not trigger notification to Pharmacy)) Mometasone Furoate (Asmanex HFA) 100 MCG/ACT aerosolIndication s:Moderate persistent asthma, unspecified whether complicated Inhale 2 Act (200 mcg) 2 times daily. 120 Act 11 025 2024 Discontinued acetaminophen (Tylenol 8 Hour) 650 MG ER tablet Take 1 tablet (650 mg) by mouth every 8 (eight) hours if needed for mild pain. Do not crush, chew, or split. 40 tablet 1 025 2024 Active Problems Problem Noted Date [...] - Follow up: 3 months Scabies 03/21/2023 Pruritus 08/18/2022 Assessment & Plan (08/21/2024 2:27 [...] and topical steroids, I referred today to hot oiler. - Lesions do not appear to be from scabies and so, will hold on Tx. - If no etiology found by hot oiler, will need to consider delusional parasitosis, in [...] report not available. [place] [facility] [place] Lipids/FBS TBO Vaccinations she [...] vein 11/15/2017 Seasonal allergies 07/23/2017 Morbid obesity (CMS/HCC) 07/23/2017 Primary insomnia 04/26/2016 History of total [...] be symptomatic. Recheck CBC and FU PCP Resolved Problems Problem Noted Date Diagnosed Date Resolved Date URI, acute 02/26/2023 11/21/2024 Encounters Date Type Department Care Team Description 11/21/2024 9:00 AM EDT Office Visit [facility] [address] [place] [phone] Noemi Caldwell DO Mid back pain on right side (Primary Dx) 11/21/2024 Travel 10/29/2024 Refill [facility] [address] [place] [address] Noemi Caldwell DO Moderate persistent asthma, unspecified whether complicated 10/27/2024 Telephone [facility] [address] [place] [phone] Fidelia Amaya MD letter; Call Back Request 10/27/2024 Refill [facility] [address] [place] [phone] Fidelia Amaya MD Type 2 diabetes mellitus with hyperglycemia, with long-term current use of insulin ([facility]) 10/22/2024 Refill [facility] [address] [place] [phone] Fidelia Amaya MD Type 2 diabetes mellitus with hyperglycemia, with long-term current use of insulin ([facility]) 10/16/2024 Telephone [facility] [address] [place] [address] Fidelia Amaya MD NOV RECALL 10/15/2024 Telephone [facility] [address] [place] [phone] Fidelia Amaya MD Letter Request (I called the patient to get clarification, regarding her request for a letter for housing. She informed me that she no longer needs the letter. I asked her to contact the [facility] department, if she needs to make another request in the future. She verbalized understanding.) 10/09/2024 1:20 PM EDT Office Visit [facility] [address] [address] Noemi Caldwell DO Mild persistent asthma with acute exacerbation (Primary Dx); Acute non-recurrent maxillary sinusitis; Allergic reaction, subsequent encounter; Moderate persistent asthma, unspecified whether complicated; Cough in adult patient 10/09/2024 Telephone [facility] [address] [place] [phone] Noemi Caldwell DO Results 10/09/2024 Travel 08/25/2024 8:40 AM EDT Office Visit [facility]ALK[facility] [address] [address] Darrel Eddy MD Acute otitis externa of both ears, unspecified type (Primary Dx); Essential hypertension 08/25/2024 Travel 08/21/2024 1:45 PM EDT Telemedicine [facility] [address] [place] [address] [phone] Fidelia Amaya MD Left foot pain (Primary Dx); Pruritus; Essential hypertension; Dyslipidemia; Moderate persistent asthma, unspecified whether complicated 08/21/2024 Travel from Last 3 Months Immunizations Immunization Administration [...] Mass Index 40.74 11/21/2024 9:05 AM EDT Plan of Treatment Upcoming Encounters Date Type Department Care Team (Late st Contact Info) Description 11/21/2024 11:00 AM EDT Office Visit [facility] OPT[facility] [address] [place] [address] Jose, Ayla, OD [address] [place] [address] Arrived 12/22/2024 11:00 AM EST Office Visit [facility] [address] [place] [address] Fidelia Amaya MD [address] [place] [address] Health Maintenance Due Date Last Done Comments [...] 08/06, 08/29/2022, Additional history exists COVID-19 Vaccine ( - season) 2024 10/25/2020, 09/30/2020 Influenza Vaccine (#1) 2024 9, 11/15/2017, 01/03/2017, Additional history exists Diabetes: Hemoglobin A1C 11/21/2024 025, 03/21/2023, 05/23/2022, Additional history exists Alcohol/Substance Use Screening 05/22/2025 05/22/2024 Depression Screening 05/22/2025 05/22/2024, 05/23/19 25 Disability Screening 05/22/2025 05/22/2024 SDOH Screening 05/22/2025 05/22/2024 Lipid Panel 06/02/2025 06/02/2024, 03/08, 08/30/2020 Tobacco Screening 11/21/2025 11/21/2024 DTaP/Tdap/Td Vaccines (2 - Td or Tdap) [...] on right side XR CHEST 2 VIEWS STAT 10/09/2024 1:45 [...] hyperglycemia, with long-term current use of insulin ([facility]) BI MAMMOGRAM SCREENING BILATERAL Routine 05/08/2018 12:46 PM EDT HM COLONOSCOPY Routine 06/22/2016 from Last 3 Months or Most Recently Relevant to Health Maintenance Results * XR Thoracic Spine 2 Views (11/21/2024 9:50 AM EDT) Anatomical Region Laterality Modality Spine, T-spine Radiographic Zenia ging 11/21/2024 9:50 AM EDT Narrative 11/21/2024 10:04 AM EDT [address] [address] XRay Report Signed Patient: Jo-Ann Matthews MR#: [id number] : 1965 Acct:[id number] Age/Sex: 58 / F ADM Date: 11/21/24 [facility]ending Dr: Noemi Caldwell DO Ordering Physician: Noemi Caldwell DO Date of Service: 11/21/24 Procedure(s): XR thoracic spine 2V Accession Number(s): [id number] cc: Noemi Caldwell DO Reason for Exam: [...] 11/21/24 1001 DD/ 0950 TD/TT: 11/21/24 0954 Press Set Up Person: MAXIMO Procedure Note Donotuseinterpreter, Image - 11/21/[address] [address] XRay Report Signed Patient: Darshana Matthews#: [id number] : 1965Acct:[id number] Age/Sex: 58 / FADM Date: 11/21/24 Loc: [facility] Attending Dr: Noemi Caldwell DO Ordering Physician: Noemi Caldwell DO Date of Service: 11/21/24 Procedure(s): XR thoracic spine 2V Accession Number(s): [id number] cc: Noemi Caldwell DO Reason for Exam: [...] OV> 11/21/24 1001 DD/ 0950 TD/TT: 11/21/24953 Press Set Up Person: MAXIMO us Noemi Caldwell DO IMG XR PROCEDURES Final Resu lt * XR Chest 2 Views (11/21/2024 9:50 AM EDT) Only the most recent of2 resultswithin the time period is included. Anatomical Region Laterality Modality Chest Radiographic Zenia ging 11/21/2024 9:50 AM EDT Narrative 11/21/2024 10:04 AM EDT [facility] [address] [place] [address] XRay Report Signed Patient: Jo-Ann Matthews MR#: [id number] : 1965 Acct:[id number] Age/Sex: 58 / F ADM Date: 11/21/24 [facility] Dr: Noemi Caldwell DO Ordering Physician: Noemi Caldwell DO Date of Service: 11/21/24 Procedure(s): XR chest 2V Accession Number(s): [id number] cc: Noemi Caldwell DO Reason for Exam: [...] Rashawn Pan MD 11/21/2024 10:01 AM EDT Dictated By: Rashawn Pan MD Signed By: <Electronically signed by Rashawn Pan MD in OV> 11/21/24 1001 DD/ 0950 TD/TT: 11/21/24 0954 Press Set Up Person: Procedure Note Donotuseinterpreter, Image - 11/21/2024 [facility] [address] [place] [address] XRay Report Signed Patient: Blanche MatthewsR#: [id number] : 1965Acct:[id number] Age/Sex: 58 / FADM Date: 11/21/24 [facility] Dr: Noemi Caldwell DO Ordering Physician: Noemi Caldwell DO Date of Service: 11/21/24 Procedure(s): XR chest 2V Accession Number(s): [id number] cc: Noemi Caldwell DO Reason for Exam: [...] Rashawn Pan MD 11/21/2024 10:01 AM EDT Dictated By: Rashawn Pan MD Signed By: <Electronically signed by Rashawn Pan MD in OV> 11/21/24 1001 DD/ 0950 TD/TT: 11/21/24 0954 Press Set Up Person: Noemi Caldwell DO IMG XR PROCEDURES Final Resu lt * POCT Rapid Influenza A HARE ID NOW (10/09/2024 1:30 PM EDT) [facility] Influenza A Negative Negative, Indeterminate [facility] QC Media Lot # [id number] [facility] Lot# Expiration Date [id number] [facility] Swab 10/09/2024 1:30 PM EDT Noemi Caldwell DO POINT OF CARE TEST ENTER/SUZANNE T ORDERABLES Final Result [facility] [address] [place] [phone] * POCT Rapid Influenza B HARE ID NOW (10/09/2024 1:29 PM EDT) [facility] Influenza B Negative Negative, Indeterminate [facility] QC Media Lot # [id number] [facility] Lot# Expiration Date [facility] Swab 10/09/2024 1:29 PM EDT Noemi Paulette DO POINT OF CARE TEST ENTER/SUZANNE T ORDERABLES Final Result Performing Organization Address [facility]/ZIP Co de Phone Number [facility] [address] [place] [phone] * POCT Rapid Strep A HARE ID NOW (10/09/2024 1:27 PM EDT) [facility] Rapid Strep A Screen Negative Negative, None Detected QC Media Lot # [id number] Lot# Expiration Date Swab 10/09/2024 1:27 PM EDT Noemi Paulette DO POINT OF CARE TEST ENTER/SUZANNE T ORDERABLES Final Result * POCT Rapid Covid-19 BinaxNOW (10/09/2024 1:26 PM EDT) [facility] Rapid COVID Ag Negative QC Media Lot # [id number] Lot# Expiration Date Swab 10/09/2024 1:26 PM EDT Noemi Evertkhris DO POINT OF CARE TEST ENTER/SUZANNE T ORDERABLES Final Result * Hepatitis C Antibody with Reflex to HCV, RNA, Quantitative, Real-Time PCR (06/02/2024 8:12 AM EDT) [facility] Hepatitis C Antibody Nonreactive Nonreactive [facility] Comment:Antibodies to HCV no t detected; does not exclude early acuteHCV infection. Blood Venous blood specimen / Unknown 06/02/2024 8:12 AM EDT 06/02/2024 11:00 AM EDT Fidelia Rubio MD LAB BLOOD ORDERABLES Final Result [facility] [address] [place] [phone] * HIV-1/2 Antigen and Antibodies, Fourth Generation, with Reflexes (06/02/2024 8:12 AM EDT) HIV AB/AG Nonreactive Nonreactive [facility] Comment:HIV-1 p24 Ag and/or HIV-1/HIV-2 Ab not detected.A test result that is nonreactive does not exclude thepossibility of exposure to or infection with HIV-1 and/orHIV-2. Nonreactive results in this assay for individualswith prior exposure to HIV-1 and/or HIV-2 may be due toantigen and antibody levels that are below the limit ofdetection of this assay.The Thumbs Up HIV Ag/Ab Combo assay result andsupplemental assay results should be interpreted inconjunction with the patient's clinical presentation,history and other laboratory results. If the results areinconsistent with clinical evidence, additional testing issuggested to confirm the result. Blood Venous blood specimen / Unknown 06/02/2024 8:12 AM EDT 06/02/2024 11:00 AM EDT us Fidelia Rubio MD LAB BLOOD ORDERABLES Final Result Performing Organization Address [facility] Co de Phone Number [facility] [address] [place] [phone] [phone] * (ABNORMAL) Lipid Panel, Standard (06/02/2024 8:12 AM EDT) Triglycerides 183(H) <150 mg/dL [facility] Comment:Desirable Triglyceri de: less than 150 mg/dLBorderline High Triglyceride 150-199 mg/dLHigh Triglyceride: 200-499 mg/dLVery High Triglyceride: greater than or equal to 5OO mg/dL Cholesterol 208(H) <200 mg/dL [facility] Comment:Desirable Cholestero l: less than 200 mg/dLBorderline High Cholesterol: 200-239 mg/dLHigh Cholesterol: greater than 239 mg/dL LDL Cholesterol Calculated 138(H) <100 mg/dL [facility] Comment:Desirable LDL: less than 100 mg/dLNear Optimal/Above Optimal LDL: 110- 129 mg/dLBorderline High LDL: 130-159 mg/dLHigh LDL: 160-189 mg/dLVery High LDL: greater than or equal to 190 mg/dL HDL Cholesterol 34(L) >40 mg/dL [facility] Comment:Desirable HDL: great er than 40 mg/dL Note: This HDL assay may give artificially low results in patients with liver disease. Blood Venous blood specimen / Unknown 06/02/2024 8:12 AM EDT 06/02/2024 11:00 AM EDT Fidelia Rubio MD LAB BLOOD ORDERABLES Final Result [facility] [address] [place] [phone] * POCT HGB A1C (05/22/2024 10:42 [...] Procedure: DIGITAL BILATERAL SCREEN 1 Procedure Note ProviderMaria C MD - 04/29/2022 Refer to the Notes tab for result details [facility] Procedure: DIGITAL BILATERAL SCREEN 1 Bernabe Contreras MD IMG BI PROCEDURES Final Result * Hm Colonoscopy (06/22/2016) us Historical Provider HEALTH MAINTENANCE Final Result from Last 3 Months or Most Recently Relevant to Health Maintenance [place] [place] [address] C3 Care Teams Net Mobile Developer Relationship Specialty Start Date End Date Fidelia Amaya MD [address] [place] [phone] PCP - General Family Medicine 01/18/21
--- OUTSIDE RECORDS SUMMARY | 2024-11-21 10:45 | XMS_ITS | Encounter Summary ---
Author Organization [employer] Address [address] [facility] 7t [place] [address] Care Team Providers Care Salesperson Furs Name Role Phone Fidelia Amaya MD Primary Care Provide r Reason for Visit * Reason Comments Med Refill Encounter Details Date Type Department Care Team ([facility] st Contact Info) Description 09/12/2023 Refill [facility] [address] [place], [place] [phone] Fidelia Amaya MD [address] [place], [place] [phone] Scabies Social History Tobacco Use Types Packs/Day [...] 11/21/2024 11:00 AM EDT Office Visit [facility] [address] [place] [address] Jose, Ayla, OD [address] [place] [address] Arrived 12/22/2024 11:00 AM EST Office Visit [facility] [address] [place] [address] Fidelia Amaya MD [address] [place] [address] documented as of this encounter Visit Diagnoses Diagnosis Scabies documented in this encounter Care Teams Salesperson Furs Relationship Specialty Start Date End Date Fidelia Amaya MD [address] [place] [phone] PCP - General Family Medicine 01/18/21 documented as of this encounter
--- OUTSIDE RECORDS SUMMARY | 2024-11-21 10:45 | XMS_ITS | Encounter Summary ---
Author Organization [employer] Address [address] [facility] 7 [place] [address] Care Team Providers Care Drill Setup Operator Name Role Phone Fidelia Amaya MD Primary Care Provide r Reason for Visit * Reason Comments Med Refill Encounter Details Date Type Department Care Team ([facility] Contact Info) Description 07/06/2022 Refill [facility] [address] [place] [phone] Ya West MD [address] [place] [address] Acquired hypothyroidism Social History Tobacco Use Types [...] Description 11/21/2024 11:00 AM EDT Office Visit [facility] OPTOMETRY [address] [place] [address] Ayla Garcia, OD [address] [place] [address] Arrived 12/22/2024 11:00 AM EST Office Visit [facility] [address] [place] [address] Fidelia Amaya MD [address] [place] [address] documented as of this encounter Visit Diagnoses Diagnosis Acquired hypothyroidism Unspecified hypothyroidism documented in this encounter Care Teams Drill Setup Operator Relationship Specialty Start Date End Date Fidelia Amaya MD [address] [place] [address] PCP - General Family Medicine 01/18/21 documented as of this encounter
--- OUTSIDE RECORDS SUMMARY | 2024-11-21 10:45 | XMS_ITS | Encounter Summary ---
Author Organization [employer] Address [address] [facility] 7 [place] [address] Care Team Providers Care Planning Associate Name Role Phone Fidelia Amaya MD Primary Care Provide r Reason for Visit * Reason Comments Med Refill Encounter Details Date Type Department Care Team ([facility] Contact Info) Description 10/18/[address] [facility] [address] [place] [phone] Bakari Batista MD [address] [place] [address] Generalized pruritus Social History Tobacco Use Types [...] Description 11/21/2024 11:00 AM EDT Office Visit [facility] OPTOMETRY [address] [place] [address] Ayla Garcia, OD [address] [place] [address] Arrived 12/22/2024 11:00 AM EST Office Visit [facility] [address] [place] [address] Fidelia Amaya MD [address] [place], [place] [phone] documented as of this encounter Visit Diagnoses Diagnosis Generalized pruritus Unspecified pruritic disorder documented in this encounter Care Teams Planning Associate Relationship Specialty Start Date End Date Fidelia Amaya MD [address] [place] [address] PCP - General Family Medicine 01/18/21 documented as of this encounter
--- OUTSIDE RECORDS SUMMARY | 2024-11-21 10:45 | XMS_ITS | Encounter Summary ---
Author Organization [employer] Address [address] [facility] 7t [place] [address] Care Team Providers Care Locker Room Attendant Name Role Phone Fidelia Amaya MD Primary Care Provide r Reason for Visit * Reason Comments Med Refill Encounter Details Date Type Department Care Team ([facility] st Contact Info) Description 12/04/2023 Refill [facility] [address] [place], [place] [phone] Fidelia Amaya MD [address] [place], [place] [phone] Vitamin D deficiency Social History Tobacco Use [...] Description 11/21/2024 11:00 AM EDT Office Visit [facility] OPTOMETRY [address] [place] [address] Jose, Ayla, OD [address] [place] [address] Arrived 12/22/2024 11:00 AM EST Office Visit [facility] [address] [place] [address] Fidelia Amaya MD [address] [place] [address] documented as of this encounter Visit Diagnoses Diagnosis Vitamin D deficiency documented in this encounter Care Teams Locker Room Attendant Relationship Specialty Start Date End Date Fidelia Amaya MD [address] [place] [phone] PCP - General Family Medicine 01/18/21 documented as of this encounter
--- OUTSIDE RECORDS SUMMARY | 2024-11-21 10:45 | XMS_ITS | Encounter Summary ---
Author Organization [employer] Address [address] [facility] [address] [place] [address] Care Team Providers Care Research Laboratory Specialist Name Role Phone Fidelia Amaya MD Primary Care Provide r Reason for Visit * Reason Comments Med Refill Encounter Details Date Type Department Care Team ([facility] st Contact Info) Description 06/21/2023 Refill [facility] [address] [place], [place] [phone] [facility] [address] [place], [place] [phone] Bug bite, initial encounter Social History Tobacco [...] Description 11/21/2024 11:00 AM EDT Office Visit [facility] OPT[facility]ETRY [address] [place] [address] Jose, Ayla, OD [address] [place] [address] Arrived 12/22/2024 11:00 AM EST Office Visit [facility] [address] [place] [address] Fidelia Amaya MD [address] [place] [address] documented as of this encounter Visit Diagnoses Diagnosis Bug bite, initial encounter documented in this encounter Care Teams Research Laboratory Specialist Relationship Specialty Start Date End Date Fidelia Amaya MD [address] [place] [address] PCP - General Family Medicine 01/18/21 documented as of this encounter
--- OUTSIDE RECORDS SUMMARY | 2024-11-21 10:45 | XMS_ITS | Encounter Summary ---
Author Organization [employer] Address [address] [facility] [address] [place] [address] Care Team Providers Care Parquet Floor Layer'S Helper Name Role Phone Fidelia Amaya MD Primary Care Provide r Encounter Details Date Type Department Care Team ([facility] Contact Info) Description 09/01/[address] [facility] [address] [place] [phone] Mary Singh LPN Social History Tobacco Use [...] [facility] OPT[facility] [address] [place] [address] Jose, Ayla, OD [address] [place] [address] Arrived 12/22/2024 11:00 AM EST Office Visit [facility] [address] [place] [address] Fidelia Amaya MD [address] [place] [address] documented as of this encounter Visit Diagnoses Not on filedocumented in this encounter Care Teams Parquet Floor Layer'S Helper Relationship Specialty Start Date End Date Fidelia Amaya MD [address] [place] [address] PCP - General Family Medicine 01/18/21 documented as of this encounter
--- OUTSIDE RECORDS SUMMARY | 2024-11-21 10:45 | XMS_ITS | Encounter Summary ---
Author Organization [employer] Address [address] [facility] 7 [place] [address] Care Team Providers Care Casting And Locker Room Servicer Name Role Phone Fidelia Amaya MD Primary Care Provide r Reason for Visit * Reason Onset Date Comments FYI 04/06/2023 Encounter Details Date Type Department Care Team ([facility] st Contact Info) Description 04/06/2023 Telephone [facility] MEDICINE [address] [place], [place] [phone] Fidelia Amaya MD [address] [place], [place] [phone] FYI Social History Tobacco Use Types Packs/Day [...] message above. * Telephone Encounter - Suhail Víctor - 04/06/2023 1:32 PM EST Tc from [facility] for the [facility] calling to report the patient was prescribed permethrin (Elimite) 5 % cream for scabies but recently discovered after going to the patients home that itwas done by fleas any questions please call [facility] at [phone] documented in this encounter Plan of Treatment Upcoming Encounters Date Type Department Care Team (Late st Contact Info) Description 11/21/2024 11:00 AM EDT Office Visit [facility] OPTOMETRY [address] [place] [address] Jose, Yala, OD [address] [place] [address] Arrived 12/22/2024 11:00 AM EST Office Visit [facility] MEDICINE [address] [place] [address] Fidelia Amaya MD [address] [place] [address] documented as of this encounter Visit Diagnoses Not on filedocumented in this encounter Care Teams Casting And Locker Room Servicer Relationship Specialty Start Date End Date Fidelia Amaya MD [address] [place] [id number] PCP - General Family Medicine 01/18/21 documented as of this encounter
--- OUTSIDE RECORDS SUMMARY | 2024-11-21 10:45 | XMS_ITS | Encounter Summary ---
Author Organization [employer] Address 75 [facility] 7t [place] [address] Care Team Providers Care Video Effects Editor Name Role Phone Fidelia Amaya MD Primary Care Provide r Encounter Details Date Type Department Care Team (Latest Contact Info) Description 11/21/2024 Travel Social History Tobacco Use Types Packs/Day [...] Description 11/21/2024 11:00 AM EDT Office Visit [facility] OPTOMETRY [address] [place] [address] Jose, Ayla, OD [address] [place] [address] Arrived 12/22/2024 11:00 AM EST Office Visit [facility] MEDICINE [address] [place] [address] Fidelia Amaya MD [address] [place] [address] documented as of this encounter Visit Diagnoses Not on filedocumented in this encounter Additional Health Concerns Assessment Noted Time PHQ-9 Depression Total Score: 0 05/23/19 25 10:41 AM EDT documented as of this encounter Care Teams Video Effects Editor Relationship Specialty Start Date End Date Fidelia Amaya MD [address] [place] [address] PCP - General Family Medicine 01/18/21 documented as of this encounter
--- OUTSIDE RECORDS SUMMARY | 2024-11-21 10:45 | XMS_ITS | Encounter Summary ---
Author Organization [employer] Address 75 [facility] 7 [place] [address] Care Team Providers Care Bundle Collector Name Role Phone Fidelia Amaya MD Primary Care Provide r Encounter Details Date Type Department Care Team (Late st Contact Info) Description 02/09/2022 Telephone [facility] MEDICINE [address] [place] [phone] Fidelia Amaya MD [address] [place] [address] Social History Tobacco Use Types Packs/Day Years [...] 11/21/2024 11:00 AM EDT Office Visit [facility] OPTOMETRY [address] [place] [address] Jose, Ayla, OD [address] [place] [address] Arrived 12/22/2024 11:00 AM EST Office Visit [facility] MEDICINE [address] [place] [address] Fidelia Amaya MD [address] [place], [place] [phone] documented as of this encounter Visit Diagnoses Not on filedocumented in this encounter Care Teams Bundle Collector Relationship Specialty Start Date End Date Fidelia Amaya MD [address] [place], [place] [phone] PCP - General Family Medicine 01/18/21 documented as of this encounter
--- OUTSIDE RECORDS SUMMARY | 2024-11-21 10:45 | XMS_ITS | Encounter Summary ---
Author Organization [employer] Address [address] [facility] 7 [place] [address] Care Team Providers Care Package Handler Name Role Phone Fidelia Amaya MD Primary Care Provide r Encounter Details Date Type Department Care Team (Latest Contact Info) Description 05/12/2020 Abstract [facility] CONVERSIONS Dental, Provider, DDS Social History [...] 11/21/2024 11:00 AM EDT Office Visit [facility] OPTOMETRY [address] [place] [address] Jose, Ayla, OD [address] [place] [address] Arrived 12/22/2024 11:00 AM EST Office Visit [facility] MEDICINE [address] [place] [address] Fidelia Amaya MD [address] [place] [address] documented as of this encounter Visit Diagnoses Not on filedocumented in this encounter Care Teams Package Handler Relationship Specialty Start Date End Date Fidelia Amaya MD [address] [place] [address] PCP - General Family Medicine 01/18/21 documented as of this encounter
--- OUTSIDE RECORDS SUMMARY | 2024-11-21 10:45 | XMS_ITS | Encounter Summary ---
Author Organization [employer] Address [address] [facility] 7t [place] [address] Care Team Providers Care Transmission Assembler Name Role Phone Fidelia Amaya MD Primary Care Provide r Reason for Visit * Reason Comments Med Refill Encounter Details Date Type Department Care Team (Late Contact Info) Description 09/20/2022 Refill [facility] [address] [place] [address] [facility] [address] [place] [address] Bug bite, initial encounter Social History Tobacco [...] Description 11/21/2024 11:00 AM EDT Office Visit [facility] OPTOMETRY [address] [place] [address] Jose, Ayla, OD [address] [place] [address] Arrived 12/22/2024 11:00 AM EST Office Visit [facility] MEDICINE [address] [place] [address] Fidelia Amaya MD [address] [place] [address] documented as of this encounter Visit Diagnoses Diagnosis Bug bite, initial encounter documented in this encounter Care Teams Transmission Assembler Relationship Specialty Start Date End Date Fidelia Amaya MD [address] [place] [address] PCP - General Family Medicine 01/18/21 documented as of this encounter
--- OUTSIDE RECORDS SUMMARY | 2024-11-21 10:45 | XMS_ITS | Encounter Summary ---
Author Organization [employer] Address [address] [facility] 7 [place] [address] Care Team Providers Care Roofing Machine Operator Name Role Phone Fidelia Amaya MD Primary Care Provide r Encounter Details Date Type Department Care Team ([facility] Contact Info) Description 10/25/2022 Orders Only [facility] MEDICINE [address] [place] [id number] ProviderMaria C MD Social History Tobacco Use Types Packs/Day Years [...] 11:00 AM EDT Office Visit [facility] OPTOMETRY [address] [place] [address] Ayla Garcia, OD [address] [place] [address] Arrived 12/22/2024 11:00 AM EST Office Visit [facility] MEDICINE [address] [place] [address] Fidelia Amaya MD [address] [place] [address] documented as of this encounter Procedures Procedure Name Priority Date/Time Associated Diagnosis Comments COLONOSCOPY Routine 06/22/2016 documented in this encounter Results * Hm Colonoscopy (06/22/2016) us Historical Provider HEALTH MAINTENANCE Final Result documented in this encounter Visit Diagnoses Not on filedocumented in this encounter Care Teams Roofing Machine Operator Relationship Specialty Start Date End Date Fidelia Amaya MD [address] [place] [id number] PCP - General Family Medicine 01/18/21 documented as of this encounter
== END 2024-11-21 09:33 | disposition home or self-care (01) ==
LOC: HO.HHCX 09:32
PROVIDERS: PCP Family Medicine; Visit Provider Family Medicine
DX: M54.9 Dorsalgia, unspecified (principal)
CPT/HCPCS: 71046; 72070

== ENCOUNTER → 2024-11-21 09:35 | Outpatient (BNV) | payer MEDICAID, SELFPAY | PROVIDERS: PCP Family Medicine; Visit Provider Radiology Diagnostic Radiology | DX: M54.6 Pain in thoracic spine (principal); M47.814 Spondylosis without myelopathy or radiculopathy, thoracic region; M41.82 Other forms of scoliosis, cervical region | CPT/HCPCS: 71046; 72070 ==